=== PATIENT | female | born 1980 | race Caucasian/White ===

== ENCOUNTER 2017-06-06 16:49 | Emergency (ER) | payer SELFPAY ==
[2017-06-06 17:39] LABS: Absolute Lymphocytes (CBC) 2.5 K/uL (0.7-4.9); Absolute Monocytes 0.5 K/uL (0.1-1.3); Absolute Neutrophil 4.2 K/uL (1.8-8.0); Basophils % 0.5 % (0-1.3); Eosinophils % 2.6 % (0-4.4); Lymphocytes % 33.5 % (15.3-44.8); MCH 30.6 pg (27.0-35.0); MCV 94.5 fL (80-100); MPV 8.5 fL (7.6-11.3); Monocytes % 7.1 % (3.3-12.3)
[2017-06-06 17:49] LABS: Bicarbonate 24 mEq/L (21-31); Glucose Level 90 mg/dL (65-120); Potassium 3.5 mEq/L (3.6-5.0); Sodium Level 136 mEq/L (135-145)
[2017-06-06 17:50] LABS: BUN Blood Urea Nitrogen 19 mg/dL (6-20)
--- NOTE | 2017-06-06 18:00 | ER ---
Nurse's Notes [facility] Name: Nunu Johnson Age: 36 yrs Sex: Female : 1980 Arrival Date: 06/06/2017 Time: 16:50 Bed 30 Private MD: Diagnosis: Abnormal uterine and vaginal bleeding, unspecified Presentation: 06/06 17:03 Presenting complaint: Patient states: Vaginal bleeding for 3 weeks. Reports bleeding aj increased 4 days ago and patient states ."I am filling a pad every 30 minutes for 4 or 5 days." Ambulated to triage with steady gait. no dizziness reported when standing or walking. Skin is pink, warm, and dry. Respirations are even and unlabored. Transition of care: patient was not received from another setting of care. Onset of symptoms was May 13, 2017. Initial Sepsis Screen: Does the patient meet any 2 criteria? No. Patient's initial sepsis screen is negative. Does the patient have a suspected source of infection? No. Patient's initial sepsis screen is negative. Care prior to arrival: None. 17:03 Method Of Arrival: Ambulatory 17:03 Acuity: RHINA 3 aj Triage Assessment: 17:05 General: Appears in no apparent distress. comfortable, Behavior is calm, cooperative, aj appropriate for age. Pain: Complains of pain in pelvis. Neuro: Level of Consciousness is awake, alert, obeys commands, Oriented to person, place, time, situation. Respiratory: Airway is patent Respiratory effort is even, unlabored, Respiratory pattern is regular, symmetrical. GI:. : Reports pain vaginal bleeding that is bright red, heavy flow. Derm: Skin is intact, is healthy with good turgor, Skin is pink, warm \\T\\ dry. normal. 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 - Social history:: Smoking status: Patient uses tobacco products, smokes one pack cigarettes per day. Screenin:30 Abuse screen: Denies threats or abuse. Denies injuries from another. Nutritional kr2 screening: No deficits noted. Tuberculosis screening: No symptoms or risk factors identified. Fall Risk None identified. Assessment: 17:15 General: Appears in no apparent distress. uncomfortable, well groomed, well developed, kr2 well nourished, Behavior is calm, cooperative, appropriate for age. Pain: Complains of pain in pelvis Pain currently is 8 out of 10 on a pain scale. Quality of pain is described as crampy, pressure, Is continuous, Alleviated by nothing. Aggravated by increased activity. Neuro: Level of Consciousness is awake, alert, obeys commands, Oriented to person, place, time, situation, Appropriate for age. Cardiovascular: Capillary refill < 3 seconds in bilateral fingers Patient's skin is warm and dry. Respiratory: Airway is patent Respiratory effort is even, unlabored, Respiratory pattern is regular, symmetrical. GI: Bowel sounds present X 4 quads. Abd is soft and non tender X 4 quads. Reports cramping. : Urine is clear. : Reports pain in suprapubic area vaginal bleeding that is heavy flow. EENT: Oral mucosa is moist. Derm: Skin is intact, is healthy with good turgor, Skin is pink, warm \\T\\ dry. Musculoskeletal: Circulation, motion, and sensation intact. Vital Signs: 17:05 BP 122 / 79; Pulse 85; Resp 17; Temp 98.2; Pulse Ox 99% on R/A; Weight 53.07 kg; Height aj 5 ft. 2 in. (157.48 cm); Pain 10/10; 18:29 BP 109 / 74; Pulse 84; Resp 16; Pulse Ox 99% on R/A; kr2 17:05 Body Mass Index 21.40 (53.07 kg, 157.48 cm) ED Course: 16:50 Patient arrived in ED. as 17:04 Triage completed. aj 17:05 Arm band placed on left wrist. Patient placed in an exam room. aj 17:08 Mathew Perez PA is PHCP. jr8 17:08 Noah Costello MD is Attending Physician. jr8 17:14 Dary De La Cruz, VERONICA is Primary Nurse. kr2 17:15 Patient has correct armband on for positive identification. Bed in low position. Call kr2 light in reach. Side rails up X2. Pulse ox on. NIBP on. Door closed. Warm blanket given. Head of bed elevated. 17:22 Initial lab(s) drawn, by me, sent to lab. Inserted saline lock: 22 gauge in right 3 antecubital area, using aseptic technique. Blood collected. 18:28 No provider procedures requiring assistance completed. IV discontinued, intact, kr2 bleeding controlled, No redness/swelling at site. Pressure dressing applied. Administered Medications: 18:15 Drug: Zofran 4 mg Route: IVP; Site: right antecubital; kr2 18:30 Follow up: Response: No adverse reaction kr2 18:17 Drug: morphine 4 mg Route: IVP; Site: right antecubital; kr2 18:30 Follow up: Response: No adverse reaction; Pain is decreased kr2 Outcome: 17:59 Discharge ordered by . velma 18:29 Discharged to home ambulatory, with friend. kr2 18:29 Condition: good 18:29 Discharge instructions given to patient, Instructed on discharge instructions, follow up and referral plans. Demonstrated understanding of instructions, follow-up care. 18:31 Patient left the ED. kr2 Signatures: Karina Nix, RN RN Cassie Steinberg Josh, PA PA jrAmairani Encinasnna [facility] Dary De La Cruz RN RN kr2
--- NOTE | 2017-06-06 18:00 | EDPHYS ---
Physician Documentation [facility] Name: Nunu Johnson Age: 36 yrs Sex: Female : 1980 Arrival Date: 06/06/2017 Time: 16:50 Bed 30 Private MD: ED Physician Noah Costello HPI: 06/06 17:35 This 36 yrs old Female presents to ER via Ambulatory with complaints of jr8 Abdominal Swelling, Vaginal Bleeding. 17:35 The patient presents with abdominal pain in the lower abdomen. Onset: The jr8 symptoms/episode began/occurred gradually, 2 day(s) ago. The symptoms do not radiate. Associated signs and symptoms: Pertinent positives: vaginal bleeding. The symptoms are described as crampy, pressure . Modifying factors: The symptoms are alleviated by nothing, the symptoms are aggravated by nothing. Severity of pain: At its worst the pain was moderate in the emergency department the pain is unchanged. The patient has experienced a previous episode. The patient has not recently seen a physician. Patient stated that she has a history of endometriosis and abnormal bleeding in past. Had regular menstrual cycle which had stopped but now back on it and heavier with pressure . 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 - Social history:: Smoking status: Patient uses tobacco products, smokes one pack cigarettes per day. ROS: 17:35 Eyes: Negative for injury, pain, redness, and discharge, ENT: Negative for injury, jr8 pain, and discharge, Neck: Negative for injury, pain, and swelling, Cardiovascular: Negative for chest pain, palpitations, and edema, Respiratory: Negative for shortness of breath, cough, wheezing, and pleuritic chest pain, Abdomen/GI: Negative for abdominal pain, nausea, vomiting, diarrhea, and constipation, Back: Negative for injury and pain, MS/Extremity: Negative for injury and deformity, Skin: Negative for injury, rash, and discoloration, Neuro: Negative for headache, weakness, numbness, tingling, and seizure. 17:35 : Positive for pelvic pain, vaginal bleeding. Exam: 17:35 Eyes: Pupils equal round and reactive to light, extra-ocular motions intact. Lids and jr8 lashes normal. Conjunctiva and sclera are non-icteric and not injected. Cornea within normal limits. Periorbital areas with no swelling, redness, or edema. ENT: Nares patent. No nasal discharge, no septal abnormalities noted. Tympanic membranes are normal and external auditory canals are clear. Oropharynx with no redness, swelling, or masses, exudates, or evidence of obstruction, uvula midline. Mucous membranes moist. Neck: Trachea midline, no thyromegaly or masses palpated, and no cervical lymphadenopathy. Supple, full range of motion without nuchal rigidity, or vertebral point tenderness. No Meningismus. Cardiovascular: Regular rate and rhythm with a normal S1 and S2. No gallops, murmurs, or rubs. Normal PMI, no JVD. No pulse deficits. Respiratory: Lungs have equal breath sounds bilaterally, clear to auscultation and percussion. No rales, rhonchi or wheezes noted. No increased work of breathing, no retractions or nasal flaring. Abdomen/GI: Soft, non-tender, with normal bowel sounds. No distension or tympany. No guarding or rebound. No evidence of tenderness throughout. Back: No spinal tenderness. No costovertebral tenderness. Full range of motion. Skin: Warm, dry with normal turgor. Normal color with no rashes, no lesions, and no evidence of cellulitis. MS/ Extremity: Pulses equal, no cyanosis. Neurovascular intact. Full, normal range of motion. Neuro: Awake and alert, GCS 15, oriented to person, place, time, and situation. Cranial nerves II-XII grossly intact. Motor strength 5/5 in all extremities. Sensory grossly intact. Cerebellar exam normal. Normal gait. Vital Signs: 17:05 BP 122 / 79; Pulse 85; Resp 17; Temp 98.2; Pulse Ox 99% on R/A; Weight 53.07 kg; Height aj 5 ft. 2 in. (157.48 cm); Pain 10/10; 18:29 BP 109 / 74; Pulse 84; Resp 16; Pulse Ox 99% on R/A; kr2 17:05 Body Mass Index 21.40 (53.07 kg, 157.48 cm) aj MDM: 17:08 Patient medically screened. 8 17:55 Data reviewed: vital signs, nurses notes, lab test result(s), and as a result, I will jr8 discharge patient. Data interpreted: Pulse oximetry: on room air is 99 %. Interpretation: normal. Counseling: I had a detailed discussion with the patient and/or guardian regarding: the historical points, exam findings, and any diagnostic results supporting the discharge/admit diagnosis, lab results, the need for outpatient follow up, an OB/Gyne specialist, to return to the emergency department if symptoms worsen or persist or if there are any questions or concerns that arise at home. ED course: Discussed with patient that her H/H is stable. Not in danger of transfusion at this time. Needs to f/u with powder compounder for further treatment . 18:09 ED course: Patient is an active smoker. Will hold off on BCP for now. If worse to come jr8 back for further evaluation . 06/06 17:08 Order name: CBC with Diff; Complete Time: 17:44 [facility] 06/06 17:08 Order name: Basic Metabolic Panel; Complete Time: 17:55 [facility] 06/06 17:53 Order name: Urine Dipstick--Ancillary (enter results) 06/06 17:53 Order name: Urine --Ancillary (enter results) 06/06 17:08 Order name: Urine Test (obtain specimen); Complete Time: 17:44 [facility] 06/06 17:08 Order name: Urine Dipstick-Ancillary (obtain specimen); Complete Time: 17:44 [facility] 06/06 17:08 Order name: IV; Complete Time: 17:28 [facility] Administered Medications: 18:15 Drug: Zofran 4 mg Route: IVP; Site: right antecubital; kr2 18:30 Follow up: Response: No adverse reaction kr2 18:17 Drug: morphine 4 mg Route: IVP; Site: right antecubital; kr2 18:30 Follow up: Response: No adverse reaction; Pain is decreased kr2 Disposition: 19:02 Co-signature as Attending Physician, Noah Costello MD. rn Disposition: 06/06/17 17:59 Discharged to Home. Impression: Abnormal uterine and vaginal bleeding, unspecified. - Condition is Stable. - Discharge Instructions: Abnormal Uterine Bleeding. - Medication Reconciliation Form, Thank You Letter, Antibiotic Education, Prescription Opioid Use form. - Follow up: Private Physician; When: 2 - 3 days; Reason: Recheck today's complaints, Continuance of care, Re-evaluation by your physician. - Problem is new. - Symptoms are unchanged. Signatures: Dispatcher [employer] Karina Woodall RN RN Noah Moore MD MD rn Roszak, Josh, PA PA jr8 Dary De La Cruz RN RN kr2
[2017-06-06] MEDS ORDERED: MORPHINE 4 MG/ML SYR ONE (18:08)
[2017-06-06] MEDS ORDERED: ONDANSETRON 4 MG/2 ML VIAL ONE (18:08)
[2017-06-06 19:57] LABS: Urine Blood 2+ (NEG); Urine Glucose NEGATIVE (NEG); Urine Protein NEGATIVE (NEG); Urine Specific Gravity >1.030 (1.005-1.030); Urine pH 5.5 (5.0-7.0)
== END 2017-06-06 18:31 | disposition home or self-care (01) ==
LOC: ER 16:49
DX: N93.9 Abnormal uterine and vaginal bleeding, unspecified (principal); F31.9 Bipolar disorder, unspecified
CPT/HCPCS: 36415; 80048; 81003; 81025; 85025; 96374; 96375; 99284; J2405

== ENCOUNTER 2017-07-29 13:01 | Emergency (ER) | payer SELFPAY ==
[2017-07-29] MEDS ORDERED: LORazepam 2 MG/ML VIAL ONE (13:33)
[2017-07-29 13:46] LABS: Protime INR 1.03
[2017-07-29 13:47] LABS: Absolute Lymphocytes (CBC) 2.1 K/uL (0.7-4.9); Absolute Monocytes 0.6 K/uL (0.1-1.3); Absolute Neutrophil 4.8 K/uL (1.8-8.0); Basophils % 0.8 % (0-1.3); Eosinophils % 2.2 % (0-4.4); Hematocrit 33.5 % (36.0-45.0); Lymphocytes % 27.8 % (15.3-44.8); MCH 29.7 pg (27.0-35.0); MCV 88.8 fL (80-100); MPV 8.6 fL (7.6-11.3); Monocytes % 7.2 % (3.3-12.3); RBC Red Blood Cell Count 3.77 M/uL (3.86-4.86)
[2017-07-29 13:54] LABS: Bicarbonate 24 mEq/L (21-31); Glucose Level 89 mg/dL (65-120); Potassium 3.5 mEq/L (3.6-5.0); Sodium Level 139 mEq/L (135-145)
[2017-07-29 14:00] LABS: ALT/SGPT 19 IU/L (10-60); AST/SGOT 21 IU/L (10-42); Albumin 3.8 g/dL (3.2-5.5); Alkaline Phosphatase 44 IU/L (42-121); BUN Blood Urea Nitrogen 17 mg/dL (6-20); Bilirubin Direct 0.1 mg/dL (0-0.2); Bilirubin Total 0.5 mg/dL (0.3-1.2); Magnesium 1.9 mg/dL (1.8-2.5)
--- NOTE | 2017-07-29 14:01 | RAD REPORT ---
EXAM DESCRIPTION: CT - Head Brain Wo Cont - 07/29/2017 1:46 pm CLINICAL HISTORY: NUMBNESS Left-sided headache. COMPARISON: No comparisons TECHNIQUE: All CT scans are performed using dose optimization technique as appropriate and may inclu de automated exposure control or mA/KV adjustment according to patient size. FINDINGS: No intracranial hemorrhage, hydrocephalus or extra-axial fluid collection.No areas of brai n edema or evidence of midline shift. The paranasal sinuses and mastoids are clear. The calvarium is intact. IMPRESSION: No acute intracranial abnormality.
--- NOTE | 2017-07-29 14:33 | RAD REPORT ---
EXAM DESCRIPTION: RAD - Chest Single View - 07/29/2017 2:27 pm CLINICAL HISTORY: MALAISE Chest pain. COMPARISON: No comparisonsNo comparisons FINDINGS: Portable technique limits examination quality. The lungs are grossly clear. The heart is normal in size. No displaced fractures. IMPRESSION: No acute intrathoracic process suspected.
[2017-07-29 16:15] LABS: Urine Blood NEGATIVE (NEG); Urine Glucose NEGATIVE (NEG); Urine Protein TRACE (NEG); Urine Specific Gravity 1.015 (1.005-1.030); Urine pH 8.5 (5.0-7.0)
[2017-07-29 16:29] LABS: Barbiturates NEGATIVE (NEGATIVE); Benzodiazepines NEGATIVE (NEGATIVE); Cocaine NEGATIVE (NEGATIVE); METHAMPHETAM NEGATIVE (NEGATIVE); Opiates NEGATIVE (NEGATIVE); Phencyclidine NEGATIVE (NEGATIVE); THC Cannibis POSITIVE (NEGATIVE)
[2017-07-29 16:30] LABS: Urine Specific Gravity 1.015 (1.005-1.030)
[2017-07-29 16:33] LABS: Urine Amorphous Sediment 2+ /HPF (NONE SEEN); Urine Bacteria 20-50 /HPF (<20); Urine Culture Reflex Order REFLEXED; Urine RBC <5 /HPF (NONE SEEN)
[2017-07-29] MEDS ORDERED: IBUPROFEN 400 MG TAB ONE (16:44)
[2017-07-29] MEDS ORDERED: IBUPROFEN 200 MG TAB PO ONE (16:45)
--- NOTE | 2017-07-29 16:48 | EDPHYS ---
Physician Documentation [facility] Name: Nunu Johnson Age: 36 yrs Sex: Female : 1980 Arrival Date: 07/29/2017 Time: 13:05 Bed 7 Private MD: ED Physician James Padgett HPI: 07/29 16:40 This 36 yrs old Female presents to ER via EMS with complaints of Doesn't Feel gs Right, Numbness. 16:40 The patient's problem is reported as paresthesias, in left upper extremity, in left gs lower extremity. 16:41 Onset: The symptoms/episode began/occurred acutely, just prior to arrival, 1 hour(s) gs ago. Duration: The episode is continuous. The symptoms are alleviated by nothing. The symptoms are aggravated by nothing. Associated signs and symptoms: Pertinent negatives: combativeness, confusion, numbness. Severity of symptoms: At their worst the symptoms were moderate in the emergency department the symptoms are unchanged. The patient has experienced similar episodes in the past, a few times. 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 - Social history:: Smoking status: Patient uses tobacco products, smokes one-half pack cigarettes per day. - Ebola Screening: : No symptoms or risks identified at this time. ROS: 16:41 All other systems are negative. gs Exam: 16:41 Radiologist reports: NAD 16:41 Head/Face: Normocephalic, atraumatic. Eyes: Pupils equal round and reactive to light, extra-ocular motions intact. Lids and lashes normal. Conjunctiva and sclera are non-icteric and not injected. Cornea within normal limits. Periorbital areas with no swelling, redness, or edema. ENT: Nares patent. No nasal discharge, no septal abnormalities noted. Tympanic membranes are normal and external auditory canals are clear. Oropharynx with no redness, swelling, or masses, exudates, or evidence of obstruction, uvula midline. Mucous membranes moist. Neck: Trachea midline, no thyromegaly or masses palpated, and no cervical lymphadenopathy. Supple, full range of motion without nuchal rigidity, or vertebral point tenderness. No Meningismus. Chest/axilla: Normal chest wall appearance and motion. Nontender with no deformity. No lesions are appreciated. Cardiovascular: Regular rate and rhythm with a normal S1 and S2. No gallops, murmurs, or rubs. Normal PMI, no JVD. No pulse deficits. Respiratory: Lungs have equal breath sounds bilaterally, clear to auscultation and percussion. No rales, rhonchi or wheezes noted. No increased work of breathing, no retractions or nasal flaring. Abdomen/GI: Soft, non-tender, with normal bowel sounds. No distension or tympany. No guarding or rebound. No evidence of tenderness throughout. Back: No spinal tenderness. No costovertebral tenderness. Full range of motion. Skin: Warm, dry with normal turgor. Normal color with no rashes, no lesions, and no evidence of cellulitis. MS/ Extremity: Pulses equal, no cyanosis. Neurovascular intact. Full, normal range of motion. 16:41 Constitutional: The patient appears alert, awake. 16:41 Neuro: Orientation: to person, place, time \T\ situation. Mentation: is normal, appropriate for stated age, Memory: is normal, Cranial nerves: CN II- XII are normal as tested, visual davidson are intact. extraocular movements are intact, Facial palsy and sensory deficits are absent. Nystagmus is absent. Cerebellar function: normal finger to nose testing, Motor: moves all fours, strength is 5/5 in all extremities, Sensation: numbness, is not appreciated, tingling, that is mild, of the left arm and left leg, pin prick testing is normal, 2 point discrimination is normal, Gait: is steady, Deep tendon reflexes are 3+ (brisk) in the right patellar and left patellar, 4+ (non-sustained clonus) in the right Achilles and left Achilles, Babinski testing is normal, Abnormal movements: resting tremor, is located in the left hand and left foot. Vital Signs: 13:14 BP 114 / 83; Pulse 79; Resp 22; Temp 98.1; Pulse Ox 100% on R/A; Weight 55.79 kg; ph Height 5 ft. 2 in. (157.48 cm); 14:01 BP 106 / 78; Pulse 77; Resp 16; Pulse Ox 98% on R/A; ph 15:00 BP 109 / 78; Pulse 78; Resp 18; Pulse Ox 99% on R/A; ph 16:00 BP 114 / 72; Pulse 75; Resp 18; Pulse Ox 99% on R/A; ph 17:13 BP 112 / 75; Pulse 76; Resp 18; Temp 97.8; Pulse Ox 99% on R/A; ph 13:14 Body Mass Index 22.50 (55.79 kg, 157.48 cm) ph MDM: 13:23 Patient medically screened. 16:41 Differential diagnosis: CVA, TIA, metabolic disorder, drug effects, DYSTONIA, SEROTONIN gs SYNDROME. Data reviewed: vital signs, nurses notes. Response to treatment: the patient's symptoms have resolved after treatment, and as a result, I will discharge patient. 07/29 13:27 Order name: Basic Metabolic Panel; Complete Time: 14:14 07/29 13:27 Order name: CBC with Diff; Complete Time: 14:14 07/29 13:27 Order name: LFT's; Complete Time: 14:14 07/29 13:27 Order name: Magnesium; Complete Time: 14:14 07/29 13:27 Order name: PT-INR; Complete Time: 14:14 07/29 13:27 Order name: Troponin (emerg Dept Use Only); Complete Time: 14:14 07/29 13:27 Order name: XRAY Chest (1 view); Complete Time: 14:41 07/29 13:27 Order name: CT Head Brain wo Cont; Complete Time: 14:14 07/29 13:27 Order name: Urine Drug Screen; Complete Time: 16:38 07/29 16:11 Order name: Urine Microscopic Only; Complete Time: 16:38 07/29 16:14 Order name: Urine Dipstick--Ancillary (enter results); Complete Time: 16:20 em1 07/29 16:17 Order name: Urine --Ancillary (enter results); Complete Time: 16:38 [facility] 07/29 16:34 Order name: Urine Culture EDMA 07/29 13:27 Order name: Cardiac monitoring; Complete Time: 13:39 07/29 13:27 Order name: EKG - Nurse/Tech; Complete Time: 15:33 07/29 13:27 Order name: IV Saline Lock; Complete Time: 13:39 07/29 13:27 Order name: Labs collected and sent; Complete Time: 13:39 07/29 13:27 Order name: O2 Per Protocol; Complete Time: 13:39 07/29 13:27 Order name: O2 Sat Monitoring; Complete Time: 13:39 07/29 13:27 Order name: Urine Dipstick-Ancillary (obtain specimen); Complete Time: 16:12 Administered Medications: 13:39 Drug: Ativan 0.5 mg Route: IVP; Site: left antecubital; ph 14:10 Follow up: Response: No adverse reaction; Anxiety decreased ph 16:45 Drug: Ibuprofen 600 mg Route: PO; ph 17:13 Follow up: Response: No adverse reaction ph Disposition: 07/29/17 16:47 Discharged to Home. Impression: Dystonia, unspecified, Paresthesia of skin, Cystitis. - Condition is Stable. - Discharge Instructions: Dystonic Reaction, Paresthesia, [id number]. - Prescriptions for Ativan 0.5 mg Oral Tablet - take 1 tablet by ORAL route every 8 hours As needed; 12 tablet. Keflex 500 mg Oral Capsule - take 1 capsule by ORAL route every 12 hours for 5 days; 10 capsule. - Work release form, Family Work Release, Medication Reconciliation Form, Thank You Letter, Antibiotic Education, Prescription Opioid Use form. - Follow up: Private Physician; When: 2 - 3 days; Reason: Re-evaluation by your physician. Follow up: Richard Castellanos MD; When: 2 - 3 days; Reason: Re-evaluation by your physician. Signatures: Dispatcher [employer] Edel Del Rosario RN RN ph PadgettJames MD MD gs Corrections: (The following items were deleted from the chart) 16:49 16:47 07/29/2017 16:47 Discharged to Home. Impression: Dystonia, unspecified; gs Paresthesia of skin. Condition is Stable. Forms are Medication Reconciliation Form, Thank You Letter, Antibiotic Education, Prescription Opioid Use. Follow up: Private Physician; When: 2 - 3 days; Reason: Re-evaluation by your physician. Follow up: Richard Castellanos; When: 2 - 3 days; Reason: Re-evaluation by your physician. 17:15 16:49 07/29/2017 16:47 Discharged to Home. Impression: Dystonia, unspecified; ph Paresthesia of skin; Cystitis. Condition is Stable. Discharge Instructions: Dystonic Reaction, Paresthesia, [id number]. Prescriptions for Ativan 0.5 mg Oral Tablet - take 1 tablet by ORAL route every 8 hours As needed; 12 tablet. and Forms are Medication Reconciliation Form, Thank You Letter, Antibiotic Education, Prescription Opioid Use. Follow up: Private Physician; When: 2 - 3 days; Reason: Re-evaluation by your physician. Follow up: Richard Castellanos; When: 2 - 3 days; Reason: Re-evaluation by your physician.
--- NOTE | 2017-07-29 16:48 | ER ---
Nurse's Notes 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 Transition of care: patient was not received from another setting of care. Onset of symptoms was July 29, 2017. Risk Assessment: Do you want to hurt yourself or someone else? Patient reports no desire to harm self or others. Initial Sepsis Screen: Does the patient meet any 2 criteria? No. Patient's initial sepsis screen is negative. Does the patient have a suspected source of infection? No. Patient's initial sepsis screen is negative. Care prior to arrival: None. 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 - Social history:: Smoking status: Patient uses tobacco products, smokes one-half pack cigarettes per day. - Ebola Screening: : No symptoms or risks identified at this time. Screenin:17 Abuse screen: Denies threats or abuse. Denies injuries from another. Nutritional ph screening: No deficits noted. Tuberculosis screening: No symptoms or risk factors identified. Fall Risk None identified. Assessment: 13:18 Reassessment: Dr Padgett at bedside to assess pt. ph 13:20 General: Appears in no apparent distress. uncomfortable, slender, well groomed, ph Behavior is cooperative, appropriate for age, anxious. Pain: Complains of pain in posterior aspect of left lateral abdomen and anterior aspect of left lateral abdomen Pain radiates to left lower quadrant. Neuro: Level of Consciousness is awake, alert, obeys commands, Oriented to person, place, time, situation, Digital Photographic Printer are equal bilaterally Moves all extremities. Full function Speech is normal, Facial symmetry appears normal, Facial symmetry: tongue is midline, Pupils are PERRLA, Reports paresthesias in right hand, left hand, right foot, left foot, left arm, left leg and mouth Denies blurred vision difficulty swallowing, headache. Cardiovascular: Denies chest pain, shortness of breath, Capillary refill < 3 seconds Patient's skin is warm and dry. Respiratory: Airway is patent Respiratory effort is even, unlabored, Respiratory pattern is regular, symmetrical. : Reports pain in left flank(s), Denies burning with urination, inability to void, urinary frequency. Derm: Skin is intact, is healthy with good turgor, Skin is pink, warm \\T\\ dry. Musculoskeletal: Circulation, motion, and sensation intact. Range of motion: intact in all extremities. 13:59 Reassessment: Patient appears in no apparent distress at this time. Patient and/or ph family updated on plan of care and expected duration. Pain level reassessed. Patient is alert, oriented x 3, equal unlabored respirations, skin warm/dry/pink. Pt resting quietly, lying ion side, reports that pain has improved, states, " It comes and goes now, but it feels a little better." Pt also reports that shakiness has improved, VSS stable, awaiting lab and CT results. 15:19 Reassessment: Patient appears in no apparent distress at this time. Patient and/or ph family updated on plan of care and expected duration. Pain level reassessed. Patient is alert, oriented x 3, equal unlabored respirations, skin warm/dry/pink. Pt sleeping, respirations even and unlabored, awakens easily. 16:15 Reassessment: Patient appears in no apparent distress at this time. Patient and/or ph family updated on plan of care and expected duration. Pain level reassessed. Patient is alert, oriented x 3, equal unlabored respirations, skin warm/dry/pink. Pt assisted to restroom via wheelchair, urine sample obtained, cloudy in appearance, pt continues to c/o pain in L flank, ERP notified, see MAR. 17:10 Reassessment: Patient appears in no apparent distress at this time. Patient and/or ph family updated on plan of care and expected duration. Pain level reassessed. Patient is alert, oriented x 3, equal unlabored respirations, skin warm/dry/pink. Pt d/c home w/ SO. Vital Signs: 13:14 BP 114 / 83; Pulse 79; Resp 22; Temp 98.1; Pulse Ox 100% on R/A; Weight 55.79 kg; ph Height 5 ft. 2 in. (157.48 cm); 14:01 BP 106 / 78; Pulse 77; Resp 16; Pulse Ox 98% on R/A; ph 15:00 BP 109 / 78; Pulse 78; Resp 18; Pulse Ox 99% on R/A; ph 16:00 BP 114 / 72; Pulse 75; Resp 18; Pulse Ox 99% on R/A; ph 17:13 BP 112 / 75; Pulse 76; Resp 18; Temp 97.8; Pulse Ox 99% on R/A; ph 13:14 Body Mass Index 22.50 (55.79 kg, 157.48 cm) ph ED Course: 13:05 Patient arrived in ED. ph 13:06 James Padgett MD is Attending Physician. gs 13:14 Triage completed. ph 13:17 Patient has correct armband on for positive identification. Bed in low position. Call ph light in reach. Side rails up X 1. classroom monitor on. Pulse ox on. NIBP on. Warm blanket given. 13:18 Arm band placed on. ph 13:19 Edel Romo, VERONICA is Primary Nurse. ph 13:19 Inserted saline lock: 20 gauge in left antecubital area, using aseptic technique. Blood ph collected. 13:46 CT completed. Patient moved to CT via wheelchair. Patient moved back from CT. cw1 13:46 CT Head Brain wo Cont In Process Unspecified. EDMS 14:25 X-ray completed. Portable x-ray completed in exam room. Patient tolerated procedure kp1 well. 14:28 XRAY Chest (1 view) In Process Unspecified. EDMS 16:14 Urine collected: clean catch specimen, cloudy. ss 16:47 Richard Castellanos MD is Referral Physician. gs 17:14 No provider procedures requiring assistance completed. IV discontinued, intact, ph bleeding controlled, No redness/swelling at site. Pressure dressing applied. Administered Medications: 13:39 Drug: Ativan 0.5 mg Route: IVP; Site: left antecubital; ph 14:10 Follow up: Response: No adverse reaction; Anxiety decreased ph 16:45 Drug: Ibuprofen 600 mg Route: PO; ph 17:13 Follow up: Response: No adverse reaction ph Outcome: 16:47 Discharge ordered by MD. gs 17:15 Discharged to home ambulatory, with significant other. ph 17:15 Condition: improved 17:15 Discharge instructions given to patient, Instructed on discharge instructions, follow up and referral plans. medication usage, Demonstrated understanding of instructions, follow-up care, medications, Prescriptions given X 2. 17:15 Patient left the ED. ph Addendum: 08/01/2017 17:16 Addendum: Culture Results: Positive urine culture. No further action required. Other: s s prescription for Macrobid called into [facility] pharmacy as requested by patient. Patient reports she is not feeling worse, but her symptoms have nor improved. Pt is very thankful for the follow up call. . Signatures: Dispatcher [employer] EDMS Brandy High RN RN ss Woodley, Crystal cw1 Edel Romo RN RN ph Poole, Kathy kp1 James Padgett MD MD
== END 2017-07-29 17:15 | disposition home or self-care (01) ==
LOC: ER 13:01
DX: G24.9 Dystonia, unspecified (principal); N30.90 Cystitis, unspecified without hematuria; F31.9 Bipolar disorder, unspecified; F17.210 Nicotine dependence, cigarettes, uncomplicated
CPT/HCPCS: 36415; 70450; 71045; 80048; 80076; 80307; 81003; 81015; 81025; 83735; 84484; 85025; 85610; 87077; 87086; 87088; 87186; 96374; 99285

== ENCOUNTER 2017-10-18 16:43 | Emergency (ER) | payer SELFPAY ==
--- NOTE | 2017-10-18 19:55 | EDPHYS ---
Physician Documentation [facility] Name: Nunu Johnson Age: 37 yrs Sex: Female : 1980 Arrival Date: 10/18/2017 Time: 16:44 Bed 13 Private MD: ED Physician Fred Polo HPI: 10/18 19:56 This 37 yrs old Female presents to ER via Ambulatory with complaints of Flu ps1 Symptoms. 19:56 This 37 yrs old Female presents to ER via Ambulatory with complaints of Flu ps1 Symptoms. 19:50 patient with generalized flu like symptoms for 3 days. Fever, myalgias, sore throat. No ps1 dysuria. Taking motrin. No nausea. Has intermittent migraines but not affected yet. Pain mild and described as discomfort. . 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 - Social history:: Smoking status: Patient uses tobacco products, smokes one-half pack cigarettes per day. - Ebola Screening: : Patient negative for fever greater than or equal to 101.5 degrees Fahrenheit, and additional compatible Ebola Virus Disease symptoms Patient denies exposure to infectious person Patient denies travel to an Ebola-affected area in the 21 days before illness onset No symptoms or risks identified at this time. ROS: 19:50 Eyes: Negative for injury, pain, redness, and discharge, ENT: Negative for injury, ps1 pain, and discharge, Cardiovascular: Negative for chest pain, palpitations, and edema, Respiratory: Negative for shortness of breath, cough, wheezing, and pleuritic chest pain, Abdomen/GI: Negative for abdominal pain, nausea, vomiting, diarrhea, and constipation, Neuro: Negative for headache, weakness, numbness, tingling, and seizure, Psych: Negative for depression, anxiety, suicide ideation, homicidal ideation, and hallucinations. 19:50 Constitutional: Positive for body aches, chills, fatigue, fever. 19:50 ENT: Positive for sore throat. Exam: 19:50 Constitutional: This is a well developed, well nourished patient who is awake, alert, ps1 and in no acute distress. Head/Face: Normocephalic, atraumatic. Eyes: Pupils equal round and reactive to light, extra-ocular motions intact. Lids and lashes normal. Conjunctiva and sclera are non-icteric and not injected. Chest/axilla: Normal chest wall appearance and motion. Nontender with no deformity. No lesions are appreciated. Cardiovascular: Regular rate and rhythm. No gallops, murmurs, or rubs. Normal PMI, no JVD. No pulse deficits. Respiratory: Lungs have equal breath sounds bilaterally, clear to auscultation and percussion. No rales, rhonchi or wheezes noted. No increased work of breathing, no retractions or nasal flaring. Abdomen/GI: Soft, non-tender, with normal bowel sounds. No distension or tympany. No guarding or rebound. No evidence of tenderness throughout. Skin: Warm, dry with normal turgor. Normal color with no rashes, no lesions, and no evidence of cellulitis. MS/ Extremity: Pulses equal, no cyanosis. Neurovascular intact. Full, normal range of motion. Neuro: Awake and alert, GCS 15, oriented to person, place, time, and situation. Cranial nerves II-XII grossly intact. Sensory grossly intact. Psych: Awake, alert, with orientation to person, place and time. Behavior, mood, and affect are within normal limits. Vital Signs: 16:51 BP 115 / 73; Pulse 82; Resp 17; Temp 97.9; Pulse Ox 99% on R/A; Weight 56.7 kg; Height aj 5 ft. 2 in. (157.48 cm); 16:51 Body Mass Index 22.86 (56.70 kg, 157.48 cm) aj MDM: 19:50 Data reviewed: vital signs, nurses notes, lab test result(s), urinalysis, and as a ps1 result, I will discharge patient, administer antibiotics keflex. Counseling: I had a detailed discussion with the patient and/or guardian regarding: the historical points, exam findings, and any diagnostic results supporting the discharge/admit diagnosis, lab results, the need for outpatient follow up, an support representative. 19:54 Patient medically screened. ps1 10/18 16:52 Order name: Flu; Complete Time: 17:39 10/18 16:52 Order name: Strep; Complete Time: 17:39 10/18 17:26 Order name: Throat Culture [facility] 10/18 19:54 Order name: Urine Microscopic Only hi 10/18 19:57 Order name: Urine Dipstick--Ancillary (enter results) [facility] 10/18 19:57 Order name: Urine --Ancillary (enter results) [facility] 10/18 19:43 Order name: Urine Dipstick-Ancillary (obtain specimen); Complete Time: 19:48 ps1 Administered Medications: No medications were administered Disposition: 10/18/17 19:54 Discharged to Home. Impression: Acute cystitis with hematuria. - Condition is Stable. - Discharge Instructions: Urinary Tract Infection, Adult. - Prescriptions for Keflex 500 mg Oral Capsule - take 1 capsule by ORAL route every 8 hours for 10 days; 30 capsule. - Work release form, Family Work Release, Medication Reconciliation Form, Thank You Letter, Antibiotic Education, Prescription Opioid Use form. - Follow up: Private Physician; When: As needed; Reason: Recheck today's complaints, Continuance of care, Re-evaluation by your physician. Follow up: Emergency Department; When: As needed; Reason: Fever > 102 F, Trouble breathing, Worsening of condition. - Problem is new. - Symptoms are unchanged. Signatures: Dispatcher [employer] Karina Woodall RN RN aj Marvin Campbell MD MD kdr Yamileth Fajardo RN RN ak1 Fred Polo MD MD ps1 Corrections: (The following items were deleted from the chart) 20:09 19:54 10/18/2017 19:54 Discharged to Home. Impression: Acute cystitis with hematuria. ak1 Condition is Stable. Forms are Medication Reconciliation Form, Thank You Letter, Antibiotic Education, Prescription Opioid Use. Follow up: Private Physician; When: As needed; Reason: Recheck today's complaints, Continuance of care, Re-evaluation by your physician. Follow up: Emergency Department; When: As needed; Reason: Fever > 102 F, Trouble breathing, Worsening of condition. Problem is new. Symptoms are unchanged. ps1
--- NOTE | 2017-10-18 19:55 | ER ---
Nurse's Notes [facility] Name: Nunu Johnson Age: 37 yrs Sex: Female : 1980 Arrival Date: 10/18/2017 Time: 16:44 Bed 13 Private MD: Diagnosis: Acute cystitis with hematuria Presentation: 10/18 16:50 Presenting complaint: Patient states: Body aches, sore throat, headache for 2 days. aj Denies fever. Transition of care: patient was not received from another setting of care. Onset of symptoms was October 16, 2017. Risk Assessment: Do you want to hurt yourself or someone else? Patient reports no desire to harm self or others. Initial Sepsis Screen: Does the patient meet any 2 criteria? No. Patient's initial sepsis screen is negative. Does the patient have a suspected source of infection? No. Patient's initial sepsis screen is negative. Care prior to arrival: None. 16:50 Method Of Arrival: Ambulatory aj 16:50 Acuity: RHINA 4 aj Triage Assessment: 16:51 General: Appears in no apparent distress. comfortable, Behavior is calm, cooperative, aj appropriate for age. Pain: Denies pain. EENT: Reports pain when swallowing. Neuro: Level of Consciousness is awake, alert, obeys commands, Oriented to person, place, time, situation, Appropriate for age. Respiratory: Airway is patent Trachea midline Respiratory effort is even, unlabored, Respiratory pattern is regular, symmetrical. GI: No signs and/or symptoms were reported involving the gastrointestinal system. Derm: Skin is intact, is healthy with good turgor, Skin is pink, warm \T\ dry. normal. 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 - Social history:: Smoking status: Patient uses tobacco products, smokes one-half pack cigarettes per day. - Ebola Screening: : Patient negative for fever greater than or equal to 101.5 degrees Fahrenheit, and additional compatible Ebola Virus Disease symptoms Patient denies exposure to infectious person Patient denies travel to an Ebola-affected area in the 21 days before illness onset No symptoms or risks identified at this time. Screenin:40 Abuse screen: Denies threats or abuse. Denies injuries from another. Nutritional ak1 screening: No deficits noted. Tuberculosis screening: No symptoms or risk factors identified. Fall Risk None identified. Assessment: 19:38 General: Appears in no apparent distress. Behavior is calm, cooperative. Pain: ak1 Complains of pain in body aches. Neuro: No deficits noted. Cardiovascular: No deficits noted. Respiratory: Reports cough that is. GI: No deficits noted. : No deficits noted. EENT: Reports throat pain. Derm: No signs and/or symptoms reported regarding the dermatologic system. Musculoskeletal: Reports body aches. Vital Signs: 16:51 BP 115 / 73; Pulse 82; Resp 17; Temp 97.9; Pulse Ox 99% on R/A; Weight 56.7 kg; Height aj 5 ft. 2 in. (157.48 cm); 16:51 Body Mass Index 22.86 (56.70 kg, 157.48 cm) aj ED Course: 16:44 Patient arrived in ED. am2 16:51 Triage completed. aj 16:51 Arm band placed on left wrist. Patient placed in waiting room, Patient notified of wait aj time. 17:39 Marvin Campbell MD is Attending Physician. kdr 19:11 Fred Polo MD is Attending Physician. ps1 19:17 Yamileth Fajardo, RN is Primary Nurse. ak1 19:40 Patient has correct armband on for positive identification. Placed in gown. Bed in low ak1 position. Call light in reach. Side rails up X 1. 20:03 No provider procedures requiring assistance completed. Patient did not have IV access ak1 during this emergency room visit. Administered Medications: No medications were administered Outcome: 19:54 Discharge ordered by . ps1 20:03 Discharged to home ambulatory, with family. ak1 20:03 Condition: good 20:03 Discharge instructions given to patient, family, Instructed on discharge instructions, follow up and referral plans. medication usage, safe sex practices, control, Demonstrated understanding of instructions, follow-up care, medications, Prescriptions given X 1. 20:09 Patient left the ED. ak1 Addendum: 10/22/2017 09:45 Addendum: Culture Results: Positive urine culture. Bacteria is resistant to, has i w intermediate sensitivity, or is not tested against prescribed antibiotics. Report given to DARLYN for further evaluation and then to manager battery for follow up with patient. Phone call Attempt #1 pt symptoms improving, no further orders needed. Signatures: Karina Nix RN RN aj Rittger, Kevin, MD MD kdr Kristie Garcia RN RN iw Yamileth Fajardo RN RN ak1 Karina Pena am2 Fred Polo MD MD ps1
[2017-10-18 21:34] LABS: Urine Blood NEGATIVE (NEG); Urine Glucose NEGATIVE (NEG); Urine Protein NEGATIVE (NEG); Urine Specific Gravity >1.030 (1.005-1.030); Urine pH 5.5 (5.0-7.0)
[2017-10-18 22:21] LABS: Urine Bacteria >50 /HPF (<20); Urine Culture Reflex Order REFLEXED; Urine Mucus 1+ /HPF (NONE SEEN); Urine RBC <5 /HPF (NONE SEEN)
== END 2017-10-18 20:09 | disposition home or self-care (01) ==
LOC: ER 16:43
DX: N30.01 Acute cystitis with hematuria (principal); F31.9 Bipolar disorder, unspecified; F41.9 Anxiety disorder, unspecified
CPT/HCPCS: 81003; 81015; 81025; 87070; 87077; 87081; 87086; 87088; 87186; 87804; 99282

== ENCOUNTER 2018-02-23 11:50 | Emergency (ER) | payer SELFPAY ==
[2018-02-23] MEDS ORDERED: HYDROCODONE/APAP 5/325 MG TAB ONE (12:51)
--- NOTE | 2018-02-23 13:27 | EDPHYS ---
Physician Documentation [facility] Name: Nunu Johnson Age: 37 yrs Sex: Female : 1980 Arrival Date: 02/23/2018 Time: 11:51 Bed 24 Private MD: ED Physician James Padgett HPI: 02/23 12:11 This 37 yrs old Female presents to ER via Wheelchair with complaints of Knee kb Pain. 12:11 The patient presents with decreased range of motion, an injury, pain, swelling, kb tenderness. The complaints affect the right knee. Context: The problem was sustained at home, resulted from jumping on the bed and twisting extremity, the patient can fully bear weight, uses a brace. Onset: The symptoms/episode began/occurred 1.5 week(s) ago. Modifying factors: The symptoms are alleviated by nothing. the symptoms are aggravated by nothing. Associated signs and symptoms: Pertinent positives: swelling, Pertinent negatives calf tenderness, fever, nausea, numbness, rash, tingling, vomiting, warmth, weakness. Treatment prior to arrival includes: knee brace. Severity of symptoms: At their worst the symptoms were moderate, in the emergency department the symptoms are unchanged. The patient has not experienced similar symptoms in the past. The patient has not recently seen a physician. Historical: - Allergies: 11:57 No Known Allergies; sv - PMHx: 11:57 Anxiety; Bipolar disorder; Endometrosis; sv - PSHx: 11:57 Tonsillectomy; Tubal ligation; sv - Immunization history:: Adult Immunizations up to date. - Social history:: Smoking status: Patient uses tobacco products, smokes one pack cigarettes per day. - Ebola Screening: : No symptoms or risks identified at this time. ROS: 12:07 Constitutional: Negative for fever, chills, and weight loss, Cardiovascular: Negative kb for chest pain, palpitations, and edema, Respiratory: Negative for shortness of breath, cough, wheezing, and pleuritic chest pain, Abdomen/GI: Negative for abdominal pain, nausea, vomiting, diarrhea, and constipation, Skin: Negative for injury, rash, and discoloration, Neuro: Negative for headache, weakness, numbness, tingling, and seizure. 12:07 MS/extremity: Positive for injury or acute deformity, pain, swelling, tenderness, of the right knee. Exam: 12:07 Constitutional: This is a well developed, well nourished patient who is awake, alert, kb and in no acute distress. Head/Face: Normocephalic, atraumatic. Neck: Trachea midline, no thyromegaly or masses palpated, and no cervical lymphadenopathy. Supple, full range of motion without nuchal rigidity, or vertebral point tenderness. No Meningismus. Chest/axilla: Normal chest wall appearance and motion. Nontender with no deformity. No lesions are appreciated. Cardiovascular: Regular rate and rhythm with a normal S1 and S2. No gallops, murmurs, or rubs. Normal PMI, no JVD. No pulse deficits. Respiratory: Lungs have equal breath sounds bilaterally, clear to auscultation and percussion. No rales, rhonchi or wheezes noted. No increased work of breathing, no retractions or nasal flaring. Abdomen/GI: Soft, non-tender, with normal bowel sounds. No distension or tympany. No guarding or rebound. No evidence of tenderness throughout. Skin: Warm, dry with normal turgor. Normal color with no rashes, no lesions, and no evidence of cellulitis. Neuro: Awake and alert, GCS 15, oriented to person, place, time, and situation. Cranial nerves II-XII grossly intact. Motor strength 5/5 in all extremities. Sensory grossly intact. Cerebellar exam normal. Normal gait. 12:07 Musculoskeletal/extremity: Extremities: grossly normal except: noted in the right knee: pain, swelling, tenderness, ROM: limited active range of motion due to pain, in the right knee, Circulation is intact in all extremities. Sensation intact. Weight bearing: able to fully bear weight. Vital Signs: 11:57 BP 108 / 69; Pulse 96; Resp 16; Temp 98.2; Pulse Ox 99% ; Weight 58.97 kg; Height 5 ft. sv 2 in. (157.48 cm); Pain 7/10; 11:57 Body Mass Index 23.78 (58.97 kg, 157.48 cm) sv MDM: 11:59 Patient medically screened. kb 12:11 Data reviewed: vital signs, nurses notes. Data interpreted: Pulse oximetry: on room air kb is 99 %. Interpretation: normal. 13:25 Counseling: I had a detailed discussion with the patient and/or guardian regarding: the kb historical points, exam findings, and any diagnostic results supporting the discharge/admit diagnosis, radiology results, the need for outpatient follow up, a orthopedic surgeon, to return to the emergency department if symptoms worsen or persist or if there are any questions or concerns that arise at home. 02/23 11:59 Order name: Knee Right 3 View XRAY Administered Medications: 12:43 Drug: [place] 5 mg-325 mg 1 tabs Route: PO; la1 13:55 Follow up: Response: No adverse reaction; Pain is decreased la1 Disposition: 17:28 Co-signature as Attending Physician, James Padgett MD. Disposition: 02/23/18 13:25 Discharged to Home. Impression: Sprain of unspecified site of right knee. - Condition is Stable. - Discharge Instructions: Knee Sprain, [id number]. - Prescriptions for Diclofenac Sodium 75 mg Oral Tablet, Delayed Release (E.C.) - take 1 tablet by ORAL route 2 times per day As needed; 30 tablet. - Medication Reconciliation Form, Thank You Letter, Antibiotic Education, Prescription Opioid Use, Work release form form. - Follow up: Emergency Department; When: As needed; Reason: Worsening of condition. Follow up: Private Physician; When: 2 - 3 days; Reason: Recheck today's complaints, Continuance of care, Re-evaluation by your physician. Signatures: Dispatcher [employer] EDKalyn James, MADDIE TANK STAVE ASSEMBLER-Didi Srinivasan RN RN sv Attema, Lee, RN RN [facility] James Padgett MD MD Corrections: (The following items were deleted from the chart) 12:10 12:07 Musculoskeletal/extremity: Extremities: grossly normal except: noted in the right kb knee: pain, swelling, tenderness, ROM: limited active range of motion due to pain, in the right knee, Circulation is intact in all extremities. Sensation intact. 13:53 13:25 02/23/2018 13:25 Discharged to Home. Impression: Sprain of unspecified site of la1 right knee. Condition is Stable. Forms are Medication Reconciliation Form, Thank You Letter, Antibiotic Education, Prescription Opioid Use. Follow up: Emergency Department; When: As needed; Reason: Worsening of condition. Follow up: Private Physician; When: 2 - 3 days; Reason: Recheck today's complaints, Continuance of care, Re-evaluation by your physician. kb
--- NOTE | 2018-02-23 13:27 | ER ---
Nurse's Notes [facility] Name: Nunu Johnson Age: 37 yrs Sex: Female : 1980 Arrival Date: 02/23/2018 Time: 11:51 Bed 24 Private MD: Diagnosis: Sprain of unspecified site of right knee Presentation: 02/23 11:56 Presenting complaint: Patient states: right knee pain for about 1.5 weeks after jumping sv on the bed and felt her knee go the opposite way. Transition of care: patient was not received from another setting of care. Onset of symptoms was February 2017. Care prior to arrival: None. 11:56 Method Of Arrival: Wheelchair sv 11:56 Acuity: RHINA 4 sv 13:55 Risk Assessment: Do you want to hurt yourself or someone else? Patient reports no la1 desire to harm self or others. Initial Sepsis Screen: Does the patient meet any 2 criteria? No. Patient's initial sepsis screen is negative. Does the patient have a suspected source of infection? No. Patient's initial sepsis screen is negative. Triage Assessment: 11:58 General: Appears in no apparent distress. uncomfortable, Behavior is calm, cooperative, sv appropriate for age. Pain: Complains of pain in right knee Pain currently is 7 out of 10 on a pain scale. Neuro: Level of Consciousness is awake, alert, obeys commands, Oriented to person, place, time, situation, Moves all extremities. Respiratory: Respiratory effort is even, unlabored, Respiratory pattern is regular, symmetrical. Musculoskeletal: Pt has her own knee brace on her right knee. Historical: - Allergies: 11:57 No Known Allergies; sv - PMHx: 11:57 Anxiety; Bipolar disorder; Endometrosis; sv - PSHx: 11:57 Tonsillectomy; Tubal ligation; sv - Immunization history:: Adult Immunizations up to date. - Social history:: Smoking status: Patient uses tobacco products, smokes one pack cigarettes per day. - Ebola Screening: : No symptoms or risks identified at this time. Screenin:13 Abuse screen: Denies threats or abuse. Denies injuries from another. Nutritional sv screening: No deficits noted. Tuberculosis screening: No symptoms or risk factors identified. Fall Risk None identified. Assessment: 12:13 Reassessment: Patient appears in no apparent distress at this time. No changes from sv previously documented assessment. See triage assessment. Vital Signs: 11:57 BP 108 / 69; Pulse 96; Resp 16; Temp 98.2; Pulse Ox 99% ; Weight 58.97 kg; Height 5 ft. sv 2 in. (157.48 cm); Pain 7/10; 11:57 Body Mass Index 23.78 (58.97 kg, 157.48 cm) sv ED Course: 11:51 Patient arrived in ED. as 11:57 Triage completed. sv 11:58 Arm band placed on Patient placed in an exam room, on a stretcher. sv 11:59 Kalyn Mtz FNP-C [facility]. kb 11:59 James Padgett MD is Attending Physician. kb 12:13 Patient has correct armband on for positive identification. Bed in low position. Door sv closed. Head of bed elevated. 12:33 Knee Right 3 View XRAY In Process Unspecified. EDMS 12:39 Favian Lofton, RN is Primary Nurse. la1 13:54 No provider procedures requiring assistance completed. Patient did not have IV access la1 during this emergency room visit. Administered Medications: 12:43 Drug: [place] 5 mg-325 mg 1 tabs Route: PO; la1 13:55 Follow up: Response: No adverse reaction; Pain is decreased la1 Outcome: 13:25 Discharge ordered by MD. kb 13:53 Patient left the ED. la1 13:54 Discharged to home ambulatory. la1 13:54 Condition: stable 13:54 Discharge instructions given to patient, Instructed on discharge instructions, follow up and referral plans. medication usage, Demonstrated understanding of instructions, follow-up care, medications, Prescriptions given X 1. Signatures: Dispatcher [employer] EDMS Kalyn Mtz FNP-C FNP-Ckb Verde, Stephanie, RN RN Cassie Russo as Favian Lofton RN RN la1
--- NOTE | 2018-02-23 14:16 | RAD REPORT ---
EXAM DESCRIPTION: RAD - Knee Right 3 View - 02/23/2018 12:32 pm CLINICAL HISTORY: Persistent knee pain for 1.5 weeks after jumping injury COMPARISON: None. FINDINGS: No fracture, dislocation or periosteal reaction.No joint effusion seen. No joint space citlaly rowing. No foreign body or other soft tissue abnormality. IMPRESSION: Negative right knee. Clinical concerns for internal derangement or occult bony injury could be further assessed with MR im aging.
== END 2018-02-23 13:53 | disposition home or self-care (01) ==
LOC: ER 11:50
DX: S83.91XA Sprain of unspecified site of right knee, initial encounter (principal); X58.XXXA Exposure to other specified factors, initial encounter; Y93.89 Activity, other specified; Y92.003 Bedroom of unspecified non-institutional (private) residence as the place of occurrence of the external cause; F17.210 Nicotine dependence, cigarettes, uncomplicated
CPT/HCPCS: 99283

== ENCOUNTER 2018-08-24 08:21 | Emergency (ER) | payer SELFPAY ==
[2018-08-24] MEDS ORDERED: ONDANSETRON 4 MG/2 ML VIAL ONE (09:03)
[2018-08-24] MEDS ORDERED: NA CHLORIDE 0.9% 1,000 ML ONE (09:03)
[2018-08-24 09:39] LABS: Absolute Lymphocytes (CBC) 0.6 K/uL (0.7-4.9); Basophils % 0.2 % (0-1.3); Eosinophils % 0.3 % (0-4.4); Hematocrit 39.8 % (36.0-45.0); Lymphocytes % 6.2 % (15.3-44.8); MPV 9.5 fL (7.6-11.3); Monocytes % 1.1 % (3.3-12.3); RBC Red Blood Cell Count 4.49 M/uL (3.86-4.86)
[2018-08-24 09:50] LABS: Potassium 3.9 mmol/L (3.5-5.1)
[2018-08-24 10:06] LABS: Blood Morphology Comment NOT SEEN (NOT SEEN); Platelet Estimate ADEQ; Urine White Blood Cell Casts OK
[2018-08-24 10:20] LABS: Urine Blood TRACE (NEG); Urine Glucose NEGATIVE (NEG); Urine Protein TRACE (NEG)
[2018-08-24 10:20] LABS: Urine Bacteria >50 /HPF (<20); Urine Culture Reflex Order REFLEXED; Urine RBC <5 /HPF (NONE SEEN)
--- NOTE | 2018-08-24 10:42 | RAD REPORT ---
EXAM DESCRIPTION: CTAbdomen Pelvis W Contrast - 08/24/2018 10:07 am CLINICAL HISTORY: Abdominal pain. left flank pain, chills COMPARISON: <Comparisons> TECHNIQUE: Biphasic CT imaging of the abdomen and pelvis was performed with 100 ml non-ionic IV cont rast. All CT scans are performed using dose optimization technique as appropriate and may include automated exposure control or mA/KV adjustment according to patient size. FINDINGS: The lung bases are clear. The liver, spleen, pancreas, adrenal glands and kidneys are within normal limits. No bowel obstruction, free air, free fluid or abscess. Moderate stool is present in the colon. The ap pendix is normal. Small fat containing umbilical hernia. No evidence of significant lymphadenopathy. No suspicious bony findings. IMPRESSION: No acute intra-abdominal or pelvic finding.
[2018-08-24] MEDS ORDERED: CEFTRIAXONE/SWI 1gm 1 GM/10 ML SYR ONE (10:52)
--- NOTE | 2018-08-24 11:09 | EDPHYS ---
Physician Documentation [facility] Name: Nunu Johnson Age: 37 yrs Sex: Female : 1980 Arrival Date: 08/24/2018 Time: 08:23 Bed 16 Private MD: ED Physician Noah Costello HPI: 08/24 08:35 This 37 yrs old Female presents to ER via Unassigned with complaints of rn Vomiting, Flank Pain. 08:35 The patient presents to the emergency department with nausea, vomiting. Onset: The rn symptoms/episode began/occurred 2 week(s) ago. Possible causes: unknown. The symptoms are aggravated by nothing. The symptoms are alleviated by nothing. Associated signs and symptoms: Pertinent positives: nausea, vomiting, Pertinent negatives:. Severity of symptoms: At their worst the symptoms were moderate in the emergency department the symptoms are unchanged. The patient has not experienced similar symptoms in the past. The patient has not recently seen a physician. REports chills, shaking, nausea/vomiting, for 2 weeks, assoc with left flank and LLQ pain. Reports urine dark. . 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 - Family history:: not pertinent. - Ebola Screening: : No symptoms or risks identified at this time. - Social history:: Smoking status: Patient/guardian denies using tobacco. - Hospitalizations: : No recent hospitalization is reported. ROS: 08:35 Constitutional: + chills Eyes: Negative for injury, pain, redness, and discharge, Neck: rn Negative for injury, pain, and swelling, Cardiovascular: Negative for chest pain, palpitations, and edema, Respiratory: Negative for shortness of breath, cough, wheezing, and pleuritic chest pain, Abdomen/GI: Negative for diarrhea, and constipation, MS/Extremity: Negative for injury and deformity, Skin: Negative for injury, rash, and discoloration, Neuro: Negative for numbness, tingling, and seizure. Exam: 08:35 Constitutional: This is a well developed, well nourished patient who is awake, alert, rn shaking Head/Face: Normocephalic, atraumatic. Eyes: Pupils equal round and reactive to light, extra-ocular motions intact. Lids and lashes normal. Conjunctiva and sclera are non-icteric and not injected. Cornea within normal limits. Periorbital areas with no swelling, redness, or edema. ENT: dry MM Neck: Trachea midline, no thyromegaly or masses palpated, and no cervical lymphadenopathy. Supple, full range of motion without nuchal rigidity, or vertebral point tenderness. No Meningismus. Cardiovascular: tachycardic, regular, no murmur Respiratory: Lungs have equal breath sounds bilaterally, clear to auscultation Abdomen/GI: soft, + LLQ tenderness, no rebound Skin: Warm, dry MS/ Extremity: Pulses equal, no cyanosis. Neurovascular intact. Full, normal range of motion. Equal circumference. Neuro: Awake and alert, GCS 15, oriented to person, place, time, and situation. Cranial nerves II-XII grossly intact. Motor strength 5/5 in all extremities. Sensory grossly intact. Cerebellar exam normal. Vital Signs: 09:40 BP 115 / 63; Pulse 81; Resp 18; Temp 99.6(O); Pulse Ox 100% on R/A; rb1 10:40 BP 101 / 62; Pulse 75; Resp 16; Temp 99.2(O); Pulse Ox 100% on R/A; Pain 7/10; rb1 11:40 BP 112 / 62; Pulse 75; Resp 16; Temp 99.1(O); Pulse Ox 99% on R/A; Pain 6/10; rb1 MDM: 08:25 Patient medically screened. rn 11:07 Differential diagnosis: diverticulitis, viral gastroenteritis, gastroenteritis, UTI, rn yared. Data reviewed: vital signs, nurses notes, lab test result(s), radiologic studies, CT scan, and as a result, I will discharge patient. Counseling: I had a detailed discussion with the patient and/or guardian regarding: the historical points, exam findings, and any diagnostic results supporting the discharge/admit diagnosis, lab results, radiology results, the need for outpatient follow up, to return to the emergency department if symptoms worsen or persist or if there are any questions or concerns that arise at home. Special discussion: I discussed with the patient/guardian in detail that at this point there is no indication for admission to the hospital. It is understood, however, that if the symptoms persist or worsen the patient needs to return immediately for re-evaluation. 08/24 08:32 Order name: Flu; Complete Time: 10:15 08/24 08:32 Order name: Strep; Complete Time: 10:15 rn 08/24 08:32 Order name: Urine Microscopic Only; Complete Time: 10:43 rn 08/24 08:32 Order name: CBC with Diff; Complete Time: 10:15 rn 08/24 08:32 Order name: Basic Metabolic Panel; Complete Time: 10:15 08/24 08:32 Order name: Blood Culture Adult (2) 08/24 08:32 Order name: Procalcitonin; Complete Time: 10:15 08/24 09:58 Order name: Throat Culture [facility] 08/24 10:06 Order name: CBC Smear Scan; Complete Time: 10:15 [facility] 08/24 10:13 Order name: Urine Dipstick--Ancillary (enter results) 08/24 10:13 Order name: Urine --Ancillary (enter results) 08/24 10:14 Order name: Urine Dipstick-Ancillary; Complete Time: 10:43 [facility] 08/24 10:14 Order name: Urine --Ancillary; Complete Time: 10:43 [facility] 08/24 10:22 Order name: Urine Culture [facility] 08/24 08:32 Order name: Urine Dipstick-Ancillary (obtain specimen); Complete Time: 10:04 rn 08/24 08:32 Order name: IV Start; Complete Time: 09:44 rn 08/24 08:32 Order name: CT Abd/Pelvis - IV Contrast Only; Complete Time: 10:43 rn 08/24 08:32 Order name: Urine Test (obtain specimen); Complete Time: 12:17 rn Administered Medications: 09:25 Drug: Zofran 4 mg Route: IVP; Site: left antecubital; rb1 09:40 Follow up: Response: No adverse reaction; Nausea is decreased rb1 09:40 Drug: NS 0.9% 1000 ml Route: IV; Rate: 1000 ml; Site: left antecubital; rb1 11:00 Follow up: IV Status: Completed infusion rb1 10:19 CANCELLED (changed administration route): Rocephin - (cefTRIAXone) 1 grams IVPB once rb1 over 30 mins; (mix in 50 mL NS) 10:44 Drug: Rocephin 1 grams Route: IV; Rate: calculated rate; Site: left antecubital; rb1 11:14 Follow up: Response: No adverse reaction; IV Status: Completed infusion rb1 Disposition: 08/24/18 11:09 Discharged to Home. Impression: Urinary tract infection, site not specified, Vomiting, unspecified. - Condition is Stable. - Discharge Instructions: Urinary Tract Infection, Adult. - Prescriptions for Zofran ODT 4 mg Oral tablet,disintegrating - place 1 tablet by TRANSLINGUAL route every 8 hours As needed; 15 tablet. cefpodoxime 100 mg Oral Tablet - take 2 tablet by ORAL route every 12 hours for 10 days take with food; 40 tablet. - Medication Reconciliation Form, Thank You Letter, Antibiotic Education, Prescription Opioid Use, Work release form form. - SBAR form (08/24/18 12:52). tr5 - Follow up: Private Physician; When: As needed; Reason: Recheck today's complaints, Re-evaluation by your physician. - Problem is new. - Symptoms have improved. Signatures: Dispatcher [employer] EDMS Noah Costello MD MD rn Calderon, Audri RN RN aa5 Katlyn Rosas RN RN rb1 Chula Levine Tommie RN tr5 Corrections: (The following items were deleted from the chart) 10:19 10:14 Rocephin - (cefTRIAXone) 1 grams IVPB once over 30 mins; (mix in 50 mL NS) rb1 ordered. rn 11:47 11:09 08/24/2018 11:09 Discharged to Home. Impression: Urinary tract infection, site eb not specified; Vomiting, unspecified. Condition is Stable. Forms are Medication Reconciliation Form, Thank You Letter, Antibiotic Education, Prescription Opioid Use. Follow up: Private Physician; When: As needed; Reason: Recheck today's complaints, Re-evaluation by your physician. Problem is new. Symptoms have improved. rn
--- NOTE | 2018-08-24 11:09 | ER ---
Nurse's Notes [facility] Name: Nunu Johnson Age: 37 yrs Sex: Female : 1980 Arrival Date: 08/24/2018 Time: 08:23 Bed 16 Private MD: Diagnosis: Urinary tract infection, site not specified;Vomiting, unspecified Presentation: 08/24 08:24 Presenting complaint: Significant other states: "she's been shaking, vomiting, having aa5 cloudy urine, and her legs are aching since this morning". Pt also c/o left flank pain, pt denies burning with urination. Pt also reports nausea x 2 weeks. Pt states "I haven't eaten much over the last 2 weeks". 08:24 Acuity: RHINA 3 aa5 08:24 Transition of care: patient was not received from another setting of care. Onset of aa5 symptoms was August 2018. 08:24 Method Of Arrival: Ambulatory aa5 08:24 Risk Assessment: Do you want to hurt yourself or someone else? Patient reports no aa5 desire to harm self or others. Initial Sepsis Screen: Does the patient meet any 2 criteria? No. Patient's initial sepsis screen is negative. Does the patient have a suspected source of infection? No. Patient's initial sepsis screen is negative. Care prior to arrival: None. 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 - Family history:: not pertinent. - Ebola Screening: : No symptoms or risks identified at this time. - Social history:: Smoking status: Patient/guardian denies using tobacco. - Hospitalizations: : No recent hospitalization is reported. Screenin:30 Abuse screen: Denies threats or abuse. Nutritional screening: decreased appetite . rb1 Tuberculosis screening: No symptoms or risk factors identified. Fall Risk None identified. Assessment: 08:30 General: Appears uncomfortable, Behavior is calm, cooperative, Reports fever for. Pain: rb1 Complains of pain in left mid back Pain radiates to right leg and left leg Pain currently is 9 out of 10 on a pain scale. Neuro: Level of Consciousness is awake, alert, obeys commands, Oriented to person, place, time, situation. Cardiovascular: Capillary refill < 3 seconds is brisk in bilateral fingers. Respiratory: Airway is patent Respiratory effort is even, unlabored, Respiratory pattern is regular, symmetrical. GI: Abdomen is flat, Reports nausea, vomiting, since x 2 weeks. : Reports cloudy urine. Derm: Skin is pink, warm \\T\\ dry. Musculoskeletal: Range of motion: intact in all extremities. 09:30 Reassessment: Patient appears in no apparent distress at this time. No changes from rb1 previously documented assessment. at bedside. 10:30 Reassessment: Patient appears in no apparent distress at this time. Patient and/or rb1 family updated on plan of care and expected duration. Pain level reassessed. Patient is alert, oriented x 3, equal unlabored respirations, skin warm/dry/pink. 11:28 Reassessment: Patient appears in no apparent distress at this time. No changes from rb1 previously documented assessment. Pt. is on her telephone. Vital Signs: 09:40 BP 115 / 63; Pulse 81; Resp 18; Temp 99.6(O); Pulse Ox 100% on R/A; rb1 10:40 BP 101 / 62; Pulse 75; Resp 16; Temp 99.2(O); Pulse Ox 100% on R/A; Pain 7/10; rb1 11:40 BP 112 / 62; Pulse 75; Resp 16; Temp 99.1(O); Pulse Ox 99% on R/A; Pain 6/10; rb1 ED Course: 08:23 Patient arrived in ED. as 08:24 Arm band placed on. aa5 08:25 Noah Costello MD is Attending Physician. rn 08:34 Radiology exam delayed due to lab results not completed at this time. test kw1 not completed at this time. 08:38 Katlyn Rosas, RN is Primary Nurse. rb1 08:40 Triage completed. aa5 08:46 Radiology exam delayed due to lab results not completed at this time. (BUN/Creatinine). kw1 09:14 Radiology exam delayed due to lab results not completed at this time. (BUN/Creatinine). mw3 10:04 Procalcitonin Sent. mh5 10:04 Blood Culture Adult (2) Sent. mh5 10:04 Urine Microscopic Only Sent. mh5 10:05 by ED staff, sent to lab. Urine collected: clean catch specimen, cloudy, Amount Voided: 5 120mL Flu and/or RSV swab sent to lab. Strep swab sent to lab. Inserted saline lock: 20 gauge in left antecubital area, using aseptic technique. Blood collected. 10:06 CT completed. Patient tolerated procedure well. Patient moved back from CT. bq 10:06 Patient has correct armband on for positive identification. Placed in gown. Bed in low mh5 position. Call light in reach. Side rails up X 1. Warm blanket given. Pulse ox on. NIBP on. 10:08 CT Abd/Pelvis - IV Contrast Only In Process Unspecified. EDMS 11:47 No provider procedures requiring assistance completed. IV discontinued, intact, rb1 bleeding controlled, No redness/swelling at site. Pressure dressing applied. Administered Medications: 09:25 Drug: Zofran 4 mg Route: IVP; Site: left antecubital; rb1 09:40 Follow up: Response: No adverse reaction; Nausea is decreased rb1 09:40 Drug: NS 0.9% 1000 ml Route: IV; Rate: 1000 ml; Site: left antecubital; rb1 11:00 Follow up: IV Status: Completed infusion rb1 10:19 CANCELLED (changed administration route): Rocephin - (cefTRIAXone) 1 grams IVPB once rb1 over 30 mins; (mix in 50 mL NS) 10:44 Drug: Rocephin 1 grams Route: IV; Rate: calculated rate; Site: left antecubital; rb1 11:14 Follow up: Response: No adverse reaction; IV Status: Completed infusion rb1 Outcome: 11:09 Discharge ordered by . rn 11:47 Patient left the ED. eb 11:47 Discharged to home ambulatory, with family. rb1 11:47 Condition: stable 11:47 Discharge instructions given to patient, Instructed on discharge instructions, follow up and referral plans. medication usage, Demonstrated understanding of instructions, follow-up care, medications, Prescriptions given X 2. Addendum: 08/28/2018 16:53 Addendum: Culture Results: Positive urine culture. No further action required. Bacteria i w sensitive to prescribed antibiotic. Signatures: [facility] Essence Still, Kristie Tejeda, RN RN Noah Chahal MD MD rn Calderon, Audri, RN RN aa5 Katlyn Rosas RN RN rb1 John, Pam 5 Bri Schmid kw1 Chula Levine Michelle 3
== END 2018-08-24 11:47 | disposition home or self-care (01) ==
LOC: ER 08:21
DX: N39.0 Urinary tract infection, site not specified (principal); F41.9 Anxiety disorder, unspecified; F31.9 Bipolar disorder, unspecified
CPT/HCPCS: 36415; 74177; 80048; 81003; 81015; 81025; 84145; 85025; 87040; 87070; 87077; 87081; 87086; 87088; 87186; 87804; 96361; 96365; 96375; 99284; J0696; J2405; J7030; Q9967

== ENCOUNTER 2019-01-01 06:20 | Day surgery (SDC) | payer BC, OTHER ==
--- NOTE | 2018-12-30 15:16 | RAD REPORT ---
EXAM DESCRIPTION: RAD - Chest Pa And Lat (2 Views) - 12/30/2018 3:10 pm CLINICAL HISTORY: preop Chest pain. COMPARISON: Wrist Right 2 View dated 12/24/2018; Wrist Right 3 View dated 12/24/2018No comparisonsFl uoroscopy <1 Hour dated 06/25/2017No comparisonsChest Single View dated 07/29/2017 FINDINGS: The lungs are clear. The heart is normal in size. No displaced fractures. IMPRESSION: No acute or concerning finding suspected.
[2018-12-30 15:24] LABS: Absolute Lymphocytes (CBC) 2.5 K/uL (0.7-4.9); Basophils % 1.5 % (0-1.3); Hematocrit 39.1 % (36.0-45.0); Lymphocytes % 28.4 % (15.3-44.8); MPV 9.2 fL (7.6-11.3); RBC Red Blood Cell Count 4.28 M/uL (3.86-4.86)
[2018-12-30 17:06] LABS: Urine Appearance CLEAR; Urine Bilirubin NEGATIVE (NEG); Urine Blood 1+ (NEG); Urine Color YELLOW; Urine Glucose NEGATIVE (NEG); Urine Protein NEGATIVE (NEG); Urine Urobilinogen 0.2 mg/dL (0.2-1.0)
[2018-12-30 17:07] LABS: Urine Microscopic Reflex ORDER UMIC
[2018-12-30 17:12] LABS: Urine Bacteria <20 /HPF (<20); Urine Culture Reflex Order NOT NEEDED; Urine RBC <5 /HPF (NONE SEEN)
--- OUTSIDE RECORDS SUMMARY | 2019-01-01 06:33 | XMS REPORT ---
:1980 [facility] Address [address] [place] [address] Dr. Peralta [address] [place] [id number] Care Team Providers Name Role Phone Unavailable Unavailable Unavailable Problems This patient has no known problems. Allergies, Adverse Reactions, Alerts This patient has no known allergies or adverse reactions. Medications This patient has no known medications.
[2019-01-01] MEDS ORDERED: Ringers Lactate 1,000 ML IV ONE ×2 (06:36→09:24)
[2019-01-01] MEDS ORDERED: SCOPOLAMINE HYDROBROMIDE PATCH TD ONE (06:36)
[2019-01-01 06:48] LABS: Specific Gravity 1.025 (1.005-1.030)
[2019-01-01] MEDS ORDERED: PROPOFOL 200 MG/20 ML VIAL IV ONE (06:55)
[2019-01-01] MEDS ORDERED: ROCURONIUM 50 MG/5 ML VIAL IV ONE (06:55)
[2019-01-01] MEDS ORDERED: FENTANYL CITR 250 MCG/5 ML ONE (06:55)
[2019-01-01] MEDS ORDERED: GLYCOPYRROLATE 0.2 MG/ML SYR ONE (06:55)
[2019-01-01] MEDS ORDERED: LIDOCAINE 2% MPF 5 ML VIAL ONE (06:55)
[2019-01-01] MEDS ORDERED: ONDANSETRON 4 MG/2 ML VIAL ONE ×2 (06:56→10:09)
[2019-01-01] MEDS ORDERED: MIDAZOLAM HCL 2 MG/2 ML INJ ONE (06:56)
[2019-01-01] MEDS ORDERED: NA CHLORIDE 0.9% 1,000 ML ONE (07:07)
[2019-01-01] MEDS ORDERED: BUPIVACAINE 0.25% PF 30 ML VIAL ONE (07:07)
[2019-01-01] MEDS ORDERED: NA CIT/CITRIC AC 30 ML ORAL UDC ONE (07:31)
[2019-01-01] MEDS ORDERED: KETOROLAC 30 MG/ML INJ ONE (09:13)
[2019-01-01] MEDS: MORPHINE 4 MG/ML SYR ONE ×2 (10:09→10:15)
[2019-01-01] MEDS ORDERED: MORPHINE 4 MG/ML SYR ONE (10:35)
[2019-01-01] MEDS ORDERED: dexAMETHasone 4 MG/ML VIAL ONE (12:51)
[2019-01-01] MEDS ORDERED: dexAMETHasone 4 MG/ML VIAL IV ONE (13:05)
[2019-01-01] MEDS ORDERED: METOCLOPRAMIDE 10 MG/2mL INJ ONE (13:21)
[2019-01-01] MEDS ORDERED: METOCLOPRAMIDE 10 MG/2mL INJ IV ONE (13:25)
[2019-01-01] MEDS ORDERED: HYDROCODONE/APAP 5/325 MG TAB ONE (13:28)
[2019-01-01] MEDS ORDERED: HYDROCODONE/APAP 5/325 MG TAB PO ONE (13:30)
[2019-01-01 14:23] VITALS: BP 110/61; TEMP 97.5; O2SAT 98
--- NOTE | 2019-01-05 04:08 | OP ---
Date of Procedure: 01/01/2019 Surgeon: Jelena Puga MD Promotions Associate: Hilda Campos. Preoperative Diagnoses: Heavy periods, pelvic pain, dysmenorrhea, deep dyspareunia. Postoperative Diagnoses: Heavy periods, pelvic pain, dysmenorrhea, deep dyspareunia, endometrial shayy yp, bilateral hydrosalpinges, and endometriosis. Procedures Performed: 1.Diagnostic hysteroscopy, polypectomy, and D and C. 2.Diagnostic laparoscopy, bilateral salpingectomy. 3.Endometriosis biopsy. Anesthesia: General endotracheal. Estimated Blood Loss: Minimal. Complications: No complications. Drains: No drains. Specimens: Bilateral tubes and endometriosis biopsy from the right broad ligament. There was a right perirectal nodule of most likely endometriosis attached to the rectal wall, not jus t the serosa, but the muscularis, so this could not be excised. Attempt was made to start the excisi on, but was not complete. Intraoperative consultation with Dr. Mendoza. Please review report. Condition: The patient's condition stable. Findings: Endometrial polyp was completely removed then bilateral hydrosalpinges were seen and nodul arity of the tubes was seen. There was a small endometriosis implant on the right broad ligament on the mesosalpinx between the tube and the round ligament and there was an implant in the right perirec domonique area between the uterosacral ligament and the rectal wall. This was deep and was attached to the rectal muscularis and there was no bowel prep for this patient and no specific bowel symptoms and th erefore this was just left alone for excision on another day, possibly needing a bowel prep and possi lexy considering the patient for rectal repair, possible need for ostomy and disk resection of the rec santana. Description Of Procedure: After informed consent was verified, patient was taken back to OR, placed in the supine fashion on the operating table. General anesthesia was given, placed in a dorsal litho bela position. No antibiotics were given. SCDs were placed, pumps were started. A time-out was don e in the appropriate fashion. Abdomen, vulva, vagina, and perineum were prepped and draped in a sterile fashion. Delgadillo was placed to drain the bladder. Speculum placed to expose the cervix. Anterior lip grasped with 2 Allis clamp s. Diagnostic SlimLine hysteroscope was used to enter the uterine cavity. The tip of the polyp was visualized and scraped off and the polyp forceps were used to retrieve the entire polyp. A scope was placed to check that. The polyp was removed in its entirety and it was confirmed. Then endometrial curettings were performed and then a diagnostic VCare introduced. This area was then draped. A 1 c m infraumbilical incision made with a scalpel using the open laparoscopy technique. Fascia was incis ed, tagged with 0 Vicryl sutures on both sides and peritoneum entered sharply with the knife. S-retr actors placed, insufflated appropriately and site of entry checked. Upper abdominal surface unremark able. No evidence of any endometriosis in the upper abdominal peritoneal surfaces or the omentum. T he patient was placed in Trendelenburg. A 5 mm left lower quadrant suprapubic ports were placed unde r direct vision. Then, on verification of the findings, the appendix appeared to be normal. Both ov jason appeared to be normal. No cysts were seen. Endometriosis as described above on the right broa d ligament and then the implant in the right perirectal space between the uterosacral and the rectum. Then plan was made to take the tubes down since they were dilated and LigaSure was used to take mak n both the left and right tubes and they were retrieved through the umbilical port. The endometriosi s was excised with the help of the LigaSure as well and the broad ligament on the mesosalpinx and the se were handed out for permanent pathology. The peritoneum was incised lateral to the uterosacral li gament then the incision was carried. The medial aspect of the cul-de-sac at the level of the uteros acral distal attachment so that the peritoneum could be reflected down on the rectum. Upon doing thi s, we realized that this was onto the muscularis and not a superficial implant that could easily be r emoved without any risk of injury to the rectum, might need another repair or an ostomy or a disk res ection. So, it was deemed that this would be more appropriate after consenting the patient appropria tely and bowel prepping her and since there were no specific bowel symptoms, this was not warranted a t this time. Dr. Lopez's had consulted intraoperatively to visualize the findings and the plan wa s made in accordance with his recommendations. Thorough irrigation and suction were performed, pictures were taken. The gas was desufflated. The t rocars were removed. 0.25% Marcaine with epi were injected prior to making the incisions and also at the end. The scope was removed after desufflating the gas. Instrument, needle, and sponge counts w ere correct at the end of the case. Fascia closed with 0 Vicryl sutures to each other from side-to-s faith and all skin incisions were closed with interrupted Vicryl sutures. Delgadillo and VCare were removed . Instrument, needle, and sponge counts were done and were correct at the end of the case. The juan alberto ent tolerated the procedure well. She will follow up with me in 1 week. DEYVI/IWONA Voice ID: [id number] Report ID: [id number]
== END 2019-01-01 14:15 | disposition home or self-care (01) ==
LOC: OR 06:20
PROVIDERS: ATTEND Obstetrics & Gynecology
PROC: 0UDB7ZX Extraction of Endometrium, Via Natural or Artificial Opening, Diagnostic (ICD-10-PCS; 2019-01-01)
PROC: 0UJD8ZZ Inspection of Uterus and Cervix, Via Natural or Artificial Opening Endoscopic (ICD-10-PCS; 2019-01-01)
PROC: 0UT74ZZ Resection of Bilateral Fallopian Tubes, Percutaneous Endoscopic Approach (ICD-10-PCS; 2019-01-01)
PROC: 0UB44ZZ Excision of Uterine Supporting Structure, Percutaneous Endoscopic Approach (ICD-10-PCS; 2019-01-01)
PROC: 0UB97ZX Excision of Uterus, Via Natural or Artificial Opening, Diagnostic (ICD-10-PCS; principal; 2019-01-01 07:30)
DX: N92.1 Excessive and frequent menstruation with irregular cycle (principal); N94.12 Deep dyspareunia; N94.6 Dysmenorrhea, unspecified; N70.11 Chronic salpingitis; N84.0 Polyp of corpus uteri; N80.2 Endometriosis of fallopian tube; N80.8 Other endometriosis; R87.612 Low grade squamous intraepithelial lesion on cytologic smear of cervix (LGSIL); F17.210 Nicotine dependence, cigarettes, uncomplicated; Z80.3 Family history of malignant neoplasm of breast; Z82.3 Family history of stroke; Z82.49 Family history of ischemic heart disease and other diseases of the circulatory system
CPT/HCPCS: 85025; 36415; 86900; 86850; 81025; 86901; 88302; 88305; 71046; 58558; 58661; 58662; J2704; J2765 ×2; J2250; J3010; J7120 ×2; J7030; J2405 ×2; 81003; 81015

== ENCOUNTER 2019-04-07 11:06 | Emergency (ER) | payer BC, OTHER ==
--- OUTSIDE RECORDS SUMMARY | 2019-04-07 11:09 | XMS REPORT ---
:1980 [facility] Address [address] [place] [address] Dr. Peralta [address] [place] [id number] Care Team Providers Name Role Phone Unavailable Unavailable Unavailable Problems This patient has no known problems. Allergies, Adverse Reactions, Alerts This patient has no known allergies or adverse reactions. Medications This patient has no known medications.
--- NOTE | 2019-04-07 12:19 | ER ---
Nurse's Notes [facility] Name: Nunu Johnson Age: 38 yrs Sex: Female : 1980 Arrival Date: 04/07/2019 Time: 11:08 Bed 23 Private MD: Diagnosis: Hemorrhoids and perianal venous thrombosis Presentation: 04/07 11:21 Presenting complaint: Rectal pain and bleeding x 10 days. Transition of care: patient hb was not received from another setting of care. Onset of symptoms was March 28, 2019. Risk Assessment: Do you want to hurt yourself or someone else? Patient reports no desire to harm self or others. Care prior to arrival: Medication(s) given: Preparation H. 11:21 Method Of Arrival: Ambulatory hb 11:21 Acuity: RHINA 3 hb 11:45 Initial Sepsis Screen: Does the patient meet any 2 criteria? No. Patient's initial iw sepsis screen is negative. Does the patient have a suspected source of infection? No. Patient's initial sepsis screen is negative. Historical: - Allergies: 11:23 No Known Allergies; hb - Home Meds: 11:23 None [Active]; hb - PMHx: 11:23 Anxiety; Bipolar disorder; Endometrosis; hb - PSHx: 11:23 Tonsillectomy; Tubal ligation; hb - Immunization history:: Adult Immunizations up to date. - Coronavirus screen:: The patient has NOT traveled to [place] in the past 14 days. The patient has NOT had contact with known/suspected case of Coronavirus? Proceed with normal triage procedures. - Social history:: Smoking status: Patient reports the use of cigarette tobacco products, smokes one-half pack cigarettes per day. - Ebola Screening: : No symptoms or risks identified at this time. Screenin:47 Abuse screen: Denies threats or abuse. Denies injuries from another. Nutritional iw screening: No deficits noted. Tuberculosis screening: No symptoms or risk factors identified. Fall Risk None identified. Assessment: 11:47 General: Appears in no apparent distress. Behavior is calm, cooperative. Pain: iw Complains of pain in rectum. Neuro: Level of Consciousness is awake, alert, obeys commands, Oriented to person, place, time, situation, Moves all extremities. Full function. Cardiovascular: Patient's skin is warm and dry. Respiratory: Respiratory effort is even, unlabored, Respiratory pattern is regular, symmetrical. GI: Reports hemorrhoids. Derm: Skin is intact, is healthy with good turgor. Musculoskeletal: Range of motion: intact in all extremities. Vital Signs: 11:23 BP 133 / 79; Pulse 97; Resp 16; Temp 98.5; Pulse Ox 100% on R/A; Weight 56.7 kg; Height hb 5 ft. 2 in. (157.48 cm); Pain 10/10; 11:23 Body Mass Index 22.86 (56.70 kg, 157.48 cm) hb ED Course: 11:08 Patient arrived in ED. mr 11:22 Triage completed. hb 11:23 Arm band placed on. hb 11:25 Patient has correct armband on for positive identification. iw 11:46 Kristie Garcia, RN is Primary Nurse. iw 11:55 Kalyn Mtz FNP-C is PHCP. kb 11:55 Marvin Campbell MD is Attending Physician. kb 12:38 No provider procedures requiring assistance completed. Patient did not have IV access iw during this emergency room visit. Administered Medications: 12:32 Drug: [place] 10 mg-325 mg 1 tabs Route: PO; iw Outcome: 12:18 Discharge ordered by MD. kb 12:38 Discharged to home ambulatory. iw 12:38 Condition: good 12:38 Discharge instructions given to patient, Instructed on discharge instructions, follow up and referral plans. medication usage, Demonstrated understanding of instructions, follow-up care, medications, Prescriptions given X 1. 12:39 Patient left the ED. iw Signatures: Kalyn Mtz FNP-C FNP-Anitra Qureshi mr Kristie Garcia RN RN iw Sophie Monroy RN RN hb
--- NOTE | 2019-04-07 12:19 | EDPHYS ---
Physician Documentation [facility] Name: Nunu Johnson Age: 38 yrs Sex: Female : 1980 Arrival Date: 04/07/2019 Time: 11:08 Bed 23 Private MD: ED Physician Marvin Campbell HPI: 04/07 14:06 This 38 yrs old Female presents to ER via Ambulatory with complaints of kb Hemorrhoids. 14:06 The patient presents to the emergency department with pain in the rectal area, that is kb moderate. Onset: The symptoms/episode began/occurred 1.5 week(s) ago. Context: the patient has a known history of hemorrhoids. Modifying factors: The symptoms are alleviated by nothing, The symptoms are aggravated by bowel movement, movement. Associate signs and symptoms: The patient has no apparent associated signs or symptoms. The patient has not experienced similar symptoms in the past. The patient has not recently seen a physician. Pt reports hemorrhoids that she has had for a long time. 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 Reports pain that began 1.5 weeks ago and has been constant. . Historical: - Allergies: 11:23 No Known Allergies; hb - Home Meds: 11:23 None [Active]; hb - PMHx: 11:23 Anxiety; Bipolar disorder; Endometrosis; hb - PSHx: 11:23 Tonsillectomy; Tubal ligation; hb - Immunization history:: Adult Immunizations up to date. - Coronavirus screen:: The patient has NOT traveled to [place] in the past 14 days. The patient has NOT had contact with known/suspected case of Coronavirus? Proceed with normal triage procedures. - Social history:: Smoking status: Patient reports the use of cigarette tobacco products, smokes one-half pack cigarettes per day. - Ebola Screening: : No symptoms or risks identified at this time. ROS: 14:05 Constitutional: Negative for fever, chills, and weight loss, ENT: Negative for injury, kb pain, and discharge, Neck: Negative for injury, pain, and swelling, Cardiovascular: Negative for chest pain, palpitations, and edema, Respiratory: Negative for shortness of breath, cough, wheezing, and pleuritic chest pain, Abdomen/GI: Negative for abdominal pain, nausea, vomiting, diarrhea, and constipation, Back: Negative for injury and pain, MS/Extremity: Negative for injury and deformity, Skin: Negative for injury, rash, and discoloration, Neuro: Negative for headache, weakness, numbness, tingling, and seizure. 14:05 Abdomen/GI: Positive for rectal pain. Exam: 14:05 Constitutional: This is a well developed, well nourished patient who is awake, alert, kb and in no acute distress. Head/Face: Normocephalic, atraumatic. Neck: Trachea midline, no thyromegaly or masses palpated, and no cervical lymphadenopathy. Supple, full range of motion without nuchal rigidity, or vertebral point tenderness. No Meningismus. Chest/axilla: Normal chest wall appearance and motion. Nontender with no deformity. No lesions are appreciated. Cardiovascular: Regular rate and rhythm with a normal S1 and S2. No gallops, murmurs, or rubs. Normal PMI, no JVD. No pulse deficits. Respiratory: Lungs have equal breath sounds bilaterally, clear to auscultation and percussion. No rales, rhonchi or wheezes noted. No increased work of breathing, no retractions or nasal flaring. Back: No spinal tenderness. No costovertebral tenderness. Full range of motion. Skin: Warm, dry with normal turgor. Normal color with no rashes, no lesions, and no evidence of cellulitis. MS/ Extremity: Pulses equal, no cyanosis. Neurovascular intact. Full, normal range of motion. Neuro: Awake and alert, GCS 15, oriented to person, place, time, and situation. Cranial nerves II-XII grossly intact. Motor strength 5/5 in all extremities. Sensory grossly intact. Cerebellar exam normal. Normal gait. 14:05 Abdomen/GI: Inspection: abdomen appears normal, Bowel sounds: normal, in all quadrants, Palpation: abdomen is soft and non-tender, in all quadrants, Rectal exam: rectal tone normal, hemorrhoid(s), external, with inflammation, with pain, without bleeding, without thrombosis, tenderness, that is moderate. Vital Signs: 11:23 BP 133 / 79; Pulse 97; Resp 16; Temp 98.5; Pulse Ox 100% on R/A; Weight 56.7 kg; Height hb 5 ft. 2 in. (157.48 cm); Pain 10/10; 11:23 Body Mass Index 22.86 (56.70 kg, 157.48 cm) hb MDM: 11:55 Patient medically screened. kb 12:17 Data reviewed: vital signs, nurses notes. Data interpreted: Pulse oximetry: on room air kb is 100 %. Interpretation: normal. 13:58 Counseling: I had a detailed discussion with the patient and/or guardian regarding: the kb historical points, exam findings, and any diagnostic results supporting the discharge/admit diagnosis, the need for outpatient follow up, a general surgeon, to return to the emergency department if symptoms worsen or persist or if there are any questions or concerns that arise at home. 13:59 ED course: Pt educated on use of tucks pads, sitz baths and anusol cream. Educated to kb follow up with general surgery if symptoms persist. No abscess noted on exam. Administered Medications: 12:32 Drug: [place] 10 mg-325 mg 1 tabs Route: PO; iw Disposition: 16:25 Co-signature as Attending Physician, Marvin Campbell MD I agree with the assessment and kdr plan of care. Disposition: 04/07/19 12:18 Discharged to Home. Impression: Hemorrhoids and perianal venous thrombosis. - Condition is Stable. - Discharge Instructions: Hemorrhoids, [id number]. - Prescriptions for Anusol- HC 2.5 % Rectal Cream - Apply to affected area 1 application by TOPICAL route every 8 hours As needed; 30 gram. - Medication Reconciliation Form, Thank You Letter, Antibiotic Education, Prescription Opioid Use, Work release form form. - Follow up: Emergency Department; When: As needed; Reason: Worsening of condition. Follow up: Private Physician; When: 2 - 3 days; Reason: Recheck today's complaints, Continuance of care, Re-evaluation by your physician. Signatures: Kalyn Mtz, YAHAIRA-C Marvin Santiago MD MD kdr Kristie Garcia, VERONICA RN iw Sophie Monroy RN RN Corrections: (The following items were deleted from the chart) 12:39 12:18 04/07/2019 12:18 Discharged to Home. Impression: Hemorrhoids and perianal venous iw thrombosis. Condition is Stable. Forms are Medication Reconciliation Form, Thank You Letter, Antibiotic Education, Prescription Opioid Use. Follow up: Emergency Department; When: As needed; Reason: Worsening of condition. Follow up: Private Physician; When: 2 - 3 days; Reason: Recheck today's complaints, Continuance of care, Re-evaluation by your physician. kb
[2019-04-07] MEDS ORDERED: HYDROCODONE/APAP 10/325 TAB ONE (12:34)
[2019-04-07 13:20] VITALS: BP 133/79; TEMP 98.5; O2SAT 100
== END 2019-04-07 12:39 | disposition home or self-care (01) ==
LOC: ER 11:06
DX: K64.5 Perianal venous thrombosis (principal); K64.9 Unspecified hemorrhoids; F17.210 Nicotine dependence, cigarettes, uncomplicated
CPT/HCPCS: 99283

== ENCOUNTER 2019-10-04 00:12 | Inpatient (IN) | payer BC, OTHER ==
--- OUTSIDE RECORDS SUMMARY | 2019-10-04 00:14 | XMS REPORT | Summary of Care ---
:1980 Author Organization [facility] - Health Address [address] [place] [address] Care Team Providers Name Role Phone Pcp, Does Not Have A Primary Care Provider Encounter Details Date Type Department Care Team Description 07/21/2019 Orders Only [facility] Doctor Unassigned, No [address] [facility] [place] [address] [place] [address] Allergies No Known Allergiesdocumented as of this encounter (statuses as of 07/21/2019) Medications Medication Sig Dispensed Refills Start Date End Date Status phenazopyridine 200 mg Take 1 tablet 9 tablet 0 11/28/2018 Active tabletIndications: Acute by mouth 3 cystitis with hematuria (three) times daily. documented as of this encounter (statuses as of 07/21/2019) Active Problems No known active problemsdocumented as of this encounter (statuses as of 07/21/2019) Social History Tobacco Use Types Packs/Day Years Used Date Current Every Day Smoker Smokeless Tobacco: Never Used Alcohol Use Drinks/Week oz/Week Comments Yes Sex Assigned at Date Recorded Not on file Job Start Date Occupation Industry Not on file Not on file Not on file Travel History Travel Start Travel End No recent travel history available. documented as of this encounter Last Filed Vital Signs Not on filedocumented in this encounter Plan of Treatment Date Type Specialty Care Team Description 07/22/2019 Hospital Encounter Surgery Michael Puga MD [address] [place] [address] [id number] 07/22/2019 Anesthesia Event Surgery Kiya Denton, [address] [place] [phone] 07/22/2019 Surgery Surgery Pema Puga MD LAPAROSCOPIC TOTAL [address] [facility], S B [place] [address] [phone] Health Maintenance Due Date Last Done Comments PNEUMOCOCCAL 0-64 YEARS COMBINED SERIES (1 of - 09/21/1985 PPSV23) DTaP,Tdap,and Td Vaccines (1 - Tdap) 09/21/1990 Depression Screening 1991 PAP SMEAR 09/21/2000 INFLUENZA VACCINE (Season Ended) 2019 documented as of this encounter Procedures Procedure Name Priority Date/Time Associated Diagnosis Comme nts ASSIGNMENT OF BENEFITS Routine 07/21/2019 8:44 AM CDT documented in this encounter Results Not on filedocumented in this encounter Insurance Payer Benefit Plan Subscriber ID Effective Dates Phone Address Type / Group [employer] [place] [employer] [place] [id number] 2018-Presen [phone] [address] [place] - OUT OF t 7 [id number] [place] [address] [employer] [employer] [place] [id number] 2018-[place] [phone] [place] [address] [place] - OUT OF t 7 [id number] [place] [address] documented as of this encounter
--- OUTSIDE RECORDS SUMMARY | 2019-10-04 00:14 | XMS REPORT | Continuity of Care Document ---
:1980 Author Organization [facility] t Address [address] [place] [address] Care Team Providers Name Role Phone Edd GRIFFIN Attending Clinician Only, Test Attending Clinician Unavailable Doctor Unassigned, Name Attending Clinician Unavailable Edd GRIFFIN Admitting Clinician Problems This patient has no known problems. Allergies, Adverse Reactions, Alerts This patient has no known allergies or adverse reactions. Medications This patient has no known medications. Procedures This patient has no known procedures. Encounters Start End Encounter Admission Attending Care Care Encounter Source Date/Time Date/Time Type Type Clinicians Facility Department ID 2019-07-22 2019-07-23 [facility] [id number] 11:59:00 09:35:00 Encounter Jelena Rushing [id number] [facility] [id number] [place] [id number] 2019-07-21 2019-07-21 Laboratory Only, [facility] [id number] 08:46:49 09:01:49 Only Test Сергей [id number] [facility] [id number] [place] [id number] 2019-07-21 2019-07-21 Orders Doctor CARDENAS [id number] 00:00:00 00:00:00 Only UnassYANG fabian [id number] [place] [id number] Results This patient has no known results.
--- OUTSIDE RECORDS SUMMARY | 2019-10-04 00:15 | XMS REPORT | Summary of Care ---
:1980 Author Organization [facility] Address [address] [place] [address] Care Team Providers Name Role Phone Pcp, Does Not Have A Primary Care Provider Reason for Visit Reason Comments LAB WORK Auth/Cert Status Reason Specialty Diagnoses / Procedures Referred By C ontact Referred To Contact Phlebotomy Adc Pob Lab Dr yates [address] , [address] [place] [address] Phone: Fax: Encounter Details Date Type Department Care Team Description 07/21/2019 Laboratory Only [facility] Pema Puga MD [address] [place] [address] Pre-op evaluation Phlebotomy Only, Adc Test (Primary Dx) [facility] [address] [place] [address] Allergies No Known Allergiesdocumented as of this [...] 07/22/2019 Hospital Encounter Surgery Michael Puga MD [address] [facility], [place] [address] [phone] 07/22/2019 Anesthesia Event Surgery Kiya Denton, [address] [place] [address] 07/22/2019 Surgery Surgery Pema Puga MD LAPAROSCOPIC TOTAL [address] [facility], S te B ABDOMINAL HYSTERECTOMY [place], [place] [address] Health Maintenance Due Date Last Done Comments PNEUMOCOCCAL 0-64 YEARS COMBINED SERIES (1 of 1 - 09/21/1985 PPSV23) DTaP,Tdap,and Td Vaccines (1 - Tdap) 09/21/1990 Depression Screening 1991 PAP SMEAR 09/21/2000 INFLUENZA VACCINE (Season Ended) 2019 documented as of this encounter Procedures Procedure Name Priority Date/Time Associated Diagnosis Comme nts COVID-19 (ID NOW Routine 07/21/2019 9:23 AM Pre-op evaluation Results for this RAPID TESTING) CDT procedure are in the results section. documented in this encounter Results COVID-19 (ID NOW RAPID TESTING) (07/21/2019 9:23 AM CDT) SARS-CoV-2 Rapid ID Not Detected Not Detected [facility] Specimen Swab - NASOPHARYNGEAL SWAB Narrative Performed At ID NOW COVID-19 Assay is an isothermal nucleic [facility] acid amplification test intended for the qualitative detection of nucleic acid from SARS-CoV-2 viral RNA in nasopharyngeal (MUSE[employer] SPECIALIST) specimens. It is used under Emergency Use Authorization (EUA) by FDA. The limit of detection (LOD) of the assay is 125 Genome Equivalents/mL. A positive result is indicative of the presence of SARS-CoV-2 RNA. Clinical correlation with patient history and other diagnostic information is necessary to determine patient infection status. A negative (Not Detected) result does not preclude SARS-CoV-2 infection. In patients with clinical symptoms and other tests that are consistent with SARS-CoV-2 infection, negative results should be treated as presumptive negative and a new specimen should be tested with alternative PCR molecular test. Invalid: Please collect a new specimen for repeat patient testing if clinically indicated. Performing Organization Address City/State/Zipcode Phone Number [facility] CLIA: [id number], [address] [place], [place] [address] documented in this encounter Visit Diagnoses Diagnosis Pre-op evaluation - Primary Preoperative examination, unspecified documented in this encounter Insurance Payer Benefit Plan Subscriber ID Effective Dates Phone Address Type / Group BCBS OF [facility] [id number] 2018-Iggli [phone] [address] - OUT OF t 7 [id number] [place] [address] BCBS OF [facility] [id number] 2018-[place] [phone] [place] [address] [place] - OUT OF t [id number] [place] [id number] documented as of this encounter
--- OUTSIDE RECORDS SUMMARY | 2019-10-04 00:15 | XMS REPORT | Summary of Care ---
:1980 Author Organization [facility] - [facility] Address [address] [place] [id number] Care Team Providers Name Role Phone Pcp, Does Not Have A Primary Care Provider Reason for Visit Auth/Cert Status Reason Specialty Diagnoses / Procedures Referred By R eferred To Contact Contact Surgery Diagnoses Pelvic and perineal pain Excessive and frequent menstruation with irregular cycle Pelvic and Perineal Pain, excessive and frequent menstration R10.2 (ICD-10-CM) - Pelvic and perineal pain Adc Pre/Pacu/Post N92.1 (ICD-10-CM ) - Excessive and frequent menstruation with irregular cycle [address] [place] [address] Procedures PA LAPAROSCOPY TOTAL HYSTERECTOMY UTERUS > 250 GRAM PA LAP,RMV ADNEXAL STRUCTURE PA LAPAROSCOPY W TOT HYSTERECTUTERUS <=250 GRAM W TUBE/OVARY PA LAPAROSCOPY TOT HYSTERECTOMY UTERUS >250 GRAM W TUBE/OVARY Drive LAPAROSCOPIC TOT AL ABDOMINAL HYSTERECTOMY [id number] - PA LAPAROSCOPY W TOT HYSTERECTUTERUS <=250 GRAM W TUBE/OVARY LAPAROSCOPIC SALPINGECTOMY [id number] - PA LAPAROSCOPY TOT HYSTERECTOMY UTERUS >250 GRAM W TUBE/[place] [address] Fax: Encounter Details Date Type Department Care Team Description 07/22/2019 - Hospital Encounter ADC Labor and Delivery Edd, 07/23/2019 Unit MD Robbie [address] [place] [address] [address] [facility], [facility] [place] [address] [place], [place] [phone] [id number] Allergies No Known Allergiesdocumented as of this encounter (statuses as of 07/23/2019) Medications Medication Sig Dispensed Refills Start Date End Date Status phenazopyridine 200 Take 1 9 tablet 0 11/28/2018 0 Discontinued mg tabletIndications: tablet by Acute cystitis with mouth 3 hematuria (three) times daily. documented as of this encounter (statuses as of 07/23/2019) Active Problems No known active problemsdocumented as of this encounter (statuses as of 07/23/2019) Social History Tobacco Use Types Packs/Day Years Used Date Current Every Day Smoker Smokeless Tobacco: Never Used Tobacco Cessation: Ready to Quit: No; Co unseling Given: No Alcohol Use Drinks/Week oz/Week Comments Yes Sex Assigned at Date Recorded Not on file Job Start Date Occupation Industry Not on file Not on file Not on file Travel History Travel Start Travel End No recent travel history available. COVID-19 Exposure Response Date Recorded In the last month, have you been in contact with No / Unsure 07/22/2019 12:30 PM CDT someone who was confirmed or suspected to have Coronavirus / COVID-19? documented as of this encounter Last Filed Vital Signs Vital Sign Reading Time Taken Comments Blood Pressure 90/55 07/23/2019 8:00 AM CDT Pulse 59 07/23/2019 8:00 AM CDT Temperature 36.7 C (98.1 F) 07/23/2019 8:30 AM CDT Respiratory Rate 16 07/23/2019 3:45 AM CDT Oxygen Saturation 100% 07/23/2019 3:45 AM CDT Inhaled Oxygen Concentration - - Weight 55.8 kg (123 lb) 07/21/2019 9:00 AM CDT Height 157.5 cm (5' 2") 07/21/2019 9:00 AM CDT Body Mass Index 22.5 07/21/2019 9:00 AM CDT documented in this encounter Discharge Instructions Lesley Tsang RN - 07/22/2019 Patient Discharge Instructions Discharge date: 07/22/2019 Procedure(s): Procedure(s): LAPAROSCOPIC TOTAL ABDOMINAL HYSTERECTOMY Discharge Orders ACTIVITY: As Tolerated Follow instructions as indicated below: 1. The medication that was used will be acting in your system for the next 24 hours, so you might feel a little drowsy, with impaired judgment and or motor function. This feeling should go wear off. Because the medication is still in your system for the next 24 hours you SHOULD NOT: Drive a car, operate machinery or power tool. Drink any alcohol beverages (including beer or wine). Make any important decisions or sign any legal documents. 2. You should rest the remainder of the day and not engage in any physical activity. Move slowly today. After lying down, sit on the edge of the bed for a moment before standing. YOU ARE RESPONSIBLEFOR HAVING SOMEONE AT HOME WITH YOU DURING THE AFTERNOON AND NIGHT IMMEDIATELY FOLLOWING YOUR SURGERY. Patient should cough and deep breathe every 2-4 hours while awake to avoid respiratory complications. 4. Lifting: No lifting over >10 pounds 5. Weight: In general, sudden weight gains or losses should be reported to your provider. Cardiac patients should weigh daily and notify their provider for a weight gain of 3 pounds per day or 5 pounds per week. 6. Tobacco Avoidance: Follow recommendations below 7. Because the medications used could procedure some residual nausea and vomiting after you go home,you should eat lightly today, starting with clear liquids (broth, soft drinks, apple juice, jello) and toast or crackers, progressing to bland solid foods and then to your normal diet as tolerated, unle ss otherwise stated by your surgeon. If you get sick, wait a couple of hours and then begin to eat. After 24 hours the nausea should be gone. 8. You may experience some pain and your physician will advise you on what to take for discomfort. This should be taken as directed. If the pain is not relieved, contact your physician. You may alsohave a sore throat from the airway that was in place. You may uses lozenges, throat spray (such as C hloraseptic), or warm salt water gargles for symptomatic relief. 9. If you feel warm, take your temperature. If it is 101 degrees or above call your physician. 10. If you are unable to urinate within five hours after your procedure, call your physician. 11. The type of surgery performed will determine how much bleeding (if any) to expect. Normally, some spotting might occur. If your dressing pad becomes saturated, notify your physician. Elevate surgical site, if applicable, to reduced swelling and pain. 12. Wound/dressing care: see Dr. Puga's Handout Tips on preventing a surgical site infection.. Dont smoke. It is best to quit at least 30 days before surgery, but quitting after surgery is also helpful. If you are diabetic, keep your blood sugar well controlled. WASH YOUR HANDS. Keep your wound clean and remember to wash your hands before and after contact with the area. All health care workers should also wash their hands or use an alcohol based hand rub prior to examining you. If antibiotics are prescribed, take them as directed. Finish the entire course of antibiotics. Call your doctor if you have signs of infection: ? Increased tenderness at the surgical site ? Red streaks or increased redness of the area ? Bad-smelling discharge from the incision ? Fever of 101F or higher ? General tired feeling that doesnt improve 13. Other discharge instructions: see 's handout 14. Special Instructions: Take Home Medications These are medications ordered for you by your healthcare provider. Do not take any other medications or supplements unless advised by your healthcare provider. Current Discharge Medication List STOP taking these medications phenazopyridine 200 mg tablet Comments: Reason for Stopping: Follow-up appointments: If you experience any of the following symptoms- see Dr. Puga's handout For worsening symptoms/changing condition/problems or questions: Non-emergency/urgent: Call the [facility] Hotline at or or Dr. Puga's office Emergency: Go to the closest emergency room or call 911 If you receive the patient satisfaction survey by mail please complete and return and let us know how we are doing. TOBACCO AVOIDANCE Exposure to tobacco either from smoking or from second hand (environmental) smoke or smokeless tobacco (snuff) is damaging to your health. This information is to encourage everyone to avoid tobacco exposure. It is recommended that you: ? If you smoke or use smokeless tobacco, we encourage you to quit. ? If you have already quit smoking, continue your good work! ? If you do not smoke or use smokeless tobacco, do not start. ? Avoid secondhand smoke. Additional Resources You may want to contact these organizations for further information on smoking and how to quit. [place] [employer], http://www.lungusa.org/stop-smoking/ [place] [employer], http://www.cancer.org/Healthy/StayAwayfromTobacco/index [place] [employer], http://www.heart.org/HEARTORG/GettingHealthy/QuitSmoking/Quit-Smoking_[facility] _001085_SubHomePage.jsp documented in this encounter Plan of Treatment Name Type Priority Associated Diagnoses Date/Ti me SURGICAL PATHOLOGY EXAM LAB STAT 10/2019 5:36 PM CDT Name Type Priority Associated Diagnoses Order S chedule POCT Test LAB Routine ONCE for 1 Occurrences starting 2019 until 07/22/2019 SURGICAL PATHOLOGY EXAM LAB Routine ONCE for 1 Occurrences starting 2019 Health Maintenance Due Date Last Done Comments PNEUMOCOCCAL 0-64 YEARS COMBINED SERIES (1 of - 09/21/1985 PPSV23) DTaP,Tdap,and Td Vaccines (1 - Tdap) 09/21/1990 PAP SMEAR 09/21/2000 INFLUENZA VACCINE (Season Ended) 2019 Depression Screening 07/21/2020 07/22/2019 documented as of this encounter Procedures Procedure Name Priority Date/Time Associated Comments Diagnosis ABORH CONFIRMATION Routine 07/22/2019 12:50 Resul ts for this PM CDT procedure are i n the results section. URINALYSIS STAT 07/22/2019 12:40 Results for this PM CDT procedure are i n the results section. CBC WITH DIFFERENTIAL STAT 07/22/2019 12:36 Re sults for this PM CDT procedure are i n the results section. CBC WITH DIFFERENTIAL STAT 07/22/2019 12:36 Re sults for this PM CDT procedure are i n the results section. COMP. METABOLIC PANEL STAT 07/22/2019 12:36 Re sults for this (04031) PM CDT procedure are i n the results section. HB ABO GROUPING STAT 07/22/2019 12:35 Results for this PM CDT procedure are i n the results section. documented in this encounter Results ABORH CONFIRMATION (07/22/2019 12:50 PM CDT) Pathologist Sig nature ABO & RH O Positive LAB Comment: Performed at [facility] Laboratory Services - [facility] Blood Bank [address] [place] [address] Toll Free: [phone] CLIA No. [id number] Specimen Performing Organization Address City/[facility] Phone Number BLD LAB URINALYSIS (07/22/2019 12:40 PM CDT) Pathologist Sig nature APPEARANCE Hazy (A) Clear [facility] COLOR Yellow Yellow [facility] PH 6.0 4.8 - 8.0 [facility] SP GRAVITY 1.014 1.003 - 1.030 [facility] GLU U QUAL Normal Normal [facility] BLOOD Negative Negative [facility] KETONES Negative Negative [facility] PROTEIN Negative Negative [facility] UROBILIN Normal Normal [facility] BILIRUBIN Negative Negative [facility] NITRITE Negative Negative [facility] LEUK FABIOLA 25/uL (A) Negative [facility] RBC/HPF 1 0 - 3 HPF [facility] WBC/HPF 2 0 - 5 HPF [facility] BACTERIA Few (A) Negative [facility] MUCOUS Slight (A) Negative LPF [facility] SQ EPITH 9 HPF [facility] SPERM 2 (H) <=1 HPF [facility] Specimen Urine - URINE, CLEAN CATCH Performing Organization Address [facility]/Zipcode Phone Number [facility] CLIA: [id number], [address] [place] [address] CBC WITH DIFFERENTIAL (07/22/2019 12:36 PM CDT) Pathologist Sig nature WBC 8.70 4.30 - 11.10 [facility] 10*3/L HOSPITAL LABORATORY RBC 4.17 3.93 - 5.25 [facility] 10*6/L [facility] HGB 12.1 11.6 - 15.0 [facility] g/dL [facility] HCT 36.5 35.7 - 45.2 % [facility] MCV 87.5 80.6 - 95.5 fL [facility] MCH 29.0 25.9 - 32.8 pg [facility] MCHC 33.2 31.6 - 35.1 [facility] g/dL [facility] RDW-SD 53.2 (H) 39.0 - 49.9 fL [facility] RDW-CV 16.6 (H) 12.0 - 15.5 % [facility] PLT 325 166 - 358 [facility] 10*3/L HOSPITAL LAB[facility]ORY MPV 9.9 9.5 - 12.9 fL [facility] NRBC/100 WBC 0.0 0.0 - 10.0 /100 [facility] WBCs [facility] NRBC x10^3 <0.01 10*3/L [facility] GRAN MAT (NEUT) % 56.2 % [facility] IMM GRAN % 0.10 % [facility] LYMPH % 32.0 % [facility] MONO % 7.5 % [facility] EOS % 3.7 % [facility] BASO % 0.5 % [facility] GRAN MAT x10^3(ANC) 4.90 1.88 - 7.09 [facility] 10*3/uL [facility] IMM GRAN x10^3 <0.03 0.00 - 0.06 [facility] 10*3/uL [facility] LYMPH x10^3 2.78 1.32 - 3.29 [facility] 10*3/uL [facility] MONO x10^3 0.65 0.33 - 0.92 [facility] 10*3/uL HOSPITAL LAB[facility]ORY EOS x10^3 0.32 0.03 - 0.39 [facility] 10*3/uL HOSPITAL [facility] BASO x10^3 0.04 0.01 - 0.07 [facility] 10*3/uL [facility] Specimen Blood - ARM, RIGHT Performing Organization Address City/State/Zipcode Phone Number [facility] CLIA: [id number], [address] [place], [place] [address] COMP. METABOLIC PANEL (90195) (07/22/2019 12:36 PM CDT) Pathologist Sig nature NA 138 135 - 145 [facility] mmol/L [facility] K 4.2 3.5 - 5.0 [facility] mmol/L [facility] CL 109 (H) 98 - 108 mmol/L [facility] CO2 TOTAL 21 (L) 23 - 31 mmol/L [facility] AGAP 8 2 - 16 [facility] BUN 11 7 - 23 mg/dL [facility] GLUCOSE 93 70 - 110 mg/dL [facility] CREATININE 0.58 0.50 - 1.04 [facility] mg/dL [facility] TOTAL BILI 0.8 0.1 - 1.1 mg/dL [facility] CALCIUM 9.1 8.6 - 10.6 [facility] mg/dL [facility] T PROTEIN 7.3 6.3 - 8.2 g/dL [facility] ALBUMIN 4.5 3.5 - 5.0 g/dL [facility] ALK PHOS 40 34 - 122 U/L [facility] ALTv 12 5 - 35 U/L [facility] AST(SGOT) 21 13 - 40 U/L [facility] eGFR Calculation 115.7 mL/min/1.73m2 [facility] ([facility] [place]) eGFR Calculation 140.3 mL/min/1.73m2 [facility] () [facility] Specimen Blood - ARM, RIGHT Narrative Performed At Association of Glomerular Filtration Rate (GFR) [facility] and Staging of Kidney Disease* + + +- + | GFR (mL/min/1.73 m2) | With Kidney Damage | Without Kidney Damage + + +- + | >90 | Stage one | Normal + + +- + | 60-89 | Stage two | Decreased GFR + + +- + | 30-59 | Stage three | Stage three + + +- + | 15-29 | Stage four | Stage four + + +- + | <15 (or dialysis) | Stage five | Stage five + + +- + *Each stage assumes the associated GFR level has been in effect for at least three months. Stages 1 to 5, with or without kidney disease, indicate chronic kidney disease. Notes: Determination of stages one and two (with eGFR >59mL/min/1.73 m2) requires estimation of kidney damage for at least three months as defined by structural or functional abnormalities of the kidney, manifested by either: Pathological abnormalities or Markers of kidney damage (including abnormalities in the composition of the blood or urine or abnormalities in imaging tests). Performing Organization Address City/State/Zipcode Phone Number [facility] CLIA: [id number], [address] [place], [place] [address] Type and Screen - ONCE STAT (07/22/2019 12:35 PM CDT) Pathologist Sig nature ABO & RH O Positive LAB Comment: Performed at [facility] Laboratory Services - [facility] Blood Bank [address] [place], [place] [address] Toll Free: [phone] CLIA No. [id number] IAT Negative LAB Comment: Performed at [facility] Laboratory Services - [facility] Blood Bank [address] [place], [place] [address] Toll Free: [phone] CLIA No. [id number] Specimen Blood - VENOUS Performing Organization Address City/State/Zipcode Phone Number BLD LAB documented in this encounter Visit Diagnoses Diagnosis Metrorrhagia - Primary documented in this encounter Administered Medications Medication Order MAR Action Action Date Dose Rate Site acetaminophen (TYLENOL) tablet 500 mg 500 mg, Oral, Q6HPRN, Starting Sun07/22/19 at 2255, Unt il Discontinued, Routine, Pain (scale 4-6) HYDROcodone-acetaminophen (NORCO 5) 5-325 Given 2019 3:40 AM CDT 1 tablet mg tablet 1 tablet 1 tablet, Oral, Q6HPRN, Starting Sun07/22/19 at 2255, Until Discontinued, Routine, Pain (scale 4-6) lactated ringers IV infusion 1,000 mL at 75 mL/hr, 1,000 mL, IV Infusion, CONT INUOUS, Starting Sun07/22/19 at 1900, Until Discontinued, Routine, PACU lactated ringers IV infusion New Bag 07/22/2019 11:53 PM CDT 1,000 mL 75 mL/hr 1,000 mL at 75 mL/hr, 1,000 mL, IV Infusion, CONTINUOUS, Starting Sun07/22/19 at 2315, Until Discontinued, Routine ondansetron (ZOFRAN (PF)) injection 4 mg 4 mg, Slow IV Push, Q6HPRN, 2 doses, Starting Sun at 2255, Until Discontinued, Routine, Nausea and Vomiting (N/V), if n ausea and vomiting proMETHazine (PHENERGAN) 12.5 mg in NaCl 0.9% (NS) 50 mL piggyback 12.5 mg, IV Piggyback, Q6HPRN, Starting Sun07/22/19 at 2255, Until Discontinued, 50 mL Medication Order MAR Action Action Date Dose Rate Site ketorolac (TORADOL) injection 30 Given 07/23/2019 5:39 AM CDT 3 0 mg mg 30 mg, Slow IV Push, Q6H, 2 doses, First dose on Sun07/22/19 at 2345, Last dose on Sun07/23/19 at 0000, Routine, environmental field team member approving Restricted medication: ROBBIE PUGA Given 07/22/2019 11:54 PM CDT 30 mg lactated ringers IV infusion New Bag 07/22/2019 12:40 PM CDT 1,000 mL 20 mL/hr 1,000 mL at 20 mL/hr, 1,000 mL, IV Infusion, ONCE, 1 dose, Sun07/22/19 at 1215, Routine, DSU Pre-op ondansetron (ZOFRAN (PF)) injection 4 mg Given 07/22/2019 7:24 PM CDT 4 mg 4 mg, Slow IV Push, PRN, 1 dose, Starting Sun07/22/19 at 1849, Until Sun07/22/19 at 1924, Routine, Nausea and Vomiting (N/V), PACU scopolamine transdermal (TRANSDERM-SCOP) Given 07/22/2019 1:00 PM CDT 1.5 mg patch 1.5 mg 1.5 mg, Topical, Administer over 72 Hours, Q72H, First dose on Sun07/22/19 at 1245, Until Discontinued, Routine, Intra-op documented in this encounter Insurance Payer Benefit Plan Subscriber ID Effective Dates Phone Address Type / Group BCBS OF [facility] [id number] 2018-Presen [phone] [address] PPO/[place] - OUT OF t 7 [id number] [place] [address] BCBS OF [facility] [id number] 2018-[place] [phone] [place] [address] [place] PPO/[place] - OUT OF [facility] [id number] [place] [phone] ([place]) [place] [address] documented as of this encounter
[2019-10-04] MEDS ORDERED: PROMETHAZINE INJ 25 MG/ML AMP ONE (00:45)
[2019-10-04] MEDS ORDERED: KETOROLAC 30 MG/ML INJ ONE ×2 (00:46→12:49)
[2019-10-04] MEDS ORDERED: NA CHLORIDE 0.9% 1,000 ML ONE ×3 (00:46→16:46)
[2019-10-04 01:01] LABS: Absolute Lymphocytes (CBC) 1.2 K/uL (0.7-4.9); Basophils % 0.2 % (0-1.3); Hematocrit 39.3 % (36.0-45.0); Lymphocytes % 6.9 % (15.3-44.8); MPV 8.9 fL (7.6-11.3); RBC Red Blood Cell Count 4.33 M/uL (3.86-4.86)
[2019-10-04 01:50] LABS: Blood Morphology Comment NOT SEEN (NOT SEEN); Platelet Estimate ADEQ
[2019-10-04 01:51] LABS: Urine Blood 1+ (NEG); Urine Glucose NEGATIVE (NEG); Urine Protein NEGATIVE (NEG); Urine Specific Gravity >1.030 (1.005-1.030)
[2019-10-04 02:04] LABS: ALT/SGPT 15 U/L (12-78); AST/SGOT 11 U/L (15-37); Albumin 3.7 g/dL (3.4-5.0); Alkaline Phosphatase 46 U/L (45-117); BUN Blood Urea Nitrogen 14 mg/dL (7-18); Bicarbonate 23 mmol/L (21-32); Bilirubin Direct 0.1 mg/dL (0-0.2); Bilirubin Total 0.6 mg/dL (0.2-1.0); Glucose Level 129 mg/dL (74-106); Lipase 56 U/L (73-393); Potassium 3.3 mmol/L (3.5-5.1); Protein, Total 6.9 g/dL (6.4-8.2); Sodium Level 140 mmol/L (136-145)
[2019-10-04 02:21] LABS: Urine Bacteria 20-50 /HPF (<20); Urine Culture Reflex Order REFLEXED; Urine Mucus 3+ /HPF (NONE SEEN)
--- NOTE | 2019-10-04 03:16 | EDPHYS ---
Physician Documentation [facility] Name: Nunu Johnson Age: 39 yrs Sex: Female : 1980 Arrival Date: 10/04/2019 Time: 00:25 Bed 13 Private MD: ED Physician To Donato HPI: 10/03 00:30 This 39 yrs old Female presents to ER via EMS with complaints of Abdominal cp Pain. 00:30 The patient presents with abdominal pain in the lower abdomen, in the periumbilical cp area. Onset: The symptoms/episode began/occurred suddenly, 2 hour(s) ago. The symptoms do not radiate. Associated signs and symptoms: Pertinent positives: nausea, Pertinent negatives: constipation, diarrhea, fever, vomiting. Severity of pain: in the emergency department the pain has improved mildly. Patient reports pain started after having intercourse with tonight and patient reports having total hysterectomy performed [address] Puga. 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 - Social history:: Smoking status: Patient reports the use of cigarette tobacco products, smokes one-half pack cigarettes per day. ROS: 00:35 Constitutional: Negative for fever. cp 00:35 Cardiovascular: Negative for chest pain. cp 00:35 Respiratory: Negative for cough. 00:35 Abdomen/GI: Positive for abdominal pain, Negative for vomiting, diarrhea, constipation. 00:35 All other systems are negative. Exam: 00:45 Constitutional: The patient appears in no acute distress, alert, awake, non-toxic, well cp developed, well nourished, uncomfortable. 00:45 Head/Face: Normocephalic, atraumatic. cp 00:45 Eyes: Periorbital structures: appear normal, Conjunctiva: normal, no exudate, no injection, Sclera: no appreciated abnormality, Lids and lashes: appear normal, bilaterally. 00:45 ENT: External ear(s): are unremarkable, Nose: is normal, Mouth: Lips: moist, Oral mucosa: moist, Posterior pharynx: Airway: no evidence of obstruction, patent. 00:45 Chest/axilla: Inspection: normal, Palpation: is normal, no crepitus, no tenderness. 00:45 Cardiovascular: Rate: normal, Rhythm: regular. 00:45 Respiratory: the patient does not display signs of respiratory distress, Respirations: normal, no use of accessory muscles, no retractions, labored breathing, is not present, Breath sounds: are clear throughout, no decreased breath sounds. 00:45 Abdomen/GI: Inspection: abdomen appears normal, Bowel sounds: active, all quadrants, Palpation: soft, in all quadrants, severe abdominal tenderness, in the umbilical area, right lower quadrant and left lower quadrant, rebound tenderness, is not appreciated, voluntary guarding, is elicited in the umbilical area, right lower quadrant and left lower quadrant. 00:45 Neuro: Orientation: to person, place \T\ time. Mentation: is normal. Vital Signs: 00:26 BP 102 / 74; Pulse 80; Resp 18; Temp 98.2; Pulse Ox 100% ; Weight 55.79 kg; Height 5 wh ft. 2 in. (157.48 cm); Pain 9/10; 02:15 BP 107 / 66; Pulse 79; Resp 18; Pulse Ox 99% on R/A; wh 03:30 BP 104 / 55; Pulse 65; Resp 18; Pulse Ox 96% on R/A; wh 00:26 Body Mass Index 22.50 (55.79 kg, 157.48 cm) wh MDM: 00:32 Patient medically screened. cp 01:00 Differential diagnosis: appendicitis, non-specific abd pain, Pyelonephritis, cp Ureterolithiasis, urinary tract infection. 03:07 Data reviewed: vital signs, nurses notes, lab test result(s), radiologic studies, CT cp scan, I have discussed the patient's presentation/case with the attending Emergency Department Physician; and as a result, I will admit patient. Physician consultation: Darnell Lopez MD was called at 03:08, was contacted at 03:08, regarding consult, patient's condition, and will see patient later today. 10/03 00:30 Order name: Basic Metabolic Panel; Complete Time: 02:58 cp 10/03 02:58 Interpretation: Normal except: K 3.3; CL 110; GLUC 129. cp 10/03 00:30 Order name: CBC with Diff; Complete Time: 02:58 cp 10/03 02:58 Interpretation: Normal except: WBC 17.3; RDW 17.8; AAYUSH% 87.7; LYM% 6.9; NEUT A 15.2. cp 10/03 00:30 Order name: Hepatic Function; Complete Time: 02:58 cp 10/03 00:30 Order name: Lipase; Complete Time: 02:58 cp 10/03 00:30 Order name: Urine Microscopic Only; Complete Time: 02:58 cp 10/03 02:59 Interpretation: Normal except: URBC 5-10; UBACT 20-50; MUCUS 3+. cp 10/03 01:09 Order name: Manual Differential; Complete Time: 02:58 EDMS 10/03 02:59 Interpretation: Normal except: SEGS 81; BANDS [F] 3; LYM 9. cp 10/03 00:30 Order name: CT Abd/Pelvis - IV Contrast Only cp 10/03 01:49 Order name: Urine Dipstick--Ancillary (enter results); Complete Time: 02:58 tt3 10/03 02:21 Order name: Urine Culture EDMS 10/03 10:45 Order name: CORONAVIRUS EDMS 10/03 10:58 Order name: CBC with Automated Diff EDMS 10/03 11:07 Order name: Basic Metabolic Panel EDWY 10/03 00:30 Order name: IV Saline Lock; Complete Time: 00:52 cp 10/03 00:30 Order name: Labs collected and sent; Complete Time: 00:52 cp 10/03 00:30 Order name: Urine Dipstick-Ancillary (obtain specimen); Complete Time: 01:48 cp 10/03 03:01 Order name: NPO; Complete Time: 03:07 cp Administered Medications: 00:45 Drug: NS 0.9% 1000 ml Route: IV; Rate: 1 bolus; Site: left antecubital; bb 01:50 Follow up: Response: No adverse reaction; IV Status: Completed infusion wh 00:45 Drug: TORadol - Ketorolac 15 mg Route: IVP; Site: left antecubital; bb 01:50 Follow up: Response: No adverse reaction; Pain is decreased wh 00:55 Drug: Phenergan 12.5 mg Route: IVP; Site: left antecubital; bb 01:48 Follow up: Response: No adverse reaction 01:49 Follow up: Response: No adverse reaction; Nausea is decreased 03:20 Drug: Zosyn 3.375 grams Route: IVPB; Infused Over: 60 mins; Site: left antecubital; 04:47 Follow up: Response: No adverse reaction; IV Status: Completed infusion 04:48 Drug: Potassium Chloride 10 mEq Route: IV; Rate: calculated rate; Site: left antecubital; Disposition: 03:30 Chart complete. cp Disposition: 10/04/19 03:15 Hospitalization ordered by Will Hernandez for Inpatient Admission. Preliminary diagnosis is Other abdominal pain - Pneumoperitoneum. - Bed requested for [facility] ER HOLD. - Status is Inpatient Admission. jl7 - Condition is Stable. - Problem is new. - Symptoms have improved. Addendum: 10/08/2019 01:25 Co-signature as Attending Physician, To Donato MD. m Signatures: Dispatcher [employer] EDMS Mami Jimenez RN RN bb Page, Corey, PA PA Mitzy Quiñonez RN RN cg Leal, Jahala, RN RN [address], [facility] To Donato MD MD [email or web address] Corrections: (The following items were deleted from the chart) 10/03 03:38 03:15 Hospitalization Ordered by Will Hernandez for Inpatient Admission. Preliminary cg diagnosis is Other abdominal pain - Pneumoperitoneum. Bed requested for Telemetry/MedSurg (Inpatient). Status is Inpatient Admission. Condition is Stable. Problem is new. Symptoms have improved. cp 13:37 03:38 10/04/2019 03:15 Hospitalization Ordered by Will Hernandez for Inpatient jl7 Admission. Preliminary diagnosis is Other abdominal pain - Pneumoperitoneum. Bed requested for [facility] ER HOLD. Status is Inpatient Admission. Condition is Stable. Problem is new. Symptoms have improved. cg
--- NOTE | 2019-10-04 03:16 | ER ---
Nurse's Notes [facility] Name: Nunu Johnson Age: 39 yrs Sex: Female : 1980 Arrival Date: 10/04/2019 Time: 00:25 Bed 13 Private MD: Diagnosis: Other abdominal pain-Pneumoperitoneum Presentation: 10/03 00:26 Chief complaint: EMS states: Post coital abdominal pain started 2 hours ago. Pt with Hx wh of Hysterectomy 11 weeks ago. Coronavirus screen: Client denies travel out of the [place] in the last 14 days. At this time, the client does not indicate any symptoms associated with coronavirus-19. Ebola Screen: Patient negative for fever greater than or equal to 101.5 degrees Fahrenheit, and additional compatible Ebola Virus Disease symptoms Patient denies exposure to infectious person. Initial Sepsis Screen: Does the patient meet any 2 criteria? No. Patient's initial sepsis screen is negative. Does the patient have a suspected source of infection? Yes: Acute abdominal pain. Risk Assessment: Do you want to hurt yourself or someone else? Patient reports no desire to harm self or others. Onset of symptoms was October 04, 2019. 00:26 Method Of Arrival: EMS: [facility] 00:26 Acuity: RHINA 3 00:30 Care prior to arrival: Medication(s) given: zofran 4 mg, Fentanyl 50 mcg IV initiated. wh 20 GA, in the left antecubital area. 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 - Social history:: Smoking status: Patient reports the use of cigarette tobacco products, smokes one-half pack cigarettes per day. Screenin:31 Abuse screen: Denies threats or abuse. Denies injuries from another. Nutritional wh screening: No deficits noted. Tuberculosis screening: No symptoms or risk factors identified. Fall Risk None identified. Assessment: 00:45 General: Appears uncomfortable, Behavior is cooperative, appropriate for age. Pain: wh Complains of pain in left lower quadrant and right lower quadrant and umbilical area Pain does not radiate. Pain currently is 9 out of 10 on a pain scale. Pain began 2 hours ago. Neuro: Level of Consciousness is awake, alert, obeys commands, Oriented to person, place, time, situation, Appropriate for age. Cardiovascular: Heart tones S1 S2. Respiratory: Airway is patent Respiratory effort is even, unlabored, Respiratory pattern is regular, symmetrical, Breath sounds are clear bilaterally. GI: Abdomen is flat, non-distended, Bowel sounds present X 4 quads. Abd is soft Abdomen is tender to palpation in umbilical area, right lower quadrant and left lower quadrant. : No signs and/or symptoms were reported regarding the genitourinary system. EENT: No signs and/or symptoms were reported regarding the EENT system. Derm: Skin is intact, is healthy with good turgor, Skin is pink, warm \T\ dry. normal. Musculoskeletal: Circulation, motion, and sensation intact. 02:00 Reassessment: No changes from previously documented assessment. Patient and/or family wh updated on plan of care and expected duration. Pain level reassessed. Patient is alert, oriented x 3, equal unlabored respirations, skin warm/dry/pink. 03:30 Reassessment: Patient and/or family updated on plan of care and expected duration. Pain wh level reassessed. Patient is alert, oriented x 3, equal unlabored respirations, skin warm/dry/pink. Provider at bedside explaining POC need for admit. Vital Signs: 00:26 BP 102 / 74; Pulse 80; Resp 18; Temp 98.2; Pulse Ox 100% ; Weight 55.79 kg; Height 5 wh ft. 2 in. (157.48 cm); Pain 9/10; 02:15 BP 107 / 66; Pulse 79; Resp 18; Pulse Ox 99% on R/A; 03:30 BP 104 / 55; Pulse 65; Resp 18; Pulse Ox 96% on R/A; 00:26 Body Mass Index 22.50 (55.79 kg, 157.48 cm) ED Course: 00:25 Patient arrived in ED. 00:28 Reza Colby PA is PHCP. cp 00:28 To Donato MD is Attending Physician. cp 00:29 Triage completed. 00:30 Arm band placed on right wrist. wh 00:30 Patient has correct armband on for positive identification. Placed in gown. Bed in low wh position. Call light in reach. Side rails up X 1. Pulse ox on. NIBP on. 00:32 Moises Bianchi is Primary Nurse. wh 00:40 Initial lab(s) drawn, by me, sent to lab. Maintain EMS IV. Dressing intact. Good blood bb return noted. Site clean \T\ dry. Gauge \T\ site: 20 g. 01:24 Radiology exam delayed due to lab results not completed at this time. (BUN/Creatinine). kw1 01:32 Radiology exam delayed due to lab results not completed at this time. (BUN/Creatinine). kw1 02:31 CT Abd/Pelvis - IV Contrast Only In Process Unspecified. EDMS 03:13 Will Hernandez is Hospitalizing Provider. cp 03:39 No provider procedures requiring assistance completed. Patient admitted, IV remains in place. Administered Medications: 00:45 Drug: NS 0.9% 1000 ml Route: IV; Rate: 1 bolus; Site: left antecubital; bb 01:50 Follow up: Response: No adverse reaction; IV Status: Completed infusion wh 00:45 Drug: TORadol - Ketorolac 15 mg Route: IVP; Site: left antecubital; bb 01:50 Follow up: Response: No adverse reaction; Pain is decreased wh 00:55 Drug: Phenergan 12.5 mg Route: IVP; Site: left antecubital; bb 01:48 Follow up: Response: No adverse reaction wh 01:49 Follow up: Response: No adverse reaction; Nausea is decreased wh 03:20 Drug: Zosyn 3.375 grams Route: IVPB; Infused Over: 60 mins; Site: left antecubital; wh 04:47 Follow up: Response: No adverse reaction; IV Status: Completed infusion wh 04:48 Drug: Potassium Chloride 10 mEq Route: IV; Rate: calculated rate; Site: left wh antecubital; Outcome: 03:15 Decision to Hospitalize by Provider. cp 03:39 Admitted to ER Hold. Please see [facility] for further documentation. 03:39 Condition: stable 03:39 Instructed on the need for admit. 13:37 Patient left the ED. jl7 Signatures: Dispatcher [employer] EDMN Mami Jimenez RN RN Reza Jimenez PA PA cp Leal, Jahala, RN RN jl7 Moises Bianchi Bri Schmid kw1 Corrections: (The following items were deleted from the chart) 02:23 02:15 Reassessment: Patient and/or family updated on plan of care and expected wh duration. Pain level reassessed. Patient is alert, oriented x 3, equal unlabored respirations, skin warm/dry/pink. wh
[2019-10-04] MEDS ORDERED: PIPER/TAZO/NS 3.375gm 3.375 GM/100 ML BAG ONE ×2 (03:43→08:40)
[2019-10-04] MEDS ORDERED: KCL 20 MEQ/100 mL IVPB 20 MEQ/100 ML BAG IV ONE (03:43)
--- NOTE | 2019-10-04 04:23 | P.HP ---
Certification for Inpatient Patient admitted to: Inpatient With expected LOS: >2 Midnights Patient will require the following post-hospital care: None Practitioner: I am a practitioner with admitting privileges, knowledge of patient current condition, hospital course, and medical plan of care. Services: Services provided to patient in accordance with Admission requirements found in Title 42 Section 412.3 of the Code of Federal Regulations Patient History Date of Service: 10/04/19 Primary Care Provider: none Reason for admission: Pneumoperitoneum History of Present Illness: 39-year-old female with history of endometriosis with recent partial hysterectomy approximately [address] Gallego presents emergency department for severe lower abdominal pain. Patient reports that at approximately 2100 last night she is having intercourse with her significant other when she began to have a sudden severe pain. Patient does report that she had some vaginal bleeding at that time. Patient tried to wait it out at home but the pain continued to get worse. Patient then called 911 who transported her to the emergency department. During her evaluation in the emergency department patient received CT scan which revealed mild to moderate upper abdominal pneumoperitoneum. CT scan was unable to identify the source of the pneumoperitoneum. General surgery was consulted while the patient was in the emergency department and instructed provider to keep patient NPO for surgical intervention. Patient started on Zosyn in the emergency department. When I saw the patient in the emergency department she was awake, alert, oriented x4. Vital signs within normal limits. Patient was afebrile. Patient did have lower abdominal tenderness, guarding. Pain was rated a 2 or 3/10 at time of examination. Patient will be made NPO and general surgery will see the patient. Allergies No Known Allergies Allergy (Verified 12/30/18 14:43) Home Medications: Acetaminophen [Tylenol Extra Strength] 500 mg PO PRN PRN 12/30/18 Naproxen [Naprosyn] 500 mg PO PRN PRN 12/30/18 - Past Medical/Surgical History Past Medical History: Patient denies medical history -: Partial hysterectomy Psychosocial/ Personal History: Patient lives at home with her significant other. - Family History Family History: Reviewed- Non-Contributory - Social History Smoking Status: Current every day smoker Alcohol use: Yes CD- Drugs: No Caffeine use: Yes Place of Residence: Home Review of Systems 10-point ROS is otherwise unremarkable Gastrointestinal: Abdominal Pain (Lower abdominal pain) Genitourinary: As per HPI Physical Examination - Physical Exam General: Alert, In no apparent distress, Oriented x3 HEENT: Atraumatic, Normocephalic, PERRLA, Mucous membr. moist/pink Neck: Supple Respiratory: Clear to auscultation bilaterally, Normal air movement Cardiovascular: No edema, Normal pulses, Regular rate/rhythm Capillary refill: <2 Seconds Gastrointestinal: Hypoactive, Tenderness (Lower abdominal quadrants), Guarding (Lower abdominal quadrants) Musculoskeletal: No contractures, No erythema, No tenderness Integumentary: No tenderness/swelling, No erythema Neurological: Normal speech Lymphatics: No axilla or inguinal lymphadenopathy - Studies Laboratory Data (last 24 hrs) 10/04/19 00:40: WBC 17.3 H, Hgb 12.8, Hct 39.3, Plt Count 294 10/04/19 00:40: Sodium 140, Potassium 3.3 L, BUN 14, Creatinine 0.70, Glucose 129 H, Total Bilirubin 0.6, AST 11 L, ALT 15, Alkaline Phosphatase 46, Lipase 56 L Assessment and Plan - Plan Assessment Mild to moderate pneumoperitoneum of the upper abdomen-unknown origin Plan Mild to moderate pneumoperitoneum of the upper abdomen-unknown origin: Patient to remain NPO at this time. IV antibiotics in place, pain medication, nausea medication as needed. Will hold off on any DVT prophylaxis at this time due to likely surgical intervention. General surgery has been made aware of patient. Will continue to monitor patient closely. Appreciate further input from general surgery. Discharge Plan: Home Plan to discharge in: 72 Hours - Advance Directives Does patient have a Living Will: No Does patient have a Durable POA for Healthcare: No - Code Status/Comfort Care Code Status Assessed: Yes (Patient is full code) Critical Care: No Time Spent Managing Pts Care (In Minutes): 55
[2019-10-04] MEDS ORDERED: MORPHINE 4 MG/ML SYR IV PRN (04:31)
[2019-10-04] MEDS ORDERED: ONDANSETRON 4 MG/2 ML VIAL IV PRN (04:31)
[2019-10-04 04:47] VITALS: BMI 22.4
[2019-10-04] MEDS: NA CHLORIDE 0.9% 1,000 ML IV SCH ×2 (05:00→21:53)
[2019-10-04] MEDS: PIPER/TAZO/NS 3.375gm 3.375 GM/100 ML BAG IVPB SCH ×2 (09:00→16:22)
[2019-10-04] MEDS ORDERED: FENTANYL CITR 100 MCG/2 ML ONE ×3 (09:07→14:23)
[2019-10-04] MEDS: FENTANYL CITR 100 MCG/2 ML IV PRN ×2 (09:10→21:20)
[2019-10-04 10:53] LABS: Absolute Lymphocytes (CBC) 1.9 K/uL (0.7-4.9); Basophils % 0.3 % (0-1.3); Hematocrit 34.5 % (36.0-45.0); Lymphocytes % 14.3 % (15.3-44.8); MPV 8.9 fL (7.6-11.3); RBC Red Blood Cell Count 3.78 M/uL (3.86-4.86)
[2019-10-04 10:55] LABS: BUN Blood Urea Nitrogen 14 mg/dL (7-18); Bicarbonate 25 mmol/L (21-32); Glucose Level 95 mg/dL (74-106); Potassium 3.8 mmol/L (3.5-5.1); Sodium Level 143 mmol/L (136-145)
--- NOTE | 2019-10-04 11:40 | CON ---
Date of Consultation: 10/02/2019 Diagnosis: Pneumoperitoneum, possible vaginal cuff tear. History Of Present Illness: This is a case of a 39-year-old patient comes to us this morning with ab dominal pain. Received a CAT scan, found pneumoperitoneum, but the rest of the structures in the abd omen look intact, but the story is that she was having a sex and then 2 hours later, she developed th e pain. After having sex, she had vaginal bleeding what she claimed was significant although she is just spotting at this moment. She had surgery several weeks ago with hysterectomy and she has claime d the healing was not as fast as they wanted to as the recent evaluation was done. She has been tryi ng to be careful with sex, but this happened. A Surgical consult and Gynecological consult were obta ined. Past Medical History: Include anxiety. Past Surgical History: Include recent hysterectomy locally. Allergies: NONE. Social History: She smokes and she drinks alcohol occasionally. She was counseled about smoking bessie sation. Family History: Noncontributory. Review of Systems: She denies any dysuria, hematuria, hematochezia, melena and just vaginal discharge after this inciden t happened. Physical Examination: General: The patient is awake, alert. HEENT: Pupils are equal and reactive, anicteric. Neck: Supple. Chest: Clear. Abdomen: Lower abdominal tenderness with cramps. The patient still have some vaginal spotting. No active profuse bleeding. Rectal: Deferred. Extremities: Good capillary refill. Laboratory Data: Blood work shows WBC count of 17. Next blood work is still pending. Potassium 3.3 , BUN is 14, creatinine is 0.7. CAT scan of the abdomen and pelvis official result is still pending, but preliminary shows pneumoperitoneum of unknown origin. Assessment: This is a 39-year-old patient who developed abdominal pain after intercourse. She had h ysterectomy several weeks ago. I just had discussion with Dr. Puga who is a power sweeper operator based o n the history that we have intestines looks okay, no major swelling and then you have the vaginal ble eding and acute onset of pain after intercourse and recent hysterectomy. We have to have a say in th e differential diagnosis by anal cuff tear. I discussed the case with the power sweeper operator even though s he is not semiconductor bonder. She agreed to take care of the patient since she might have to repair that vagina l cuff, but in that case there will be the specialty, not made. From the surgical standpoint, she is currently n.p.o. The appendix looks normal. Bladder looks unremarkable. No evidence of bowel obst ruction. The gallbladder appears to be normal. No biliary dilatation. The liver appeared to be nor mal. No lymphadenopathy. Apparently, everything is pointing out once again a gynecological injury. We will follow the patient with you. Dr. Puga explained to take this patient to the OR now. Continue the antibiotics. ANN/MODL Voice ID: [id number] Report ID: [id number]
--- NOTE | 2019-10-04 11:58 | P.PN ---
Date of Service: 10/04/19 Patient seen and evaluated. She has significant abdominal pain. General surgery input appreciated. It appears patient has a form gynecological injury. Dr. Puga planning surgical exploration today. Continue IV antibiotics. Pain management as needed.
[2019-10-04] MEDS ORDERED: propofoL 200 MG/20 ML VIAL IV ONE (12:48)
[2019-10-04] MEDS ORDERED: dexAMETHasone 10 MG/ML VIAL ONE (12:49)
[2019-10-04] MEDS ORDERED: LIDOCAINE 2% MPF 5 ML VIAL ONE (12:49)
[2019-10-04] MEDS ORDERED: ONDANSETRON 4 MG/2 ML VIAL ONE (12:54)
[2019-10-04] MEDS ORDERED: SUCCINYLCHOLINE 20 MG/ML (10 ML) IV ONE (13:00)
[2019-10-04] MEDS ORDERED: Ringers Lactate 1,000 ML IV ONE (13:25)
[2019-10-04] MEDS ORDERED: ROCURONIUM 50 MG/5 ML VIAL IV ONE (13:49)
[2019-10-04] MEDS ORDERED: NA CHLORIDE 0.9% 3,000 ML ONE (14:01)
--- NOTE | 2019-10-04 14:44 | RAD REPORT ---
EXAM DESCRIPTION: CT - Abdomen Pelvis W Contrast - 10/04/2019 5:06 am ADDENDUM #1 Critical findings were discussed with and acknowledged by Dr. Colby on 10/04/2019 2:55 AM CDT. Electronically signed by: Anand Hsieh MD 10/04/2019 6:39 AM CDT End of Addendum CLINICAL HISTORY: ABD PAIN COMPARISON: None. TECHNIQUE: CT ABDOMEN PELVIS WITH IV CONTRAST on 10/04/2019 12:30 AM CDT This exam was performed according to our departmental dose-optimization program, which includes autom ated exposure control, adjustment of the mA and/or kV according to patient size and/or use of iterati ve reconstruction technique. FINDINGS: Lower lungs are clear. Abdomen: The liver is normal in appearance. There is no biliary dilatation. Gallbladder is normal in appearance. The pancreas and spleen are normal in appearance. The adrenal glands and kidneys are unre markable. Abdominal aorta is normal in course and caliber without aneurysm. There is mild to moderate upper abd ominal free air. There is no retroperitoneal adenopathy. Pelvis: There is no bowel obstruction. Urinary bladder is unremarkable. There is small amount of free pelvic fluid. Hysterectomy was performed. Appendix is normal. Skeleton: There are no acute osseous findings. No suspicious bony lesions. IMPRESSION: Pneumoperitoneum of unclear etiology. Electronically signed by: Anand Hsieh MD 10/04/2019 2:53 AM CDT Due to temporary technical issues with the PACS/Fluency reporting system, reports are being signed by the in house radiologist without review as a courtesy to ensure prompt reporting. The interpreting r adiologist is fully responsible for the content of the report.
[2019-10-04] MEDS ORDERED: GLYCOPYRROLATE 0.2 MG/ML SYR ONE ×2 (15:43→16:00)
[2019-10-04] MEDS ORDERED: NEOSTIGMINE 1 MG/ML -5 ML ONE (15:44)
[2019-10-04] MEDS ORDERED: BUPIVACAINE 0.25% PF 10 ML VIAL ONE (15:47)
[2019-10-04] MEDS: HYDROMORPHONE HCL 1 MG/ML INJ ONE ×2 (16:44→16:49)
[2019-10-04] MEDS: METRONIDAZOLE 500mg IVPB 500 MG/100 ML BAG IV SCH (16:59)
[2019-10-04] MEDS ORDERED: HYDROCODONE/APAP 5/325 MG TAB PO PRN (17:17)
[2019-10-04] MEDS ORDERED: IBUPROFEN 600 MG TAB PO PRN (17:20)
[2019-10-04] MEDS ORDERED: PROMETHAZINE INJ 25 MG/ML AMP IV PRN (17:24)
[2019-10-04] MEDS ORDERED: PROMETHAZINE 25 MG TABLET PO PRN (17:24)
--- NOTE | 2019-10-04 22:52 | HP ---
Date of Admission: 10/04/2019 Reason For Consultation: Dr. Lopez had called me for possible vaginal cuff dehiscence in the juan alberto ent 10 weeks out from hysterectomy with postcoital pain and bleeding and abdominal pain. History Of Present Illness: The patient is a 39-year-old status post hysterectomy, July 22, 2019, at [facility]. Indication for hysterectomy was pelvic pain, postcoital; deep dyspareunia; abnormal uterine bleeding (adenomyosis, endometriosis); smoker; low-grade persistent cervical dysplas ia. She underwent endometriosis excision and salpingectomy in December of 2018 at [facility]. Her pain had not resolved. Her bleeding had continued and she had continued dyspareunia. So, s he underwent a total laparoscopic hysterectomy at [place] on July 21. She is a smoker and has been c ontinuing to smoke throughout her postop period. She had vaginal cuff healing issues, for which she was placed on pelvic rest and most recently when she was seen on September 15, she was asked to progres s slowly towards returning to normal. She had a postop appointment. She had the followup appointmen t this Sunday. The patient was sexually active last night around 6:45 p.m. During the intercourse, she felt severe sharp lower pelvic pain as she changed position, immediately stopped, noticed vaginal bleeding that w as bright red. However, on wiping a few times, the bleeding had slowed down, placed a pad and only n oted spotting, so she continued to wait with observation and the heating pad. Followed by midnight w hen she tried to empty her bladder, she had severe sharp pain, with which she could not stand or move , so she was brought in. She called the ambulance and was brought to the ER. She does not have any vaginal bleeding ongoing, however, her pain has gotten much worse with any move ment. The pain is severe. She was evaluated by General Surgery. No lower urinary tract symptoms as urinary urgency, frequency. No bowel symptoms. No fever, chills, cough. No diarrhea or any vagina l bleeding prior to the episode yesterday. She has continued to smoke throughout her postop, at leas t half a pack per day due to excessive stress and she was unable to quit. We had multiple counseling sessions pre and postop. On evaluation in the PACU as I was seeing the patient, did continue to have some pain. Physical Examination: Vital Signs: She is afebrile. Vital signs are all stable. General: Alert, in no apparent distress. Oriented x3. Head and Neck: Pupils equal and reactive to light. No pallor. Anicteric. Neck with no jugular fredy ous distention. Respiratory: Clear to auscultation bilaterally. No abnormal breath sounds. Heart: Regular rate and rhythm. No murmurs. Gastrointestinal System/Abdomen: Soft, nondistended, tender in the pelvic and bilateral lower quadra nts with positive rebound. No rigidity or guarding. Musculoskeletal: Normal. Skin: Normal. Neurologic: Intact. Extremities: No edema or calf tenderness. Laboratory Data: WBC max of 17,000, then on recheck 13,000. All the lab work completely normal, exc epting a slightly elevated glucose, likely from the stress. LFTs all normal. Her potassium was slightly low. Gynecological History: 4, para 3. History of abnormal Pap smear in 2019. She is being foll owed for low-grade dysplasia. Hysterectomy and cervical specimen without any high-grade dysplasia. She had all 3 vaginal deliveries. Surgical History: Hysteroscopy, D and C, diagnostic laparoscopy, endo treatment in December 2018, tu bal ligation in 2003, and hysterectomy on 07/22/2019. Family History: Maternal grandmother with breast cancer. Maternal aunt with colon cancer, DVT, and endometriosis. No other significant history. Social History: Smoker, half to 1 pack per day, and occasional alcohol. No other drug use. Medications: Regularly none. She has been started on Zosyn 3.375 in the ER. Allergies: NO KNOWN DRUG ALLERGIES. Laboratory Data: Her CT scan report was reviewed, showed [id number] pneumoperitoneum and then she had small amount of free fluid in the pelvis could be blood, some air apparent in the vaginal cuf f area. Assessment And Plan: 1.Pelvic pain 10 weeks post hysterectomy, postcoital bleeding and pain, new-onset sharp pain, likely representing vaginal cuff separation or dehiscence. No evidence of any gross bowel herniation. Wit h elevated white cell count, suspected a bowel process. However, no signs of this on imaging. Suspe cting the vaginal cuff separation, the patient warrants exam under anesthesia, diagnostic laparoscopy , examination of the vaginal cuff and revision if this is for a good closure again. 2.Leukocytosis. As explained above, likely from acute injury, possible bowel infection if there is any herniation that is occult. This will be examined during the surgery. However, the white cell co unt had come down to 13,000, so I suspect that possible vaginal cuff cellulitis post trauma. Continu e the Zosyn q.6 hours and observe the patient for 48 hours postop as well and discharged home on anti biotics after repair. 3.Smoking cessation was discussed. Possibility of vaginal cuff healing delays were discussed with t he patient in the past and now as well. Complete cessation now has been recommended. The patient wi ll be given a prescription if she desires for the patches. 4.She was consented for exam under anesthesia, diagnostic laparoscopy, vaginal cuff repair, lysis of adhesions, and possible General Surgery consult. Bleeding, infection, injury to the bowel, bladder, and ureters have been discussed with the patient. Her operative note from [facility] has been reviewed as well and there was a V-Loc closure of the vaginal cuff with reinforcement of the right end with 0 Vi cryl without any problems. The surgery was completely uncomplicated. The patient was completely adequately counseled and questions and answers were done, and we will call her after the procedure is completed. DEYVI/IWONA Voice ID: [id number]
--- NOTE | 2019-10-04 23:14 | OP ---
Surgeon: Darnell Lopez MD Preoperative Diagnoses: Abdominal pain. Please see gynecological evaluation for dehiscence of the v aginal cuff and also patient has adhesions and appendicitis. Postoperative Diagnoses: Abdominal pain. Please see gynecological evaluation for dehiscence of the vaginal cuff and also patient has adhesions and appendicitis. Procedure: Laparoscopic appendectomy. From the surgical standpoint, please refer to Dr. Puga for her surgical intervention from the ice cream chef ecological standpoint. Findings: The appendix was adhered to the area of the vaginal cuff. The dissection was initially do ne by the construction inspector. They noticed the appendix to be inflamed and some ischemia in nature. So, w e proceeded then to perform the appendectomy. The patient has dilated and inflamed appendix with ischemic changes. They have to do adhesion remova l since the appendix was near the gynecological surgical area that was done on the removal before I g ot into the case. During the case they found out the appendix to be nonviable, so they called me for intraoperative evaluation. I scrubbed in the case, evaluated the area of the appendix. The base of the appendix seems to be spa red. The rest looked ischemic and asymmetrical in shape and color. So, I proceeded then to create a window in the base of the appendix and transected that with an Endo ORESTES 45 mm 3.5 and the mesoappend ix was transected with the help of LigaSure that was already opened in the field. Appendix was remov ed from abdominal cavity using EndoCatch through the umbilical incision. The area was irrigated. Th e cecal area looked intact with no bleeding, no bowel leak and the mesoappendix with no bleeding. At that moment, I scrubbed out of the ER right now again and Dr. Puga continued with the case. ANN/IWONA Voice ID: [id number] Report ID: [id number]
[2019-10-05] MEDS: METRONIDAZOLE 500mg IVPB 500 MG/100 ML BAG IV SCH ×3 (00:03→16:14)
[2019-10-05] MEDS: PIPER/TAZO/NS 3.375gm 3.375 GM/100 ML BAG IVPB SCH ×3 (00:03→16:15)
[2019-10-05] MEDS: FENTANYL CITR 100 MCG/2 ML IV PRN ×2 (01:25→08:43)
[2019-10-05] MEDS: NA CHLORIDE 0.9% 1,000 ML IV SCH ×3 (01:25→21:00)
[2019-10-05 06:47] LABS: Absolute Lymphocytes (CBC) 1.1 K/uL (0.7-4.9); Basophils % 0.2 % (0-1.3); Hematocrit 32.6 % (36.0-45.0); Lymphocytes % 10.5 % (15.3-44.8); RBC Red Blood Cell Count 3.53 M/uL (3.86-4.86)
[2019-10-05 07:05] LABS: BUN Blood Urea Nitrogen 9 mg/dL (7-18); Bicarbonate 21 mmol/L (21-32); Glucose Level 108 mg/dL (74-106); Magnesium 1.9 mg/dL (1.8-2.4); Potassium 4.1 mmol/L (3.5-5.1); Sodium Level 142 mmol/L (136-145)
--- NOTE | 2019-10-05 12:10 | P.PN ---
Subjective Date of Service: 10/05/19 Primary Care Provider: none Chief Complaint: Pneumoperitoneum Patient underwent laparoscopic exploration, noted to have appendicitis, appendectomy and vaginal vault injury repaired. Physical Examination - Vital Signs Temperature: 97.6 F Blood Pressure: 99/55 Pulse: 73 Respirations: 16 Pulse Ox (%): 100 - Physical Exam General: Alert, In no apparent distress Neck: Supple Respiratory: Clear to auscultation bilaterally, Normal air movement Cardiovascular: Regular rate/rhythm, Normal S1 S2 Gastrointestinal: Normal bowel sounds, Non-distended Musculoskeletal: No swelling, No erythema Integumentary: No rashes Neurological: Other (Nonfocal) Assessment And Plan - Current Problems (Diagnosis) (1) Pneumoperitoneum Current Visit: Yes Status: Acute (2) Appendicitis Current Visit: Yes Status: Acute - Plan Status post appendectomy and repair of vaginal cuff. Patient doing well after surgery. She is tolerating diet. Leukocytosis has resolved. Urine culture: Mixed growth. Blood cultures: No growth to date. Continue IV antibiotics. Pain management. Steel Layout Worker to follow.
--- NOTE | 2019-10-05 17:45 | RAD REPORT ---
EXAM DESCRIPTION: RAD - Chest Single View - 10/05/2019 5:02 pm CLINICAL HISTORY: Chest pain COMPARISON: Chest exam December 2018 TECHNIQUE: AP portable chest image was obtained 10/05/2019 5:02 pm . FINDINGS: Lungs are clear. Interstitial pattern is similar to the comparison. Heart and vasculature are normal. No measurable pleural effusion and no pneumothorax. No acute bony abnormality seen. No ac ely shoshone aortic findings suspected. IMPRESSION: No acute cardiopulmonary process.
--- NOTE | 2019-10-05 19:36 | PN ---
Date of Progress Note: 10/05/2019 The patient is doing well. No complaint. She had appendectomy done yesterday by me. She was taken emergently by the sort line worker due to a vaginal cuff dehiscence. The patient is doing well. She fee ls comfortable right now from abdomen soft and depressible. From the surgical standpoint, the advice will be follow up in my office in 1 week, call for appointment [phone]. Once again, she is at the care of the sort line worker and the primary doctor, and they will give their recommendations based on the treatment. ANN/IWONA Voice ID: [id number] Report ID: [id number]
[2019-10-05] MEDS: HYDROCODONE/APAP 5/325 MG TAB PO PRN (19:40)
[2019-10-05 22:18] VITALS: O2SAT 98
[2019-10-06] MEDS: PIPER/TAZO/NS 3.375gm 3.375 GM/100 ML BAG IVPB SCH ×2 (01:07→07:55)
[2019-10-06] MEDS: METRONIDAZOLE 500mg IVPB 500 MG/100 ML BAG IV SCH ×2 (01:07→07:55)
[2019-10-06] MEDS: FENTANYL CITR 100 MCG/2 ML IV PRN (01:19)
[2019-10-06 04:36] LABS: Absolute Lymphocytes (CBC) 2.5 K/uL (0.7-4.9); Basophils % 0.4 % (0-1.3); Hematocrit 29.2 % (36.0-45.0); Lymphocytes % 36.3 % (15.3-44.8); RBC Red Blood Cell Count 3.18 M/uL (3.86-4.86)
[2019-10-06 04:54] LABS: BUN Blood Urea Nitrogen 13 mg/dL (7-18); Bicarbonate 21 mmol/L (21-32); Glucose Level 94 mg/dL (74-106); Potassium 3.5 mmol/L (3.5-5.1); Sodium Level 145 mmol/L (136-145)
[2019-10-06] MEDS: NA CHLORIDE 0.9% 1,000 ML IV SCH (06:33)
[2019-10-06] MEDS: HYDROCODONE/APAP 5/325 MG TAB PO PRN (08:08)
[2019-10-06] MEDS ORDERED: POTASSIUM CL SA 10 MEQ TAB PO ONE (09:00)
--- NOTE | 2019-10-06 14:04 | P.DS ---
Discharge Date: 10/06/19 Primary Care Provider: none Disposition: ROUTINE DISCHARGE Discharge Condition: GOOD Reason for Admission: Pneumoperitoneum Brief History of Present Illness: 39-year-old female with history of endometriosis with recent partial hysterectomy approximately [address] Gallego presents emergency department for severe lower abdominal pain. Patient reports that at approximately 2100 last night she is having intercourse with her significant other when she began to have a sudden severe pain. Patient does report that she had some vaginal bleeding at that time. Patient tried to wait it out at home but the pain continued to get worse. Patient then called 911 who transported her to the emergency department. During her evaluation in the emergency department patient received CT scan which revealed mild to moderate upper abdominal pneumoperitoneum. CT scan was unable to identify the source of the pneumoperitoneum. General surgery was consulted while the patient was in the emergency department and instructed provider to keep patient NPO for surgical intervention. Patient started on Zosyn in the emergency department. When I saw the patient in the emergency department she was awake, alert, oriented x4. Vital signs within normal limits. Patient was afebrile. Patient did have lower abdominal tenderness, guarding. Pain was rated a 2 or 3/10 at time of examination. Patient will be made NPO and general surgery will see the patient. Hospital Course: Patient has done well during hospital stay. She was having some discomfort, but it had improved. Spoke with Gynecology. Dr. Brewer, and patient was stable for discharge with outpt follow-up in 1 weeks. Return to the ER if symptoms worsens. Vital Signs/Physical Exam: Temp Pulse Resp BP Pulse Ox 97.3 F 65 18 119/57 L 97 10/06/19 09:00 10/06/19 09:00 10/06/19 09:08 10/06/19 09:00 10/06/19 09:08 General: Alert, In no apparent distress, Oriented x3 Laboratory Data at Discharge: WBC 7.0 K/uL (4.3-10.9) D 10/06/19 03:51 Hgb 9.7 g/dL (12.0-15.0) L 10/06/19 03:51 Hct 29.2 % (36.0-45.0) L 10/06/19 03:51 Plt Count 205 K/uL (152-406) 10/06/19 03:51 Sodium 145 mmol/L (136-145) 10/06/19 03:51 Potassium 3.5 mmol/L (3.5-5.1) 10/06/19 03:51 BUN 13 mg/dL (7-18) 10/06/19 03:51 Creatinine 0.59 mg/dL (0.55-1.3) 10/06/19 03:51 Glucose 94 mg/dL (74-106) 10/06/19 03:51 Magnesium 1.9 mg/dL (1.8-2.4) 10/05/19 06:19 Total Bilirubin 0.6 mg/dL (0.2-1.0) 10/04/19 00:40 AST 11 U/L (15-37) L 10/04/19 00:40 ALT 15 U/L (12-78) 10/04/19 00:40 Alkaline Phosphatase 46 U/L (45-117) 10/04/19 00:40 Troponin I < 0.02 ng/mL (0.0-0.045) 10/05/19 16:54 Lipase 56 U/L (73-393) L 10/04/19 00:40 Home Medications: NK [No Home Meds] 10/04/19 Patient Discharge Instructions: OK TO DC IV AND DC HOME IF OK WITH DR. POON. FOLLOW-UP WITH DR. POON IN 1-2 WEEKS. RETURN TO THE ER IF SYMPTOMS WORSENS. CONTINUE WITH OUT OF BED WITH ASSISTANCE Diet: Regular Activity: Fall precautions Followup: Jelena Poon MD [PROVISIONAL ASSOCIATE ACTIVE] - Time spent managing pt's care (in minutes): 35
[2019-10-06 14:12] VITALS: BP 112/73; TEMP 97.1
--- NOTE | 2019-10-07 10:46 | EKG ---
Test Date: 2019-10-05 Test Time: 16:55:26 Marketing Account Manager: ELINOR Sethi MEASUREMENT RESULTS: Intervals: Rate: 56 NM: 138 QRSD: 78 QT: 404 QTc: 389 [place]: P: 70 NM: 138 QRS: 62 T: 45 INTERPRETIVE STATEMENTS: Sinus bradycardia Otherwise normal ECG No previous ECG available for comparison Electronically Signed On 10-07-19 10:43:50 CDT by Duke Gonzalez
--- NOTE | 2019-10-08 07:35 | EKG ---
Test Date: 2019-10-05 Test Time: 16:57:01 Corsets Salesperson: ELINOR Sethi MEASUREMENT RESULTS: Intervals: Rate: 58 CO: 142 QRSD: 78 QT: 398 QTc: 390 [place]: P: 73 CO: 142 QRS: 62 T: 53 INTERPRETIVE STATEMENTS: Sinus bradycardia with sinus arrhythmia Otherwise normal ECG Compared to ECG 10/05/2019 16:55:26 No significant changes Electronically Signed On 10-08-19 07:32:47 CDT by Duke Gonzalez
--- NOTE | 2019-12-09 20:00 | OP ---
Date of Procedure: 10/04/2019 Surgeon: Jelena Puga MD Structural Engineering Technician: Hilda Campos. Preoperative Diagnoses: Pelvic pain, vaginal cuff dehiscence. Postoperative Diagnoses: Pelvic pain, vaginal cuff dehiscence, and appendiceal adhesions. Procedures Performed: Diagnostic laparoscopy; vaginal cuff revision, debridement, and re-closure; si gnificant lysis of small bowel and large bowel adhesions. Intraoperative Consultation: Dr. Lopez for appendectomy. Anesthesia: General endotracheal. Estimated Blood Loss: Minimal. Urine Output: 200. Specimens: Vaginal cuff debrided tissue. Complications: No complications. Drains: No drains. Condition: Stable. Indication: After the patient was examined and confirmed that she has possible vaginal cuff dehiscen ce, she was consented for a vaginal cuff revision, repair, and brought to the OR. The patient's risk factors were smoking, which she continued perioperatively including the postop period, an early mobi lization and activity, most recent pain and dehiscence after vaginal intercourse. Description Of Procedure: After informed consent was verified in the preop, she was taken back to e OR. Ancef 2 g were given. SCDs were placed. The patient was placed in a supine position on opera ting table. General anesthesia was given. She was placed in dorsal lithotomy position using Bharat s tirrups. Arms tucked by the side. Abdomen, vulva, vagina, and perineum prepped and draped in a ster ile fashion. Delgadillo was placed to drain the bladder. Glove and sponge were set aside for vaginal ret raction. Her Delgadillo was attached for retrograde bladder filling after being completely drained. After doing pelvic exam under anesthesia, it was clear that the vaginal cuff was dehisced and that th is needs revision and repair. Vaginal occluder was placed and then this area was draped. A 1 cm infraumbilical incision made with a scalpel using the open laparoscopy technique. Fascia was incised, tagged with 0 Vicryl sutures, and the peritoneum entered bluntly. S retractors were placed out after peritoneal cavity was insufflated adequately with carbon dioxide. The patient was placed i n Trendelenburg. A 5 mm left lower quadrant and 10 mm suprapubic ports were placed under direct visi on. Then, after visualization, the pelvic cavity was clear that the vaginal cuff was dehisced and wa s open. There was fluid draining. The appendix was inflamed and adhesed to the lateral aspect, the right lateral angle of the vaginal cuff, and it was under significant amount of stretch from the top of the pelvic brim in the right lower quadrant all the way down to the vaginal cuff. There were also adhesions of the small bowel and large bowel in the pelvis. These had to be taken down sharply. Th e appendix was released from the vaginal cuff and plan was to have Dr. Lopez's consult and remove the appendix at this time as it appeared to be inflamed and as it appeared to be entangled with cuff that there either could have been a primary infection leading to this process or secondary infection after cuff dehiscence where the appendix was adherent to the area of inflammation and could be second arily infected. Please review Dr. Lopez's note for this dictation. After the appendix was released, the vaginal cuff was thoroughly irrigated. All the edges were excis ed and sent for pathology. This also enable to refresh the edges, so they could be sutured together. 0 PDS was used to close 2 simple angle sutures and 3 [id number] were placed in the middle to have a full coverage. The bladder had to be dissected off the anterior vaginal wall before this coul d be done posteriorly. There were no problems with the bowel. The ureters appeared to be unremarkable and had normal peristalsis. Once the cuff was fully closed, there was excellent approximation of the edges. The appendix was then removed. After thorough irrig ation and suction were performed, all the trocars were removed after good hemostasis was secured and fascia at the umbilicus closed with the help of 0 Vicryl suture placed to tag the edges. They were t ied together and then suprapubic closed with the help of a simple 0 Vicryl stitch and all skin incisi ons closed with interrupted 4-0 Vicryl sutures. Vagina was cleaned up. Delgadillo was removed. The vaginal occluder was removed. There was excellent he mostasis and closure. After the Delgadillo was removed, the patient was recovered from anesthesia and luz en to PACU in stable condition. Plan was to have her be discharged, complete the IV antibiotics, and then 1 week follow up in the office. All the precautions were given, significant warning given abou t smoking cessation, and the patient seemed motivated even preop for her counseling. So, we will see her back. EBL was minimal. DEYVI/IWONA Voice ID: [id number] Report ID: [id number]
== END 2019-10-06 15:27 | disposition home or self-care (01) | DRG 909 ==
LOC: ER 00:12 → ERHOLD 04:17 → 2ND 16:34
PROVIDERS: ADMIT Internal Medicine; ATTEND Hospitalist
PROC: 0DNE4ZZ Release Large Intestine, Percutaneous Endoscopic Approach (ICD-10-PCS; 2019-10-04)
PROC: 0DN84ZZ Release Small Intestine, Percutaneous Endoscopic Approach (ICD-10-PCS; 2019-10-04)
PROC: 0DTJ4ZZ Resection of Appendix, Percutaneous Endoscopic Approach (ICD-10-PCS; principal; 2019-10-04 13:00)
PROC: 0UQG4ZZ Repair Vagina, Percutaneous Endoscopic Approach (ICD-10-PCS; 2019-10-04 13:00)
DX: T81.32XA Disruption of internal operation (surgical) wound, not elsewhere classified, initial encounter (principal); K66.8 Other specified disorders of peritoneum; K37 Unspecified appendicitis; F17.200 Nicotine dependence, unspecified, uncomplicated; K38.8 Other specified diseases of appendix; D72.829 Elevated white blood cell count, unspecified; Y83.8 Other surgical procedures as the cause of abnormal reaction of the patient, or of later complication, without mention of misadventure at the time of the procedure; Z90.711 Acquired absence of uterus with remaining cervical stump; Z90.710 Acquired absence of both cervix and uterus; Z71.6 Tobacco abuse counseling; Z79.899 Other long term (current) drug therapy; Z98.51 Tubal ligation status; Z20.828 Contact with and (suspected) exposure to other viral communicable diseases
CPT/HCPCS: 36415; 71045; 74177; 80048; 80076; 81003; 81015; 83690; 83735; 84484; 85025; 87040; 87086; 87088; 88304; 93005; 96361; 96365; 96375; 99285; J0330; J1100; J1170; J2405; J2543; J2550; J2704; J2710; J3010; J3480; J7030; J7120; Q9967; U0002

== ENCOUNTER 2019-12-30 12:53 | Emergency (ER) | payer BC ==
--- OUTSIDE RECORDS SUMMARY | 2019-12-30 12:58 | XMS REPORT | Continuity of Care Document ---
:1980 Author Organization [facility] t Address [address] [place] [address] Care Team Providers Name Role Phone Edd [...] Type Clinicians Facility Department ID 2019-07-22 2019-07-23 [facility] [id number] 11:59:00 09:35:00 Encounter Jelena Rushing [id number] [place] [id number] [place] [id number] 2019-07-21 2019-07-21 Laboratory Only, [facility] [id number] 08:46:49 09:01:49 Only Test Сергей [id number] [place] [id number] [place] [id number] 2019-07-21 2019-07-21 Orders Doctor CARDENAS [id number] 00:00:00 00:00:00 Only UnassYANG fabian [id number] [place] [facility] [id number] Results This patient has no known results.
--- NOTE | 2019-12-30 13:23 | EDPHYS ---
Physician Documentation [facility] Name: Nunu Johnson Age: 39 yrs Sex: Female : 1980 Arrival Date: 12/30/2019 Time: 12:59 Bed 16 Private MD: ED Physician Marvin Campbell HPI: 12/29 13:17 This 39 yrs old Female presents to ER via Ambulatory with complaints of [facility] Urinary Problem. 13:17 The patient presents with urinary symptoms. Onset: The symptoms/episode began/occurred jmm gradually, 2 day(s) ago. Modifying factors: The symptoms are alleviated by nothing, the symptoms are aggravated by urinating. Associated signs and symptoms: Pertinent positives: dysuria, hematuria, urinary frequency, Pertinent negatives: fever, vaginal discharge, vomiting. This is a 39 year old female with no chronic medical conditions that presents to the ED with complaints of suprapubic pain, hematuria, pressure for 2 days worsening today. Denies fever, vomiting, back pain. . 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 - Social history:: Smoking status: Patient reports the use of cigarette tobacco products, smokes one-half pack cigarettes per day. ROS: 13:17 Constitutional: Negative for fever, chills, and weight loss, Cardiovascular: Negative jmm for chest pain, palpitations, and edema, Respiratory: Negative for shortness of breath, cough, wheezing, and pleuritic chest pain. 13:17 : Positive for urinary symptoms. 13:17 All other systems are negative. Exam: 13:17 Constitutional: This is a well developed, well nourished patient who is awake, alert, jmm and in no acute distress. Head/Face: atraumatic. Eyes: EOMI, no conjunctival erythema appreciated ENT: Moist Mucus Membranes Neck: Trachea midline, Supple Chest/axilla: Normal chest wall appearance and motion. Cardiovascular: Regular rate and rhythm. No edema appreciated Respiratory: Normal respirations, no respiratory distress appreciated 13:17 Back: Normal ROM Skin: General appearance color normal MS/ Extremity: Moves all extremities, no obvious deformities appreciated, no edema noted to the lower extremities Neuro: Awake and alert, normal gait Psych: Behavior is normal, Mood is normal, Patient is cooperative and pleasant 13:17 Abdomen/GI: Inspection: abdomen appears normal, Bowel sounds: normal, Palpation: abdomen is soft and non-tender. Vital Signs: 13:02 Resp 16; Weight 55.34 kg; Height 5 ft. 2 in. (157.48 cm); Pain 5/10; ll1 13:05 BP 108 / 74; Pulse 83; Temp 98.0; Pulse Ox 99% ; ll1 13:02 Body Mass Index 22.31 (55.34 kg, 157.48 cm) ll1 MDM: 13:06 Patient medically screened. [facility] 13:17 Data reviewed: vital signs, nurses notes. Counseling: I had a detailed discussion with yarelis the patient and/or guardian regarding: the historical points, exam findings, and any diagnostic results supporting the discharge/admit diagnosis, the need for outpatient follow up, to return to the emergency department if symptoms worsen or persist or if there are any questions or concerns that arise at home. ED course: Patient is alert and non toxic in appearance. Abdomen is soft. HPI consistent with cysitis/uti. Patient is given strict return precautions. patient understood and agrees with the plan of care. . 12/29 13:28 Order name: Urine Dipstick--Ancillary (enter results) bd 12/29 13:29 Order name: Urine Culture [facility] Administered Medications: No medications were administered Disposition: 12/30 08:32 Co-signature as Attending Physician, Marvin Campbell MD I agree with the assessment and kdr plan of care. Disposition: 12/30/19 13:22 Discharged to Home. Impression: Urinary tract infection, site not specified. - Condition is Stable. - Discharge Instructions: Urinary Tract Infection, Adult. - Prescriptions for Macrobid 100 mg Oral Capsule - take 1 capsule by ORAL route every 12 hours for 7 days; 14 capsule. - Work release form, Medication Reconciliation Form, Thank You Letter, Antibiotic Education, Prescription Opioid Use form. - Follow up: Private Physician; When: 2 - 3 days; Reason: Recheck today's complaints, Continuance of care, Re-evaluation by your physician. Signatures: Dispatcher [employer] EDMS RitMarvin brown MD MD kdr Mickail, Joel, PA PA jmm Lewis, Lynsay, RN RN ll1 Corrections: (The following items were deleted from the chart) 12/29 13:38 13:22 12/30/2019 13:22 Discharged to Home. Impression: Urinary tract infection, site ll1 not specified. Condition is Stable. Forms are Medication Reconciliation Form, Thank You Letter, Antibiotic Education, Prescription Opioid Use. Follow up: Private Physician; When: 2 - 3 days; Reason: Recheck today's complaints, Continuance of care, Re-evaluation by your physician. yarelis
--- NOTE | 2019-12-30 13:23 | ER ---
Nurse's Notes [facility] Name: Nunu Johnson Age: 39 yrs Sex: Female : 1980 Arrival Date: 12/30/2019 Time: 12:59 Bed 16 Private MD: Diagnosis: Urinary tract infection, site not specified Presentation: 12/29 13:02 Chief complaint: Patient states: Dysuria for 3 days. Urinary frequency with small ll1 amount of blood in it today. No fever. Coronavirus screen: Client denies travel out of the [place] in the last 14 days. At this time, the client does not indicate any symptoms associated with coronavirus-19. Ebola Screen: Patient denies travel to an Ebola-affected area in the 21 days before illness onset. Initial Sepsis Screen: Does the patient meet any 2 criteria? No. Patient's initial sepsis screen is negative. Does the patient have a suspected source of infection? Yes: Dysuria/Frequency/Urgency/UTI. Risk Assessment: Do you want to hurt yourself or someone else? Patient reports no desire to harm self or others. Onset of symptoms was December 28, 2019. 13:02 Method Of Arrival: Ambulatory 1 13:02 Acuity: RHINA 4 ll1 Triage Assessment: 13:35 General: Appears in no apparent distress. Behavior is calm, cooperative, Smells of. 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 - Social history:: Smoking status: Patient reports the use of cigarette tobacco products, smokes one-half pack cigarettes per day. Screenin:33 Abuse screen: Denies threats or abuse. Nutritional screening: No deficits noted. em Tuberculosis screening: No symptoms or risk factors identified. Fall Risk None identified. Assessment: 13:35 General: Appears in no apparent distress. Behavior is calm, cooperative. Pain: ll1 Complains of pain in pelvic Quality of pain is described as aching, crampy, Pain began 2-3 days ago. Is intermittent, episodic. Neuro: No deficits noted. Cardiovascular: No deficits noted. Respiratory: No deficits noted. GI: Abdomen is flat, Bowel sounds present X 4 quads. Abd is soft and non tender X 4 quads. Patient currently denies diarrhea, vomiting. : Urine is cloudy, Reports burning with urination, cramping, urinary frequency. Vital Signs: 13:02 Resp 16; Weight 55.34 kg; Height 5 ft. 2 in. (157.48 cm); Pain 5/10; ll1 13:05 BP 108 / 74; Pulse 83; Temp 98.0; Pulse Ox 99% ; ll1 13:02 Body Mass Index 22.31 (55.34 kg, 157.48 cm) 1 ED Course: 12:59 Patient arrived in ED. mr 13:01 Arm band placed on. 1 13:04 Triage completed. [facility] 13:06 Arnoldo Ojeda PA is PHCP. [facility] 13:06 Marvin Campbell MD is Attending Physician. [facility] 13:33 Hugh Daniels, RN is Primary Nurse. em 13:33 Patient has correct armband on for positive identification. Bed in low position. Call em light in reach. Adult w/ patient. 13:35 No provider procedures requiring assistance completed. Patient did not have IV access 1 during this emergency room visit. Administered Medications: No medications were administered Outcome: 13:22 Discharge ordered by . [facility] 13:38 Patient left the ED. [facility] 13:38 Discharged to home ambulatory. 1 13:38 Condition: stable 13:38 Discharge instructions given to patient, Instructed on discharge instructions, follow up and referral plans. medication usage, Demonstrated understanding of instructions, follow-up care, medications, Prescriptions given X 1. Addendum: 01/02/2020 07:11 Addendum: Culture Results: Positive urine culture. No further action required. Bacteria e b sensitive to prescribed antibiotic. Signatures: Arnoldo Ojeda PA PA [facility] Ced Anitra mr Hugh Daniels, RN Chula Liao Lynsay, RN RN [facility]
[2019-12-30 13:42] LABS: Urine Blood 2+ (NEG); Urine Glucose NEGATIVE (NEG); Urine Protein TRACE (NEG); Urine Specific Gravity >1.030 (1.005-1.030); Urine pH 5.5 (5.0-7.0)
[2019-12-30 20:19] VITALS: BP 108/74; TEMP 98; O2SAT 99
== END 2019-12-30 13:38 | disposition home or self-care (01) ==
LOC: ER 12:53
DX: N39.0 Urinary tract infection, site not specified (principal); F17.210 Nicotine dependence, cigarettes, uncomplicated
CPT/HCPCS: 81003; 87077; 87086; 87088; 87186; 99282

== ENCOUNTER 2020-02-04 09:24 | Emergency (ER) | payer BC ==
--- OUTSIDE RECORDS SUMMARY | 2020-02-04 10:45 | XMS REPORT | Continuity of Care Document ---
:1980 Author Organization [facility] t Address [address] [place] [address] Care Team Providers Name Role Phone Edd [...] Type Clinicians Facility Department ID 2019-07-22 2019-07-23 [facility] [id number] 11:59:00 09:35:00 Encounter Jelena Rushing [id number] [place] [id number] [place] [id number] 2019-07-21 2019-07-21 Laboratory Only, [facility] [id number] 08:46:49 09:01:49 Only Test Сергей [id number] [place] [id number] [place] [id number] 2019-07-21 2019-07-21 Orders Doctor CARDENAS [id number] 00:00:00 00:00:00 Only Unassigned, YANG [id number] [place] [facility] [id number] Results This patient has no known results.
--- NOTE | 2020-02-04 11:06 | RAD REPORT ---
EXAM DESCRIPTION: RAD - Chest Single View - 02/04/2020 10:50 am CLINICAL HISTORY: Cough;Congestion COMPARISON: Portable October 04 TECHNIQUE: AP portable chest image was obtained 02/04/2020 10:50 am . FINDINGS: Lungs are clear. Heart and vasculature are normal. No measurable pleural effusion and no p neumothorax. No acute bony abnormality seen. No acute aortic findings suspected. IMPRESSION: No acute cardiopulmonary process. No significant change from comparison study.
--- NOTE | 2020-02-04 12:15 | EDPHYS ---
Physician Documentation [facility] Name: Nunu Johnson Age: 39 yrs Sex: Female : 1980 Arrival Date: 02/04/2020 Time: 09: Bed 15 Private MD: ED Physician Marvin Campbell HPI: 02/03 19:26 This 39 yrs old Female presents to ER via Ambulatory with complaints of Cough.kdr 19:26 The patient or guardian reports cough, difficulty breathing, flu symptoms, arthralgias, kdr myalgias. Onset: The symptoms/episode began/occurred gradually, Since Sunday. Severity of symptoms: At their worst the symptoms were mild. Modifying factors: The symptoms are alleviated by nothing, the symptoms are aggravated by exertion, talking. Associated signs and symptoms: Pertinent positives: chest pain, rhinorrhea, sore throat, vomiting. The patient has not experienced similar symptoms in the past. The patient has not recently seen a physician. 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 - Social history:: Smoking status: unknown. ROS: 19:26 Eyes: Negative for injury, pain, redness, and discharge, ENT: Negative for injury, kdr pain, and discharge, Neck: Negative for injury, pain, and swelling, Cardiovascular: Negative for chest pain, palpitations, and edema, Abdomen/GI: Negative for abdominal pain, nausea, vomiting, diarrhea, and constipation, Back: Negative for injury and pain, : Negative for injury, bleeding, discharge, and swelling, MS/Extremity: Negative for injury and deformity, Skin: Negative for injury, rash, and discoloration, Psych: Negative for depression, anxiety, suicide ideation, homicidal ideation, and hallucinations, Allergy/Immunology: Negative for hives, rash, and allergies, Endocrine: Negative for neck swelling, polydipsia, polyuria, polyphagia, and marked weight changes, Hematologic/Lymphatic: Negative for swollen nodes, abnormal bleeding, and unusual bruising. 19:26 Constitutional: Positive for body aches, chills, fatigue, malaise, Negative for chills. 19:26 Respiratory: Positive for cough, "sounds productive", shortness of breath, at rest. Negative for wheezing. Exam: 19:26 Constitutional: This is a well developed, well nourished patient who is awake, alert, kdr and in mild distress with frequent coarse coughing Head/Face: Normocephalic, atraumatic. Eyes: Pupils equal round and reactive to light, extra-ocular motions intact. Lids and lashes normal. Conjunctiva and sclera are non-icteric and not injected. Cornea within normal limits. Periorbital areas with no swelling, redness, or edema. Neck: Trachea midline, no thyromegaly or masses palpated, and no cervical lymphadenopathy. Supple, full range of motion without nuchal rigidity, or vertebral point tenderness. No Meningismus. Chest/axilla: Normal chest wall appearance and motion. Nontender with no deformity. No lesions are appreciated. Cardiovascular: Regular rate and rhythm with a normal S1 and S2. No gallops, murmurs, or rubs. Normal PMI, no JVD. No pulse deficits. Abdomen/GI: Soft, non-tender, with normal bowel sounds. No distension or tympany. No guarding or rebound. No evidence of tenderness throughout. Back: No spinal tenderness. No costovertebral tenderness. Full range of motion. Skin: Warm, dry with normal turgor. Normal color with no rashes, no lesions, and no evidence of cellulitis. MS/ Extremity: Pulses equal, no cyanosis. Neurovascular intact. Full, normal range of motion. Neuro: Awake and alert, GCS 15, oriented to person, place, time, and situation. Cranial nerves II-XII grossly intact. Motor strength 5/5 in all extremities. Sensory grossly intact. Cerebellar exam normal. Normal gait. Psych: Awake, alert, with orientation to person, place and time. Behavior, mood, and affect are within normal limits. 19:26 Respiratory: mild respiratory distress is noted, Respirations: normal, Breath sounds: are clear throughout, bronchial sounds, that are mild. Vital Signs: 09:32 BP 105 / 73; Pulse 100; Resp 18; Temp 98.7; Pulse Ox 99% ; Weight 55.79 kg; Height 5 sv ft. 2 in. (157.48 cm); 12:44 Pulse 90; Resp 17; Pulse Ox 99% on R/A; Pain 5/10; ll1 09:32 Body Mass Index 22.50 (55.79 kg, 157.48 cm) MDM: 12:15 Patient medically screened. kdr 19:26 Data reviewed: vital signs, nurses notes, lab test result(s), radiologic studies. kdr Counseling: I had a detailed discussion with the patient and/or guardian regarding: the historical points, exam findings, and any diagnostic results supporting the discharge/admit diagnosis, lab results, radiology results, the need for outpatient follow up. 02/03 10:36 Order name: COVID-19 kdr 02/03 10:36 Order name: Strep; Complete Time: 12:13 kdr 02/03 10:36 Order name: CXR XRAY; Complete Time: 12:00 kdr 02/03 10:37 Order name: CORONAVIRUS EDMS 02/03 12:10 Order name: Throat Culture EDMS Administered Medications: 12:05 Drug: Tylenol 1000 mg Route: PO; ll1 12:44 Follow up: Response: No adverse reaction; Pain is decreased; RASS: Alert and Calm (0) ll1 Disposition: 02/04/20 12:15 Discharged to Home. Impression: Bronchitis, not specified as acute or chronic, Cough, Weakness, Malaise and fatigue. - Condition is Stable. - Prescriptions for Promethazine VC- Codeine 6.25-5-10 mg/5 mL Oral syrup - take 5 milliliter by ORAL route every 4-6 hours As needed as needed, not to exceed 30 mL in 24 hours; 200 milliliter. Tessalon Perles 100 mg Oral Capsule - take 1 capsule by ORAL route every 8 hours As needed; 15 capsule. - Medication Reconciliation Form, Thank You Letter, Antibiotic Education, Prescription Opioid Use, Work release form form. - Follow up: Private Physician; When: 2 - 3 days; Reason: If symptoms return, Further diagnostic work-up, Recheck today's complaints, Continuance of care, Re-evaluation by your physician. - Problem is new. - Symptoms have improved. Signatures: Dispatcher [employer] EDMS Didi Charlton RN RN Marvin Campbell MD MD [facility] Betty Garner RN RN ll1 Corrections: (The following items were deleted from the chart) 12:15 12:15 02/04/2020 12:15 Discharged to Home. Impression: Bronchitis, not specified as kdr acute or chronic. Condition is Stable. Forms are Work release form, Medication Reconciliation Form, Thank You Letter, Antibiotic Education, Prescription Opioid Use. Follow up: Private Physician; When: 2 - 3 days; Reason: If symptoms return, Further diagnostic work-up, Recheck today's complaints, Continuance of care, Re-evaluation by your physician. Problem is new. Symptoms have improved. kdr 12:44 12:15 02/04/2020 12:15 Discharged to Home. Impression: Bronchitis, not specified as ll1 acute or chronic; Cough; Weakness; Malaise and fatigue. Condition is Stable. Forms are Work release form, Medication Reconciliation Form, Thank You Letter, Antibiotic Education, Prescription Opioid Use. Follow up: Private Physician; When: 2 - 3 days; Reason: If symptoms return, Further diagnostic work-up, Recheck today's complaints, Continuance of care, Re-evaluation by your physician. Problem is new. Symptoms have improved. kdr
--- NOTE | 2020-02-04 12:15 | ER ---
Nurse's Notes [facility] Name: Nunu Johnson Age: 39 yrs Sex: Female : 1980 Arrival Date: 02/04/2020 Time: 09:26 Bed 15 Private MD: Diagnosis: Bronchitis, not specified as acute or chronic;Cough;Weakness;Malaise and fatigue Presentation: 02/03 09:31 Chief complaint: Patient states: sore throat, cough, headache, vomiting, indigestion, sv body aches, left low back pain since Sunday. Coronavirus screen: Client denies travel out of the [place] in the last 14 days. Client presents with at least one sign or symptom that may indicate coronavirus-19. Standard/surgical mask placed on the client. Provider contacted for isolation considerations. Ebola Screen: No symptoms or risks identified at this time. Risk Assessment: Do you want to hurt yourself or someone else? Patient reports no desire to harm self or others. Onset of symptoms was February 02, 2020. 09:31 Method Of Arrival: Ambulatory sv 09:31 Acuity: RHINA 3 sv 09:32 Initial Sepsis Screen: Does the patient meet any 2 criteria? No. Patient's initial sv sepsis screen is negative. Does the patient have a suspected source of infection? No. Patient's initial sepsis screen is negative. Triage Assessment: 10:11 General: Appears ill, Behavior is calm, cooperative, appropriate for age. 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 - Social history:: Smoking status: unknown. Screenin:10 Abuse screen: Denies threats or abuse. Nutritional screening: No deficits noted. ll1 Tuberculosis screening: No symptoms or risk factors identified. Fall Risk None identified. Total Bobby Fall Scale indicates No Risk (0-24 pts). Assessment: 10:00 General: Appears uncomfortable, Behavior is calm, cooperative, appropriate for age. ll1 Pain: Complains of pain in head Quality of pain is described as aching, Pain began 2-3 days ago. Neuro: Level of Consciousness is awake, alert, obeys commands, Oriented to person, place, time, situation, Appropriate for age Headend Technician are equal bilaterally Moves all extremities. Full function Gait is steady, Speech is normal, Facial symmetry appears normal, Pupils are PERRLA, Reports headache. Cardiovascular: No deficits noted. Respiratory: Reports cough that is non-productive, Airway is patent Trachea midline Respiratory effort is even, unlabored, Respiratory pattern is regular, symmetrical, Sputum is thick, Breath sounds are clear bilaterally. Onset: The symptoms/episode began/occurred Sunday. GI: No deficits noted. EENT: Oral mucosa is moist. Throat is clear Reports nasal congestion pain when swallowing. Musculoskeletal: Reports body aches and fatigue. 11:00 Reassessment: No changes from previously documented assessment. Patient and/or family ll1 updated on plan of care and expected duration. Pain level reassessed. Patient is alert, oriented x 3, equal unlabored respirations, skin warm/dry/pink. 12:00 Reassessment: Patient and/or family updated on plan of care and expected duration. Pain ll1 level reassessed. Patient is alert, oriented x 3, equal unlabored respirations, skin warm/dry/pink. Vital Signs: 09:32 BP 105 / 73; Pulse 100; Resp 18; Temp 98.7; Pulse Ox 99% ; Weight 55.79 kg; Height 5 sv ft. 2 in. (157.48 cm); 12:44 Pulse 90; Resp 17; Pulse Ox 99% on R/A; Pain 5/10; ll1 09:32 Body Mass Index 22.50 (55.79 kg, 157.48 cm) sv ED Course: 09:26 Patient arrived in ED. rg4 09:31 Arm band placed on. sv 09:32 Triage completed. sv 10:09 Betty Garner, RN is Primary Nurse. ll1 10:09 Patient placed in an exam room, on a stretcher. ll1 10:09 Patient has correct armband on for positive identification. Bed in low position. Call ll1 light in reach. Side rails up X 1. Door closed. Warm blanket given. Head of bed. 10:11 Marvin Campbell MD is Attending Physician. kdr 10:50 CXR XRAY In Process Unspecified. EDMS 12:42 No provider procedures requiring assistance completed. Patient did not have IV access ll1 during this emergency room visit. Administered Medications: 12:05 Drug: Tylenol 1000 mg Route: PO; ll1 12:44 Follow up: Response: No adverse reaction; Pain is decreased; RASS: Alert and Calm (0) ll1 Outcome: 12:15 Discharge ordered by . kdr 12:43 Discharged to home ambulatory. ll1 12:43 Condition: stable 12:43 Discharge instructions given to patient, Instructed on discharge instructions, follow up and referral plans. no drinking with medication, no driving heavy equipment, medication usage, Demonstrated understanding of instructions, follow-up care, medications, Prescriptions given X 2. 12:44 Patient left the ED. ll1 Addendum: 02/09/2020 07:44 Addendum: COVID-19 Result: Negative result given to RN to notify pt. Notified pt of i w negative COVID 19 swab results. Pt advised that even with a negative test result they should remain in isolation until symptom free for 3 days without medication. Pt also advised to return to the ED for worsening symptoms. Signatures: Dispatcher [employer] EDDidi Arenas RN RN sv Marvin Campbell MD MD [facility] Kristie Garcia RN RN iw Garcia, Rubi rg4 Betty Garner RN RN 1 Corrections: (The following items were deleted from the chart) 02/03 09:35 09:31 Chief complaint: Patient states: sore throat, cough, headache, vomiting, body sv aches, left low back pain since Sunday sv
[2020-02-04] MEDS ORDERED: ACETAMINOPHEN 500 MG TAB ONE (12:19)
[2020-02-04 17:23] VITALS: BP 105/73; TEMP 98.7; O2SAT 99
== END 2020-02-04 12:44 | disposition home or self-care (01) ==
LOC: ER 09:24
DX: J40 Bronchitis, not specified as acute or chronic (principal); Z20.828 Contact with and (suspected) exposure to other viral communicable diseases; R53.1 Weakness; R53.81 Other malaise; R53.83 Other fatigue
CPT/HCPCS: 87070; 87081; 71045; 99283; U0002

== ENCOUNTER 2020-04-15 08:38 | Emergency (ER) | payer BC ==
--- OUTSIDE RECORDS SUMMARY | 2020-04-15 08:40 | XMS REPORT | Continuity of Care Document ---
:1980 Author Organization [facility] t Address [address] [place] [address] Care Team Providers Name Role Phone Edd [...] Type Clinicians Facility Department ID 2019-07-22 2019-07-23 [facility] [id number] 11:59:00 09:35:00 Encounter Jelena Rushing [id number] [place] [id number] [place] [id number] 2019-07-21 2019-07-21 Laboratory Only, [facility] [id number] 08:46:49 09:01:49 Only Test Сергей [id number] [place] [id number] [place] [id number] 2019-07-21 2019-07-21 Orders Doctor CARDENAS [id number] 00:00:00 00:00:00 Only Unassigned, YANG [id number] [place] [facility] [id number] Results This patient has no known results.
[2020-04-15] MEDS ORDERED: ONDANSETRON 4 MG/2 ML VIAL ONE ×2 (09:27→11:00)
[2020-04-15] MEDS ORDERED: KETOROLAC 30 MG/ML INJ ONE (09:28)
[2020-04-15 09:34] LABS: ALT/SGPT 24 U/L (12-78); AST/SGOT 15 U/L (15-37); Albumin 4.1 g/dL (3.4-5.0); Alkaline Phosphatase 48 U/L (45-117); BUN Blood Urea Nitrogen 12 mg/dL (7-18); Bicarbonate 25 mmol/L (21-32); Bilirubin Direct 0.2 mg/dL (0-0.2); Glucose Level 98 mg/dL (74-106); Lipase 120 U/L (73-393); Potassium 3.9 mmol/L (3.5-5.1); Protein, Total 7.5 g/dL (6.4-8.2); Sodium Level 141 mmol/L (136-145)
[2020-04-15 09:35] LABS: Absolute Lymphocytes (CBC) 1.3 K/uL (0.7-4.9); Basophils % 0.5 % (0-1.3); Hematocrit 44.2 % (36.0-45.0); Lymphocytes % 11.1 % (15.3-44.8); MPV 9.4 fL (7.6-11.3)
--- NOTE | 2020-04-15 10:06 | RAD REPORT ---
EXAM DESCRIPTION: CT - Stone Protocol - 04/15/2020 9:34 am CLINICAL HISTORY: Abd pain;Flank pain, prior hysterectomy, prior appendectomy COMPARISON: Abdomen Pelvis W Contrast dated 10/04/2019; Abdomen Pelvis W Contrast dated 08/24/2018 TECHNIQUE: Axial 3 mm thick images were obtained without oral or IV contrast. The [id number] span s the entirety of the system including uppermost abdomen and lung bases. All CT scans are performed using dose optimization technique as appropriate and may include automated exposure control or mA/KV adjustment according to patient size. FINDINGS: No hydronephrosis is present and no obstructing ureteral calculi. No suspicious renal mass es. Isodense masses and pyelonephritis are not excluded on a stone protocol CT scan. No significant a drenal finding. Urinary bladder is fully contracted limiting assessment. No bladder calculi. Uterus i s absent. Ovaries are normal size. Uterus is absent. Imaged portions of the liver, spleen and pancreas show no suspicious findings on non-contrast imaging . No gallbladder or biliary tree abnormality identified. No stomach or small bowel abnormality. Appendix is not identified matching the history. Clips are pre sent in the right lower quadrant. Patient has a large amount of stool filling but not dilating the en tirety of the colon. No colon wall thickening, edema or mass. No hernia, mass or bulky lymphadenopathy noted. No free air, free fluid or inflammatory stranding. No significant bony abnormality. IMPRESSION: No hydronephrosis, obstructing calculus or acute finding. Isodense masses and pyelonephritis are not excluded on stone protocol technique. Constipation pattern with a large amount of stool filling but not dilating the entirety of the colon.
[2020-04-15] MEDS ORDERED: BISACODYL 10 MG RECTAL SUPP ONE (10:35)
[2020-04-15] MEDS ORDERED: MAGNESIUM CITRATE 300 ML BOT ONE (10:35)
[2020-04-15 10:56] LABS: Urine Blood NEGATIVE (NEG); Urine Glucose NEGATIVE (NEG); Urine Protein NEGATIVE (NEG); Urine Specific Gravity 1.025 (1.005-1.030)
--- NOTE | 2020-04-15 12:32 | EDPHYS ---
Physician Documentation [facility] Name: Nunu Johnson Age: 39 yrs Sex: Female : 1980 Arrival Date: 04/15/2020 Time: 08:43 Bed 6 Private MD: ED Physician Marvin Campbell HPI: 04/15 09:24 This 39 yrs old Female presents to ER via Ambulatory with complaints of jr8 Abdominal Pain, Back Pain. 09:24 Onset: The symptoms/episode began/occurred acutely, today. The symptoms radiate to the jr8 left flank. Associated signs and symptoms: Pertinent positives: nausea. The symptoms are described as stabbing. Modifying factors: The symptoms are alleviated by nothing, the symptoms are aggravated by movement. Severity of pain: At its worst the pain was moderate in the emergency department the pain is unchanged. The patient has not experienced similar symptoms in the past. The patient has not recently seen a physician. 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 - Social history:: Smoking status: Patient reports the use of cigarette tobacco products, smokes one-half pack cigarettes per day. ROS: 09:24 Abdomen/GI: Positive for abdominal pain, nausea, Negative for vomiting, diarrhea, jr8 constipation, abdominal cramps, abdominal distension. 09:24 Back: Positive for flank pain, on the left. 09:24 : Negative for urinary symptoms. 09:24 All other systems are negative. Exam: 09:24 Cardiovascular: Regular rate and rhythm with a normal S1 and S2. No gallops, murmurs, jr8 or rubs. Normal PMI, no JVD. No pulse deficits. Respiratory: Lungs have equal breath sounds bilaterally, clear to auscultation and percussion. No rales, rhonchi or wheezes noted. No increased work of breathing, no retractions or nasal flaring. Skin: Warm, dry with normal turgor. Normal color with no rashes, no lesions, and no evidence of cellulitis. MS/ Extremity: Pulses equal, no cyanosis. Neurovascular intact. Full, normal range of motion. Neuro: Awake and alert, GCS 15, oriented to person, place, time, and situation. Cranial nerves II-XII grossly intact. Motor strength 5/5 in all extremities. Sensory grossly intact. Cerebellar exam normal. Normal gait. 09:24 Constitutional: The patient appears alert, awake, in obvious pain, uncomfortable. 09:24 Abdomen/GI: Inspection: scar(s), are noted in the left lower quadrant, Bowel sounds: active, all quadrants, Palpation: soft, in all quadrants, moderate abdominal tenderness, in the anterior aspect of left lateral abdomen and left lower quadrant, mass, is not appreciated, rebound tenderness, is not appreciated, voluntary guarding, is not appreciated, involuntary guarding, is not appreciated, no appreciated organomegaly. 09:24 Back: ROM is normal, CVA tenderness, that is moderate, is noted on the left, vertebral tenderness, is not appreciated. Vital Signs: 08:52 BP 134 / 90; Pulse 97; Resp 18; Temp 97.8; Pulse Ox 99% on R/A; Weight 54.88 kg; Height ph 5 ft. 2 in. (157.48 cm); 09:57 BP 106 / 80; Pulse 89; Resp 16; Pulse Ox 99% on R/A; ph 10:12 BP 97 / 65; Pulse 61; Resp 18; Pulse Ox 100% on R/A; ph 11:01 BP 97 / 65; Pulse 60; Resp 18; Pulse Ox 100% on R/A; ph 08:52 Body Mass Index 22.13 (54.88 kg, 157.48 cm) ph MDM: 09:00 Patient medically screened. jr8 12:25 Data reviewed: vital signs, nurses notes, lab test result(s), radiologic studies, CT jr8 scan. Data interpreted: Pulse oximetry: on room air is 100 %. Interpretation: normal. Counseling: I had a detailed discussion with the patient and/or guardian regarding: the historical points, exam findings, and any diagnostic results supporting the discharge/admit diagnosis, lab results, radiology results, the need for outpatient follow up, a collar setter, to return to the emergency department if symptoms worsen or persist or if there are any questions or concerns that arise at home. Response to treatment: the patient's symptoms have markedly improved after treatment. Special discussion: Based on the patient's Hx, exam, and Dx evaluation, there is no indication for emergent surgery or inpatient Tx. It is understood by the patient/guardian that if the Sx's persist or worsen they need to return immediately for re-evaluation. ED course: Patient feeling better after having initial bowel movement. Counseled patient on dietary habits, fiber increase, and Miralax for constipation. To also f/u with GI. Patient pleased with this plan. 04/15 09:03 Order name: Basic Metabolic Panel; Complete Time: 09:38 jr8 04/15 09:03 Order name: CBC with Diff; Complete Time: 09:38 jr8 04/15 09:03 Order name: Hepatic Function; Complete Time: 09:38 jr8 04/15 09:03 Order name: Lipase; Complete Time: 09:38 jr8 04/15 09:05 Order name: Urine Dipstick--Ancillary (enter results) ds4 04/15 09:05 Order name: Urine --Ancillary (enter results); Complete Time: 10:57 ds4 04/15 09:03 Order name: CT Stone Protocol; Complete Time: 10:09 jr8 04/15 09:05 Order name: Urine Dipstick-Ancillary; Complete Time: 10:57 EDMS 04/15 09:08 Order name: Strep; Complete Time: 09:51 jr8 04/15 09:55 Order name: Throat Culture EDMS 04/15 09:03 Order name: IV Saline Lock; Complete Time: 09:04 jr8 04/15 09:03 Order name: Labs collected and sent; Complete Time: 09:04 jr8 Administered Medications: 09:14 Drug: Zofran (Ondansetron) 4 mg Route: IVP; Site: right antecubital; ss 10:12 Follow up: Response: No adverse reaction ph 09:18 Drug: TORadol - Ketorolac 15 mg Route: IVP; Site: right antecubital; ss 10:12 Follow up: Response: No adverse reaction ph 10:40 Drug: Magnesium Citrate Liquid 300 ml Route: PO; ph 11:15 Follow up: Response: No adverse reaction ph 10:46 Drug: Dulcolax Suppository 10 mg Route: TX; ph 11:15 Follow up: Response: No adverse reaction ph 10:47 Drug: Zofran (Ondansetron) 4 mg Route: IVP; Site: right antecubital; ph 11:15 Follow up: Response: No adverse reaction; Nausea is decreased ph Disposition: 22:16 Co-signature as Attending Physician, Marvin Campbell MD I agree with the assessment and kdr plan of care. Disposition: 04/15/20 12:30 Discharged to Home. Impression: Constipation. - Condition is Stable. - Discharge Instructions: Constipation, Adult. - Prescriptions for Anusol- HC 25 mg Rectal Suppository - insert 1 suppository by RECTAL route every 12 hours As needed; 20 suppository. Miralax 17 gram/dose Oral - take 1 packet by ORAL route once daily dilute powder in 8 ounces of water or juice; 1 box. - Work release form, Medication Reconciliation Form, Thank You Letter, Antibiotic Education, Prescription Opioid Use form. - Follow up: Jono Monroe MD; When: 2 - 3 days; Reason: Recheck today's complaints, Continuance of care, Re-evaluation by your physician. - Problem is new. - Symptoms have improved. - Notes: Metamucil fiber once daily Signatures: Dispatcher [employer] EDMS Marvin Campbell MD MD [facility] Brandy High RN RN ss Mathew Perez PA PA jr8 Edel Romo, RN RN ph Corrections: (The following items were deleted from the chart) 12:42 12:30 04/15/2020 12:30 Discharged to Home. Impression: Constipation. Condition is ss Stable. Forms are Medication Reconciliation Form, Thank You Letter, Antibiotic Education, Prescription Opioid Use. Follow up: Jono Monroe; When: 2 - 3 days; Reason: Recheck today's complaints, Continuance of care, Re-evaluation by your physician. Problem is new. Symptoms have improved. jr8
--- NOTE | 2020-04-15 12:32 | ER ---
Nurse's Notes [facility] Name: Nunu Johnson Age: 39 yrs Sex: Female : 1980 Arrival Date: 04/15/2020 Time: 08:43 Bed 6 Private MD: Diagnosis: Constipation Presentation: 04/15 08:52 Chief complaint: Patient states: Sudden onset of LLQ and flank pain this morning while ph on the way to work, also reports N/V and feeling dizzy and sweaty when pain occurred. Denies fever, diarrhea or difficulty urinating, also mentioned sore throat that began last night. Coronavirus screen: Client denies travel out of the [place] in the last 14 days. Ebola Screen: No symptoms or risks identified at this time. Initial Sepsis Screen: Does the patient meet any 2 criteria? No. Patient's initial sepsis screen is negative. Does the patient have a suspected source of infection? No. Patient's initial sepsis screen is negative. Risk Assessment: Do you want to hurt yourself or someone else? Patient reports no desire to harm self or others. Onset of symptoms was April 15, 2020. 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 - Social history:: Smoking status: Patient reports the use of cigarette tobacco products, smokes one-half pack cigarettes per day. Screenin:56 Abuse screen: Denies threats or abuse. Denies injuries from another. Nutritional ph screening: No deficits noted. Tuberculosis screening: No symptoms or risk factors identified. Fall Risk None identified. Assessment: 08:57 General: Appears in no apparent distress. uncomfortable, slender, well groomed, ph Behavior is calm, cooperative, appropriate for age, Denies fever. Pain: Complains of pain in posterior aspect of left lateral abdomen, anterior aspect of left lateral abdomen and left lower quadrant. Neuro: Level of Consciousness is awake, alert, obeys commands, Oriented to person, place, time, situation. Cardiovascular: Capillary refill < 3 seconds in bilateral fingers Patient's skin is warm and dry. Respiratory: Airway is patent Respiratory effort is even, unlabored. GI: Reports lower abdominal pain, nausea, vomiting. : Reports pain in left flank(s), lower quadrant(s) in lower back Denies inability to void. Derm: Skin is intact, is healthy with good turgor, Skin is pink, warm \T\ dry. Musculoskeletal: Circulation, motion, and sensation intact. Range of motion: intact in all extremities. 09:56 Reassessment: Patient appears in no apparent distress at this time. Patient and/or ph family updated on plan of care and expected duration. Pain level reassessed. Patient is alert, oriented x 3, equal unlabored respirations, skin warm/dry/pink. Vital Signs: 08:52 BP 134 / 90; Pulse 97; Resp 18; Temp 97.8; Pulse Ox 99% on R/A; Weight 54.88 kg; Height ph 5 ft. 2 in. (157.48 cm); 09:57 BP 106 / 80; Pulse 89; Resp 16; Pulse Ox 99% on R/A; ph 10:12 BP 97 / 65; Pulse 61; Resp 18; Pulse Ox 100% on R/A; ph 11:01 BP 97 / 65; Pulse 60; Resp 18; Pulse Ox 100% on R/A; ph 08:52 Body Mass Index 22.13 (54.88 kg, 157.48 cm) ph ED Course: 08:43 Patient arrived in ED. mr 08:52 Edel Romo, RN is Primary Nurse. ph 08:56 Triage completed. ph 08:56 Arm band placed on Patient placed in an exam room, on a stretcher, on pulse oximetry. ph 08:57 Patient has correct armband on for positive identification. Bed in low position. Call ph light in reach. Side rails up X 1. Pulse ox on. NIBP on. Door closed. Noise minimized. Warm blanket given. 09:00 Mathew Perez PA is PHCP. jr8 09:00 Marvin Campbell MD is Attending Physician. jr8 09:04 Inserted saline lock: 20 gauge in right antecubital area, using aseptic technique. ss Blood collected. 09:33 CT Stone Protocol In Process Unspecified. EDMS 12:30 Jono Monroe MD is Referral Physician. jr8 12:40 No provider procedures requiring assistance completed. IV discontinued, intact, ss bleeding controlled, No redness/swelling at site. Pressure dressing applied. Administered Medications: 09:14 Drug: Zofran (Ondansetron) 4 mg Route: IVP; Site: right antecubital; ss 10:12 Follow up: Response: No adverse reaction ph 09:18 Drug: TORadol - Ketorolac 15 mg Route: IVP; Site: right antecubital; ss 10:12 Follow up: Response: No adverse reaction ph 10:40 Drug: Magnesium Citrate Liquid 300 ml Route: PO; ph 11:15 Follow up: Response: No adverse reaction ph 10:46 Drug: Dulcolax Suppository 10 mg Route: OR; ph 11:15 Follow up: Response: No adverse reaction ph 10:47 Drug: Zofran (Ondansetron) 4 mg Route: IVP; Site: right antecubital; ph 11:15 Follow up: Response: No adverse reaction; Nausea is decreased ph Outcome: 12:30 Discharge ordered by . jr8 12:40 Discharged to home ambulatory. 12:40 Condition: good 12:40 Discharge instructions given to patient, Instructed on discharge instructions, follow up and referral plans. medication usage, Demonstrated understanding of instructions, follow-up care, Prescriptions given X 2. 12:42 Patient left the ED. ss Signatures: Dispatcher [employer] Anitra Jaime mr Brandy High RN RN Mathew Perez PA PA jr8 Edel Romo RN RN
[2020-04-15 13:14] VITALS: TEMP 97.8
[2020-04-15 13:15] VITALS: BP 97/65; O2SAT 100
== END 2020-04-15 12:42 | disposition home or self-care (01) ==
LOC: ER 08:38
DX: K59.00 Constipation, unspecified (principal); F17.210 Nicotine dependence, cigarettes, uncomplicated; F31.9 Bipolar disorder, unspecified; F41.9 Anxiety disorder, unspecified
CPT/HCPCS: 87070; 85025; 80048; 36415; 81025; 80076; 87081; 81003; 83690; 76377; 74176; 96375; 96374; 99284; J2405 ×2

== ENCOUNTER 2020-08-23 08:44 | Emergency (ER) | payer BC ==
--- OUTSIDE RECORDS SUMMARY | 2020-08-23 08:45 | XMS REPORT | Continuity of Care Document ---
:1980 Author Organization [facility] t Address [address] [place] [address] Care Team Providers Name Role Phone Edd [...] Type Clinicians Facility Department ID 2019-07-22 2019-07-23 [facility] [id number] 11:59:00 09:35:00 Encounter Jelena Rushing [id number] [place] [id number] [place] [id number] 2019-07-21 2019-07-21 Laboratory Only, [facility] [id number] 08:46:49 09:01:49 Only Test Сергей [id number] [place] [id number] [place] [id number] 2019-07-21 2019-07-21 Orders Doctor CARDENAS [id number] 00:00:00 00:00:00 Only Unassigned, YANG [id number] [place] [facility] [id number] Results This patient has no known results.
[2020-08-23] MEDS ORDERED: DIAZEPAM 10 MG/2 ML INJ SYRINGE ONE (09:36)
[2020-08-23] MEDS ORDERED: MECLIZINE HCL 12.5 MG TAB ONE (09:36)
[2020-08-23] MEDS ORDERED: ONDANSETRON 4 MG/2 ML VIAL ONE (09:36)
[2020-08-23] MEDS ORDERED: NA CHLORIDE 0.9% 500 ML ONE (09:37)
[2020-08-23 09:41] LABS: Absolute Lymphocytes (CBC) 2.1 K/uL (0.7-4.9); Basophils % 1.3 % (0-1.3); Lymphocytes % 28.6 % (15.3-44.8); MPV 9.1 fL (7.6-11.3); RBC Red Blood Cell Count 4.31 M/uL (3.86-4.86)
[2020-08-23 10:03] LABS: BUN Blood Urea Nitrogen 12 mg/dL (7-18); Bicarbonate 25 mmol/L (21-32); Glucose Level 90 mg/dL (74-106); Sodium Level 141 mmol/L (136-145)
--- NOTE | 2020-08-23 10:55 | RAD REPORT ---
EXAM DESCRIPTION: CT - Head Brain Wo Cont - 08/23/2020 10:47 am CLINICAL HISTORY: DIZZINESS Headache, drowsiness COMPARISON: Head Brain Wo Cont dated 07/29/2017 TECHNIQUE: All CT scans are performed using dose optimization technique as appropriate and may inclu de automated exposure control or mA/KV adjustment according to patient size. FINDINGS: No intracranial hemorrhage, hydrocephalus or extra-axial fluid collection.No areas of brai n edema or evidence of midline shift. The paranasal sinuses and mastoids are clear. The calvarium is intact. IMPRESSION: No acute intracranial abnormality.
--- NOTE | 2020-08-23 11:02 | ER ---
Nurse's Notes [facility] Name: Nunu Johnson Age: 39 yrs Sex: Female : 1980 Arrival Date: 08/23/2020 Time: 08:47 Bed 8 Private MD: Diagnosis: Benign paroxysmal vertigo Presentation: 08/23 08:56 Chief complaint: Patient states: dizziness and nausea that began this morning after ss bending down to get purse. Pt has a history of vertigo over the past few years. Coronavirus screen: Client denies travel out of the [place] in the last 14 days. Ebola Screen: Patient denies exposure to infectious person. Patient denies travel to an Ebola-affected area in the 21 days before illness onset. Initial Sepsis Screen: Does the patient meet any 2 criteria? No. Patient's initial sepsis screen is negative. Does the patient have a suspected source of infection? No. Patient's initial sepsis screen is negative. Risk Assessment: Do you want to hurt yourself or someone else? Patient reports no desire to harm self or others. Onset of symptoms was August 23, 2020. 08:56 Method Of Arrival: Ambulatory ss 08:56 Acuity: RHINA 3 ss Historical: - Allergies: 08:58 No Known Allergies; ss - Home Meds: 08:58 None [Active]; ss - PMHx: 08:58 Anxiety; Bipolar disorder; Endometrosis; ss - PSHx: 08:58 Partial hysterectomy; Appendectomy; ss - Immunization history:: Adult Immunizations up to date, Client reports having NOT received the Covid vaccine. - Social history:: Smoking status: Patient denies any tobacco usage or history of. Screenin:56 Abuse screen: Denies threats or abuse. Denies injuries from another. Nutritional ph screening: No deficits noted. Tuberculosis screening: No symptoms or risk factors identified. Fall Risk None identified. Assessment: 09:57 General: Appears in no apparent distress. comfortable, slender, well groomed, Behavior ph is calm, cooperative, appropriate for age, Denies fever, feeling ill. Pain: Denies pain. 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 Full function Speech is normal, Facial droop on right, Reports dizziness, since this morning Denies weakness blurred vision difficulty swallowing. Cardiovascular: Capillary refill < 3 seconds in bilateral fingers Patient's skin is warm and dry. Respiratory: Airway is patent Respiratory effort is even, unlabored, Respiratory pattern is regular, symmetrical. GI: Reports nausea, vomiting, Patient currently denies abdominal pain. Derm: Skin is intact, is healthy with good turgor, Skin is pink, warm \T\ dry. Musculoskeletal: Circulation, motion, and sensation intact. Range of motion: intact in all extremities. 11:12 Reassessment: Patient appears in no apparent distress at this time. Patient and/or ph family updated on plan of care and expected duration. Pain level reassessed. Patient is alert, oriented x 3, equal unlabored respirations, skin warm/dry/pink. Pt d/c home w/ SO Patient states feeling better. Vital Signs: 08:56 BP 117 / 81; Pulse 53; Resp 18; Temp 97.3(TE); Pulse Ox 100% on R/A; Weight 54.43 kg; Height 5 ft. 2 in. (157.48 cm); Pain 0/10; 10:00 BP 95 / 68; Pulse 54; Resp 18; Pulse Ox 99% ; sv 11:11 BP 105 / 78; Pulse 56; Resp 18; Temp 97.6; Pulse Ox 99% on R/A; ph 08:56 Body Mass Index 21.95 (54.43 kg, 157.48 cm) ED Course: 08:47 Patient arrived in ED. rg4 08:50 Edel Romo, VERONICA is Primary Nurse. ph 08:51 Mathew Perez PA is PHCP. jr8 08:51 Noah Costello MD is Attending Physician. jr8 08:58 Triage completed. ss 08:58 Arm band placed on right wrist. ss 09:25 Initial lab(s) drawn, by nj, sent to lab. Inserted saline lock: 22 gauge in right ph antecubital area, using aseptic technique. Blood collected. 09:57 Patient has correct armband on for positive identification. Bed in low position. Call light in reach. Side rails up X 1. Pulse ox on. NIBP on. Door closed. Noise minimized. Warm blanket given. 10:46 CT Head Brain wo Cont In Process Unspecified. EDMS 11:01 Didi Hooks MD is Referral Physician. jr8 11:02 Tatiana Strauss MD is Referral Physician. jr8 11:02 Referral Physician role handed off by Didi Hooks MD jr8 11:12 No provider procedures requiring assistance completed. IV discontinued, intact, ph bleeding controlled, No redness/swelling at site. Pressure dressing applied. Administered Medications: 09:30 Drug: Valium (diazepam) 2 mg Route: IVP; Site: right antecubital; ph 11:11 Follow up: Response: No adverse reaction ph 09:30 Drug: NS 0.9% 500 ml Route: IV; Rate: bolus; Site: right antecubital; ph 11:11 Follow up: Response: No adverse reaction; IV Status: Completed infusion; IV Intake: ph 500ml 09:30 Drug: Zofran (Ondansetron) 4 mg Route: IVP; Site: right antecubital; ph 11:11 Follow up: Response: No adverse reaction ph 09:35 Drug: Meclizine 25 mg Route: PO; ph 11:11 Follow up: Response: No adverse reaction ph Intake: 11:11 IV: 500ml; Total: 500ml. ph Outcome: 11:02 Discharge ordered by . jr8 11:12 Discharged to home ambulatory, with significant other. ph 11:12 Condition: good 11:12 Discharge instructions given to patient, Instructed on discharge instructions, follow up and referral plans. medication usage, Demonstrated understanding of instructions, follow-up care, medications, Prescriptions given X 2. 11:12 Patient left the ED. ph Signatures: Dispatcher [employer] EDDidi Arenas RN RN sv Smirch, Shelby, RN RN ss Roszak, Josh, PA PA jr8 Edel Romo RN RN ph Garcia, Rubi rg4
--- NOTE | 2020-08-23 11:03 | EDPHYS ---
Physician Documentation [facility] Name: Nunu Johnson Age: 39 yrs Sex: Female : 1980 Arrival Date: 08/23/2020 Time: 08:47 Bed 8 Private MD: ED Physician Noah Costello HPI: 08/23 10:07 This 39 yrs old Female presents to ER via Ambulatory with complaints of jr8 Vertigo. 10:07 The patient presents with vertigo. Onset: The symptoms/episode began/occurred acutely, jr8 today. Context: occurred at work, occurred while the patient was working. Modifying factors: The symptoms are alleviated by holding head still, the symptoms are aggravated by movement of head, standing up, changing position. Associated signs and symptoms: Pertinent positives: nausea, vomiting. Severity of symptoms: At their worst the symptoms were moderate in the emergency department the symptoms are unchanged. Patient's baseline: Neuro: alert and fully oriented, Motor: no deficits, Ambulation: walks without assistance, Speech: normal. The patient has experienced similar episodes in the past, a few times. The patient has not recently seen a physician. Patient stated that she has history of vertigo in past. Stated that she bent over to pick something up and started to have a "room spinning" effect. Stated that it is not getting better . Historical: - Allergies: 08:58 No Known Allergies; ss - Home Meds: 08:58 None [Active]; ss - PMHx: 08:58 Anxiety; Bipolar disorder; Endometrosis; ss - PSHx: 08:58 Partial hysterectomy; Appendectomy; ss - Immunization history:: Adult Immunizations up to date, Client reports having NOT received the Covid vaccine. - Social history:: Smoking status: Patient denies any tobacco usage or history of. ROS: 10:07 Eyes: Negative for injury, pain, redness, and discharge, ENT: Negative for injury, jr8 pain, and discharge, Neck: Negative for injury, pain, and swelling, Cardiovascular: Negative for chest pain, palpitations, and edema, Respiratory: Negative for shortness of breath, cough, wheezing, and pleuritic chest pain, Back: Negative for injury and pain, MS/Extremity: Negative for injury and deformity, Skin: Negative for injury, rash, and discoloration. 10:07 Abdomen/GI: Positive for nausea and vomiting. 10:07 Neuro: Positive for dizziness. Exam: 10:07 Constitutional: This is a well developed, well nourished patient who is awake, alert, jr8 and in no acute distress. Eyes: Pupils equal round and reactive to light, extra-ocular motions intact. Lids and lashes normal. Conjunctiva and sclera are non-icteric and not injected. Cornea within normal limits. Periorbital areas with no swelling, redness, or edema. ENT: Nares patent. No nasal discharge, no septal abnormalities noted. Tympanic membranes are normal and external auditory canals are clear. Oropharynx with no redness, swelling, or masses, exudates, or evidence of obstruction, uvula midline. Mucous membranes moist. Neck: Trachea midline, no thyromegaly or masses palpated, and no cervical lymphadenopathy. Supple, full range of motion without nuchal rigidity, or vertebral point tenderness. No Meningismus. Cardiovascular: Regular rate and rhythm with a normal S1 and S2. No gallops, murmurs, or rubs. Normal PMI, no JVD. No pulse deficits. Respiratory: Lungs have equal breath sounds bilaterally, clear to auscultation and percussion. No rales, rhonchi or wheezes noted. No increased work of breathing, no retractions or nasal flaring. Abdomen/GI: Soft, non-tender, with normal bowel sounds. No distension or tympany. No guarding or rebound. No evidence of tenderness throughout. Back: No spinal tenderness. No costovertebral tenderness. Full range of motion. Skin: Warm, dry with normal turgor. Normal color with no rashes, no lesions, and no evidence of cellulitis. MS/ Extremity: Pulses equal, no cyanosis. Neurovascular intact. Full, normal range of motion. Neuro: Awake and alert, GCS 15, oriented to person, place, time, and situation. Cranial nerves II-XII grossly intact. Motor strength 5/5 in all extremities. Sensory grossly intact. Cerebellar exam normal. Normal gait. Vital Signs: 08:56 BP 117 / 81; Pulse 53; Resp 18; Temp 97.3(TE); Pulse Ox 100% on R/A; Weight 54.43 kg; ss Height 5 ft. 2 in. (157.48 cm); Pain 0/10; 10:00 BP 95 / 68; Pulse 54; Resp 18; Pulse Ox 99% ; sv 11:11 BP 105 / 78; Pulse 56; Resp 18; Temp 97.6; Pulse Ox 99% on R/A; ph 08:56 Body Mass Index 21.95 (54.43 kg, 157.48 cm) ss MDM: 08:51 Patient medically screened. [facility] 11:00 Data reviewed: vital signs, nurses notes, lab test result(s), radiologic studies, CT jr8 scan. Data interpreted: Pulse oximetry: on room air is 99 %. Interpretation: normal. Counseling: I had a detailed discussion with the patient and/or guardian regarding: the historical points, exam findings, and any diagnostic results supporting the discharge/admit diagnosis, lab results, radiology results, the need for outpatient follow up, an ENT specialist, to return to the emergency department if symptoms worsen or persist or if there are any questions or concerns that arise at home. Response to treatment: the patient's symptoms have markedly improved after treatment. 08/23 09:05 Order name: CBC with Diff; Complete Time: 10:05 08/23 09:05 Order name: Basic Metabolic Panel; Complete Time: 10: 08/23 10:36 Order name: CT Head Brain wo Cont; Complete Time: 10:57 [facility] 08/23 09:20 Order name: IV Start; Complete Time: 09:55 sv 08/23 09:20 Order name: Labs collected and sent; Complete Time: 09:55 sv Administered Medications: 09:30 Drug: Valium (diazepam) 2 mg Route: IVP; Site: right antecubital; ph 11:11 Follow up: Response: No adverse reaction ph 09:30 Drug: NS 0.9% 500 ml Route: IV; Rate: bolus; Site: right antecubital; ph 11:11 Follow up: Response: No adverse reaction; IV Status: Completed infusion; IV Intake: ph 500ml 09:30 Drug: Zofran (Ondansetron) 4 mg Route: IVP; Site: right antecubital; ph 11:11 Follow up: Response: No adverse reaction ph 09:35 Drug: Meclizine 25 mg Route: PO; ph 11:11 Follow up: Response: No adverse reaction ph Disposition: 16:56 Co-signature as Attending Physician, Noah Costello MD. rn Disposition Summary: 08/23/20 11:02 Discharge Ordered Location: Home jr8 Problem: new jr8 Symptoms: have improved jr8 Condition: Stable jr8 Diagnosis - Benign paroxysmal vertigo jr8 Followup: jr8 - With: Didi Hooks MD - When: 2 - 3 days - Reason: Recheck today's complaints, Continuance of care, Re-evaluation by your physician Followup: jr8 - With: Tatiana Strauss MD - When: 2 - 3 days - Reason: Recheck today's complaints, Continuance of care, Re-evaluation by your physician Discharge Instructions: - Vertigo jr8 - Discharge Summary Sheet ph Forms: - Medication Reconciliation Form jr8 - Thank You Letter jr8 - Work release form ph - Antibiotic Education jr8 - Prescription Opioid Use jr8 Prescriptions: - Meclizine 25 mg Oral Tablet - take 1 tablet by ORAL route every 8 hours As needed; 30 tablet; Refills: 0, jr8 Product Selection Permitted - Valium 2 mg Oral Tablet - take 1 tablet by ORAL route every 8 hours As needed; 20 tablet; Refills: 0, jr8 Product Selection Permitted Signatures: Dispatcher [employer] Didi rCawley, RN RN Noah Weller MD MD rn Smirch, Shelby, RN RN ss Roszak, Josh, PA [facility] dEel Romo RN RN
[2020-08-23 11:23] VITALS: O2SAT 99
[2020-08-23 11:24] VITALS: BP 105/78; TEMP 97.6
== END 2020-08-23 11:12 | disposition home or self-care (01) ==
LOC: ER 08:44
DX: H81.10 Benign paroxysmal vertigo, unspecified ear (principal)
CPT/HCPCS: 96361; 85025; 80048; 36415; 70450; 96375; 96374; 99284; J3360; J7040; J2405

== ENCOUNTER 2020-09-22 14:52 | Emergency (ER) | payer BC ==
--- OUTSIDE RECORDS SUMMARY | 2020-09-22 14:55 | XMS REPORT | Continuity of Care Document ---
:1980 Author Organization [facility] t Address [address] [place] [address] Care Team Providers Name Role Phone Edd GRIFFIN Attending Clinician Only, Test Attending Clinician Unavailable Doctor Unassigned, Name Attending Clinician Unavailable Edd GRIFFIN Admitting Clinician Problems This patient has no known problems. Allergies, Adverse Reactions, Alerts This patient has no known allergies or adverse reactions. Social History Social Habit Start Date Stop Date Quantity Comments Source Sex Assigned At [facility] Medications This patient has no known medications. Procedures Procedure Date / Time Performed Performing Clinician Sourc e SARS-COV2/RT-PCR ([facility] 2019-10-04 06:10:00 [facility] - & REF LABS) [facility] Encounters Start End Encounter Admission Attending Care Care Encounter Source Date/Time Date/Time Type Type Clinicians Facility Department ID 2019-07-22 2019-07-23 [facility] [id number] 11:59:00 09:35:00 Encounter Jelena Rushing [id number] [place] [id number] [place] [id number] 2019-07-21 2019-07-21 Laboratory Only, [facility] [id number] 08:46:49 09:01:49 Only Test [place] [id number] [place] [id number] [place] [id number] 2019-07-21 2019-07-21 Orders Doctor THERESA [id number] 00:00:00 00:00:00 Only Unassigned, YANG [id number] [place] [facility] [id number] Results Test Description Test Time Test Comments Results Result Comments Source SARS-CoV2/RT-PCR ([facility] & Ref Labs) 2019-10-04 19:28:00 Test Item Value Reference Range Interpretation Comme nts SARS-COV2/RT-PCR (test code = Negative Not Detected, 80931-5) Negative, See external report for linked test SARS-COV-2 PERFORMING LAB [facility] (test code = 68369-8) YURIY (test code = YURIY) Negative result for this test determines that SARS-CoV-2 RNA was not present in the specimen above the Limit of Detection (LOD). However, Negative results do not preclude SARS-CoV-2 infection and should not be used as the sole basis for treatment or patient management decisions. Negative results must be combined with clinical observations, patient history, and epidemiological information. A false negative result may occur if a specimen is improperly collected, transported or handled. A false negative result should be considered if patient's recent exposures or clinical presentation indicate that COVID-19 (SARS-CoV-2) is likely and diagnostic tests for other causes of illness are negative. Re-testing should be considered in cases of suspected false negatives. The limit of detection for this assay is 800 copies/mL. This SARS CoV-2 test is a real-time RT-PCR test intended for the qualitative detection of nucleic acid from SARS-CoV-2 in a nasopharyngeal swab specimen collected from individuals suspected of COVID-19 by their healthcare provider. This test has not been Food and Drug Administration (FDA) cleared or approved. This is a modified version of an approved Emergency Use Authorization (EUA) and is in the process of review by the FDA. Once authorized by the FDA, the issued EUA will be effective until the declaration that circumstances exist justifying the authorization of the emergency use of in vitro diagnostic tests for detection and/or diagnosis of COVID-19 is terminated under Section 564(b)(2) of the Act or the EUA is revoked under Section 564(g) of the Act. Fact Sheet for Healthcare Providers:https://www.[employer] com/sites/default/files/produ ct/documents/Fact_Sheet_HC_Patti loredopwvcbti_Nnzb_HTZY-ChE-9.pdf Fact Sheet for Healthcare Patients:https://www.[employer] om/sites/default/files/produc t/documents/Fact_Sheet_Merry sk_Fcuh_LUBB-MrQ-1.pdf Performing Laboratory:[facility] [place] [address] [facility]2019-10-04 19:28:00 Test Item Value Reference Range Interpretation Comments SARS-COV2/RT-PCR (test Negative Not Detected, Negative, code = 8207771) See external report for linked test SARS-COV-2 PERFORMING LAB [facility] (test code = 7268044) Negative result for this test determines that SARS-CoV-2 RNA was not present in the specimen above the Limit of Detection (LOD). However, Negative results do not preclude SARS-CoV-2 infection and should not be used as the sole basis for treatment or patient management decisions. Negative results mustbe combined with clinical observations, patient history, and epidemiological information. A false negative result may occur if a specimen is improperly collected, transported or handled. A false negative result should be considered if patient's recent exposures or clinical presentation indicate that COVID-19 (SARS-CoV-2) is likely and diagnostic tests for other causes of illness are negative. Re-testing should be considered in cases of suspected false negatives.The limit of detection for this assay is 800 copies/mL.This SARS CoV-2 test is a real-time RT-PCR test intended for the qualitative detection of nucleic acid from SARS-CoV-2 in a nasopharyngeal swab specimen collected from individuals susp ected of COVID-19 by their healthcare provider.This test has not been Food and Drug Administration (FDA) cleared or approved. This is a modified version of an approved Emergency Use Authorization (EUA) and is in the process of review by the FDA. Once authorized by the FDA, the issued EUA will be effective until the declaration that circumstances exist justifying the authorization of the emergency use of in vitro diagnostic tests for detection and/or diagnosis of COVID-19 is terminated under Section 564(b)(2) of the Act or the EUA is revoked under Section 564(g) of the Act.Fact Sheet for Healthcare Providers:https://www.[employer]sites/default/files/product/documents/Fact_Shee e_EC_Tgewraaxr_Cfjn_YERZ-RaK-0.pdfFact Sheet for Healthcare Patients:https://www.[employer]sites/default/files/product/ documents/Orpj_Ispyn_Iipgonnc_Ubqf_WHUM-MpX-2.pdfPerforming Laboratory:[facility] [place] [address]
--- NOTE | 2020-09-22 16:25 | ER ---
Nurse's Notes [facility] Name: Nunu Johnson Age: 40 yrs Sex: Female : 1980 Arrival Date: 09/22/2020 Time: 14:54 Bed 20 Private MD: Diagnosis: Local infection of the skin and subcutaneous tissue, unspecified Presentation: 09/22 15:12 Chief complaint: Patient states: Abscess to left butt cheek x 1 month. Coronavirus jl7 screen: Client denies travel out of the [place] in the last 14 days. At this time, the client does not indicate any symptoms associated with coronavirus-19. Ebola Screen: No symptoms or risks identified at this time. Initial Sepsis Screen: Does the patient meet any 2 criteria? No. Patient's initial sepsis screen is negative. Does the patient have a suspected source of infection? No. Patient's initial sepsis screen is negative. Risk Assessment: Do you want to hurt yourself or someone else? Patient reports no desire to harm self or others. Onset of symptoms is unknown. 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 - Social history:: Smoking status: Patient reports the use of cigarette tobacco products, smokes one-half pack cigarettes per day. Screenin:22 Abuse screen: Denies threats or abuse. Denies injuries from another. Nutritional tr6 screening: No deficits noted. Tuberculosis screening: No symptoms or risk factors identified. Fall Risk None identified. Assessment: 16:21 General: Appears in no apparent distress. uncomfortable, Behavior is calm, cooperative, tr6 appropriate for age. Pain: Complains of pain in left glute. Neuro: No deficits noted. Cardiovascular: No deficits noted. Respiratory: No deficits noted. GI: No deficits noted. : No deficits noted. EENT: No deficits noted. Derm: Abscess located on left glute. Musculoskeletal: No deficits noted. Vital Signs: 15:12 BP 98 / 66; Pulse 74; Resp 17; Temp 98; Pulse Ox 100% ; Weight 54.43 kg; Height 5 ft. 2 jl7 in. (157.48 cm); Pain 8/10; 15:12 Body Mass Index 21.95 (54.43 kg, 157.48 cm) jl7 ED Course: 14:54 Patient arrived in ED. as 15:14 Triage completed. jl7 15:14 Arm band placed on right wrist. jl7 15:56 Carmenza Wheeler, RN is Primary Nurse. tr6 16:01 Mathew Perez PA is PHCP. jr8 16:01 Marvin Campbell MD is Attending Physician. jr8 16:22 Resting quietly. tr6 16:22 Patient has correct armband on for positive identification. Placed in gown. Bed in low tr6 position. Call light in reach. Side rails up X 1. Door closed. Noise minimized. Visitors limited. Lights dimmed. Moved to private room. Warm blanket given. 16:22 No provider procedures requiring assistance completed. Patient did not have IV access tr6 during this emergency room visit. Administered Medications: No medications were administered Outcome: 16:24 Discharge ordered by . jr8 16:44 Discharged to home ambulatory. tr6 16:44 Condition: good 16:44 Discharge instructions given to patient, Instructed on discharge instructions, follow up and referral plans. medication usage, safety practices, Demonstrated understanding of instructions, follow-up care, medications, Prescriptions given X 2. 16:45 Patient left the ED. tr6 Signatures: Cassie Lopez as Mathew Perez PA PA jr8 Dayanara Lewis RN RN jl7 Carmenza Wheeler, VERONICA RN tr6
--- NOTE | 2020-09-22 16:25 | EDPHYS ---
Physician Documentation [facility] Name: Nunu Johnson Age: 40 yrs Sex: Female : 1980 Arrival Date: 09/22/2020 Time: 14:54 Bed 20 Private MD: ED Physician Marvin Campbell HPI: 09/22 16:22 This 40 yrs old Female presents to ER via Ambulatory with complaints of jr8 Abscess. 16:22 the patient presents with a swollen area of the buttocks. Description: The affected jr8 area is small, well demarcated, erythematous, swollen, warm. Onset: The symptoms/episode began/occurred acutely, yesterday. Possible cause(s): unknown. Associated signs and symptoms: The patient has no apparent associated signs or symptoms. Modifying factors: the symptoms are alleviated by nothing, the symptoms are aggravated by pressure, sitting, squeezing the lesion and expressing the contents, touching. Severity of symptoms: At their worst the symptoms were mild, in the emergency department the symptoms are unchanged. The patient has experienced a previous episode. The patient has not recently seen a physician. 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 - Social history:: Smoking status: Patient reports the use of cigarette tobacco products, smokes one-half pack cigarettes per day. ROS: 16:22 Constitutional: Negative for fever, chills, and weight loss. jr8 16:22 Skin: Positive for erythema, swelling, of the buttocks. 16:22 All other systems are negative. Exam: 16:22 Constitutional: This is a well developed, well nourished patient who is awake, alert, jr8 and in no acute distress. Cardiovascular: Regular rate and rhythm with a normal S1 and S2. No gallops, murmurs, or rubs. Normal PMI, no JVD. No pulse deficits. Respiratory: Lungs have equal breath sounds bilaterally, clear to auscultation and percussion. No rales, rhonchi or wheezes noted. No increased work of breathing, no retractions or nasal flaring. MS/ Extremity: Pulses equal, no cyanosis. Neurovascular intact. Full, normal range of motion. Neuro: Awake and alert, GCS 15, oriented to person, place, time, and situation. Cranial nerves II-XII grossly intact. Motor strength 5/5 in all extremities. Sensory grossly intact. 16:22 Skin: Patient has small 2.5 cm area of redness with mild swelling and induration noted to the left outer butt cheek. No defined pustule and no fluctuance noted at this time.. Vital Signs: 15:12 BP 98 / 66; Pulse 74; Resp 17; Temp 98; Pulse Ox 100% ; Weight 54.43 kg; Height 5 ft. 2 jl7 in. (157.48 cm); Pain 8/10; 15:12 Body Mass Index 21.95 (54.43 kg, 157.48 cm) jl7 MDM: 16:03 Patient medically screened. jr8 16:22 Data reviewed: vital signs, nurses notes, and as a result, I will discharge patient. jr8 Data interpreted: Pulse oximetry: on room air is 100 %. Interpretation: normal. Counseling: I had a detailed discussion with the patient and/or guardian regarding: the historical points, exam findings, and any diagnostic results supporting the discharge/admit diagnosis, the need for outpatient follow up, a family practitioner, to return to the emergency department if symptoms worsen or persist or if there are any questions or concerns that arise at home. ED course: Discussed with patient that at this time there is no defined abscess that we can appreciate with palpation. Recommended antibiotics and Bactroban ointment and to give it a few days. In between now and then if he gets worse to come back for incision and drainage otherwise continue with antibiotics. Patient good with this plan and knows to come back.. Administered Medications: No medications were administered Disposition: 09/23 07:20 Co-signature as Attending Physician, Marvin Campbell MD I agree with the assessment and kdr plan of care. Disposition Summary: 09/22/20 16:24 Discharge Ordered Location: Home jr8 Problem: new jr8 Symptoms: have improved jr8 Condition: Stable jr8 Diagnosis - Local infection of the skin and subcutaneous tissue, unspecified jr8 Followup: jr8 - With: Private Physician - When: 5 - 6 days - Reason: Recheck today's complaints, Continuance of care, Re-evaluation by your physician Discharge Instructions: - Discharge Summary Sheet jr8 - Skin Abscess jr8 Forms: - Medication Reconciliation Form jr8 - Thank You Letter jr8 - Antibiotic Education jr8 - Prescription Opioid Use jr8 Prescriptions: - mupirocin 2 % Topical ointment - apply 1 application by TOPICAL route 3 times per day; 1 tube; Refills: 0, jr8 Product Selection Permitted - Bactrim DS 800-160 mg Oral Tablet - take 1 tablet by ORAL route every 12 hours for 10 days; 20 tablet; Refills: 0, jr8 Product Selection Permitted Signatures: Marvin Campbell MD MD kdr Roszak, Josh, PA PA jr8 Dayanara Lewis RN RN jl7
[2020-09-22 17:27] VITALS: BP 98/66; TEMP 98; O2SAT 100
== END 2020-09-22 16:45 | disposition home or self-care (01) ==
LOC: ER 14:52
DX: L08.9 Local infection of the skin and subcutaneous tissue, unspecified (principal); F17.210 Nicotine dependence, cigarettes, uncomplicated
CPT/HCPCS: 99282

== ENCOUNTER 2020-11-06 13:51 | Emergency (ER) | payer BC ==
[2020-11-06] MEDS ORDERED: HYDROCODONE/APAP 5/325 MG TAB ONE (14:40)
--- NOTE | 2020-11-06 15:10 | RAD REPORT ---
EXAM DESCRIPTION: RAD - Foot Left 3 View - 11/06/2020 2:37 pm CLINICAL HISTORY: Deformity;Pain COMPARISON: No comparisons FINDINGS: No fracture or dislocation is seen.
--- NOTE | 2020-11-06 16:03 | EDPHYS ---
Physician Documentation [facility] Name: Nunu Johnson Age: 40 yrs Sex: Female : 1980 Arrival Date: 11/06/2020 Time: 13:52 Bed 16 Private MD: ED Physician Jamie Brumfield HPI: 11/06 14:17 This 40 yrs old Female presents to ER via Wheelchair with complaints of Toe pm1 Injury. 14:17 Onset: The symptoms/episode began/occurred just prior to arrival. pm1 14:17 The patient presents with a deformity. The complaints affect the left second toe. pm1 Context: [place] resulted from the patient tripping, the patient is not able to bear weight. Modifying factors: The symptoms are alleviated by nothing, the symptoms are aggravated by nothing. Associated signs and symptoms: The patient has no apparent associated signs or symptoms. Severity of symptoms: in the emergency department the symptoms are unchanged. The patient has not experienced similar symptoms in the past. The patient has not recently seen a physician. Historical: - Allergies: 14:07 No Known Allergies; ll1 - PMHx: 14:07 Anxiety; Bipolar disorder; Endometrosis; ll1 - PSHx: 14:07 Appendectomy; partial hysterectomy; ll1 - Immunization history:: Client reports having NOT received the Covid vaccine. - Social history:: Smoking status: Patient reports the use of cigarette tobacco products, smokes one-half pack cigarettes per day. ROS: 14:17 MS/extremity: Positive for deformity, of the left second toe. pm1 14:17 Constitutional: Negative for fever, chills, and weight loss, Cardiovascular: Negative for chest pain, palpitations, and edema, Respiratory: Negative for shortness of breath, cough, wheezing, and pleuritic chest pain, Skin: Negative for injury, rash, and discoloration, Neuro: Negative for headache, weakness, numbness, tingling, and seizure. 14:17 All other systems are negative. Exam: 14:17 Constitutional: This is a well developed, well nourished patient who is awake, alert, pm1 and in no acute distress. Head/Face: Normocephalic, atraumatic. 14:17 Skin: Warm, dry with normal turgor. Normal color with no rashes, no lesions, and no evidence of cellulitis. 14:17 Cardiovascular: Exam negative for acute changes, Rate: normal, Rhythm: regular, Pulses: no pulse deficits are appreciated. 14:17 Respiratory: Exam negative for acute changes, respiratory distress, shortness of breath. 14:17 Musculoskeletal/extremity: Extremities: grossly normal except: noted in the left second toe: deformity, There is no evidence of laceration, puncture. 14:17 Neuro: Exam negative for acute changes, Orientation: is normal, Mentation: is normal, Motor: is normal, moves all fours, Sensation: is normal, no obvious gross deficits. Vital Signs: 14:07 BP 114 / 86; Pulse 96; Resp 18; Temp 99.0; Pulse Ox 96% ; Weight 53.07 kg; Height 5 ft. ll1 2 in. (157.48 cm); Pain 10/10; 14:07 Body Mass Index 21.40 (53.07 kg, 157.48 cm) ll1 Procedures: 16:03 Reduction: of the left second toe, using traction, Patient tolerated well. Post pm1 reduction film - reveals normal alignment. MDM: 14:05 Patient medically screened. pm1 16:01 Data reviewed: vital signs. Data interpreted: Pulse oximetry: on room air is 96 %. pm1 Interpretation: normal. Counseling: I had a detailed discussion with the patient and/or guardian regarding: the historical points, exam findings, and any diagnostic results supporting the discharge/admit diagnosis, radiology results, the need for outpatient follow up, to return to the emergency department if symptoms worsen or persist or if there are any questions or concerns that arise at home. 11/06 14:12 Order name: Foot Left 3 View XRAY; Complete Time: 15:19 pm1 11/06 14:13 Order name: Ice pack; Complete Time: 14:36 pm1 11/06 16:03 Order name: Post-op shoe; Complete Time: 16:20 pm1 11/06 16:14 Order name: Misc. Order: Cory tape; Complete Time: 16:20 pm1 Administered Medications: 14:17 Drug: HYDROcodone-acetaminophen 5 mg-325 mg 1 tabs {Note: Rass 0.} Route: PO; es2 Disposition Summary: 11/06/20 16:02 Discharge Ordered Location: Home pm1 Problem: new pm1 Symptoms: have improved pm1 Condition: Stable pm1 Diagnosis - Dislocation of left second toe pm1 Followup: pm1 - With: Emergency Department - When: As needed - Reason: Worsening of condition Followup: pm1 - With: Private Physician - When: 2 - 3 days - Reason: Recheck today's complaints, Continuance of care, Re-evaluation by your physician Discharge Instructions: - Discharge Summary Sheet pm1 - Toe Dislocation pm1 Forms: - Medication Reconciliation Form pm1 - Thank You Letter pm1 - Antibiotic Education pm1 - Work release form pm1 - Prescription Opioid Use pm1 Signatures: Dispatcher [employer] EDJustus Hoffman NP RIGHT OF WAY MAN pm1 Betty Garner RN RN ll1 Chula Machuca RN RN es2
--- NOTE | 2020-11-06 16:03 | ER ---
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 R foot 2nd digit obviously deformed. Denies any other injuries. Coronavirus screen: Vaccine status: Patient reports being unvaccinated. Client denies travel out of the [place] in the last 14 days. At this time, the client does not indicate any symptoms associated with coronavirus-19. Ebola Screen: Patient denies travel to an Ebola-affected area in the 21 days before illness onset. Initial Sepsis Screen: Does the patient meet any 2 criteria? HR > 90 bpm. No. Patient's initial sepsis screen is negative. Does the patient have a suspected source of infection? Yes: Bone or joint infection. Risk Assessment: Do you want to hurt yourself or someone else? Patient reports no desire to harm self or others. Onset of symptoms was November 06, 2020. 14:07 Method Of Arrival: Wheelchair ll1 14:07 Acuity: RHINA 4 ll1 Historical: - Allergies: 14:07 No Known Allergies; ll1 - PMHx: 14:07 Anxiety; Bipolar disorder; Endometrosis; ll1 - PSHx: 14:07 Appendectomy; partial hysterectomy; ll1 - Immunization history:: Client reports having NOT received the Covid vaccine. - Social history:: Smoking status: Patient reports the use of cigarette tobacco products, smokes one-half pack cigarettes per day. Screenin:13 Abuse screen: Denies threats or abuse. Denies injuries from another. Nutritional es2 screening: No deficits noted. Tuberculosis screening: No symptoms or risk factors identified. Fall Risk Mental Status- Oriented to own ability (0 pts). Assessment: 14:11 Reassessment: Patient and/or family updated on plan of care and expected duration. Pain es2 level reassessed. Patient is alert, oriented x 3, equal unlabored respirations, skin warm/dry/pink. Pt stubbed toe while out fishing, obvious deformity. to 2nd toe from L, on L foot. General: Appears distressed, uncomfortable, Behavior is crying. Pain: Complains of pain in left foot Pain currently is 10 out of 10 on a pain scale. Neuro: Level of Consciousness is awake, alert, obeys commands, Oriented to person, place, time, situation, Appropriate for age Speech is normal. Cardiovascular: Capillary refill < 3 seconds Patient's skin is warm and dry. Respiratory: Airway is patent Respiratory effort is even, unlabored, Respiratory pattern is regular, symmetrical. GI: No signs and/or symptoms were reported involving the gastrointestinal system. : No signs and/or symptoms were reported regarding the genitourinary system. EENT: No signs and/or symptoms were reported regarding the EENT system. Derm: No signs and/or symptoms reported regarding the dermatologic system. Musculoskeletal: Capillary refill < 3 seconds. Injury Description: Deformity sustained to 2nd toe on L foot. Vital Signs: 14:07 BP 114 / 86; Pulse 96; Resp 18; Temp 99.0; Pulse Ox 96% ; Weight 53.07 kg; Height 5 ft. ll1 2 in. (157.48 cm); Pain 10/10; 14:07 Body Mass Index 21.40 (53.07 kg, 157.48 cm) ll1 ED Course: 13:52 Patient arrived in ED. mr 14:05 Chula Machuca, VERONICA is Primary Nurse. es2 14:05 Justus Upton NP is PHCP. pm1 14:05 Jamie Brumfield MD is Attending Physician. pm1 14:07 Arm band placed on Patient placed in an exam room, on a stretcher. ll1 14:09 Triage completed. ll1 14:14 Patient has correct armband on for positive identification. Bed in low position. Call es2 light in reach. 14:36 Foot Left 3 View XRAY Sent. kg 14:37 Foot Left 3 View XRAY In Process Unspecified. EDMS Administered Medications: 14:17 Drug: HYDROcodone-acetaminophen 5 mg-325 mg 1 tabs {Note: Rass 0.} Route: PO; es2 Outcome: 16:02 Discharge ordered by . pm1 16:53 Patient left the ED. mt Signatures: Dispatcher [employer] EDMA Anitra Coughlin mr Justus Upton, BELA RESEARCH ANIMAL ATTENDANT pm1 Estela Gonzalez mt, Lynsay, RN RN ll1 Elyse Phillip, RN RN kg Chula Machuca RN RN es2
[2020-11-06 17:08] VITALS: BP 114/86; TEMP 99; O2SAT 96
== END 2020-11-06 16:53 | disposition home or self-care (01) ==
LOC: ER 13:51
PROC: 0SSQXZZ Reposition Left Toe Phalangeal Joint, External Approach (ICD-10-PCS; principal; 2020-11-06)
DX: S93.105A Unspecified dislocation of left toe(s), initial encounter (principal); W01.0XXA Fall on same level from slipping, tripping and stumbling without subsequent striking against object, initial encounter; Y93.9 Activity, unspecified; Y92.832 Beach as the place of occurrence of the external cause; F17.210 Nicotine dependence, cigarettes, uncomplicated
CPT/HCPCS: 99283

== ENCOUNTER 2021-03-11 12:12 | Emergency (ER) | payer BC ==
--- OUTSIDE RECORDS SUMMARY | 2021-03-11 12:16 | XMS REPORT | Continuity of Care Document ---
:1980 Author Organization [facility] t Address [address] [place] [address] Care Team Providers Name Role Phone PCP, DOES NOT HAVE A Primary Care Physician Unavailable Ayah GRIFFIN Attending Clinician AYAH Attending Clinician Unavailable Only, Test Attending Clinician Unavailable Doctor Unassigned, Name Attending Clinician Unavailable Ayah GRIFFIN Admitting Clinician AYAH Admitting Clinician Unavailable Payers Payer Name Policy Type Policy Number Effective Date Expiration Date S ource Problems Condition Condition Condition Status Onset Resolution Last Treating Co mments Source Name Details Category Date Date Treatment Clinician Date No known No known Disease Unive rs active active ity of problems problems [facility] Allergies, Adverse Reactions, Alerts Allergy Allergy Status Severity Reaction(s) Onset Inactive Treating Comm ents Source Name Type Date Date Clinician NO KNOWN Drug Active Univers ALLERGIE Class ity of S [facility] Social History Social Habit Start Date Stop Date Quantity Comments Source Exposure to Not sure [facility] SARS-CoV-2 (event) Medica l Branch Sex Assigned At [facility] Alcohol intake 2019-07-21 2019-07-21 [facility] 00:00:00 00:00:00 Medical Branch Smoking Status Start Date Stop Date Source Current every day smoker 2019-07-21 00:00:00 Uni versity [facility] Medications Ordered Filled Start Stop Current Ordering Indication Dosage Frequency Signature Comments Components Source Medication Medication Date Date Medication? 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 medication : ROBBIE PUGA lactated 2020-0 Yes 1000mL at 75 Univer s ringers IV 6-10 mL/hr, ity of infusion 04:15: 1,000 [place] 1[place]000 [place] 00 IV Medical Infusion, Branch CONTINUOUS , Starting Sun07/22/19 at 2315, Until Discontinu ed, Routine HYDROcodone 2020-0 Yes 1{tbl} 1 tablet, Univers -acetaminop 6-10 Oral, ity of hen (NORCO 03:55: Q6HPRN, [place] 5) 5-325 mg 31 Starting Medi remy tablet 1 Sun07/22/19 Branc h tablet at 2255, Until Discontinu ed, Routine, Pain (scale 4-6) acetaminoph 2020-0 Yes 500mg 500 mg, Un rosaline en 6-10 Oral, ity of (TYLENOL) 03:55: Q6HPRN, [place] tablet 500 31 Starting Medic al mg Sun07/22/19 Branch at 2255, Until Discontinu ed, Routine, Pain (scale 4-6) ondansetron 2020-0 Yes 4mg 4 mg, Slow Univers (ZOFRAN 6-10 IV Push, ity of (PF)) 03:55: Q6HPRN, 2 [place] injection 4 31 doses, Medica l mg Starting Branch Sun07/22/19 at 2255, Until Discontinu ed, Routine, Nausea and Vomiting (N/V), if nausea and vomiting proMETHazin 2020-0 Yes 12.5mg 12.5 mg, Univers e 6-10 IV ity of (PHENERGAN) 03:55: Piggyback, [place] 12.5 mg in 31 Q6HPRN, Medica l NaCl 0.9% Starting Branch (NS) 50 mL Sun07/22/19 piggyback at 2255, Until Discontinu ed, 50 mL lactated 2019- Yes 1000mL at 75 Univer s ringers IV 6-10 mL/hr, ity of infusion 00:00: 1,000 mL, [place] 1[place]000 mL 00 IV Medical Infusion, Branch CONTINUOUS , Starting Sun07/22/19 at 1900, Until Discontinu ed, Routine, PACU ondansetron 2020- No 4mg 4 mg, Slow Univers (ZOFRAN 07-21 IV Push, ity of (PF)) 23:49: 00:24 PRN, 1 [place] injection 4 36 :00 dose, Medical mg Starting Branch Sun07/22/19 at 1849, Until Sun07/22/19 at 1924, Routine, Nausea and Vomiting (N/V), PACU scopolamine 2020- No 1.5mg 1.5 mg, U nivers transdermal 07-21 Topical, ity of (TRANSDERM- 17:45: 04:21 Administer [place] SCOP) patch 00 :33 over 72 Medic al 1.5 mg Hours, Branch Q72H, First dose on Sun07/22/19 at 1245, Until Discontinu ed, Routine, Intra-op lactated 2019- 2020- No 1000mL at 20 Unive rs ringers IV 07-21-09 mL/hr, ity of infusion 17:15: 17:40 1,000 mL, [place] 1,000 mL 00 :00 IV Medical Infusion, Branch ONCE, 1 dose, Sun07/22/19 at 1215, Routine, DSU Pre-op phenazopyri 2018-02 Yes [id number] 200mg Take 1 Univers dine 200 mg 0-17 tablet by ity of tablet 00:00: mouth 3 [place] 00 (three) Medical times Branch daily. phenazopyri 2018-02 Yes [id number] 200mg Take 1 Univers dine 200 mg 0-17 tablet by ity of tablet 00:00: mouth 3 [place] 00 (three) Medical times Branch daily. phenazopyri 2018-02 2020- No [id number] 200mg Take 1 Univers dine 200 mg 0-17 06-09 tablet by it y of tablet 00:00: 00:00 mouth 3 [place] 00 :00 (three) Medical times Branch daily. Vital Signs Vital Name Observation Time Observation Value Comments Source Body temperature 2019-07-23 13:30:00 36.72 Dahlia Univ ersity of [facility] Branch Systolic blood 2019-07-23 13:00:00 90 mm[Hg] Univer sity of pressure [facility] Branch Diastolic blood 2019-07-23 13:00:00 55 mm[Hg] Unive rsity of pressure [facility] Heart rate 2019-07-23 13:00:00 59 /min Universi ty of [facility] Respiratory rate 2019-07-23 08:45:00 16 /min Univ ersity of [facility] Branch Oxygen saturation in 2019-07-23 08:45:00 100 /min University of Arterial blood by [place] Medi ermy Pulse oximetry Branch Body height 2019-07-21 14:00:00 157.5 cm Universi ty of [place] [facility] [place] Body weight 2019-07-21 14:00:00 55.792 kg Universi ty of [place] [facility] [place] BMI 2019-07-21 14:00:00 22.50 kg/m2 Universi ty of [facility] Body temperature 2019-07-23 13:30:00 36.72 Dahlia Univ ersity of [facility] Branch Systolic blood 2019-07-23 13:00:00 90 mm[Hg] Univer sity of pressure [facility] Branch Diastolic blood 2019-07-23 13:00:00 55 mm[Hg] Unive rsity of pressure [facility] Heart rate 2019-07-23 13:00:00 59 /min Universi ty of [place] [facility] Respiratory rate 2019-07-23 08:45:00 16 /min Univ ersity of [facility] Branch Oxygen saturation in 2019-07-23 08:45:00 100 /min University of Arterial blood by [place] Medi remy Pulse oximetry Branch Body height 2019-07-21 14:00:00 157.5 cm Universi ty of [place] [facility] Body weight 2019-07-21 14:00:00 55.792 kg Universi ty of [place] [facility] BMI 2019-07-21 14:00:00 22.50 kg/m2 Universi ty of [place] [facility] Procedures Procedure Date / Time Performing Clinician Source Performed SARS-COV2/RT-PCR ([facility] 2019-10-04 06:10:00 [facility] ABORH CONFIRMATION 2019-07-22 17:50:00 Robbie Puga [facility] URINALYSIS 2019-07-22 17:40:00 Ayah [facility] COMP. METABOLIC PANEL 2019-07-22 17:36:00 [id number] Branch CBC WITH DIFFERENTIAL 2019-07-22 17:36:00 Ayah [facility] HB ABO GROUPING 2019-07-22 17:35:00 [facility] COVID-19 (ID NOW RAPID 2019-07-21 14:23:00 [facility] Branch ASSIGNMENT OF BENEFITS 2019-07-21 13:44:51 Doctor Unassigned, No [facility] Name [facility] Encounters Start End Encounter Admission Attending Care Care Encounter Source Date/Time Date/Time Type Type Clinicians Facility Department ID 2019-07-22 2019-07-23 [facility] [id number] Univers 11:59:00 09:35:00 Encounter Robbie Rushing [id number] ity of [place] 4.2.7.2.686 [facility] [id number] [place] [id number] [place] 2019-07-22 2019-07-23 [facility] [id number] Univers 11:59:00 09:35:00 ROBBIE [facility] 2019-07-22 2019-07-23 [facility] [id number] 11:59:00 09:35:00 Encounter Robbie Rushing [id number] [place] 4.2.7.2.686 [place] [id number] 2019-07-21 2019-07-21 Laboratory Only, Adc Test [facility] 1.2.840. [id number] Univers 08:46:49 09:01:49 Only Robbie Puga 350.1.13.10 ity of [place] 4.2.7.2.686 [facility] [id number] [facility] 353 Branch 2019-07-21 2019-07-21 Laboratory Only, Adc [facility] [id number] 08:46:49 09:01:49 Only Test Сергей 350.1.13.10 [place] 4.2.7.2.686 [place] [id number] 353 2019-07-21 2019-07-21 Outpatient R AYAH, [facility] [id number] [facility] 08:45:00 08:45:00 ROBBIE ity [facility] 2019-07-21 2019-07-21 Orders Doctor CARDENAS [id number] [facility] 00:00:00 00:00:00 Only Unassigned, YANG 350.1.13.10 [facility] 4.2.7.2.686 [facility] [id number] [address] 2019-07-21 2019-07-21 Orders Doctor CAREDNAS [id number] 00:00:00 00:00:00 Only Unassigned, YANG 350.1.13.[address]686 [id number] [id number] Results Test Description Test Time Test Comments Results Result Comments Source SARS-CoV2/RT-PCR ([facility] Ref Labs) 2019-10-04 19:28:00 Test Item Value Reference Range Interpretation Comme nts SARS-COV2/RT-PCR (test code = Negative Not Detected, 96921-3) Negative, See external report for linked test SARS-COV-[address] [facility] (test code = 83187-7) YURIY (test code = YURIY) Negative result [...] of the Act. Fact Sheet for Healthcare Providers:https://www.[employer]/sites/default/files/produ ct/documents/Fact_Sheet_HC_Pr dacnqwz_Cnrj_BZBF-VmJ-2.pdf Fact Sheet for Healthcare Patients:https://www.[employer] /sites/default/files/produc t/documents/Fact_Sheet_Patien xy_Qiiw_ARAM-NuU-6.pdf Performing Laboratory:[place] [address] [address]OV2/RT-PCR ([facility])2019-10-04 19:28:00 Test Item Value Reference Range Interpretation Comments SARS-COV2/RT-PCR (test Negative Not Detected, Negative, code = 6981380) See external report for linked test SARS-COV-[address] [facility] (test code = 4828382) Negative result for this test determines that [...] individuals suspected of COVID-19 by their healthcare provider.This test [...] 564(g) of the Act.Fact Sheet for Healthcare Providers:https://www.[employer]/sites/default/files/product/documents/Fact_Shee y_ID_Yknmchdlh_Lbgw_FTKS-YxM-7.pdfFact Sheet for Healthcare Patients:https://www.[employer]/sites/default/files/product/ documents/Vjxy_Xdydx_Shiweynw_Knpf_KNJT-DaE-7.pdfPerforming Laboratory:[facility] [facility]cydney [address]ora.[place], [place] [address]Cwki and Screen - ONCE [id number] 18:31:01 Test Item Value Reference Range Interpretation Comments ABO & RH (test code O Positive Performe d at [facility] = 20) Laboratory [facility] [place], [place] [address]Toll Free: [phone] A No. [id number] IAT (test code = Negative Performed a t [facility] 1185) Laboratory Serv [facility] Blood Bank[address] [place], [place] [address]Toll Free: [phone] A No. [id number] [facility]2020-06-09 18:21:00 Test Item Value Reference Range Interpretation Comments APPEARANCE (test code = Hazy Clear A 0691872582) COLOR (test code = Yellow Yellow 2228715465) PH (test code = 4.8-8.0 5627454587) SP GRAVITY (test code = 1.003-1.030 3896106328) GLU U QUAL (test code = Normal Normal 4433635500) BLOOD (test code = Negative Negative 4773668059) KETONES (test code = Negative Negative 9811950203) PROTEIN (test code = Negative Negative 2887-8) UROBILIN (test code = Normal Normal 7539114296) BILIRUBIN (test code = Negative Negative 4110021483) NITRITE (test code = Negative Negative 2422580564) LEUK FABIOLA (test code = 25/uL Negative A 8038221703) RBC/HPF (test code = See_Comment [Autom ated message] 1204194329) The system [employer] generated this result transmitted ref erence range: 0 - 3 HP F. The reference range was not used to int erpret this result as normal/abnormal . WBC/HPF (test code = See_Comment [Autom ated message] 1611771178) The system [employer] generated this result transmitted ref erence range: 0 - 5 HP F. The reference range was not used to int erpret this result as normal/abnormal . BACTERIA (test code = Few Negative A 4941318842) MUCOUS (test code = Slight Negative LPF A 1995594858) SQ EPITH (test code = HPF 9243578797) SPERM (test code = See_Comment H [Automat ed message] 6576456737) The system [employer] generated this result transmitted ref erence range: <=1 HPF. The reference range was not used to int erpret this result as normal/abnormal . Lab Interpretation (test Abnormal code = 62117-2) [facility] [id number] 18:15:58 Test Item Value Reference Range Interpretation Comments ABO & RH (test code O Positive Performe d at [facility] = 20) Laboratory Serv [facility] Blood Bank1 [address] [place] [address]Uikw Free: [phone] A No. [id number] [facility] BudaCOMP. METABOLIC PANEL (52532)2019-07-22 18:04:00 Test Item Value Reference Range Interpretation Comments NA (test code = 138 mmol/L 135-145 0841999626) K (test code = 4.2 mmol/L 3.5-5 4553310896) CL (test code = 109 mmol/L 98-108 H 7165060045) CO2 TOTAL (test code = 21 mmol/L 23-31 L 0754172310) AGAP (test code = 2-16 1923503889) BUN (test code = 11 mg/dL 7-23 4811299693) GLUCOSE (test code = 93 mg/dL 70-110 8246232395) CREATININE (test code = 0.58 mg/dL 0.5-1.04 2367287889) TOTAL BILI (test code = 0.8 mg/dL 0.1-1.8 5353200519) CALCIUM (test code = 9.1 mg/dL 8.6-10.6 1319490370) T PROTEIN (test code = 7.3 g/dL 6.3-8.2 1001093204) ALBUMIN (test code = 4.5 g/dL 3.5-5 9551126278) ALK PHOS (test code = 40 U/L 34-122 4389222459) ALTv (test code = 12 U/L 5-35 1742-6) AST(SGOT) (test code = 21 U/L 13-40 6553763908) eGFR Calculation mL/min/1.73m2 (Non-) (test code = 3397555535) eGFR Calculation mL/min/1.73m2 () (test code = 5463408762) YURIY (test code = YURIY) Association of Glomerular Filtration Rate (GFR) and Staging of Kidney Disease* + --+ --+ ------+| GFR (mL/min/1.73 m2) ?| With Kidney Damage ?| ?Without Kidney Damage+ --------+ --------+ +| ?>90 ?| ?Stage one ?| ? Normal ?+ ---+ ---+ -------+| ?60-89 ?| ?Stage two ?| ? Decreased GFR ? + --+ --+ ------+| ?30-59 ?| ?Stage three ?| ? Stage three ? + --+ --+ ------+| ?15-29 ?| ?Stage four ? | ? Stage four ?+ ---+ ---+ -------+| ?<15 (or dialysis) ? ?| ?Stage five ? | ? Stage five ?+ ---+ ---+ -------+ *Each stage assumes the associated GFR level has been in effect for at least three months. ?Stages 1 to 5, with or without kidney disease, indicate chronic kidney disease. Notes: Determination of stages one and two (with eGFR >59mL/min/1.73 m2) requires estimation of kidney damage for at least three months as defined by structural or functional abnormalities of the kidney, manifested by either:Pathological abnormalities or Markers of kidney damage (including abnormalities in the composition of the blood or urine or abnormalities in imaging tests). Lab Interpretation Abnormal (test code = 85873-8) General acute hospital WITH [id number] 17:56:00 Test Item Value Reference Range Interpretation Comments WBC (test code = See_Comment [Automated 8452-2) message] The sy stem which generated this result transmitted reference range : 4.30 - 11.10 10*3/?L. The reference range was not used to interpret this result as normal/abnormal . RBC (test code = See_Comment [Automated 694-8) message] The sy stem which generated this result transmitted reference range : 3.93 - 5.25 10*6/?L. The reference range was not used to interpret this result as normal/abnormal . HGB (test code = 12.1 g/dL 11.6-15 718-7) HCT (test code = 36.5 % 35.7-45.2 4544-3) MCV (test code = 87.5 fL 80.6-95.5 787-2) MCH (test code = 29.0 pg 25.9-32.8 785-6) MCHC (test code = 33.2 g/dL 31.6-35.1 786-4) RDW-SD (test code = 53.2 fL 39-49.9 H 51477-6) RDW-CV (test code = 16.6 % 12-15.5 H 788-0) PLT (test code = See_Comment [Automated 387-3) message] The sy stem which generated this result transmitted reference range : 166 - 358 10*3/ ?L. The reference r jorge was not used to interpret this result as normal/abnormal . MPV (test code = 9.9 fL 9.5-12.9 15877-0) NRBC/100 WBC (test See_Comment [Automat ed code = 6811118621) message] The system which generated this result transmitted reference range : 0.0 - 10.0 /100 WBCs. The refer ence range was not u sed to interpret th is result as normal/abnormal . NRBC x10^3 (test code <0.01 See_Comment [Auto mated = 5017082004) message] The s ystem which generated this result transmitted reference range : 10*3/?L. The reference range was not used to interpret this result as normal/abnormal . GRAN MAT (NEUT) % 56.2 % (test code = 770-8) IMM GRAN % (test code 0.10 % = 2970988927) LYMPH % (test code = 32.0 % 736-9) MONO % (test code = 7.5 % 5905-5) EOS % (test code = 3.7 % 713-8) BASO % (test code = 0.5 % 706-2) GRAN MAT x10^3(ANC) 4.90 10*3/uL 1.88-7.09 (test code = 3918815395) IMM GRAN x10^3 (test <0.03 0-0.06 code = 1931793095) LYMPH x10^3 (test code 2.78 10*3/uL 1.32-3.29 = 731-0) MONO x10^3 (test code 0.65 10*3/uL 0.33-0.92 = 742-7) EOS x10^3 (test code = 0.32 10*3/uL 0.03-0.39 711-2) BASO x10^3 (test code 0.04 10*3/uL 0.01-0.07 = 704-7) Lab Interpretation Abnormal (test code = 07659-1) [facility]OVID[facility] (ID NOW RAPID TESTING)2019-07-21 14:49:00 Test Item Value Reference Range Interpretation Comments SARS-CoV-2 Rapid ID NOW Not Detected Not Detected (test code = 55126-2) YURIY (test code = YURIY) ID NOW COVID-19 Assay is an isothermal nucleic acid amplification test intended for the qualitative detection of nucleic acid from SARS-CoV-2 viral RNA in 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 It is used under Emergency Use Authorization (EUA) by FDA. The limit of detection (LOD) of the assay is 125 Genome Equivalents/mL. A positive result is indicative of the presence of SARS-CoV-2 RNA. ?Clinical correlation with patient history and other diagnostic [...] for repeat patient testing if clinically indicated. Lab Interpretation Normal (test code = 20813-9) [facility]"
[2021-03-11 13:52] LABS: Urine Blood 1+ (Negative); Urine Glucose Negative (Negative); Urine Protein Negative (Negative); Urine Specific Gravity >=1.030 (1.005-1.030)
[2021-03-11 14:22] LABS: SARS-COV-2 RT PCR POSITIVE (NEGATIVE)
--- NOTE | 2021-03-11 14:27 | EDPHYS ---
Physician Documentation [facility] Name: Nunu Johnson Age: 40 yrs Sex: Female : 1980 Arrival Date: 03/11/2021 Time: 12:15 Bed 14 Private MD: ED Physician Marvin Campbell HPI: 03/11 14:25 This 40 yrs old Female presents to ER via Ambulatory with complaints of Pain All Over. kb 14:25 The patient or guardian reports flu symptoms, low-grade fever, myalgias. The patient kb has not recently seen a physician. 14:25 Onset: The symptoms/episode began/occurred 3 day(s) ago. Severity of symptoms: At their kb worst the symptoms were mild, moderate, in the emergency department the symptoms are unchanged. Modifying factors: The symptoms are alleviated by nothing, the symptoms are aggravated by nothing. Associated signs and symptoms: Pertinent positives: fever, nausea, vomiting, Pertinent negatives: chest pain, diarrhea, ear ache, nausea, rhinorrhea, sore throat. The patient has not experienced similar symptoms in the past. 14:25 Pt reports fever, chills, bodyaches, headache, nausea and vomiting that started 3 days kb ago. Vomiting has stopped, but still having nausea. CT TECH: 12:39 LMP N/A - Hysterectomy ap3 Historical: - Allergies: 12:38 No Known Allergies; ap3 - Home Meds: 12:38 None [Active]; ap3 - PMHx: 12:38 Anxiety; Bipolar disorder; Endometrosis; ap3 - PSHx: 12:38 Appendectomy; partial hysterectomy; ap3 - Immunization history:: Client reports having NOT received the Covid vaccine. Flu vaccine is not up to date. - Social history:: Smoking status: Patient reports the use of cigarette tobacco products, smokes one-half pack cigarettes per day. ROS: 14:24 Respiratory: Negative for shortness of breath, cough, wheezing, and pleuritic chest kb pain. 14:24 Constitutional: Positive for body aches, chills, fatigue, fever, malaise. 14:24 Neuro: Positive for headache. 14:24 All other systems are negative. 14:25 Abdomen/GI: Positive for nausea and vomiting. kb Exam: 14:24 Constitutional: This is a well developed, well nourished patient who is awake, alert, kb and in no acute distress. Head/Face: Normocephalic, atraumatic. ENT: Moist Mucous membranes Cardiovascular: Regular rate and rhythm with a normal S1 and S2. No gallops, murmurs, or rubs. No pulse deficits. Respiratory: Respirations even and unlabored. No increased work of breathing. Talking in full sentences Skin: Warm, dry with normal turgor. Normal color. MS/ Extremity: Pulses equal, no cyanosis. Neurovascular intact. Full, normal range of motion. Neuro: Awake and alert, GCS 15, oriented to person, place, time, and situation. Moves all extremities. Normal gait. Psych: Awake, alert, with orientation to person, place and time. Behavior, mood, and affect are within normal limits. Vital Signs: 12:37 BP 103 / 72; Pulse 104; Resp 18; Temp 99.5; Pulse Ox 100% ; Weight 53.07 kg; Height 5 ap3 ft. 2 in. (157.48 cm); 14:58 BP 116 / 85; Pulse 88; Resp 16; Pulse Ox 99% ; ic1 12:37 Body Mass Index 21.40 (53.07 kg, 157.48 cm) ap3 MDM: 12:51 Patient medically screened. kb 14:23 Data reviewed: vital signs, nurses notes. Data interpreted: Pulse oximetry: on room air kb is 100 %. Interpretation: normal. Counseling: I had a detailed discussion with the patient and/or guardian regarding: the historical points, exam findings, and any diagnostic results supporting the discharge/admit diagnosis, lab results, the need for outpatient follow up, a family practitioner, to return to the emergency department if symptoms worsen or persist or if there are any questions or concerns that arise at home. 14:26 ED course: Pt tolerating po intake. kb 03/11 12:46 Order name: COVID-19/FLU A+B/RSV (Document "Date of Onset" if Symptomatic); Complete ap3 Time: 14:23 03/11 13:52 Order name: Urine Dipstick-Ancillary; Complete Time: 13:52 EDMS 03/11 13:21 Order name: Urine Dipstick-Ancillary (obtain specimen); Complete Time: 13:44 kb 03/11 13:52 Order name: Urine --Ancillary (enter results); Complete Time: 14:02 eb Administered Medications: No medications were administered Disposition: 15:15 Co-signature as Attending Physician, Marvin Campbell MD I agree with the assessment and kdr plan of care. Disposition Summary: 03/11/21 14:26 Discharge Ordered Location: Home kb Condition: Stable kb Diagnosis - Coronavirus infection, unspecified kb Followup: kb - With: Emergency Department - When: As needed - Reason: Worsening of condition Followup: kb - With: Private Physician - When: 2 - 3 days - Reason: Recheck today's complaints, Continuance of care, Re-evaluation by your physician Discharge Instructions: - Discharge Summary Sheet kb - Viral Respiratory Infection, Sqnz-Ja-Yjhs kb - COVID-19 kb Forms: - Medication Reconciliation Form kb - Thank You Letter kb - Antibiotic Education kb - Prescription Opioid Use kb Signatures: Dispatcher [employer] EDMS Kalyn Mtz, FURNACE PUNCHER-C YAHAIRA-Marvin Zepeda MD MD kdr Karina Loyd RN RN ap3 Corrections: (The following items were deleted from the chart) 14:25 14:24 Abdomen/GI: Negative for abdominal pain, nausea, vomiting, diarrhea, and kb constipation, kb
--- NOTE | 2021-03-11 14:27 | ER ---
Nurse's Notes [facility] Name: Nunu Johnson Age: 40 yrs Sex: Female : 1980 Arrival Date: 03/11/2021 Time: 12:15 Bed 14 Private MD: Diagnosis: Coronavirus infection, unspecified Presentation: 03/11 12:37 Chief complaint: Patient states: she has been feeling like her whole body hurts, she ap3 also reports being tired. Patient states she has had fever, chills and headache since 03/09/2021. Coronavirus screen: chills, cough unrelated to allergies, fatigue, fever, muscle pain, Client presents with at least one sign or symptom that may indicate coronavirus-19. Standard/surgical mask placed on the client. Ebola Screen: No symptoms or risks identified at this time. Initial Sepsis Screen: Does the patient meet any 2 criteria? No. Patient's initial sepsis screen is negative. Does the patient have a suspected source of infection? No. Patient's initial sepsis screen is negative. Risk Assessment: Do you want to hurt yourself or someone else? Patient reports no desire to harm self or others. Onset of symptoms was March 09, 2021. 12:37 Method Of Arrival: Ambulatory ap3 12:37 Acuity: RHINA 3 ap3 Triage Assessment: 12:39 General: Appears uncomfortable, Behavior is anxious, restless, Reports chills for fever ap3 for feeling ill for fatigue for. Pain: Complains of pain in generalized pain all over. Neuro: Level of Consciousness is awake, alert, obeys commands, Oriented to person, place, time, situation, Appropriate for age. Respiratory: Airway is patent Respiratory effort is even, unlabored. Respiratory: Reports shortness of breath cough that is. GI: Reports nausea. 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 Flu vaccine is not up to date. - Social history:: Smoking status: Patient reports the use of cigarette tobacco products, smokes one-half pack cigarettes per day. Screenin:39 Abuse screen: Denies threats or abuse. Nutritional screening: No deficits noted. ap3 Tuberculosis screening: No symptoms or risk factors identified. Fall Risk None identified. Assessment: 13:17 General: Appears in no apparent distress. uncomfortable, Behavior is cooperative, ic1 anxious. General: Reports fatigue for 2-3 days. Pain: Denies pain. Neuro: No deficits noted. Cardiovascular: No deficits noted. Respiratory: No deficits noted. GI: Reports nausea. : No deficits noted. EENT: No deficits noted. Derm: No deficits noted. Musculoskeletal: Reports weakness in Generalized. Vital Signs: 12:37 BP 103 / 72; Pulse 104; Resp 18; Temp 99.5; Pulse Ox 100% ; Weight 53.07 kg; Height 5 ap3 ft. 2 in. (157.48 cm); 14:58 BP 116 / 85; Pulse 88; Resp 16; Pulse Ox 99% ; ic1 12:37 Body Mass Index 21.40 (53.07 kg, 157.48 cm) ap3 ED Course: 12:15 Patient arrived in ED. mr 12:38 Triage completed. ap3 12:39 Arm band placed on right wrist. ap3 12:51 Kalyn Mtz FNP-C is [facility]. kb 12:51 Marvin Campbell MD is Attending Physician. kb 13:19 Door closed. Noise minimized. Warm blanket given. ic1 15:05 Patient has correct armband on for positive identification. ic1 15:05 Patient did not have IV access during this emergency room visit. ic1 Administered Medications: No medications were administered Outcome: 14:26 Discharge ordered by . kb 14:58 Discharged to home ambulatory, with family. ic1 14:58 Condition: stable 14:58 Discharge instructions given to patient, Instructed on discharge instructions, follow up and referral plans. Demonstrated understanding of instructions, follow-up care. 15:06 Patient left the ED. ic1 Signatures: Kalyn Mtz FNP-C FNP-Ckb Anitra CoughlinKarina, RN RN ap3 Doreen Talley RN RN ic1
[2021-03-11 15:30] VITALS: TEMP 99.5
[2021-03-11 15:31] VITALS: BP 116/85; O2SAT 99
== END 2021-03-11 15:06 | disposition home or self-care (01) ==
LOC: ER 12:12
DX: U07.1 COVID-19 (principal); F17.210 Nicotine dependence, cigarettes, uncomplicated
CPT/HCPCS: 81025; 81003; 0241U; 99281

== ENCOUNTER 2021-07-29 10:05 | Emergency (ER) | payer BC ==
--- OUTSIDE RECORDS SUMMARY | 2021-07-29 10:07 | XMS REPORT | Continuity of Care Document ---
:1980 Author Organization [facility] t Address [address] [place] [address] Care Team Providers Name Role Phone PCP, [...] rs active active ity of problems problems [facility] Allergies, Adverse Reactions, Alerts Allergy Allergy Status Severity Reaction(s) Onset Inactive Treating Comm ents Source Name Type Date Date Clinician NO KNOWN Drug Active Univers ALLERGIE Class ity of S [facility] Social History Social Habit Start Date Stop Date Quantity Comments Source Exposure to Not sure [facility] SARS-CoV-2 (event) Medica l Branch Sex Assigned At [facility] Alcohol intake 2019-07-21 2019-07-21 [facility] 00:00:00 00:00:00 Medical [place] Smoking Status Start Date Stop Date Source Current every day smoker 2019-07-21 [facility]:00[facility] F[facility] Start Stop Current Ordering [...] Last dose on Sun07/23/19 at 0000, Routine
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 phenazopyri 2018-02 Yes [id number] 200mg Take 1 Univers dine 200 mg 0-17 tablet by ity of tablet 00:00: mouth 3 [place] 00 (three) Medical times Branch daily. phenazopyri 2018-02 2020- No [id number] 200mg Take 1 Univers dine 200 mg 0-17 06-09 tablet by it y of tablet 00:00: 00:00 mouth 3 [place] 00 :00 (three) Medical times Branch daily. Vital Signs Vital Name Observation Time Observation Value Comments Source Body temperature 2019-07-23 13:30:00 36.72 Dahlia Univ [facility] Systolic blood 2019-07-23 13:00:00 90 mm[Hg] Univer sity of pressure [facility] Diastolic blood 2019-07-23 13:00:00 55 mm[Hg] Unive rsity of pressure [facility] Heart rate 2019-07-23 13:00:00 59 /min Universi ty of [facility] Respiratory rate 2019-07-23 08:45:00 16 /min Univ [facility] Branch Oxygen saturation in 2019-07-23 08:45:00 100 /min University of Arterial blood by [place] VULCUN remy Pulse oximetry Branch Body height 2019-07-21 14:00:00 157.5 cm Universi ty of [facility] Body weight 2019-07-21 14:00:00 55.792 kg Universi ty of [facility] BMI 2019-07-21 14:00:00 22.50 kg/m2 Universi ty [facility] Body temperature 2019-07-23 13:30:00 36.72 Dahlia Univ [facility] Branch Systolic blood 2019-07-23 13:00:00 90 mm[Hg] Univer sity of pressure [facility] Branch Diastolic blood 2019-07-23 13:00:00 55 mm[Hg] Unive rsity of pressure [facility] Heart rate 2019-07-23 13:00:00 59 /min [facility] Branch Respiratory rate 2019-07-23 08:45:00 16 /min Univ [facility] Branch Oxygen saturation in 2019-07-23 08:45:00 100 /min University of Arterial blood by [place] VULCUN remy Pulse oximetry Branch Body height 2019-07-21 14:00:00 157.5 cm [facility] [place] [facility] Body weight 2019-07-21 14:00:00 55.792 kg [facility] [place] [facility] BMI 2019-07-21 14:00:00 22.50 kg/m2 [facility] Branch Procedures Procedure Date / Time Performing Clinician Source Performed SARS-COV2/RT-PCR ([facility] 2019-10-04 06:10:00 CHI S carl [facility]) Center ABORH CONFIRMATION 2019-07-22 17:50:[address] [facility] URINALYSIS 2019-07-22 17:40:00 Ayah Robbie [facility] COMP. METABOLIC PANEL 2019-07-22 17:36:00 yAah Robbie [facility] ([id number]) Medical Branch CBC WITH DIFFERENTIAL 2019-07-22 17:36:00 Ayah [facility] HB ABO GROUPING 2019-07-22 17:35:00 Ayah Robbie [facility] COVID-19 (ID NOW RAPID 2019-07-21 14:23:00 Ayah Robbie [facility] TESTING) Medical Branch ASSIGNMENT OF BENEFITS 2019-07-21 13:44:51 Doctor Unassigned, No [facility] Name [facility] Branch Encounters Start End Encounter Admission Attending Care Care Encounter Source Date/Time Date/Time Type Type Clinicians Facility Department ID 2019-07-22 2019-07-23 [facility] [id number] 11:59:00 09:35:00 Encounter Robbie Rushing [id number] [place] 4.2.7.2.686 [place] [id number] 2019-07-22 2019-07-23 [facility] [id number] Univers 11:59:00 09:35:00 Encounter Robbie Rushing 350.1.13.10 [facility] 4.2.7.2.686 [facility] [id number] [place] [id number] Branch 2019-07-22 2019-07-23 [facility] [id number] Univers 11:59:00 09:35:00 [facility] 2019-07-21 2019-07-21 Laboratory Only, [facility] [id number] 08:46:49 09:01:49 Only Test [place] 350.1.13.10 [place] 4.2.7.2.686 [place] [id number] 2019-07-21 2019-07-21 Laboratory Only, [facility] Test [facility] 1.2.840. [id number] Univers 08:46:49 09:01:49 Only Robbie Puga 350.1.13.10 ity [facility] 4.2.7.2.686 [facility] [id number] [facility] 353 Branch 2019-07-21 2019-07-21 Outpatient R AYAH [facility] [id number] [facility] 08:45:00 08:45:00 ROBBIE ity [facility] 2019-07-21 2019-07-21 Orders Doctor THERESA [id number] Univers 00:00:00 00:00:00 Only Unassigned, YANG 350.1.13.10 ity [facility] 4.2.7.2.686 [facility] [id number] [place] [address] Branch 2019-07-21 2019-07-21 Orders Doctor CARDENAS [id number] 00:00:00 00:00:00 Only Unassigned, YANG 350.1.13.10 [facility] 4.2.7.2.686 [id number] Results Test Description Test Time Test Comments Results Result Comments Source SARS-CoV2/RT-PCR ([facility] & Ref Labs) 2019-10-04 19:28:00 Test Item Value Reference Range Interpretation Comme nts SARS-COV2/RT-PCR (test code = Negative Not Detected, 11421-1) Negative, See external report for linked test SARS-COV-2 PERFORMING LAB [facility] (test code = 05494-1) YURIY (test code = YURIY) Negative result [...] of the Act. Fact Sheet for Healthcare Providers:https://www.cWyze/sites/default/files/produ ct/documents/Fact_Sheet_HC_Pr wwqvhkv_Nicq_VCLC-MrI-9.pdf Fact Sheet for Healthcare Patients:https://www.BTCJam /sites/default/files/produc t/documents/Fact_Sheet_Patien yy_Hczf_VSQJ-TkU-3.pdf Performing Laboratory:[place] [address] [address], [place] [address] [place], [place] [address]ARS-COV2/RT-PCR ([facility] REF LABS)2019-10-04 19:28:00 Test Item Value Reference Range Interpretation Comments SARS-COV2/RT-PCR (test Negative Not Detected, Negative, code = 8480673) See external report for linked test SARS-COV-2 PERFORMING LAB [facility] (test code = 9376764) Negative result for this test determines that [...] 564(g) of the Act.Fact Sheet for Healthcare Providers:https://www.[employer] Apps.Genius.com/sites/default/files/product/documents/Fact_Shee i_II_Msqqerpuj_Aegk_AWQT-AsI-8.pdfFact Sheet for Healthcare Patients:https://www.[employer]Genius.com/sites/default/files/product/ documents/Cben_Utrma_Dcfromvh_Ppwt_AIMP-XeY-7.pdfPerforming Laboratory:[facility], [place] [address]Kmjq and Screen - ONCE [id number] 18:31:01 Test Item Value Reference Range Interpretation Comments ABO & RH (test code O Positive Performe d at [facility] = 20) Laboratory Serv [facility] [address] [place], [place] [id number] Free: [phone] A No. [id number] IAT (test code = Negative Performed a t [facility] 1185) Laboratory [facility] [address] [place], [place] [address]Toll Free: [phone] A No. [id number] [facility]2020-[facility] 18:21:00 Test Item Value Reference Range Interpretation Comments APPEARANCE (test code = Hazy Clear A 7989442039) COLOR (test code = Yellow Yellow 9383633414) PH (test code = 4.8-8.0 9211742671) SP GRAVITY (test code = 1.003-1.030 0749165397) GLU U QUAL (test code = Normal Normal 0522727478) BLOOD (test code = Negative Negative 1556712368) KETONES (test code = Negative Negative 3892132062) PROTEIN (test code = Negative Negative 2887-8) UROBILIN (test code = Normal Normal 8858172020) BILIRUBIN (test code = Negative Negative 5558903599) NITRITE (test code = Negative Negative 6767372724) LEUK FABIOLA (test code = 25/uL Negative A 9831321454) RBC/HPF (test code = See_Comment [Autom ated message] 4033039002) The system [employer] generated this result transmitted ref erence range: 0 - 3 HP F. The reference range was not used to int erpret this result as normal/abnormal . WBC/HPF (test code = See_Comment [Autom ated message] 8153026361) The system [employer] generated this result transmitted ref erence range: 0 - 5 HP F. The reference range was not used to int erpret this result as normal/abnormal . BACTERIA (test code = Few Negative A 4585807138) MUCOUS (test code = Slight Negative LPF A 0798275691) SQ EPITH (test code = HPF 9595551819) SPERM (test code = See_Comment H [Automat ed message] 6263983453) The system [employer] generated this result transmitted ref erence range: <=1 HPF. The reference range was not used to int erpret this result as normal/abnormal . Lab Interpretation (test Abnormal code = 84455-0) [facility] [id number] 18:15:58 Test Item Value Reference Range Interpretation Comments ABO & RH (test code O Positive Performe d at [facility] = 20) Laboratory Serv [facility] [address] [place] [phone] Free: [phone] A No. [id number] [facility]OLIC PANEL ([address])2019-07-22 18:04:00 Test Item Value Reference Range Interpretation Comments NA (test code = 138 mmol/L 135-145 7345534078) K (test code = 4.2 mmol/L 3.5-5 2983799707) CL (test code = 109 mmol/L 98-108 H 3062179456) CO2 TOTAL (test code = 21 mmol/L 23-31 L 2433308575) AGAP (test code = 2-16 0339108819) BUN (test code = 11 mg/dL 7-23 9696147586) GLUCOSE (test code = 93 mg/dL 70-110 9583261066) CREATININE (test code = 0.58 mg/dL 0.5-1.04 6307569692) TOTAL BILI (test code = 0.8 mg/dL 0.1-1.4 4210391446) CALCIUM (test code = 9.1 mg/dL 8.6-10.6 8129992085) T PROTEIN (test code = 7.3 g/dL 6.3-8.2 7036389711) ALBUMIN (test code = 4.5 g/dL 3.5-5 8715159544) ALK PHOS (test code = 40 U/L 34-122 1096019558) ALTv (test code = 12 U/L 5-35 1742-6) AST(SGOT) (test code = 21 U/L 13-40 0678291904) eGFR Calculation mL/min/1.73m2 (Non-) (test code = 7586014890) eGFR Calculation mL/min/1.73m2 () (test code = 6054062178) YURIY (test code = YURIY) Association of [...] tests). Lab Interpretation Abnormal (test code = 53603-4) [facility] WITH [id number] 17:56:00 Test Item Value Reference Range Interpretation Comments WBC (test code = See_Comment [Automated 0870-2) message] The sy stem which generated this result transmitted reference range : 4.30 - 11.10 10*3/?L. The reference range was not used to interpret this result as normal/abnormal . RBC (test code = See_Comment [Automated 386-8) message] The sy stem which generated this [...] (test code = 53.2 fL 39-49.9 H 54724-2) RDW-CV (test code = 16.6 % 12-15.5 H 788-0) PLT (test code = See_Comment [Automated 367-3) message] The sy stem which generated this result transmitted reference range : 166 - 358 10*3/ ?L. The reference r jorge was not used to interpret this result as normal/abnormal . MPV (test code = 9.9 fL 9.5-12.9 83349-6) NRBC/100 WBC (test See_Comment [Automat ed code = 2837689659) message] The system which generated this result transmitted reference range : 0.0 - 10.0 /100 WBCs. The refer ence range was not u sed to interpret th is result as normal/abnormal . NRBC x10^3 (test code <0.01 See_Comment [Auto mated = 8236158913) message] The s ystem which generated this result transmitted reference range : 10*3/?L. The reference range was not used to interpret this result as normal/abnormal . GRAN MAT (NEUT) % 56.2 % (test code = 770-8) IMM GRAN % (test code 0.10 % = 0191865887) LYMPH % (test code = 32.0 % 736-9) MONO % (test code = 7.5 % 5905-5) EOS % (test code = 3.7 % 713-8) BASO % (test code = 0.5 % 706-2) GRAN MAT x10^3(ANC) 4.90 10*3/uL 1.88-7.09 (test code = 5753909683) IMM GRAN x10^3 (test <0.03 0-0.06 code = 8133240191) LYMPH x10^3 (test code 2.78 10*3/uL 1.32-3.29 = 731-0) MONO x10^3 (test code 0.65 10*3/uL 0.33-0.92 = 742-7) EOS x10^3 (test code = 0.32 10*3/uL 0.03-0.39 711-2) BASO x10^3 (test code 0.04 10*3/uL 0.01-0.07 = 704-7) Lab Interpretation Abnormal (test code = 80208-2) [facility] (ID NOW RAPID TESTING)2019-07-21 14:49:00 Test Item Value Reference Range Interpretation Comments SARS-CoV-2 Rapid ID NOW Not Detected Not Detected (test code = 99839-4) YURIY (test code = YURIY) ID NOW COVID-19 Assay is an isothermal nucleic acid amplification test intended for the qualitative detection of nucleic acid from SARS-CoV-2 viral RNA in nasopharyngeal (CRAWLER TRACTOR OPERATOR) specimens. It is used under Emergency Use [...] indicated. Lab Interpretation Normal (test code = 49075-3) [facility]"
[2021-07-29 10:54] LABS: Hematocrit 44.6 % (36.0-45.0); Lymphocytes % 19.4 % (15.3-44.8); MPV 8.3 fL (7.6-11.3); RBC Red Blood Cell Count 4.39 M/uL (3.86-4.86)
[2021-07-29] MEDS ORDERED: NA CHLORIDE 0.9% 1,000 ML ONE (10:58)
[2021-07-29] MEDS ORDERED: KETOROLAC 30 MG/ML INJ ONE (10:58)
[2021-07-29] MEDS ORDERED: ONDANSETRON 4 MG/2 ML VIAL ONE (10:58)
[2021-07-29 11:18] LABS: Albumin 3.8 g/dL (3.4-5.0); Bilirubin Total 0.7 mg/dL (0.2-1.0); Potassium 4.5 mmol/L (3.5-5.1); Protein, Total 6.8 g/dL (6.4-8.2)
[2021-07-29 11:26] LABS: Urine RBC <5 /HPF (NONE SEEN)
[2021-07-29 11:27] LABS: Urine Bacteria 20-50 /HPF (<20)
--- NOTE | 2021-07-29 12:21 | RAD REPORT ---
EXAM DESCRIPTION: CT - Abdomen Pelvis W Contrast - 07/29/2021 11:37 am CLINICAL HISTORY: r/o pyelonephritis, abdominal and pelvic pain COMPARISON: Abdomen Pelvis W Contrast dated 10/04/2019; Abdomen Pelvis W Contrast dated 08/24/2018 TECHNIQUE: Biphasic, helical CT imaging of the abdomen and pelvis was performed following 100 ml non -ionic IV contrast. No oral contrast administered. All CT scans are performed using dose optimization technique as appropriate and may include automated exposure control or mA/KV adjustment according to patient size. FINDINGS: Scarring and/ or atelectasis in each posterior gutter. No acute lung base finding. No card iomegaly or pericardial effusion. The liver, spleen, and pancreas show no suspicious findings. Minimal periportal edema pattern is pres ent which is nonspecific. No portal vein abnormality. No gallbladder or biliary tree abnormality seen . Symmetric renal function is seen with no hydronephrosis or suspicious renal mass. No pyelonephritis o r acute parenchymal process. Bladder is almost fully contracted which limits evaluation. No bladder c alculi are present. No gross evidence for bladder wall thickening, edema or enhancement. No adrenal a bnormalities. Uterus is absent matching history. Ovaries may be absent or obscured by adjacent isodense bowel. No p rimary ovarian process suspected. Pelvic floor generally has a similar appearance to in September 2019 s tudy. No gastric dilatation or gastric wall thickening. No dilated small bowel loops. Appendectomy clips ar e present. From cecum through descending colon no suspicious finding noted. Rubio of the rectosigmoid colon appear mildly prominent and may be minimally edematous. Pattern is not substantially different from 2020. No mass lesions seen. Mild colitis would be a consideration and needs correlation with hi story and exam findings. No free air, free fluid or pneumatosis. No hernia, mass or bulky lymphadenopathy. No suspicious bony findings. IMPRESSION: Urinary bladder is mostly contracted limiting assessment. No gross evidence for bladder infection. No pyelonephritis or acute process identifiable. Rubio of the rectosigmoid colon are prominent and appear slightly edematous. This is a pattern simila r to 2019 imaging. Colitis is possible and needs correlation with exam findings and clinical present ation.
--- NOTE | 2021-07-29 13:22 | EDPHYS ---
Physician Documentation [facility] Name: Nunu Johnson Age: 40 yrs Sex: Female : 1980 Arrival Date: 07/29/2021 Time: 10:07 Bed 8 Private MD: ED Physician Jamie Brumfield HPI: 07/29 13:54 This 40 yrs old Female presents to ER via Ambulatory with complaints of Low Back Pain, kb Low Abd Pain. 13:54 The patient presents with urinary symptoms, dysuria, frequency, hematuria. Onset: The kb symptoms/episode began/occurred 1 week(s) ago. Modifying factors: The symptoms are alleviated by nothing, the symptoms are aggravated by urinating. Associated signs and symptoms: Pertinent positives: diarrhea, dysuria, urinary frequency. Severity of symptoms: At their worst the symptoms were moderate, in the emergency department the symptoms are unchanged. The patient has experienced similar episodes in the past. The patient has not recently seen a physician. Pt reports suprapubic and bilateral flank pain that started yesterday. States she has felt like she had a UTI last week so she started taking AZOs and left over antibiotics. Reports diarrhea as well, but states she has colon issues. 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 - Social history:: Smoking status: Patient reports the use of cigarette tobacco products, smokes one pack cigarettes per day. ROS: 13:57 Constitutional: Negative for fever, chills, and weight loss. kb 13:57 Abdomen/GI: Positive for abdominal pain, diarrhea, Negative for nausea and vomiting. 13:57 : Positive for flank pain, urinary frequency, hematuria, burning with urination. 13:57 All other systems are negative. Exam: 13:57 Constitutional: This is a well developed, well nourished patient who is awake, alert, kb and in no acute distress. Head/Face: Normocephalic, atraumatic. ENT: Moist Mucous membranes Cardiovascular: Regular rate and rhythm with a normal S1 and S2. No gallops, murmurs, or rubs. No pulse deficits. Respiratory: Respirations even and unlabored. No increased work of breathing. Talking in full sentences Skin: Warm, dry with normal turgor. Normal color. MS/ Extremity: Pulses equal, no cyanosis. Neurovascular intact. Full, normal range of motion. Neuro: Awake and alert, GCS 15, oriented to person, place, time, and situation. Moves all extremities. Normal gait. Psych: Awake, alert, with orientation to person, place and time. Behavior, mood, and affect are within normal limits. 13:57 Abdomen/GI: Inspection: abdomen appears normal, Bowel sounds: normal, in all quadrants, Palpation: soft, in all quadrants, mild abdominal tenderness, in the suprapubic area. 13:57 Back: CVA tenderness, that is mild, is noted bilaterally. Vital Signs: 10:23 BP 115 / 82; Pulse 77; Resp 16; Temp 98.1; Pulse Ox 100% on R/A; Weight 53.07 kg; iw Height 5 ft. 2 in. (157.48 cm); 13:32 BP 106 / 64; Pulse 64; Resp 18 S; Pulse Ox 100% on R/A; jd3 10:23 Body Mass Index 21.40 (53.07 kg, 157.48 cm) iw MDM: 10:07 Patient medically screened. kb 13:57 Data reviewed: vital signs, nurses notes. Data interpreted: Pulse oximetry: on room air kb is 100 %. Interpretation: normal. Counseling: I had a detailed discussion with the patient and/or guardian regarding: the historical points, exam findings, and any diagnostic results supporting the discharge/admit diagnosis, lab results, radiology results, the need for outpatient follow up, a bead cutter, to return to the emergency department if symptoms worsen or persist or if there are any questions or concerns that arise at home. 07/29 10:33 Order name: CBC with Diff kb 07/29 10:33 Order name: CMP; Complete Time: 11:21 kb 07/29 10:33 Order name: Lipase; Complete Time: 11:21 kb 07/29 10:33 Order name: Urine Microscopic Only; Complete Time: 11:29 kb 07/29 10:33 Order name: CT Abd/Pelvis - IV Contrast Only; Complete Time: 12:25 kb 07/29 10:33 Order name: IV Saline Lock; Complete Time: 10:50 kb 07/29 10:33 Order name: Labs collected and sent; Complete Time: 10:50 kb 07/29 10:33 Order name: Urine Dipstick-Ancillary (obtain specimen); Complete Time: 10:40 kb 07/29 11:31 Order name: Urine Culture [facility] 07/29 10:33 Order name: Urine Test (obtain specimen); Complete Time: 10:40 kb Administered Medications: 10:57 Drug: NS 0.9% 1000 ml Route: IV; Rate: 1 bolus; Site: right antecubital; jd3 11:50 Follow up: Response: No adverse reaction; IV Status: Completed infusion jd3 10:57 Drug: Zofran (Ondansetron) 4 mg Route: IVP; Site: right antecubital; jd3 11:50 Follow up: Response: No adverse reaction jd3 10:57 Drug: Ketorolac 15 mg Route: IVP; Site: right antecubital; jd3 11:50 Follow up: Response: No adverse reaction jd3 Disposition: 14:39 Co-signature as Attending Physician, Jamie Brumfield MD I agree with the assessment ma2 and plan of care. Disposition Summary: 07/29/21 13:21 Discharge Ordered Location: Home kb Condition: Stable kb Diagnosis - UTI/ Urinary tract infection, site not specified kb - Colitis kb Followup: kb - With: Private Physician - When: 2 - 3 days - Reason: Recheck today's complaints, Continuance of care, Re-evaluation by your physician Followup: kb - With: Emergency Department - When: As needed - Reason: Worsening of condition Discharge Instructions: - Discharge Summary Sheet kb - Urinary Tract Infection, Adult, [id number] kb - Colitis kb Forms: - Medication Reconciliation Form kb - Thank You Letter kb - Antibiotic Education kb - Prescription Opioid Use kb Prescriptions: - Cipro 500 mg Oral Tablet - take 1 tablet by ORAL route every 12 hours for 10 days; 20 tablet; Refills: 0, kb Product Selection Permitted - Flagyl 500 mg Oral Tablet - take 1 tablet by ORAL route every 8 hours for 10 days; 30 tablet; Refills: 0, kb Product Selection Permitted - Zofran 4 mg Oral Tablet - take 1 tablet by ORAL route every 6 hours As needed; 20 tablet; Refills: 0, kb Product Selection Permitted - Diclofenac Sodium 75 mg Oral tablet,delayed release (DR/EC) - take 1 tablet by ORAL route 2 times per day As needed; 30 tablet; Refills: 0, kb Product Selection Permitted Signatures: Dispatcher [employer] Kalyn Schaffer, ZACHC YAHAIRA-Kristie Chacko, Ray Pope RN, RN RN jd3 Jamie Brumfield MD MD ma2
--- NOTE | 2021-07-29 13:22 | ER ---
Nurse's Notes [facility] Name: Nunu Johnson Age: 40 yrs Sex: Female : 1980 Arrival Date: 07/29/2021 Time: 10:07 Bed 8 Private MD: Diagnosis: UTI/ Urinary tract infection, site not specified;Colitis Presentation: 07/29 10:23 Chief complaint: Patient states: last week had a bladder infection, took AZO and left iw over abx , now her kidneys are hurting and suprapubic pain and pain with urination. Coronavirus screen: At this time, the client does not indicate any symptoms associated with coronavirus-19. Ebola Screen: Patient negative for fever greater than or equal to 101.5 degrees Fahrenheit, and additional compatible Ebola Virus Disease symptoms Patient denies exposure to infectious person. Patient denies travel to an Ebola-affected area in the 21 days before illness onset. No symptoms or risks identified at this time. Initial Sepsis Screen: Does the patient meet any 2 criteria? No. Patient's initial sepsis screen is negative. Does the patient have a suspected source of infection? No. Patient's initial sepsis screen is negative. Risk Assessment: Do you want to hurt yourself or someone else? Patient reports no desire to harm self or others. Onset of symptoms was July 22, 2021. 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 - Social history:: Smoking status: Patient reports the use of cigarette tobacco products, smokes one pack cigarettes per day. Screenin:02 Abuse screen: Denies threats or abuse. Nutritional screening: No deficits noted. jd3 Tuberculosis screening: No symptoms or risk factors identified. Fall Risk IV access (20 points). Ambulatory Aid- None/Bed Rest/Nurse Assist (0 pts). Gait- Normal/Bed Rest/Wheelchair (0 pts) Mental Status- Oriented to own ability (0 pts). Total Bobby Fall Scale indicates No Risk (0-24 pts). Assessment: 10:55 General: Appears in no apparent distress. uncomfortable, Behavior is calm, cooperative, jd3 appropriate for age. Pain: Complains of pain in low back area and suprapubic area Quality of pain is described as sharp. Neuro: Strickland Agitation-Sedation Scale (RASS): 0 - Alert and Calm Level of Consciousness is awake, alert, obeys commands, Oriented to person, place, time, situation. Cardiovascular: Denies chest pain, Capillary refill < 3 seconds Patient's skin is warm and dry. Respiratory: Airway is patent Respiratory effort is even, unlabored, Respiratory pattern is regular, symmetrical, Denies cough, shortness of breath. GI: Abdomen is flat, non-distended, Reports nausea. : Urine is clear, orange colored Reports burning with urination, cramping, urgency. EENT: No signs and/or symptoms were reported regarding the EENT system. Derm: Skin is intact, Skin is dry, Skin is normal, Skin temperature is warm. Musculoskeletal: Circulation, motion, and sensation intact. Range of motion: intact in all extremities. 12:10 Reassessment: Patient appears in no apparent distress at this time. Patient and/or jd3 family updated on plan of care and expected duration. Pain level reassessed. Patient is alert, oriented x 3, equal unlabored respirations, skin warm/dry/pink. pt reported feeling some relief from pain. reports pain sensation is still there, but it is tolerable now. Patient states feeling better. 13:33 Reassessment: Patient appears in no apparent distress at this time. Patient and/or jd3 family updated on plan of care and expected duration. Pain level reassessed. Patient is alert, oriented x 3, equal unlabored respirations, skin warm/dry/pink. Patient states feeling better. Vital Signs: 10:23 BP 115 / 82; Pulse 77; Resp 16; Temp 98.1; Pulse Ox 100% on R/A; Weight 53.07 kg; iw Height 5 ft. 2 in. (157.48 cm); 13:32 BP 106 / 64; Pulse 64; Resp 18 S; Pulse Ox 100% on R/A; jd3 10:23 Body Mass Index 21.40 (53.07 kg, 157.48 cm) ED Course: 10:07 Patient arrived in ED. rg4 10:07 [facility] M[facility]C [facility] kb 10:07 Jamie Brumfield MD is Attending Physician. kb 10:25 Triage completed. iw 10:30 Ray Moncada, RN is Primary Nurse. jd3 10:40 Urine Microscopic Only Sent. jd3 10:50 Inserted saline lock: 20 gauge in right antecubital area, using aseptic technique. jd3 Blood collected. 10:50 Arm band placed on. jd3 10:58 Urine Microscopic Only Sent. jd3 10:58 Lipase Sent. jd3 10:58 CMP Sent. jd3 10:58 CBC with Diff Sent. jd3 11:03 Patient has correct armband on for positive identification. Bed in low position. Call jd3 light in reach. Side rails up X 1. Pulse ox on. NIBP on. 11:39 CT Abd/Pelvis - IV Contrast Only In Process Unspecified. EDMS 13:33 No provider procedures requiring assistance completed. IV discontinued, intact, jd3 bleeding controlled, No redness/swelling at site. Pressure dressing applied. Administered Medications: 10:57 Drug: NS 0.9% 1000 ml Route: IV; Rate: 1 bolus; Site: right antecubital; jd3 11:50 Follow up: Response: No adverse reaction; IV Status: Completed infusion jd3 10:57 Drug: Zofran (Ondansetron) 4 mg Route: IVP; Site: right antecubital; jd3 11:50 Follow up: Response: No adverse reaction jd3 10:57 Drug: Ketorolac 15 mg Route: IVP; Site: right antecubital; jd3 11:50 Follow up: Response: No adverse reaction jd3 Medication: 11:02 VIS not applicable for this client. jd3 Outcome: 13:21 Discharge ordered by . kb 13:33 Discharged to home ambulatory. jd3 13:33 Condition: stable 13:33 Discharge instructions given to patient, Instructed on discharge instructions, follow up and referral plans. medication usage, Demonstrated understanding of instructions, follow-up care, medications, Prescriptions given X 4. 13:34 Patient left the ED. jd3 Signatures: Dispatcher [employer] EDMS Kalyn Mtz FNP-C FNP-Akib Kristie Garcia RN Minoo العراقي rg4 Ray Moncada, RN RN jd3
[2021-07-29 13:38] VITALS: TEMP 98.1; O2SAT 100
[2021-07-29 13:40] VITALS: BP 106/64
== END 2021-07-29 13:34 | disposition home or self-care (01) ==
LOC: ER 10:05
DX: N39.0 Urinary tract infection, site not specified (principal); K52.9 Noninfective gastroenteritis and colitis, unspecified; F31.9 Bipolar disorder, unspecified; F17.210 Nicotine dependence, cigarettes, uncomplicated
CPT/HCPCS: 96361; 87088; 85025; 87086; 36415; 81015; 83690; 80053; 74177; 96375; 96374; 99284; Q9967; J7030; J2405

== ENCOUNTER 2021-08-30 10:14 | Emergency (ER) | payer BC ==
[2021-08-30] MEDS ORDERED: ONDANSETRON 4 MG/2 ML VIAL ONE (11:38)
[2021-08-30 11:54] LABS: Urine Blood Negative (Negative); Urine Glucose Negative (Negative); Urine Protein 2+ (Negative); Urine pH 8.5 (5.0-7.0)
[2021-08-30 11:56] LABS: Absolute Lymphocytes (CBC) 0.6 K/uL (0.7-4.9); Hematocrit 41.5 % (36.0-45.0); Lymphocytes % 7.7 % (15.3-44.8); MCV 99.9 fL (80-100); MPV 8.6 fL (7.6-11.3); RBC Red Blood Cell Count 4.16 M/uL (3.86-4.86)
[2021-08-30] MEDS ORDERED: NA CHLORIDE 0.9% 1,000 ML ONE (11:56)
[2021-08-30 12:34] LABS: Albumin 3.4 g/dL (3.4-5.0); Bilirubin Total 0.4 mg/dL (0.2-1.0); Potassium 3.5 mmol/L (3.5-5.1); Protein, Total 6.3 g/dL (6.4-8.2)
--- NOTE | 2021-08-30 13:25 | RAD REPORT ---
EXAM DESCRIPTION: CTAbdomen Pelvis W Contrast - 08/30/2021 12:52 pm CLINICAL HISTORY: abdominal pain, vomiting COMPARISON: Abdomen Pelvis W Contrast dated 07/29/2021; Abdomen Pelvis W Contrast dated 10/04/2019 ; Abdomen Pelvis W Contrast dated 08/24/2018 TECHNIQUE: CT of the abdomen and pelvis was performed with contrast. All CT scans are performed using dose optimization technique as appropriate and may include automated exposure control or mA/KV adjustment according to patient size. FINDINGS: Lower chest: No acute abnormality. Liver: Low density liver lesion in the left hepatic lobe Biliary: No biliary ductal dilatation. Stomach: No significant focal abnormality. Duodenum: No significant focal abnormality. Pancreas: No significant abnormality. Spleen: No significant abnormality. Adrenal: No suspicious lesions. Kidney/ureter: No hydronephrosis. No renal calculi. Retroperitoneum: No retroperitoneal adenopathy. Vascular: No aneurysm. Bowel: No significant focal abnormality. No appendicitis. Peritoneum: Small volume of pelvic free fluid. Bladder: Grossly unremarkable. Reproductive: Involuting cyst in the right adnexa in the right adnexa. Bones: No acute fracture. Other: n/a IMPRESSION: No acute intra-abdominal or pelvic finding. Trace pelvic free fluid which is likely phys iologic.
[2021-08-30] MEDS ORDERED: KETOROLAC 30 MG/ML INJ ONE (13:49)
--- NOTE | 2021-08-30 14:27 | ER ---
Nurse's Notes [facility] Name: Nunu Johnson Age: 40 yrs Sex: Female : 1980 Arrival Date: 08/30/2021 Time: 10:16 Bed 7 Private MD: Diagnosis: Coronavirus infection, unspecified Presentation: 08/30 11:16 Chief complaint: Patient states: Fever, vomiting since yesterday. Coronavirus screen: jl Vaccine status: Patient reports being unvaccinated. fever, nausea, vomiting. Client presents with at least one sign or symptom that may indicate coronavirus-19. Standard/surgical mask placed on the client. Provider contacted for isolation considerations. Ebola Screen: No symptoms or risks identified at this time. Initial Sepsis Screen: Does the patient meet any 2 criteria? No. Patient's initial sepsis screen is negative. Does the patient have a suspected source of infection? No. Patient's initial sepsis screen is negative. Risk Assessment: Do you want to hurt yourself or someone else? Patient reports no desire to harm self or others. Onset of symptoms was August 29, 2021. 11:16 Method Of Arrival: Wheelchair [facility] 11:16 Acuity: RHINA 3 jl7 Triage Assessment: 11:29 General: Appears in no apparent distress. Behavior is calm, cooperative. GI: Reports ayala nausea, Pain is 6 out of 10 on a pain scale. 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 - Social history:: Smoking status: Patient reports the use of cigarette tobacco products, smokes one pack cigarettes per day. Screenin:28 Abuse screen: Denies threats or abuse. Denies injuries from another. Nutritional ayala screening: No deficits noted. Tuberculosis screening: No symptoms or risk factors identified. Fall Risk None identified. Assessment: 11:28 Pain: Complains of pain in abdomen. GI: Abdomen is non-distended, Reports nausea, Pain ayala is 6 out of 10 on a pain scale. vomiting. Vital Signs: 11:16 BP 96 / 68; Pulse 88; Resp 17; Temp 99.2; Pulse Ox 99% ; Weight 51.26 kg; Height 5 ft. jl7 2 in. (157.48 cm); Pain 10/10; 13:44 BP 100 / 65; Pulse 54; Resp 16; Pulse Ox 98% on R/A; ayala 11:16 Body Mass Index 20.67 (51.26 kg, 157.48 cm) jl7 ED Course: 10:16 Patient arrived in ED. mr 10:17 Arnoldo Ojeda PA is PHCP. m 10:17 Lam Bautista DO is Attending Physician. jmm 11:18 Triage completed. jl7 11:18 Arm band placed on right wrist. jl7 11:27 Sophie Velasco, VERONICA is Primary Nurse. ayala 11:28 Patient has correct armband on for positive identification. Bed in low position. ayala 11:28 No provider procedures requiring assistance completed. ayala 11:43 SARS-COV-2 RT PCR (Document "Date of Onset" if Symptomatic) Sent. ayala 11:43 Influenza Screen (a \\T\\ B) Sent. ayala 11:43 Inserted saline lock: 20 gauge in right antecubital area, using aseptic technique. ayala 12:55 CT Abd/Pelvis - IV Contrast Only In Process Unspecified. EDMS 14:31 IV discontinued, intact, Pressure dressing applied. ayala Administered Medications: 11:42 Drug: Zofran (Ondansetron) 4 mg Route: IVP; Site: right antecubital; ayala 11:47 Follow up: Response: No adverse reaction ayala 11:54 Drug: NS 0.9% 1000 ml Route: IV; Rate: 1 bolus; Site: right antecubital; ayala 13:43 Drug: Ketorolac 30 mg Route: IVP; Site: right antecubital; ayala 13:43 Follow up: Response: No adverse reaction ayala Medication: 11:28 VIS not applicable for this client. ayala Outcome: 14:26 Discharge ordered by . [facility] 14:31 Discharged to home ambulatory. ayala 14:31 Condition: good 14:31 Discharge instructions given to patient. 14:31 Patient left the ED. ayala Signatures: Dispatcher [employer] EDMS Arnoldo Ojeda PA PA jmm Rivera, Mary mr Dayanara Lewis RN RN [facility] Au-Stager, Sophie, RN RN ayala
--- NOTE | 2021-08-30 14:27 | EDPHYS ---
Physician Documentation [facility] Name: Nunu Johnson Age: 40 yrs Sex: Female : 1980 Arrival Date: 08/30/2021 Time: 10:16 Bed 7 Private MD: ED Physician Lam Bautista HPI: 08/30 11:03 This 40 yrs old Female presents to ER via Wheelchair with complaints of Fever, Vomiting.jmm 11:03 The patient reports fever, not measured (subjective). Onset: The symptoms/episode jmm began/occurred gradually, 1 day(s) ago. This is a 40 year old female with a history of anxiety, bipolar, endometriosis that presents to the ED with complaints of diffuse abdominal pain, vomiting, fever beginning last night. Patient states she was exposed to covid 19. Denies diarrhea. 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 - Social history:: Smoking status: Patient reports the use of cigarette tobacco products, smokes one pack cigarettes per day. ROS: 11:03 Cardiovascular: Negative for chest pain, palpitations, and edema, Respiratory: Negative jmm for shortness of breath, cough, wheezing, and pleuritic chest pain. 11:03 Constitutional: Positive for body aches, chills. 11:03 All other systems are negative. Exam: 11:03 Constitutional: This is a well developed, well nourished patient who is awake, alert, jmm and in no acute distress. Head/Face: atraumatic. Eyes: EOMI, no conjunctival erythema appreciated ENT: Moist Mucus Membranes Neck: Trachea midline, Supple Chest/axilla: Normal chest wall appearance and motion. Cardiovascular: Regular rate and rhythm. No edema appreciated Respiratory: Normal respirations, no respiratory distress appreciated Back: Normal ROM 11:03 Skin: General appearance color normal MS/ Extremity: Moves all extremities, no obvious deformities appreciated, no edema noted to the lower extremities Neuro: Awake and alert Psych: Behavior is normal, Mood is normal, Patient is cooperative and pleasant 11:03 Abdomen/GI: Inspection: abdomen appears normal, Bowel sounds: normal, Palpation: soft, mild abdominal tenderness, in all quadrants. Vital Signs: 11:16 BP 96 / 68; Pulse 88; Resp 17; Temp 99.2; Pulse Ox 99% ; Weight 51.26 kg; Height 5 ft. jl7 2 in. (157.48 cm); Pain 10/10; 13:44 BP 100 / 65; Pulse 54; Resp 16; Pulse Ox 98% on R/A; ayala 11:16 Body Mass Index 20.67 (51.26 kg, 157.48 cm) 7 MDM: 11:11 Patient medically screened. [facility] 14:25 Data reviewed: vital signs, nurses notes. Counseling: I had a detailed discussion with [facility] the patient and/or guardian regarding: the historical points, exam findings, and any diagnostic results supporting the discharge/admit diagnosis, lab results, radiology results, the need for outpatient follow up, to return to the emergency department if symptoms worsen or persist or if there are any questions or concerns that arise at home. ED course: Patient is alert and non toxic in appearance in the ED. Able to tolerate PO in the ED. CT negative. . 08/30 11:03 Order name: CBC with Diff; Complete Time: 12:23 [facility] 08/30 11:03 Order name: CMP; Complete Time: 12:35 [facility] 08/30 11:03 Order name: Lipase; Complete Time: 12:35 [facility] 08/30 11:03 Order name: SARS-COV-2 RT PCR (Document "Date of Onset" if Symptomatic); Complete Time: [facility] 13:11 08/30 11:04 Order name: Influenza Screen (a \\T\\ B); Complete Time: 12:28 [facility] 08/30 11:54 Order name: Urine --Ancillary (enter results); Complete Time: 12:23 em1 08/30 11:03 Order name: IV Saline Lock; Complete Time: 11:43 [facility] 08/30 11:03 Order name: Labs collected and sent; Complete Time: 11:43 [facility] 08/30 11:03 Order name: Urine Dipstick-Ancillary (obtain specimen); Complete Time: 11:54 [facility] 08/30 11:54 Order name: Urine Dipstick-Ancillary; Complete Time: 12:23 [facility] 08/30 12:35 Order name: CT Abd/Pelvis - IV Contrast Only; Complete Time: 13:26 [facility] 08/30 11:03 Order name: Urine Test (obtain specimen); Complete Time: 11:54 [facility] 08/30 11:57 Order name: Labs - recollect needed: Green top hemolyzed; Complete Time: 12:27 em1 Administered Medications: 11:42 Drug: Zofran (Ondansetron) 4 mg Route: IVP; Site: right antecubital; ayala 11:47 Follow up: Response: No adverse reaction ayala 11:54 Drug: NS 0.9% 1000 ml Route: IV; Rate: 1 bolus; Site: right antecubital; ayala 13:43 Drug: Ketorolac 30 mg Route: IVP; Site: right antecubital; ayala 13:43 Follow up: Response: No adverse reaction ayala Disposition: 22:41 Co-signature as Attending Physician, Lam GARSIA was immediately available on-site ms3 in the Emergency Department for consultation in the care of the patient.. Disposition Summary: 08/30/21 14:26 Discharge Ordered Location: Home [facility] Condition: Stable [facility] Diagnosis - Coronavirus infection, unspecified [facility] Followup: [facility] - With: Private Physician - When: 2 - 3 days - Reason: Recheck today's complaints, Continuance of care, Re-evaluation by your physician Discharge Instructions: - Discharge Summary Sheet [facility] Forms: - Medication Reconciliation Form [facility] - Thank You Letter jm - Antibiotic Education [facility] - Prescription Opioid Use [facility] Signatures: Dispatcher [employer] EDCO Arnoldo Ojeda PA PA jmm Martinez, Eric em1 Dayanara Lewis, RN RN jl7 aLm Bautista DO DO ms3 Sophie Velasco RN RN ayala
[2021-08-30 14:39] VITALS: BP 100/65; O2SAT 98
[2021-08-30 14:48] VITALS: TEMP 99.2
== END 2021-08-30 14:31 | disposition home or self-care (01) ==
LOC: ER 10:14
DX: U07.1 COVID-19 (principal); R50.9 Fever, unspecified; R11.10 Vomiting, unspecified; R10.32 Left lower quadrant pain; R10.31 Right lower quadrant pain; R10.12 Left upper quadrant pain; R10.11 Right upper quadrant pain; Z72.0 Tobacco use
CPT/HCPCS: 85025; 36415; 81025; 81003; 83690; 80053; 87804 ×2; 74177; U0003; Q9967; J7030; J2405

== ENCOUNTER 2021-10-22 12:10 | Emergency (ER) | payer BC ==
--- OUTSIDE RECORDS SUMMARY | 2021-10-22 12:14 | XMS REPORT | Continuity of Care Document ---
:1980 Author Organization [facility] t Address [address] [place] [address] Care Team Providers Name Role Phone PCP, PATIENT DOES NOT HAVE A Primary Care Physician UnavailRobbie Mack MD Attending Clinician ROBBIE PUGA Attending Clinician Unavailable Only, Adc Test Attending Clinician Unavailable Doctor Unassigned, [place] Attending Clinician Unavailable Robbie Puga MD Admitting Clinician ROBBIE PUGA Admitting Clinician Unavailable Payers Payer Name Policy Type Policy Number Effective Date Expiration Date S ource Problems Condition Condition Condition Status Onset Resolution Last Treating Co mments Source Name Details Category Date Date Treatment Clinician Date No known No known Disease Unive rs active active ity of problems problems [facility] Allergies, Adverse Reactions, Alerts Allergy Allergy Status Severity Reaction(s) Onset Inactive Treating Comm ents Source Name Type Date Date Clinician NO KNOWN Drug Active Univers ALLERGIE Class ity of S [facility] Social History Social Habit Start Date Stop Date Quantity Comments Source Exposure to Not sure [facility] SARS-CoV-2 (event) Medica l Branch Alcohol intake 2019-07-21 2019-07-21 [facility] 00:00:00 00:00:00 Medical Branch Sex Assigned At [birth year] [facility] Medical 00:00:00 00:00:00 Center Smoking Status Start Date Stop Date Source Current every day smoker 2019-07-21 00:00:00 Uni [facility] Medical Branch Medications Ordered Filled Start Stop Current Ordering [...] Last dose on Sun07/23/19 at 0000, Routine
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 approving Restricted medication : ROBBIE PUGA lactated 2020-0 Yes 1000mL at 75 Univer s ringers IV 6-10 mL/hr, ity of infusion 04:15: 1,000 [place] 1[place] 00 IV Medical Infusion, Branch CONTINUOUS , Starting Sun07/22/19 at 2315, Until Discontinu ed, Routine HYDROcodone 2019-0 Yes 1{tbl} 1 tablet, Univers -acetaminop 6-10 Oral, ity of hen (NORCO 03:55: Q6HPRN, [place] 5) 5-325 mg 31 Starting Medi remy tablet 1 Sun07/22/19 Branc h tablet at 2255, Until Discontinu ed, Routine, Pain (scale 4-6) acetaminoph 2020-0 Yes 500mg 500 mg, Un rosaline en 6-10 Oral, ity of (TYLENOL) 03:55: Q6HPRN, [place] tablet 500 31 Starting Medic al mg [...] 6-10 IV ity of (PHENERGAN) 03:55: Piggyback, [place] 12.5 mg in 31 Q6HPRN, Medica l [...] Routine, Nausea and Vomiting (N/V), PACU scopolamine 2019- No 1.5mg 1.5 mg, U nivers transdermal 07-21 Topical, ity of (TRANSDERM- 17:45: 04:21 Administer [place] SCOP) patch 00 :33 over 72 Medic [...] 1215, Routine, DSU Pre-op phenazopyri 2018-02 Yes [id number] 200mg Take 1 Univers dine 200 mg 0-17 tablet by ity of tablet 00:00: mouth 3 [place] 00 (three) Medical times Branch daily. phenazopyri 2018-02 Yes [id number] 200mg Take 1 Univers dine 200 mg 0-17 tablet by ity of tablet 00:00: mouth 3 [place] 00 (three) Medical times Branch daily. phenazopyri 2018-02 2020- No [id number] 200mg Take 1 Univers dine 200 mg 0-17 07-21 tablet by it y of tablet 00:00: 00:00 mouth 3 [place] 00 :00 (three) Medical times Branch daily. Vital Signs Vital Name Observation Time Observation Value Comments Source Body temperature 2019-07-23 13:30:00 36.72 Dahlia Univ ersity of [facility] Systolic blood 2019-07-23 13:00:00 90 mm[Hg] Univer sity of pressure [facility] Diastolic blood 2019-07-23 13:00:00 55 mm[Hg] Unive rsity of pressure [facility] Heart rate 2019-07-23 13:00:00 59 /min Universi ty of [facility] Respiratory rate 2019-07-23 08:45:00 16 /min Univ ersity of [facility] Oxygen saturation in 2019-07-23 08:45:00 100 /min University of Arterial blood by [place] Grit[employer] remy Pulse oximetry Branch Body height 2019-07-21 14:00:00 157.5 cm Universi ty of [facility] Body weight 2019-07-21 14:00:00 55.792 kg Universi ty of [facility] BMI 2019-07-21 14:00:00 22.50 kg/m2 Universi ty [facility] Body temperature 2019-07-23 13:30:00 36.72 Dahlia Univ ersity of [facility] Systolic blood 2019-07-23 13:00:00 90 mm[Hg] Univer sity of pressure [facility] Diastolic blood 2019-07-23 13:00:00 55 mm[Hg] Unive rsity of [facility] Heart rate 2019-07-23 13:00:00 59 /min Universi ty of [facility] Branch Respiratory rate 2019-07-23 08:45:00 16 /min Univ ersity of [facility] Branch Oxygen saturation in 2019-07-23 08:45:00 100 /min University of Arterial blood by [place] Grit[employer] remy Pulse oximetry Branch Body height 2019-07-21 14:00:00 157.5 cm Universi ty of [facility] Body weight 2019-07-21 14:00:00 55.792 kg Universi ty of [facility] BMI 2019-07-21 14:00:00 22.50 kg/m2 Universi ty [facility] Procedures Procedure Date / Time Performing Clinician Source Performed SARS-COV2/RT-PCR ([facility] 2019-10-04 06:10:00 [facility] & REF LABS) Center ABORH CONFIRMATION 2019-07-22 17:50:00 Ayah Robbie [facility] URINALYSIS 2019-07-22 17:40:00 Ayah [facility] COMP. METABOLIC PANEL 2019-07-22 17:36:00 [facility] ([id number] Branch CBC WITH DIFFERENTIAL 2019-07-22 17:36:00 [facility] [place] [facility] GROUPING 2019-07-22 17:35:00 [facility] COVID-19 (ID NOW RAPID 2019-07-21 14:23:00 [facility] Medical Branch ASSIGNMENT OF BENEFITS 2019-07-21 13:44:51 Doctor Unassigned, No [facility] Name [facility] Branch Encounters Start End Encounter Admission Attending Care Care Encounter Source Date/Time Date/Time Type Type Clinicians Facility Department ID 2019-07-22 2019-07-23 [facility] [id number] Univers 11:59:00 09:35:00 Encounter Robbiejesusita Rushing [id number] [facility] 4.2.7.2.686 [facility] [id number] [place] [id number] Branch 2019-07-22 2019-07-23 Outpatient R AYAH [facility] ROBERT [id number] Univers 11:59:00 09:35:00 [facility] 2019-07-22 2019-07-23 [facility] [id number] 11:59:00 09:35:00 Encounter Robbie Сергей 350.1.13.10 [place] 4.2.7.2.686 [place] [id number] [facility] 2019-07-21 2019-07-21 Laboratory Only, Adc Test [facility] 1.2.840. [id number] Univers 08:46:49 09:01:49 Only Robbie Puga 350.1.13.10 ity of [place] 4.2.7.2.686 [facility] s [place] [id number] [facility] [address] [place] 2019-07-21 2019-07-21 Laboratory Only, [facility] [id number] 08:46:49 09:01:49 Only Test Сергей 350.1.13.10 [place] 4.2.7.2.686 [place] [id number] 353 2019-07-21 2019-07-21 Outpatient R BERNADETTESURESH, [facility] [id number] [facility] 08:45:00 08:45:00 ROBBIE ity [facility] 2019-07-21 2019-07-21 Orders Doctor THERESA Burgos.[id number] Univers 00:00:00 00:00:00 Only Unassigned, YANG 350.1.13.10 ity of [place] [facility] 4.2.7.2.686 [facility] [id number] [facility] [address] [place] 2019-07-21 2019-07-21 Orders Doctor CARDENAS [id number] 00:00:00 00:00:00 Only Unassigned, YANG 350.1.13.10 [place] [address]68 [id number] 009 Results Test Description Test Time Test Comments Results Result Comments Source SARS-CoV2/RT-PCR ([facility] & Ref Labs) 2019-10-04 19:28:00 Test Item Value Reference Range Interpretation Comme nts SARS-COV2/RT-PCR (test code = Negative Not Detected, 04424-9) Negative, See external report for linked test SARS-COV-2 PERFORMING LAB [facility] (test code = 99409-7) YURIY (test code = YURIY) Negative result [...] of the Act. Fact Sheet for Healthcare Providers:https://www.SlamData. inDplay/sites/default/files/produ ct/documents/Fact_Sheet_HC_Pr gaqmyiy_Srjz_QFBK-RpQ-3.pdf Fact Sheet for Healthcare Patients:https://www.Navarik om/sites/default/files/produc t/documents/Fact_Sheet_Patien jn_Rmhk_HNSC-MiF-1.pdf Performing Laboratory:[facility] [place], [place] [address] [place], [place] [address]ARS-COV2/RT-PCR ([facility] & REF LABS)2019-10-04 19:28:00 Test Item Value Reference Range Interpretation Comments SARS-COV2/RT-PCR (test Negative Not Detected, Negative, code = 3220935) See external report for linked test SARS-COV-2 PERFORMING LAB [facility] (test code = 0019346) Negative result for this test determines that [...] justifying the authorization of the emergency use ofin vitro diagnostic tests for detection and/or diagnosis of COVID-19 is terminated under Section 564(b)(2) of the Act or the EUA is revoked under Section 564(g) of the Act.Fact Sheet for Healthcare Prov iders:https://www.SlamData.inDplay/sites/default/files/product/documents/Fact_Sheet_HC _Pjifudncs_Mzzt_YJRO-VtY-9.pdfFact Sheet for Healthcare Patients:https://www.SlamData.inDplay/sites/default/files/product/docume nts/Qpvq_Laqtv_Odsululz_Cumz_XOEC-UeP-9.pdfPerforming Laboratory:[facility], [place] [address]Ymoq and Screen - ONCE [id number] 18:31:01 Test Item Value Reference Range Interpretation Comments ABO & RH (test code O Positive Performe d at [facility] = 20) Laboratory [facility] [place] [address] Free: [phone] A No. [id number] IAT (test code = Negative Performed a t [facility] 1185) Laboratory [facility] [place], [place] [address]Toll Free: [phone] A No. [id number] [facility] Alliance[facility]AL[facility]IS2020-06-09 18:21:00 Test Item Value Reference Range Interpretation Comments APPEARANCE (test code = Hazy Clear A 8482938156) COLOR (test code = Yellow Yellow 0443674955) PH (test code = 4.8-8.0 1399092146) SP GRAVITY (test code = 1.003-1.030 8267163460) GLU U QUAL (test code = Normal Normal 1431124524) BLOOD (test code = Negative Negative 2734600769) KETONES (test code = Negative Negative 5556305365) PROTEIN (test code = Negative Negative 2887-8) UROBILIN (test code = Normal Normal 1305306952) BILIRUBIN (test code = Negative Negative 2172868994) NITRITE (test code = Negative Negative 9256271477) LEUK FABIOLA (test code = 25/uL Negative A 6466039356) RBC/HPF (test code = See_Comment [Autom ated message] 5611819608) The system edulio generated this result transmitted ref erence range: 0 - 3 HP F. The reference range was not used to int erpret this result as normal/abnormal . WBC/HPF (test code = See_Comment [Autom ated message] 8355719026) The system edulio generated this result transmitted ref erence range: 0 - 5 HP F. The reference range was not used to int erpret this result as normal/abnormal . BACTERIA (test code = Few Negative A 7139743006) MUCOUS (test code = Slight Negative LPF A 9901515318) SQ EPITH (test code = HPF 6076208405) SPERM (test code = See_Comment H [Automat ed message] 6389038088) The system edulio generated this result transmitted ref erence range: <=1 HPF. The reference range was not used to int erpret this result as normal/abnormal . Lab Interpretation (test Abnormal code = 18223-3) [facility] AllianceABORH [id number] 18:15:58 Test Item Value Reference Range Interpretation Comments ABO & RH (test code O Positive Performe d at [facility] = 20) Laboratory [facility] Blood [facility] [place] [address]Acje Free: [phone] A No. [id number] [facility] AllianceCOMP. METABOLIC PANEL (09158)2019-07-22 18:04:00 Test Item Value Reference Range Interpretation Comments NA (test code = 138 mmol/L 135-145 1885141082) K (test code = 4.2 mmol/L 3.5-5 8480742518) CL (test code = 109 mmol/L 98-108 H 2378603204) CO2 TOTAL (test code = 21 mmol/L 23-31 L 8472114063) AGAP (test code = 2-16 3889863540) BUN (test code = 11 mg/dL 7-23 2986895269) GLUCOSE (test code = 93 mg/dL 70-110 5813557724) CREATININE (test code = 0.58 mg/dL 0.5-1.04 2850445673) TOTAL BILI (test code = 0.8 mg/dL 0.1-1.4 5483042082) CALCIUM (test code = 9.1 mg/dL 8.6-10.6 1974940442) T PROTEIN (test code = 7.3 g/dL 6.3-8.2 7556829947) ALBUMIN (test code = 4.5 g/dL 3.5-5 0634988437) ALK PHOS (test code = 40 U/L 34-122 1197180158) ALTv (test code = 12 U/L 5-35 1742-6) AST(SGOT) (test code = 21 U/L 13-40 2541094789) eGFR Calculation mL/min/1.73m2 (Non-) (test code = 8393813924) eGFR Calculation mL/min/1.73m2 () (test code = 0477427918) YURIY (test code = YURIY) Association of [...] tests). Lab Interpretation Abnormal (test code = 94761-3) [facility] WITH [id number] 17:56:00 Test Item Value Reference Range Interpretation Comments WBC (test code = See_Comment [Automated 6090-2) message] The sy stem which generated this result transmitted reference range : 4.30 - 11.10 10*3/?L. The reference range was not used to interpret this result as normal/abnormal . RBC (test code = See_Comment [Automated 569-8) message] The sy stem which generated this [...] (test code = 53.2 fL 39-49.9 H 74002-7) RDW-CV (test code = 16.6 % 12-15.5 H 788-0) PLT (test code = See_Comment [Automated 777-3) message] The sy stem which generated this result transmitted reference range : 166 - 358 10*3/ ?L. The reference r jorge was not used to interpret this result as normal/abnormal . MPV (test code = 9.9 fL 9.5-12.9 09545-0) NRBC/100 WBC (test See_Comment [Automat ed code = 4914380429) message] The system which generated this result transmitted reference range : 0.0 - 10.0 /100 WBCs. The refer ence range was not u sed to interpret th is result as normal/abnormal . NRBC x10^3 (test code <0.01 See_Comment [Auto mated = 9646165514) message] The s ystem which generated this result transmitted reference range : 10*3/?L. The reference range was not used to interpret this result as normal/abnormal . GRAN MAT (NEUT) % 56.2 % (test code = 770-8) IMM GRAN % (test code 0.10 % = 8087417794) LYMPH % (test code = 32.0 % 736-9) MONO % (test code = 7.5 % 5905-5) EOS % (test code = 3.7 % 713-8) BASO % (test code = 0.5 % 706-2) GRAN MAT x10^3(ANC) 4.90 10*3/uL 1.88-7.09 (test code = 7784856580) IMM GRAN x10^3 (test <0.03 0-0.06 code = 3806576681) LYMPH x10^3 (test code 2.78 10*3/uL 1.32-3.29 = 731-0) MONO x10^3 (test code 0.65 10*3/uL 0.33-0.92 = 742-7) EOS x10^3 (test code = 0.32 10*3/uL 0.03-0.39 711-2) BASO x10^3 (test code 0.04 10*3/uL 0.01-0.07 = 704-7) Lab Interpretation Abnormal (test code = 51254-5) [facility] AllianceCOVID-19 (ID NOW RAPID TESTING)2019-07-21 14:49:00 Test Item Value Reference Range Interpretation Comments SARS-CoV-2 Rapid ID NOW Not Detected Not Detected (test code = 09537-2) YURIY (test code = YURIY) ID NOW COVID-19 Assay is an isothermal nucleic acid amplification test intended for the qualitative detection of nucleic acid from SARS-CoV-2 viral RNA in nasopharyngeal (ZIPPER IRONER) specimens. It is used under Emergency Use [...] indicated. Lab Interpretation Normal (test code = 68704-9) [facility]"
[2021-10-22] MEDS ORDERED: HYDROCODONE/APAP 7.5/325 MG TAB ONE (12:50)
--- NOTE | 2021-10-22 12:55 | RAD REPORT ---
EXAM DESCRIPTION: RAD - Hand Left 3 View - 10/22/2021 12:41 pm CLINICAL HISTORY: PAIN COMPARISON: No comparisons FINDINGS/IMPRESSION: No acute fracture. No malalignment. No significant focal degenerative changes.
--- NOTE | 2021-10-22 13:06 | EDPHYS ---
Physician Documentation [facility] Name: Nunu Johnson Age: 41 yrs Sex: Female : 1980 Arrival Date: 10/22/2021 Time: 12:11 Bed 12 Private MD: ED Physician Reza Gaviria HPI: 10/22 12:24 This 41 yrs old Female presents to ER via Ambulatory with complaints of left jl9 hand pain s/p hitting her hand on a car window yesterday. . 12:24 The patient or guardian reports pain. The complaints affect the left hand diffusely. jl9 Context: The problem was sustained at home, resulted from a direct blow. Onset: The symptoms/episode began/occurred yesterday. Modifying factors: The symptoms are alleviated by holding still, the symptoms are aggravated by movement. Associated signs and symptoms: The patient has no apparent associated signs or symptoms. Severity of symptoms: in the emergency department the symptoms a " 4" out of "10". 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 - Social history:: Smoking status: Patient reports the use of cigarette tobacco products, smokes one pack cigarettes per day. ROS: 12:25 Constitutional: Negative for fever, chills, and weight loss, Eyes: Negative for injury, jl9 pain, redness, and discharge, ENT: Negative for injury, pain, and discharge, Neck: Negative for injury, pain, and swelling, Cardiovascular: Negative for chest pain, palpitations, and edema, Respiratory: Negative for shortness of breath, cough, wheezing, and pleuritic chest pain, Abdomen/GI: Negative for abdominal pain, nausea, vomiting, diarrhea, and constipation, Back: Negative for injury and pain. 12:25 Skin: Negative for injury, rash, and discoloration, Neuro: Negative for headache, weakness, numbness, tingling, and seizure, Psych: Negative for depression, anxiety, suicide ideation, homicidal ideation, and hallucinations, Allergy/Immunology: Negative for hives, rash, and allergies, Endocrine: Negative for neck swelling, polydipsia, polyuria, polyphagia, and marked weight changes, Hematologic/Lymphatic: Negative for swollen nodes, abnormal bleeding, and unusual bruising. 12:25 MS/extremity: Positive for pain. Exam: 12:25 Constitutional: This is a well developed, well nourished patient who is awake, alert, jl9 and in no acute distress. Head/Face: Normocephalic, atraumatic. Eyes: Pupils equal round and reactive to light, extra-ocular motions intact. Lids and lashes normal. Conjunctiva and sclera are non-icteric and not injected. Cornea within normal limits. Periorbital areas with no swelling, redness, or edema. ENT: Mucous membranes moist. Neck: Trachea midline, no thyromegaly or masses palpated, and no cervical lymphadenopathy. Supple, full range of motion without nuchal rigidity, or vertebral point tenderness. No Meningismus. Chest/axilla: Normal chest wall appearance and motion. Nontender with no deformity. No lesions are appreciated. Cardiovascular: Regular rate and rhythm with a normal S1 and S2. No gallops, murmurs, or rubs. Normal PMI, no JVD. No pulse deficits. Respiratory: Lungs have equal breath sounds bilaterally, clear to auscultation and percussion. No rales, rhonchi or wheezes noted. No increased work of breathing, no retractions or nasal flaring. Abdomen/GI: Soft, non-tender, with normal bowel sounds. No distension or tympany. No guarding or rebound. No evidence of tenderness throughout. Back: No spinal tenderness. No costovertebral tenderness. Full range of motion. Skin: Warm, dry with normal turgor. Normal color with no rashes, no lesions, and no evidence of cellulitis. 12:25 Neuro: Awake and alert, GCS 15, oriented to person, place, time, and situation. Cranial nerves II-XII grossly intact. Motor strength 5/5 in all extremities. Sensory grossly intact. Cerebellar exam normal. Normal gait. Psych: Awake, alert, with orientation to person, place and time. Behavior, mood, and affect are within normal limits. 12:25 Musculoskeletal/extremity: Extremities: grossly normal except: pain, ROM: limited active range of motion due to pain, Circulation is intact in all extremities. Sensation intact. Compartment Syndrome exam of affected extremity: the left hand is normal. no numbness, no tingling, no sensation deficit, no palor, no weak pulses. 13:05 Musculoskeletal/extremity: Slight bruising noted to dorsal aspect of hand.. jl9 Vital Signs: 12:17 BP 128 / 70; Pulse 80; Resp 16; Temp 98.1; Pulse Ox 100% on R/A; Weight 51.26 kg; kr3 Height 5 ft. 2 in. (157.48 cm); Pain 08/21; 12:17 Body Mass Index 20.67 (51.26 kg, 157.48 cm) kr3 MDM: 12:19 Patient medically screened. jl9 12:26 Data reviewed: vital signs, nurses notes. jl9 13:06 Counseling: I had a detailed discussion with the patient and/or guardian regarding: the jl9 historical points, exam findings, and any diagnostic results supporting the discharge/admit diagnosis, radiology results, the need for outpatient follow up, to return to the emergency department if symptoms worsen or persist or if there are any questions or concerns that arise at home. 10/22 12:23 Order name: XRAY Hand LEFT 3 View; Complete Time: 13:04 jl9 10/22 13:05 Order name: Dawit Wrap; Complete Time: 13:16 jl9 Administered Medications: 12:42 Drug: [place] (HYDROcodone-acetaminophen) (7.5 mg-325 mg) 1 tabs Route: PO; kr3 13:31 Follow up: Response: No adverse reaction; RASS: Alert and Calm (0) kr3 Disposition Summary: 10/22/21 13:06 Discharge Ordered Location: Home jl9 Condition: Stable jl9 Diagnosis - Pain in left hand jl9 Followup: jl9 - With: Private Physician - When: 1 - 2 days - Reason: Recheck today's complaints, Continuance of care, Re-evaluation by your physician Discharge Instructions: - Discharge Summary Sheet jl9 - Hand Contusion, Dkpp-mf-Imct jl9 - Hand Pain jl9 Forms: - Medication Reconciliation Form jl9 - Work release form eb - Thank You Letter jl9 - Antibiotic Education jl9 - Prescription Opioid Use jl9 Prescriptions: - Ibuprofen 800 mg Oral Tablet - take 1 tablet by ORAL route every 8 hours As needed take with food; 30 tablet; jl9 Refills: 0, Product Selection Permitted Signatures: Dispatcher [employer] Estevan Rios jl9 Loyda Mathew, RN RN kr3
--- NOTE | 2021-10-22 13:06 | ER ---
Nurse's Notes [facility] Name: Nunu Johnson Age: 41 yrs Sex: Female : 1980 Arrival Date: 10/22/2021 Time: 12:11 Bed 12 Private MD: Diagnosis: Pain in left hand Presentation: 10/22 12:17 Chief complaint: Patient states: used hand to bang on car window yesterday evening. kr3 currently has 7/10 pain in left hand. Coronavirus screen: Vaccine status: Patient reports being unvaccinated. Client denies travel out of the [place] in the last 14 days. Ebola Screen: Patient denies travel to an Ebola-affected area in the 21 days before illness onset. Initial Sepsis Screen: Does the patient meet any 2 criteria? No. Patient's initial sepsis screen is negative. Does the patient have a suspected source of infection? No. Patient's initial sepsis screen is negative. Risk Assessment: Do you want to hurt yourself or someone else? Patient reports no desire to harm self or others. Onset of symptoms was October 21, 2021. 12:17 Method Of Arrival: Ambulatory kr3 12:17 Acuity: RHINA 4 kr3 Triage Assessment: 12:21 General: Appears in no apparent distress. uncomfortable, Behavior is calm, cooperative, kr3 appropriate for age. Pain: Complains of pain in left hand. Musculoskeletal: Swelling. Injury Description: Bruise. TISSUE PACKER: 13:34 LMP N/A - control method kr3 Historical: - Allergies: 12:20 No Known Allergies; kr3 - PMHx: 12:20 Anxiety; Bipolar disorder; Endometrosis; kr3 - PSHx: 12:20 partial hysterectomy; Appendectomy; kr3 - Immunization history:: Adult Immunizations not up to date, Client reports having NOT received the Covid vaccine. - Social history:: Smoking status: Patient reports the use of cigarette tobacco products, smokes one pack cigarettes per day. Screenin:23 Abuse screen: Denies threats or abuse. Denies injuries from another. Nutritional ss screening: No deficits noted. Tuberculosis screening: Never had TB. Fall Risk None identified. Vital Signs: 12:17 BP 128 / 70; Pulse 80; Resp 16; Temp 98.1; Pulse Ox 100% on R/A; Weight 51.26 kg; kr3 Height 5 ft. 2 in. (157.48 cm); Pain 7/10; 12:17 Body Mass Index 20.67 (51.26 kg, 157.48 cm) kr3 ED Course: 12:11 Patient arrived in ED. rg4 12:19 Jorge Estevan is PHCP. jl9 12:19 Reza Gaviria MD is Attending Physician. jl9 12:20 Triage completed. kr3 12:22 Patient placed in an exam room, on a stretcher. kr3 12:23 Patient has correct armband on for positive identification. Bed in low position. ss 12:42 XRAY Hand LEFT 3 View In Process Unspecified. EDMS 12:42 Loyda Mathew, RN is Primary Nurse. kr3 13:34 No provider procedures requiring assistance completed. Patient did not have IV access kr3 during this emergency room visit. Administered Medications: 12:42 Drug: [place] (HYDROcodone-acetaminophen) (7.5 mg-325 mg) 1 tabs Route: PO; kr3 13:31 Follow up: Response: No adverse reaction; RASS: Alert and Calm (0) kr3 Medication: 13:34 VIS not applicable for this client. kr3 Outcome: 13:06 Discharge ordered by . jl9 13:34 Discharged to home kr3 13:34 Condition: stable 13:34 Discharge instructions given to patient, Instructed on discharge instructions, follow up and referral plans. medication usage, Demonstrated understanding of instructions, follow-up care, medications, Prescriptions given X 1. 13:34 Patient left the ED. kr3 Signatures: Dispatcher [employer] EDIL Brandy High RN RN ss Garcia, Rubi rg4 PatelEstevan jl9 Loyda Mathew, RN RN kr3 Corrections: (The following items were deleted from the chart) 12:24 12:17 Chief complaint: Patient states: used hand as weapon banging on car window kr3 yesterday evening. currently has 7/10 pain in left hand kr3
[2021-10-22 14:26] VITALS: BP 128/70; TEMP 98.1; O2SAT 100
== END 2021-10-22 13:34 | disposition home or self-care (01) ==
LOC: ER 12:10
DX: M79.642 Pain in left hand (principal); F17.210 Nicotine dependence, cigarettes, uncomplicated; F31.9 Bipolar disorder, unspecified
CPT/HCPCS: 99283

== ENCOUNTER 2022-08-01 17:28 | Emergency (ER) | payer BC ==
--- OUTSIDE RECORDS SUMMARY | 2022-08-01 17:31 | XMS REPORT | Continuity of Care Document ---
:1980 Author Organization [facility] t Address [address] [place] [address] Care Team Providers Name Role Phone PCP, PATIENT DOES NOT HAVE A Primary Care Physician UnavailADAMS Willett Attending Clinician Unavailable EMILY HAYDEN Attending Clinician Unavailable LAB90 Attending Clinician Unavailable Robbie Poon MD Attending Clinician ROBBIE POON Attending Clinician Unavailable Only, Adc Test Attending Clinician Unavailable Doctor Unassigned, [place] Attending Clinician Unavailable Robbie Poon MD Admitting Clinician ROBBIE POON Admitting Clinician Unavailable Payers Payer Name Policy Type Policy Number Effective Date Expiration Date S ouradam BCBS 2 [id number] 2022 00:00:00 Problems Condition Condition Condition Status Onset Resolution Last Treating Co mments Source Name Details Category Date Date Treatment Clinician Date Borderline Borderline Disease Active K elsey schizophre schizophre 1-23 Se ybold breanna breanna 00:00: - 00 Externa l Bipolar 1 Bipolar 1 Disease Active Layo sey disorder, disorder, 1-23 Seyb old depressed depressed 00:00: - 00 Externa l CATHRYN CATHRYN Disease Active Kay (generaliz (generaliz 03-06 Se ybold ed anxiety ed anxiety 00:00: - disorder) disorder) 00 Exte rna l No known No known Disease Unive rs active active ity of problems problems [facility] Allergies, Adverse Reactions, Alerts Allergy Allergy Status Severity Reaction(s) Onset Inactive Treating Comm ents Source Name Type Date Date Clinician NO KNOWN Drug Active Univers ALLERGIE Class ity of S [facility] Social History Social Habit Start Date Stop Date Quantity Comments Source Exposure to Not sure [facility] SARS-CoV-2 (event) [facility] History SDOH Kay Lopez ld - Alcohol Frequency Externa l History SDOH Kay Lopez ld - Alcohol Std 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 Pick al History ARIANAOH Kay Lopez ld - Alcohol Binge External History of tobacco Cigarette Smoker Kay Smith - use External Alcohol intake 2022-03-06 2022-03-06 .14 /d Kay Mariee bold - 00:00:00 00:00:00 External Alcohol Comment 2022-03-06 2022-03-06 RARE Kay reyold - 00:00:00 00:00:00 External Cigarettes smoked 2022-03-06 2022-03-06 Kay Smith - current (pack per 00:00:00 00:00:00 Externa l day) - Reported Cigarette 2022-03-06 2022-03-06 Kay Smith - pack-years 00:00:00 00:00:00 External Tobacco use and 2022-03-06 2022-03-06 Smokeless Kay reyold - exposure 00:00:00 00:00:00 tobacco non-user External Sex Ass[birth year] At [birth year] Kay Elliott ybold - 00:00:00 00:00:00 External Smoking Status Start Date Stop Date Source Smokes tobacco daily 2022-03-06 00:00:00 Kay Smith - External Medications Ordered Filled Start Stop Current Ordering Indication Dosage Frequency Signature Comments Components Source Medication Medication Date Date Medication? Clinician (SIG) Name Name Aripiprazol Yes [id number] 5mg Take 1 Kay sharma (Abilify) 03-06 tablet (5 Sey bold 5 MG oral 00:00: mg total) - Tablet 00 by mouth Externa daily l Sertraline 0 Yes [id number] 25mg Take 1 K elsey HCl 25 MG 1-23 tablet (25 Seyb old oral Tablet 00:00: mg total) - 00 by mouth Externa daily l Propranolol Yes [id number] 10mg Take 1 Kay HCl 10 MG 1-23 tablet (10 Seyb old oral Tablet 00:00: mg total) - 00 by mouth 3 Externa times l daily ketorolac 2019-0 2020- No 30mg 30 mg, Unive rs (TORADOL) 10 06-10 Slow IV ity of injection 04:45: 10:39 Push, Q6H, [place] 30 mg 00 :00 2 doses, Medical First dose Branch on Sun07/22/19 at 2345, Last dose on Sun07/23/19 at 0000, Routine
membership advisor approving Restricted medication : JANICEJOSIAHErin ROBBIE lactated 2019-0 Yes 1000mL at 75 Univer s ringers [...] Discontinu ed, Routine, Pain (scale 4-6) acetaminoph 2019-0 Yes 500mg 500 mg, Un rosaline en 6-10 Oral, ity of (TYLENOL) 03:55: Q6HPRN, [place] tablet 500 31 Starting Medic al mg Sun07/22/19 Branch at 2255, Until Discontinu ed, Routine, Pain (scale 4-6) ondansetron 2019-0 Yes 4mg 4 mg, Slow Univers (ZOFRAN 6-10 IV Push, ity of (PF)) 03:55: Q6HPRN, 2 [place] injection 4 31 doses, Medica l mg Starting Branch Sun07/22/19 at 2255, Until Discontinu ed, Routine, Nausea and Vomiting (N/V), if nausea and vomiting proMETHazin 2019-0 Yes 12.5mg 12.5 mg, Univers e 6-10 IV ity of (PHENERGAN) 03:55: Piggyback, [place] 12.5 mg in 31 Q6HPRN, Medica l NaCl 0.9% Starting Branch (NS) 50 mL e 07/22/19 piggyback at 2255, Until Discontinu ed, 50 mL lactated 2019-0 Yes 1000mL at 75 Univer s ringers IV 6-10 mL/hr, ity of infusion 00:00: 1,000 mL, [place] 1[place]000 mL 00 IV Medical Infusion, Branch CONTINUOUS , Starting Sun07/22/19 at 1900, Until Discontinu ed, Routine, PACU ondansetron 2019-0 2020- No 4mg 4 mg, Slow Univers (ZOFRAN 07-21 IV Push, ity of (PF)) 23:49: 00:24 PRN, 1 [place] injection 4 36 :00 dose, Medical mg Starting Branch Sun07/22/19 at 1849, Until Sun07/22/19 at 1924, Routine, Nausea and Vomiting (N/V), PACU scopolamine 2019-0 2020- No 1.5mg 1.5 mg, U nivers transdermal 07-21 Topical, ity of (TRANSDERM- 17:45: 04:21 Administer [place] SCOP) patch 00 :33 over 72 Medic al 1.5 mg Hours, Branch Q72H, First dose on Sun07/22/19 at 1245, Until Discontinu ed, Routine, Intra-op lactated 2020-0 2020- No 1000mL at 20 Unive rs ringers IV 07-21-09 mL/hr, ity of infusion 17:15: 17:40 1,000 mL, [place] as 1,000 mL 00 :00 IV Medical Infusion, Branch ONCE, 1 dose, Sun07/22/19 at 1215, Routine, DSU Pre-op phenazopyri 2018-02 Yes [id number] 200mg Take 1 Univers dine 200 mg 0-17 tablet by ity of tablet 00:00: mouth 3 [place] 00 (three) Medical times Branch daily. phenazopyri 2018-02 Yes [id number] 200mg Take 1 Univers dine 200 mg 0-17 tablet by ity of tablet 00:00: mouth 3 [place] 00 (three) Medical times Branch daily. phenazopyri 2018-02 2020- No [id number] 200mg Take 1 Univers dine 200 mg 0-17 -09 tablet by it y of tablet 00:00: 00:00 mouth 3 [place] 00 :00 (three) Medical times [place] daily. Vital Signs Vital Name Observation Time Observation Value Comments Source Systolic blood 2022-03-06 19:55:00 102 mm[Hg] Kay Seybold - pressure External Diastolic blood 2022-03-06 19:55:00 76 mm[Hg] Denzel hernandez Seybold - pressure External Heart rate 2022-03-06 19:55:00 85 /min Kay Stefania wildbold - External Body temperature 2022-03-06 19:55:00 36.56 Dahlia Daisy junito Seybold - External Respiratory rate 2022-03-06 19:55:00 14 /min Daisy junito Seybold - External Body height 2022-03-06 19:55:00 157.5 cm Kay Stefania wildbold - External Body weight 2022-03-06 19:55:00 53.615 kg Kayisaias wildbold - External BMI 2022-03-06 19:55:00 21.62 kg/m2 Kayisaias wildboeliana - External Oxygen saturation in 2022-03-06 19:55:00 98 /min Kay Smith - Arterial blood by External Pulse oximetry Body temperature 2019-07-23 13:30:00 36.72 [facility] blood 2019-07-23 13:00:00 90 mm[Hg] Univer sity of pressure [facility] Diastolic blood 2019-07-23 13:00:00 55 mm[Hg] Unive rsity of [facility] Heart rate 2019-07-23 13:00:00 59 /min Universi ty [facility] Respiratory rate 2019-07-23 08:45:00 16 /min [facility] Oxygen saturation in 2019-07-23 08:45:00 100 /min University Arterial blood by [facility] Pulse oximetry Branch Body height 2019-07-21 14:00:00 [facility] Body weight 2019-07-21 14:00:00 55.792 kg [facility] BMI 2019-07-21 14:00:00 22.50 kg/m2 [facility] Body temperature 2019-07-23 13:30:00 36.72 Dahlia [facility] Systolic blood 2019-07-23 13:00:00 90 mm[Hg] Univer sity of pressure [facility] Diastolic blood 2019-07-23 13:00:00 55 mm[Hg] Unive rsity of [facility] Heart rate 2019-07-23 13:00:00 59 /min [facility] Respiratory rate 2019-07-23 08:45:00 16 /min [facility] Oxygen saturation in 2019-07-23 08:45:00 100 /min [facility] Arterial blood by [facility] Pulse oximetry Branch Body height 2019-07-21 14:00:00 157.5 cm [facility] Body weight 2019-07-21 14:00:00 55.792 kg [facility] BMI 2019-07-21 14:00:00 22.50 kg/m2 [facility] Procedures Procedure Date / Time Performing Clinician Source Performed ABORH CONFIRMATION 2019-07-22 17:50:00 Robbie Poon [facility] URINALYSIS 2019-07-22 17:40:00 [facility] MET[facility]OLIC PANEL 2019-07-22 17:36:00 Robbie Poon [facility] ([id number]) [facility] CBC WITH DIFFERENTIAL 2019-07-22 17:36:00 Ayah Robbie [facility] HB ABO GROUPING 2019-07-22 17:35:00 Ayah Robbie [facility] COVID-19 (ID NOW RAPID 2019-07-21 14:23:00 Robbie Poon [facility] TESTING) [facility] ASSIGNMENT OF BENEFITS 2019-07-21 13:44:51 Doctor Unassigned, No University [facility] Name [facility] Branch Encounters Start End Encounter Admission Attending Care Care Encounter Source Date/Time Date/Time Type Type Clinicians Facility Department ID 2022-07-07 2022-07-07 Outpatient HUNDL, KAY MELGAR [id number] Kay 00:00:00 00:00:00 ADAMS Seybol d 2022-06-20 2022-06-20 Outpatient HUNDL, KAY MELGAR [id number] Kay 00:00:00 00:00:00 ADAMS Seybol d 2022-06-07 2022-06-07 Outpatient HUNDL, KAY MELGAR [id number] Kay 00:00:00 00:00:00 ADAMS Seybol d 2022-04-27 2022-04-27 Outpatient HUNDL, KAY MELGAR [id number] Kay 00:00:00 00:00:00 ADAMS Seybol d 2022-03-20 2022-03-20 Outpatient HUNDL, KAY MELGAR [id number] Kay 14:30:00 14:30:00 ADAMS Seybol d 2022-03-10 2022-03-10 Outpatient HUNDL, KAY MELGAR [id number] Kay 00:00:00 00:00:00 ADAMS Seybol d 2022-03-10 2022-03-10 Outpatient HUNDL, KAY MELGAR [id number] Kay 00:00:00 00:00:00 ADAMS Seybol d 2022-03-10 2022-03-10 Outpatient HUNDL, KAY MELGAR [id number] Kay 00:00:00 00:00:00 ADAMS Seybol d 2022-03-09 2022-03-09 Outpatient MINASSO, KAY MELGAR [id number] Kay 14:30:00 14:30:00 EMILY Sey bold 2022-03-07 2022-03-07 Outpatient LAB90 KAY MELGAR [id number] Kay 09:30:00 09:30:00 Seybol d 2022-03-06 2022-03-06 Outpatient HUNDL, KAY MELGAR [id number] Kay 14:00:00 14:00:00 ADAMS Seybol d 2019-07-22 2019-07-23 [facility] [id number] 11:59:00 09:35:00 [facility] Robbie Rushing 350.1.13.10 [place] 4.2.7.2.686 [place] [id number] 2019-07-22 2019-07-23 Hospital Ayah [facility] [id number] Univers 11:59:00 09:35:00 Encounter Robbie Rushing 350.1.13.10 ity of [place] 4.2.7.2.686 [facility] [id number] [place] [id number] Branch 2019-07-22 2019-07-23 [facility] ROBERT [id number] Univers 11:59:00 09:35:00 ROBBIE bedolla [facility] 2019-07-21 2019-07-21 Laboratory Only, [facility] [id number] 08:46:49 09:01:49 Only Test Сергей 350.1.13.10 [place] 4.2.7.2.686 [place] [id number] 2019-07-21 2019-07-21 Laboratory Only, Adc Test [facility] 1.2.840. [id number] Univers 08:46:49 09:01:49 Only Robbie Poon 350.1.13.10 ity of [place] 4.2.7.2.686 [facility] [id number] [address] 2019-07-21 2019-07-21 Outpatient R AYAH [facility] [id number] Univers 08:45:00 08:45:00 RBOBIE bedolla [facility] 2019-07-21 2019-07-21 Orders Doctor CARDENAS [id number] 00:00:00 00:00:00 Only Unassigned, YANG 350.1.13.10 [place] [facility] 4.2.7.2.686 [id number] 2019-07-21 2019-07-21 Orders Doctor THERESA Nance2.840.114 [id number] Univers 00:00:00 00:00:00 Only Unassigned, YANG 350.1.13.10 ity of [place] [facility] 4.2.7.2.686 [facility] [id number] Medi remy 009 Branch Results Test Description Test Time Test Comments Results Result Comments Source Type and Screen - ONCE STAT 2019-07-22 18:31:01 Test Item Value Reference Range Interpretation Comme nts ABO & RH (test code = 20) O Positive Pe rformed at [facility] Laboratory [facility] Blood [place] [address]Toll Free: [phone] A No. [id number] IAT (test code = 1185) Negative Perfo rmed at [facility] Laboratory [facility] - [facility] Blood [place] [address]Toll Free: [phone] A No. [id number] [facility] 18:21:00 Test Item Value Reference Range Interpretation Comments APPEARANCE (test code = Hazy Clear A 9913120694) COLOR (test code = Yellow Yellow 3553125953) PH (test code = 4.8-8.0 0051360039) SP GRAVITY (test code = 1.003-1.030 0057700692) GLU U QUAL (test code = Normal Normal 8121537100) BLOOD (test code = Negative Negative 0510543542) KETONES (test code = Negative Negative 3600893339) PROTEIN (test code = Negative Negative 2887-8) UROBILIN (test code = Normal Normal 6081122245) BILIRUBIN (test code = Negative Negative 9943876856) NITRITE (test code = Negative Negative 0273008703) LEUK FABIOLA (test code = 25/uL Negative A 9125448828) RBC/HPF (test code = See_Comment [Autom ated message] 6682092578) The system [employer] generated this result transmitted ref erence range: 0 - 3 HP F. The reference range was not used to int erpret this result as normal/abnormal . WBC/HPF (test code = See_Comment [Autom ated message] 0752087899) The system [employer] generated this result transmitted ref erence range: 0 - 5 HP F. The reference range was not used to int erpret this result as normal/abnormal . BACTERIA (test code = Few Negative A 1604775516) MUCOUS (test code = Slight Negative LPF A 3990885872) SQ EPITH (test code = HPF 7448316431) SPERM (test code = See_Comment H [Automat ed message] 8089617909) The system [employer] generated this result transmitted ref erence range: <=1 HPF. The reference range was not used to int erpret this result as normal/abnormal . Lab Interpretation (test Abnormal code = 44018-8) [facility] [id number] 18:15:58 Test Item Value Reference Range Interpretation Comments ABO & RH (test code O Positive Performe d at [facility] = 20) Laboratory [facility] Blood [facility]1 [address] [place] [id number] Free: [phone] A No. [id number] [facility]. METABOLIC PANEL (44446)2019-07-22 18:04:00 Test Item Value Reference Range Interpretation Comments NA (test code = 138 mmol/L 135-145 8892612153) K (test code = 4.2 mmol/L 3.5-5 0425808357) CL (test code = 109 mmol/L 98-108 H 4759786279) CO2 TOTAL (test code = 21 mmol/L 23-31 L 7382895736) AGAP (test code = 2-16 5732969887) BUN (test code = 11 mg/dL 7-23 1756399077) GLUCOSE (test code = 93 mg/dL 70-110 3193113997) CREATININE (test code = 0.58 mg/dL 0.5-1.04 7205145313) TOTAL BILI (test code = 0.8 mg/dL 0.1-1.9 6752673292) CALCIUM (test code = 9.1 mg/dL 8.6-10.6 0655395458) T PROTEIN (test code = 7.3 g/dL 6.3-8.2 0751201370) ALBUMIN (test code = 4.5 g/dL 3.5-5 3515232113) ALK PHOS (test code = 40 U/L 34-122 7983598510) ALTv (test code = 12 U/L 5-35 1742-6) AST(SGOT) (test code = 21 U/L 13-40 0469156008) eGFR Calculation mL/min/1.73m2 (Non-) (test code = 8990316623) eGFR Calculation mL/min/1.73m2 () (test code = 4452472484) YURIY (test code = YURIY) Association of [...] tests). Lab Interpretation Abnormal (test code = 60774-8) [facility] WITH [id number] 17:56:00 Test Item Value Reference Range Interpretation Comments WBC (test code = See_Comment [Automated 3283-2) message] The sy stem which generated this result transmitted reference range : 4.30 - 11.10 10*3/?L. The reference range was not used to interpret this result as normal/abnormal . RBC (test code = See_Comment [Automated 325-8) message] The sy stem which generated this [...] (test code = 53.2 fL 39-49.9 H 00971-5) RDW-CV (test code = 16.6 % 12-15.5 H 788-0) PLT (test code = See_Comment [Automated 777-3) message] The sy stem which generated this result transmitted reference range : 166 - 358 10*3/ ?L. The reference r jorge was not used to interpret this result as normal/abnormal . MPV (test code = 9.9 fL 9.5-12.9 27557-1) NRBC/100 WBC (test See_Comment [Automat ed code = 6943630397) message] The system which generated this result transmitted reference range : 0.0 - 10.0 /100 WBCs. The refer ence range was not u sed to interpret th is result as normal/abnormal . NRBC x10^3 (test code <0.01 See_Comment [Auto mated = 2292862960) message] The s ystem which generated this result transmitted reference range : 10*3/?L. The reference range was not used to interpret this result as normal/abnormal . GRAN MAT (NEUT) % 56.2 % (test code = 770-8) IMM GRAN % (test code 0.10 % = 2166801627) LYMPH % (test code = 32.0 % 736-9) MONO % (test code = 7.5 % 5905-5) EOS % (test code = 3.7 % 713-8) BASO % (test code = 0.5 % 706-2) GRAN MAT x10^3(ANC) 4.90 10*3/uL 1.88-7.09 (test code = 8310352931) IMM GRAN x10^3 (test <0.03 0-0.06 code = 2190920666) LYMPH x10^3 (test code 2.78 10*3/uL 1.32-3.29 = 731-0) MONO x10^3 (test code 0.65 10*3/uL 0.33-0.92 = 742-7) EOS x10^3 (test code = 0.32 10*3/uL 0.03-0.39 711-2) BASO x10^3 (test code 0.04 10*3/uL 0.01-0.07 = 704-7) Lab Interpretation Abnormal (test code = 80133-7) [facility]ID NOW RAPID TESTING)2019-07-21 14:49:00 Test Item Value Reference Range Interpretation Comments SARS-CoV-2 Rapid ID NOW Not Detected Not Detected (test code = 60160-1) YURIY (test code = YURIY) ID NOW COVID-19 Assay is an isothermal nucleic acid amplification test intended for the qualitative detection of nucleic acid from SARS-CoV-2 viral RNA in nasopharyngeal ([employer]UX [employer] ADMINISTRATOR) specimens. It is used under Emergency Use [...] indicated. Lab Interpretation Normal (test code = 90445-0) [facility]"
[2022-08-01 18:31] LABS: Specific Gravity 1.021 (1.005-1.030)
[2022-08-01] MEDS ORDERED: HYDROCODONE/APAP 7.5/325 MG TAB ONE (18:33)
[2022-08-01 18:34] LABS: Specific Gravity 1.021 (1.005-1.030); Urine Bacteria <20 /HPF (<20); Urine Bilirubin NEGATIVE (Negative); Urine Blood 3+ (Negative); Urine Clarity Turbid (Clear); Urine Color Light-Yellow (Yellow); Urine Crystals Unidentified Few /HPF (None Seen); Urine Glucose NEGATIVE (Negative); Urine Mucus Slight /HPF (None Seen); Urine Protein NEGATIVE (Negative); Urine RBC 21-50 /HPF (None Seen); Urine Urobilinogen Normal (Normal); Urine pH 5.5 (5.0-7.0)
--- NOTE | 2022-08-01 19:20 | RAD REPORT ---
EXAM DESCRIPTION: US - Extremity Nonvascular Limited - 08/01/2022 7:05 pm CLINICAL HISTORY: Buttock abscess COMPARISON: None FINDINGS: 2.2 x 0.8 x 2.5 centimeter fluid collection containing low level echoes is present within the left buttock. Mildly increased blood flow. IMPRESSION: 2.5 centimeter fluid collection left buttock probably an abscess
--- NOTE | 2022-08-01 20:06 | ER ---
Nurse's Notes [facility] Name: Nunu Azar Age: 41 yrs Sex: Female : 1980 Arrival Date: 08/01/2022 Time: 17:28 Bed 5 Private MD: Diagnosis: Cutaneous abscess of buttock;UTI/ Urinary tract infection, site not specified Presentation: 08/01 17:33 Chief complaint: Patient states: has a cyst on buttock that has grown , hurts to iw sit/touch it , was previously seen by Dr. Lopez, she also had blood in her urine today , has been taking azo pills, she has had lower abd pain and kidney pain. Coronavirus screen: At this time, the client does not indicate any symptoms associated with coronavirus-19. Ebola Screen: Patient negative for fever greater than or equal to 101.5 degrees Fahrenheit, and additional compatible Ebola Virus Disease symptoms Patient denies exposure to infectious person. Patient denies travel to an Ebola-affected area in the 21 days before illness onset. No symptoms or risks identified at this time. 17:33 Method Of Arrival: Ambulatory iw 17:33 Acuity: RHINA 3 iw 20:20 Initial Sepsis Screen: Does the patient meet any 2 criteria? No. Patient's initial rv sepsis screen is negative. Does the patient have a suspected source of infection? No. Patient's initial sepsis screen is negative. Risk Assessment: Do you want to hurt yourself or someone else? Patient reports no desire to harm self or others. Onset of symptoms is unknown. Triage Assessment: 17:42 General: Appears uncomfortable, Behavior is cooperative, appropriate for age, anxious. bp Pain: Complains of pain in back and buttocks. EENT: No deficits noted. Neuro: No deficits noted. Cardiovascular: No deficits noted. Respiratory: No deficits noted. GI: No signs and/or symptoms were reported involving the gastrointestinal system. : Reports pain in lower back. Derm: Abscess located on buttocks. Musculoskeletal: No deficits noted. 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 - Social history:: Smoking status: . Screenin:42 [facility] ED Fall Risk Assessment (Adult) History of falling in the last 3 months, bp including since admission No falls in past 3 months (0 pts). Abuse screen: Denies threats or abuse. Denies injuries from another. Nutritional screening: No deficits noted. Tuberculosis screening: No symptoms or risk factors identified. Assessment: 17:42 General: SEE TRIAGE NOTE. bp 18:30 Reassessment: No changes from previously documented assessment. Patient and/or family ll1 updated on plan of care and expected duration. Pain level reassessed. Patient is alert, oriented x 3, equal unlabored respirations, skin warm/dry/pink. Vital Signs: 17:37 BP 126 / 86; Pulse 80; Resp 16 S; Temp 99; Pulse Ox 100% on R/A; Weight 52.16 kg; iw Height 5 ft. 2 in. ; Pain 9/10; 17:37 Body Mass Index 21.03 (52.16 kg, 157.48 cm) iw 17:37 Pain Scale: Adult iw ED Course: 17:30 Patient arrived in ED. mr 17:31 Kalyn Mtz, MADDIE is PHCP. kb 17:31 Reza Gaviria MD is Attending Physician. kb 17:35 Triage completed. iw 17:35 Arm band placed on. iw 17:39 Kaleb Mccartney, RN is Primary Nurse. bp 17:42 Patient has correct armband on for positive identification. Bed in low position. Call bp light in reach. Side rails up X2. 18:22 Test, Urine Sent. aa5 18:22 Urinalysis w/ reflexes Sent. aa5 19:07 US Extrmty Nonvasular Limited In Process Unspecified. EDMS 20:20 No provider procedures requiring assistance completed. Patient did not have IV access rv during this emergency room visit. Administered Medications: 18:30 Drug: Hydrocodone-Acetaminophen PO (7.5 mg-325 mg) 1 tabs Route: PO; bp Medication: 17:42 VIS not applicable for this client. bp Outcome: 20:05 Discharge ordered by . kb 20:20 Discharged to home ambulatory. rv 20:20 Condition: stable 20:20 Discharge instructions given to patient, Instructed on discharge instructions, follow up and referral plans. medication usage, Demonstrated understanding of instructions, follow-up care, medications, Prescriptions given X 2. 20:21 Patient left the ED. rv Signatures: Dispatcher [employer] EDMS Kalyn Mtz, MADDIE JOHNSONP-Mayela Troya Anitra coughlin Kristie Garcia, RN RN Luz Marina Kong RN RN aa5 Kaleb Mccartney RN RN bp Bang Crawley RN RN rv Lewis, Lynsay, RN RN ll1 Corrections: (The following items were deleted from the chart) 17:38 17:37 Resp 16bpm; Spontaneous; Temp 99F; iw iw
--- NOTE | 2022-08-01 20:06 | EDPHYS ---
Physician Documentation [facility] Name: Nunu Azar Age: 41 yrs Sex: Female : 1980 Arrival Date: 08/01/2022 Time: 17:28 Bed 5 Private MD: ED Physician Reza Gaviria HPI: 08/01 20:04 This 41 yrs old Female presents to ER via Ambulatory with complaints of Abscess. kb 20:04 The patient presents with an abscess of the left gluteus chetna. Description: kb erythematous, swollen. Onset: The symptoms/episode began/occurred yesterday. Possible cause(s): unknown. Associated signs and symptoms: Pertinent positives: erythema, swelling. Modifying factors: the symptoms are alleviated by nothing, the symptoms are aggravated by pressure, squeezing the lesion and expressing the contents, touching. Severity of symptoms: At their worst the symptoms were moderate, in the emergency department the symptoms are unchanged. The patient has experienced similar episodes in the past, several times. The patient has not recently seen a physician. 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 - Social history:: Smoking status: . ROS: 20:03 Constitutional: Negative for fever, chills, and weight loss. kb 20:03 Skin: Positive for abscess, of the left gluteus chetna. 20:03 All other systems are negative. kb Exam: 20:03 Constitutional: This is a well developed, well nourished patient who is awake, alert, kb and in no acute distress. Head/Face: Normocephalic, atraumatic. ENT: Moist Mucous membranes Cardiovascular: Regular rate and rhythm with a normal S1 and S2. No gallops, murmurs, or rubs. No pulse deficits. Respiratory: Respirations even and unlabored. No increased work of breathing. Talking in full sentences MS/ Extremity: Pulses equal, no cyanosis. Neurovascular intact. Full, normal range of motion. Neuro: Awake and alert, GCS 15, oriented to person, place, time, and situation. Moves all extremities. Normal gait. 20:03 Skin: abscess, that is small, that is moderate sized, of the left gluteus chetna, with fluctuance, that is mild. Vital Signs: 17:37 BP 126 / 86; Pulse 80; Resp 16 S; Temp 99; Pulse Ox 100% on R/A; Weight 52.16 kg; iw Height 5 ft. 2 in. ; Pain 9/10; 17:37 Body Mass Index 21.03 (52.16 kg, 157.48 cm) iw 17:37 Pain Scale: Adult iw MDM: 17:31 Patient medically screened. kb 19:58 Differential diagnosis: abscess, allergic reaction, cellulitis, insect bite. Data kb reviewed: vital signs, nurses notes. Management of patient was discussed with the following: Knife Operator: Dr Lopez can see pt in office tomorrow afternoon. Counseling: I had a detailed discussion with the patient and/or guardian regarding: the historical points, exam findings, and any diagnostic results supporting the discharge/admit diagnosis, radiology results, the need for outpatient follow up, a general surgeon, to return to the emergency department if symptoms worsen or persist or if there are any questions or concerns that arise at home. ED course: Pt refuses I\T\D in ER, will call Dr Lopez's office in the morning for appt. 08/01 17:37 Order name: Urinalysis w/ reflexes; Complete Time: 18:52 kb 08/01 17:37 Order name: Test, Urine; Complete Time: 18:52 kb 08/01 18:38 Order name: Urine Culture EDCA 08/01 18:28 Order name: US Extrmty Nonvasular Limited; Complete Time: 19:42 kb Administered Medications: 18:30 Drug: Hydrocodone-Acetaminophen PO (7.5 mg-325 mg) 1 tabs Route: PO; bp Disposition Summary: 08/01/22 20:05 Discharge Ordered Location: Home kb Condition: Stable kb Diagnosis - Cutaneous abscess of buttock kb - UTI/ Urinary tract infection, site not specified kb Followup: kb - With: Emergency Department - When: As needed - Reason: Worsening of condition Followup: kb - With: Private Physician - When: 2 - 3 days - Reason: Recheck today's complaints, Continuance of care, Re-evaluation by your physician Discharge Instructions: - Discharge Summary Sheet kb - Skin Abscess, Ebto-or-Idsk kb - Urinary Tract Infection, Adult, [id number]-Wzlp kb Forms: - Medication Reconciliation Form kb - Thank You Letter kb - Antibiotic Education kb - Prescription Opioid Use kb Prescriptions: - Cephalexin 500 mg Oral Capsule - take 1 capsule by ORAL route every 8 hours for 10 days; 30 capsule; Refills: 0, kb Product Selection Permitted - Bactrim DS 800-160 mg Oral Tablet - take 1 tablet by ORAL route every 12 hours for 10 days; 20 tablet; Refills: 0, kb Product Selection Permitted Signatures: Dispatcher [employer] EDMS Kalyn Mtz, RIDE ASSEMBLY SUPERVISOR-C RIDE ASSEMBLY SUPERVISOR-Kristie Chacko, RN RN iw Kaleb Mccartney RN RN bp Corrections: (The following items were deleted from the chart) 20:04 19:58 ED course: Pt refuses I\T\D in ER. kb kb
[2022-08-01 20:41] VITALS: BP 126/86; TEMP 99; O2SAT 100
== END 2022-08-01 20:21 | disposition home or self-care (01) ==
LOC: ER 17:28
DX: L02.31 Cutaneous abscess of buttock (principal); N39.0 Urinary tract infection, site not specified; F31.9 Bipolar disorder, unspecified
CPT/HCPCS: 76882; 81001; 81025; 87086; 87088; 99284

== ENCOUNTER 2022-08-02 14:05 | Inpatient (IN) | payer BC ==
--- OUTSIDE RECORDS SUMMARY | 2022-08-02 14:09 | XMS REPORT | Continuity of Care Document ---
:1980 Author Organization [facility] t Address [address] [place] [address] Care Team Providers Name Role Phone PCP, PATIENT DOES NOT HAVE A Primary Care Physician UnavailADAMS Willett Attending Clinician Unavailable EMILY HAYDEN Attending Clinician Unavailable LAB90 Attending Clinician Unavailable Robbie Poon MD Attending Clinician ROBBIE POON Attending Clinician Unavailable Only, Adc Test Attending Clinician Unavailable Doctor Unassigned, [place] Attending Clinician Unavailable Robbie Poon MD Admitting Clinician ROBBIE POON Admitting Clinician Unavailable Payers Payer Name Policy Type Policy Number Effective Date Expiration Date S ouradam BCBS 2 [id number] 2022 00:00:00 Problems Condition Condition Condition Status [...] rs active active ity of problems problems [facility] Allergies, Adverse Reactions, Alerts Allergy Allergy Status Severity Reaction(s) Onset Inactive Treating Comm ents Source Name Type Date Date Clinician NO KNOWN Drug Active Univers ALLERGIE Class ity of S [facility] Social History Social Habit Start Date Stop Date Quantity Comments Source Exposure to Not sure [facility] SARS-CoV-2 (event) [facility] History SDOH Kay Lopez ld - Alcohol Frequency Externa l History SDOH Kay Lopez ld - Alcohol Std Drinks Apartment Assistant Manager al History ARIANAOH Kay Lopez ld - [...] Medication? Clinician (SIG) Name Name Aripiprazol Yes [id number] 5mg Take 1 Kay sharma (Abilify) 03-06 tablet (5 Sey bold 5 MG oral 00:00: mg total) - Tablet 00 by mouth Externa daily l Sertraline 0 Yes [id number] 25mg Take 1 K elsey HCl 25 MG 1-23 tablet (25 Seyb old oral Tablet 00:00: mg total) - 00 by mouth Externa daily l Propranolol Yes [id number] 10mg Take 1 Kay HCl 10 MG [...] Last dose on Sun07/23/19 at 0000, Routine
modular set crew member approving Restricted medication : JANICEJOSIAHErin ROBBIE lactated [...] 6-10 IV ity of (PHENERGAN) 03:55: Piggyback, [place] 12.5 mg in 31 Q6HPRN, Medica l [...] Topical, ity of (TRANSDERM- 17:45: 04:21 Administer [place] SCOP) patch 00 :33 over 72 Medic [...] 1215, Routine, DSU Pre-op phenazopyri 2018-02 Yes [id number] 200mg Take 1 Univers dine 200 mg 0-17 tablet by ity of tablet 00:00: mouth 3 [place] 00 (three) Medical times Branch daily. phenazopyri 2018-02 Yes [id number] 200mg Take 1 Univers dine 200 mg 0-17 tablet by ity of tablet 00:00: mouth 3 [place] 00 (three) Medical times Branch daily. phenazopyri 2018-02 2020- No [id number] 200mg Take 1 Univers dine 200 mg 0-17 -09 tablet by it y of tablet 00:00: 00:00 mouth 3 [place] 00 :00 (three) Medical times [place] daily. Vital Signs Vital Name Observation Time [...] Body temperature 2019-07-23 13:30:00 [facility].72 [facility] 2019-07-23 13:00:00 90 mm[Hg] Univer sity of pressure [facility] Diastolic blood 2019-07-23 13:00:00 55 mm[Hg] Unive rsity of [facility] Heart rate 2019-07-23 13:00:00 59 /min Universi ty [facility] Respiratory rate 2019-07-23 08:45:00 16 /min [facility] Oxygen saturation in 2019-07-23 08:45:00 100 /min University Arterial blood by [facility] Pulse oximetry Branch Body height 2019-07-21 14:00:00 [facility] Body weight 2019-07-21 14:00:00 55.792 kg [facility] BMI 2019-07-21 14:00:00 22.50 kg/m2 [facility] Body temperature 2019-07-23 13:30:00 36.72 Dahlia [facility] Systolic blood 2019-07-23 13:00:00 90 mm[Hg] Univer sity of pressure [facility] Diastolic blood 2019-07-23 13:00:00 55 mm[Hg] Unive rsity of [facility] Heart rate 2019-07-23 13:00:00 59 /min [facility] Respiratory rate 2019-07-23 08:45:00 16 /min [facility] Oxygen saturation in 2019-07-23 08:45:00 100 /min [facility] Arterial blood by [facility] Pulse oximetry Branch Body height 2019-07-21 14:00:00 157.5 cm [facility] Body weight 2019-07-21 14:00:00 55.792 kg [facility] BMI 2019-07-21 14:00:00 22.50 kg/m2 [facility] Procedures Procedure Date / Time Performing Clinician Source Performed ABORH CONFIRMATION 2019-07-22 17:50:00 Robbie Poon [facility] URINALYSIS 2019-07-22 17:40:00 [facility] METABOLIC PANEL 2019-07-22 17:36:00 Robbie Poon [facility] ([id number]) [facility] CBC WITH DIFFERENTIAL 2019-07-22 17:36:00 Ayah Robbie [facility] HB ABO GROUPING 2019-07-22 17:35:[address] [facility] [place] [place] COVID-19 (ID NOW RAPID 2019-07-21 14:23:00 Robbie Poon [facility] TESTING) [facility] ASSIGNMENT OF BENEFITS 2019-07-21 13:44:51 Doctor Unassigned, No University [facility] Name [facility] Branch Encounters Start End Encounter Admission Attending Care Care Encounter Source Date/Time Date/Time Type Type Clinicians Facility Department ID 2022-07-07 2022-07-07 Outpatient HUNDL, KAY MELGAR [id number] Kay 00:00:00 00:00:00 ADAMS Seybol d 2022-06-20 2022-06-20 Outpatient HUNDL, KAY MELGAR [id number] Kay 00:00:00 00:00:00 ADAMS Seybol d 2022-06-07 2022-06-07 Outpatient HUNDL, KAY MELGAR [id number] Kay 00:00:00 00:00:00 ADAMS Seybol d 2022-04-27 2022-04-27 Outpatient HUNDL, KAY MELGAR [id number] Kay 00:00:00 00:00:00 ADAMS Seybol d 2022-03-20 2022-03-20 Outpatient HUNDL, KAY MELGAR [id number] Kay 14:30:00 14:30:00 ADAMS Seybol d 2022-03-10 2022-03-10 Outpatient HUNDL, KAY MELGAR [id number] Kay 00:00:00 00:00:00 ADAMS Seybol d 2022-03-10 2022-03-10 Outpatient HUNDL, KAY MELGAR [id number] Kay 00:00:00 00:00:00 ADAMS Seybol d 2022-03-10 2022-03-10 Outpatient HUNDL, KAY MELGAR [id number] Kay 00:00:00 00:00:00 ADAMS Seybol d 2022-03-09 2022-03-09 Outpatient MINASSO, KAY MELGAR [id number] Kay 14:30:00 14:30:00 EMILY Sey bold 2022-03-07 2022-03-07 Outpatient LAB90 KAY MELGAR [id number] Kay 09:30:00 09:30:00 Seybol d 2022-03-06 2022-03-06 Outpatient HUNDL, KAY MELGAR [id number] Kay 14:00:00 14:00:00 ADAMS Seybol d 2019-07-22 2019-07-23 [facility] [id number] 11:59:00 09:35:00 [facility] Robbie Rushing [id number] [place] 4.2.7.2.686 [place] [id number] 2019-07-22 2019-07-23 Hospital Ayah [facility] [id number] Univers 11:59:00 09:35:00 Encounter Robbie Rushing 350.1.13.10 ity of [place] 4.2.7.2.686 [facility] [id number] [place] [id number] Branch 2019-07-22 2019-07-23 [facility] ROBERT [id number] Univers 11:59:00 09:35:00 ROBBIE bedolla [facility] 2019-07-21 2019-07-21 Laboratory Only, [facility] [id number] 08:46:49 09:01:49 Only Test Сегрей 350.1.13.10 [place] 4.2.7.2.686 [place] [id number] 2019-07-21 2019-07-21 Laboratory Only, Adc Test [facility] 1.2.840. [id number] Univers 08:46:49 09:01:49 Only Robbie Poon 350.1.13.10 ity of [place] 4.2.7.2.686 [facility] [id number] [address] 2019-07-21 2019-07-21 Outpatient R AYAH [facility] [id number] Univers 08:45:00 08:45:00 ROBBIE bedolla [facility] 2019-07-21 2019-07-21 Orders Doctor CARDENAS 1Carly2.840.114 [id number] 00:00:00 00:00:00 Only Unassigned, YANG 350.1.13.10 [place] [facility] 4.2.7.2.686 [id number] 2019-07-21 2019-07-21 Orders Doctor THERESA Nance2.840.114 [id number] Univers 00:00:00 00:00:00 Only Unassigned, YANG 350.1.13.10 ity of [place] [facility] 4.2.7.2.686 [facility] [id number] Medi remy 009 Branch Results Test Description Test Time Test Comments Results Result Comments Source Type and Screen - ONCE STAT 2019-07-22 18:31:01 Test Item Value Reference Range Interpretation Comme nts ABO & RH (test code = 20) O Positive Pe rformed at [facility] Laboratory [facility] Blood [place] [address]Toll Free: [phone] A No. [id number] IAT (test code = 1185) Negative Perfo rmed at [facility] Laboratory [facility] Blood [place] [address]Toll Free: [phone] A No. [id number] [facility] [place] [place]09 18:21:00 Test Item Value Reference Range Interpretation Comments APPEARANCE (test code = Hazy Clear A 2292597635) COLOR (test code = Yellow Yellow 2500109038) PH (test code = 4.8-8.0 6453018287) SP GRAVITY (test code = 1.003-1.030 9731632875) GLU U QUAL (test code = Normal Normal 9492916196) BLOOD (test code = Negative Negative 2549814302) KETONES (test code = Negative Negative 3920500838) PROTEIN (test code = Negative Negative 2887-8) UROBILIN (test code = Normal Normal 4592432259) BILIRUBIN (test code = Negative Negative 2479240160) NITRITE (test code = Negative Negative 2647552030) LEUK FABIOLA (test code = 25/uL Negative A 9219319151) RBC/HPF (test code = See_Comment [Autom ated message] 3685146748) The system Doorbot generated this result transmitted ref erence range: 0 - 3 HP F. The reference range was not used to int erpret this result as normal/abnormal . WBC/HPF (test code = See_Comment [Autom ated message] 6999032156) The system Doorbot generated this result transmitted ref erence range: 0 - 5 HP F. The reference range was not used to int erpret this result as normal/abnormal . BACTERIA (test code = Few Negative A 9487965555) MUCOUS (test code = Slight Negative LPF A 7712655722) SQ EPITH (test code = HPF 5543141573) SPERM (test code = See_Comment H [Automat ed message] 6406083302) The system Doorbot generated this result transmitted ref erence range: <=1 HPF. The reference range was not used to int erpret this result as normal/abnormal . Lab Interpretation (test Abnormal code = 24747-4) [facility] [place] [id number] 18:15:58 Test Item Value Reference Range Interpretation Comments ABO & RH (test code O Positive Performe d at [facility] = 20) Laboratory Serv [facility] Blood [facility] [place] [id number] Free: [phone] A No. [id number] [facility] METABOLIC PANEL (33848)2019-07-22 18:04:00 Test Item Value Reference Range Interpretation Comments NA (test code = 138 mmol/L 135-145 0557214219) K (test code = 4.2 mmol/L 3.5-5 7727239328) CL (test code = 109 mmol/L 98-108 H 3230939970) CO2 TOTAL (test code = 21 mmol/L 23-31 L 3743413595) AGAP (test code = 2-16 6133104725) BUN (test code = 11 mg/dL 7-23 6184935172) GLUCOSE (test code = 93 mg/dL 70-110 3483357997) CREATININE (test code = 0.58 mg/dL 0.5-1.04 9125627338) TOTAL BILI (test code = 0.8 mg/dL 0.1-1.2 0761797882) CALCIUM (test code = 9.1 mg/dL 8.6-10.6 7425956388) T PROTEIN (test code = 7.3 g/dL 6.3-8.2 9851247343) ALBUMIN (test code = 4.5 g/dL 3.5-5 9831796650) ALK PHOS (test code = 40 U/L 34-122 2743036562) ALTv (test code = 12 U/L 5-35 1742-6) AST(SGOT) (test code = 21 U/L 13-40 8076689010) eGFR Calculation mL/min/1.73m2 (Non-) (test code = 9439935671) eGFR Calculation mL/min/1.73m2 () (test code = 2854666439) YURIY (test code = YURIY) Association of [...] tests). Lab Interpretation Abnormal (test code = 76053-6) [facility] WITH [id number] 17:56:00 Test Item Value Reference Range Interpretation Comments WBC (test code = See_Comment [Automated 8796-2) message] The sy stem which generated this result transmitted reference range : 4.30 - 11.10 10*3/?L. The reference range was not used to interpret this result as normal/abnormal . RBC (test code = See_Comment [Automated 761-8) message] The sy stem which generated this [...] (test code = 53.2 fL 39-49.9 H 63920-0) RDW-CV (test code = 16.6 % 12-15.5 H 788-0) PLT (test code = See_Comment [Automated 777-3) message] The sy stem which generated this result transmitted reference range : 166 - 358 10*3/ ?L. The reference r jorge was not used to interpret this result as normal/abnormal . MPV (test code = 9.9 fL 9.5-12.9 00694-8) NRBC/100 WBC (test See_Comment [Automat ed code = 3165980998) message] The system which generated this result transmitted reference range : 0.0 - 10.0 /100 WBCs. The refer ence range was not u sed to interpret th is result as normal/abnormal . NRBC x10^3 (test code <0.01 See_Comment [Auto mated = 2067509730) message] The s ystem which generated this result transmitted reference range : 10*3/?L. The reference range was not used to interpret this result as normal/abnormal . GRAN MAT (NEUT) % 56.2 % (test code = 770-8) IMM GRAN % (test code 0.10 % = 3150330989) LYMPH % (test code = 32.0 % 736-9) MONO % (test code = 7.5 % 5905-5) EOS % (test code = 3.7 % 713-8) BASO % (test code = 0.5 % 706-2) GRAN MAT x10^3(ANC) 4.90 10*3/uL 1.88-7.09 (test code = 8366378029) IMM GRAN x10^3 (test <0.03 0-0.06 code = 2357724072) LYMPH x10^3 (test code 2.78 10*3/uL 1.32-3.29 = 731-0) MONO x10^3 (test code 0.65 10*3/uL 0.33-0.92 = 742-7) EOS x10^3 (test code = 0.32 10*3/uL 0.03-0.39 711-2) BASO x10^3 (test code 0.04 10*3/uL 0.01-0.07 = 704-7) Lab Interpretation Abnormal (test code = 02296-9) [facility] [place] (ID NOW RAPID TESTING)2019-07-21 14:49:00 Test Item Value Reference Range Interpretation Comments SARS-CoV-2 Rapid ID NOW Not Detected Not Detected (test code = 48129-3) YURIY (test code = YURIY) ID NOW COVID-19 Assay is an isothermal nucleic acid amplification test intended for the qualitative detection of nucleic acid from SARS-CoV-2 viral RNA in nasopharyngeal (NUMERICAL CONTROL ROUTER OPERATOR) specimens. It is used under Emergency [...] indicated. Lab Interpretation Normal (test code = 44241-0) [facility] [place] [place]"
--- NOTE | 2022-08-02 14:49 | ER ---
Nurse's Notes [facility] Name: Nunu Azar Age: 41 yrs Sex: Female : 1980 Arrival Date: 08/02/2022 Time: 14:05 Bed 11 Private MD: Diagnosis: Cutaneous abscess of buttock Presentation: 08/02 14:25 Chief complaint: Patient states: Abscess to L buttock x 2 days, denies fever N/V, sent ph by Dr Lopez for admission. Coronavirus screen: Vaccine status: Patient reports being unvaccinated. Ebola Screen: No symptoms or risks identified at this time. Initial Sepsis Screen: Does the patient meet any 2 criteria? No. Patient's initial sepsis screen is negative. Does the patient have a suspected source of infection? Yes: Skin breakdown/wound. Risk Assessment: Do you want to hurt yourself or someone else? Patient reports no desire to harm self or others. Onset of symptoms was August 02, 2022. 14:25 Method Of Arrival: Ambulatory ph 14:25 Acuity: RHINA 3 ph Historical: - Allergies: 14:28 No Known Allergies; ph - Home Meds: 14:28 propranolol 10 mg Oral tablet daily [Active]; ph - PMHx: 14:28 Anxiety; Bipolar disorder; Endometrosis; ph - PSHx: 14:28 Appendectomy; partial hysterectomy; ph Screenin:12 [facility] ED Fall Risk Assessment (Adult) History of falling in the last 3 months, ss including since admission No falls in past 3 months (0 pts). Abuse screen: Denies threats or abuse. Denies injuries from another. Nutritional screening: No deficits noted. Tuberculosis screening: Never had TB. Assessment: 15:34 Reassessment: RASS score 0. Pt eating at this time. Pt verbalizes understanding NPO ss after midnight. 18:12 Reassessment: Report called to VERONICA Monroe. ss Vital Signs: 14:25 BP 106 / 79; Pulse 87; Resp 18; Temp 98.2; Pulse Ox 100% on R/A; Weight 52.16 kg; ph Height 5 ft. 2 in. ; 17:02 BP 132 / 87; Pulse 69; Resp 14; Pulse Ox 100% on R/A; Pain 4/10; zm 14:25 Body Mass Index 21.03 (52.16 kg, 157.48 cm) ph 17:02 Pain Scale: Adult zm ED Course: 14:08 Patient arrived in ED. kj1 14:12 [facility] Larose [facility]C [facility] snw 14:12 Howie Jarvis MD is Attending Physician. snw 14:28 Triage completed. ph 14:28 Arm band placed on Patient placed in an exam room. ph 14:48 Mark Mix MD is Hospitalizing Provider. snw 15:13 Brandy Parr, VERONICA is Primary Nurse. ss 15:15 CBC with Diff Sent. rs5 15:15 CMP Sent. rs5 15:15 Inserted saline lock: 20 gauge in right antecubital area, using aseptic technique. rs5 Blood collected. 16:15 No provider procedures requiring assistance completed. Patient admitted, IV remains in ss place. 18:12 Patient has correct armband on for positive identification. ss Administered Medications: 15:27 Drug: NS 0.9% IV 1000 ml Route: IV; Rate: 1 bolus; Site: right antecubital; ss 17:01 Follow up: IV Status: Completed infusion; IV Intake: 1000ml ss 15:28 Drug: Famotidine IVP 20 mg Route: IVP; Site: right antecubital; ss 17:01 Follow up: Response: No adverse reaction ss 15:30 Drug: morphine IVP or IV 4 mg Route: IVP; Infused Over: 4 mins; Site: right antecubital;ss 15:46 Follow up: Response: No adverse reaction; Pain is decreased ss 15:33 Drug: Ciprofloxacin IVPB 400 mg Volume: 200 ml; Route: IVPB; Infused Over: 60 mins; ss Site: right antecubital; 17:01 Follow up: IV Status: Completed infusion ss 17:00 Drug: Ondansetron IVP 4 mg Route: IVP; Site: left antecubital; ss 18:13 Follow up: Response: No adverse reaction ss Medication: 18:12 VIS not applicable for this client. ss Intake: 17:01 IV: 1000ml; Total: 1000ml. ss Outcome: 14:49 Decision to Hospitalize by Provider. snw 16:15 Condition: good ss 16:15 Instructed on the need for admit. 18:12 Admitted to Med/surg accompanied by tech, family with patient, via wheelchair, room 428.ss 18:29 Patient left the ED. ss Signatures: Lesley Larose, ONCOLOGY CONSULTANT-C ONCOLOGY CONSULTANT-Csnw Brandy Parr, RN RN ss Edel Romo RN RN Smith, Zoe kj1 Gabriela Lopez Ricky rs5
--- NOTE | 2022-08-02 14:49 | EDPHYS ---
Physician Documentation [facility] Name: Nunu Azar Age: 41 yrs Sex: Female : 1980 Arrival Date: 08/02/2022 Time: 14:05 Bed 11 Private MD: ED Physician Howie Jarvis HPI: 08/02 14:37 This 41 yrs old Female presents to ER via Ambulatory with complaints of BOIL ON BOTTOM. snw 14:37 The patient presents with an abscess of the buttocks. Description: hot, raised, snw swollen. Onset: The symptoms/episode began/occurred 4 day(s) ago, and became worse yesterday. Severity of symptoms: At their worst the symptoms were moderate. The patient has been recently seen by a physician: Dr. Lopez earlier today. Historical: - Allergies: 14:28 No Known Allergies; ph - Home Meds: 14:28 propranolol 10 mg Oral tablet daily [Active]; ph - PMHx: 14:28 Anxiety; Bipolar disorder; Endometrosis; ph - PSHx: 14:28 Appendectomy; partial hysterectomy; ph ROS: 14:36 Constitutional: Negative for fever, chills, and weight loss, Eyes: Negative for injury, snw pain, redness, and discharge, ENT: Negative for injury, pain, and discharge, Neck: Negative for injury, pain, and swelling, Cardiovascular: Negative for chest pain, palpitations, and edema, Respiratory: Negative for shortness of breath, cough, wheezing, and pleuritic chest pain, Abdomen/GI: Negative for abdominal pain, nausea, vomiting, diarrhea, and constipation, Back: Negative for injury and pain, : Negative for injury, bleeding, discharge, and swelling, MS/Extremity: Negative for injury and deformity, Neuro: Negative for headache, weakness, numbness, tingling, and seizure, Psych: Negative for depression, anxiety, suicide ideation, homicidal ideation, and hallucinations. 14:36 Skin: Positive for abscess, cellulitis, of the left gluteus chetna. Exam: 14:35 Head/Face: Normocephalic, atraumatic. Eyes: Pupils equal round and reactive to light, snw extra-ocular motions intact. Lids and lashes normal. Conjunctiva and sclera are non-icteric and not injected. Cornea within normal limits. Periorbital areas with no swelling, redness, or edema. ENT: Nares patent. No nasal discharge, no septal abnormalities noted. Tympanic membranes are normal and external auditory canals are clear. Oropharynx with no redness, swelling, or masses, exudates, or evidence of obstruction, uvula midline. Mucous membranes moist. Neck: Trachea midline, no thyromegaly or masses palpated, and no cervical lymphadenopathy. Supple, full range of motion without nuchal rigidity, or vertebral point tenderness. No Meningismus. Chest/axilla: Normal chest wall appearance and motion. Nontender with no deformity. No lesions are appreciated. Cardiovascular: Regular rate and rhythm with a normal S1 and S2. No gallops, murmurs, or rubs. Normal PMI, no JVD. No pulse deficits. Respiratory: Lungs have equal breath sounds bilaterally, clear to auscultation and percussion. No rales, rhonchi or wheezes noted. No increased work of breathing, no retractions or nasal flaring. Abdomen/GI: Soft, non-tender, with normal bowel sounds. No distension or tympany. No guarding or rebound. No evidence of tenderness throughout. Back: No spinal tenderness. No costovertebral tenderness. Full range of motion. MS/ Extremity: Pulses equal, no cyanosis. Neurovascular intact. Full, normal range of motion. Neuro: Awake and alert, GCS 15, oriented to person, place, time, and situation. Cranial nerves II-XII grossly intact. Motor strength 5/5 in all extremities. Sensory grossly intact. Cerebellar exam normal. Normal gait. Psych: Awake, alert, with orientation to person, place and time. Behavior, mood, and affect are within normal limits. 14:35 Constitutional: The patient appears alert, awake, anxious, uncomfortable. 14:35 Skin: Appearance: normal except for affected area, abscess, that is moderate sized, of the left gluteus chetna, with fluctuance, with induration, with surrounding cellulitis, that is mild. Vital Signs: 14:25 BP 106 / 79; Pulse 87; Resp 18; Temp 98.2; Pulse Ox 100% on R/A; Weight 52.16 kg; ph Height 5 ft. 2 in. ; 17:02 BP 132 / 87; Pulse 69; Resp 14; Pulse Ox 100% on R/A; Pain 4/10; zm 14:25 Body Mass Index 21.03 (52.16 kg, 157.48 cm) ph 17:02 Pain Scale: Adult zm MDM: 14:12 Patient medically screened. snw 14:15 Differential diagnosis: abscess, cellulitis. Data reviewed: vital signs, nurses notes, snw lab test result(s). Management of patient was discussed with the following: Special Events Manager: Spoke to Dr. Lopez re: need for I\T\D under anesthesia, He is aware. Pt was here yesterday under Nunumary Johnson. She followed up in Dr. Lopez's office today. Pt with anxiety and pain and I\T\D will be performed tomorrow in the OR. 14:44 Management of patient was discussed with the following: Hospitalist: Dr. Mix to admit snw for IV abx, NPO post MN, management of chronic illnesses, Dr. Lopez will take pt to OR tomorrow for I\T\D. Counseling: I had a detailed discussion with the patient and/or guardian regarding: the historical points, exam findings, and any diagnostic results supporting the discharge/admit diagnosis, the need for further work-up and treatment in the hospital. 08/02 14:29 Order name: CBC with Diff; Complete Time: 15:18 snw 08/02 14:29 Order name: CMP; Complete Time: 15:34 snw 08/02 16:52 Order name: Phosphorus; Complete Time: 17:00 EDMS 08/02 16:52 Order name: Magnesium; Complete Time: 17:00 EDMS 08/02 14:29 Order name: EKG; Complete Time: 14:29 snw 08/02 16:01 Order name: CONS Physician Consult EDMS 08/02 14:29 Order name: IV Saline Lock; Complete Time: 15:15 snw 08/02 14:29 Order name: Labs collected and sent; Complete Time: 15:15 snw 08/02 14:29 Order name: EKG - Nurse/Tech; Complete Time: 15:15 snw EC:18 Rate is 71 beats/min. Rhythm is regular. QRS [place] is Normal. [place] interval is normal. QRS snw interval is normal. Clinical impression: Normal ECG. Administered Medications: 15:27 Drug: NS 0.9% IV 1000 ml Route: IV; Rate: 1 bolus; Site: right antecubital; ss 17:01 Follow up: IV Status: Completed infusion; IV Intake: 1000ml ss 15:28 Drug: Famotidine IVP 20 mg Route: IVP; Site: right antecubital; ss 17:01 Follow up: Response: No adverse reaction ss 15:30 Drug: morphine IVP or IV 4 mg Route: IVP; Infused Over: 4 mins; Site: right antecubital;ss 15:46 Follow up: Response: No adverse reaction; Pain is decreased ss 15:33 Drug: Ciprofloxacin IVPB 400 mg Volume: 200 ml; Route: IVPB; Infused Over: 60 mins; ss Site: right antecubital; 17:01 Follow up: IV Status: Completed infusion ss 17:00 Drug: Ondansetron IVP 4 mg Route: IVP; Site: left antecubital; ss 18:13 Follow up: Response: No adverse reaction ss Disposition: 21:24 Co-signature as Attending Physician, Howie Jarvis MD I reviewed the patient's care rt provided by the Advanced Practice Provider and agree with the diagnosis and treatment plan. Disposition Summary: 08/02/22 14:49 Hospitalization Ordered Hospitalization Status: Observation snw Provider: Mark Mix snjenise Location: Telemetry/MedSur (observation) snw Condition: Stable snw Problem: new snw Symptoms: have worsened snw Bed/Room Type: Standard snw Room Assignment: 428(08/02/22 17:32) bd Diagnosis - Cutaneous abscess of buttock snw Forms: - Medication Reconciliation Form snw - SBAR form snw Signatures: Dispatcher [employer] EDRachell Burgess Shelly, FNP-C PRIEST-Csnw Brandy Parr RN RN Edel Romo RN RN Howie Jarvis MD MD rt Corrections: (The following items were deleted from the chart) 17:32 14:49 snw bd
[2022-08-02 15:12] LABS: Absolute Lymphocytes (CBC) 2.5 K/uL (0.7-4.9); Hematocrit 43.6 % (36.0-45.0); Lymphocytes % 20.3 % (15.3-44.8); MPV 8.5 fL (7.6-11.3); RBC Red Blood Cell Count 4.28 M/uL (3.86-4.86)
[2022-08-02 15:29] LABS: Albumin 3.6 g/dL (3.4-5.0); Bilirubin Total 0.5 mg/dL (0.2-1.0); Potassium 4.1 mEq/L (3.5-5.1); Protein, Total 6.9 g/dL (6.4-8.2)
[2022-08-02] MEDS ORDERED: MORPHINE 4 MG/ML SYR ONE (15:30)
[2022-08-02] MEDS ORDERED: FAMOTIDINE 20 MG/2 ML VIAL IV ONE (15:31)
[2022-08-02] MEDS ORDERED: CIPROFLOXACIN 400mg IV 400 MG/200 ML BAG IV ONE (15:31)
[2022-08-02] MEDS ORDERED: NA CHLORIDE 0.9% 1,000 ML ONE (15:31)
[2022-08-02] MEDS ORDERED: ACETAMINOPHEN 325 MG TABLET PO PRN (15:56)
[2022-08-02] MEDS ORDERED: MORPHINE 4 MG/ML SYR IV PRN (15:56)
--- NOTE | 2022-08-02 16:10 | P.HP ---
Certification for Inpatient Patient admitted to: Inpatient With expected LOS: >2 Midnights Patient will require the following post-hospital care: None Practitioner: I am a practitioner with admitting privileges, knowledge of patient current condition, hospital course, and medical plan of care. Services: Services provided to patient in accordance with Admission requirements found in Title 42 Section 412.3 of the Code of Federal Regulations Patient History Date of Service: 08/02/22 Reason for admission: Left buttocks abscess. History of Present Illness: Patient is a 41-year-old female with a past medical history significant for anxiety disorder, bipolar disorder, depression, nicotine dependence who presents with complaint of left buttocks swelling\pain\redness that became worse in the last 2 days. Patient reported that she has been having an induration on in the left buttocks for the past 2 years and has been able to manage it conserva tively. Patient reported that 2 days ago she started experiencing worsening symptoms. Patient reported associated signs and symptoms of chills . Symptoms are aggravated by sitting on affected side and relieved by nothing. Patient was seen in the hospital yesterday and was discharged home with antibiotics and pain medication. Patient did not want ER staff to perform an I&D. Patient was instructed to follow-up with his surgeon this morning. Patient went to see a surgeon today and was instructed to come to the ER. Allergies No Known Allergies Allergy (Verified 10/04/19 04:45) Home Medications: NK [No Home Meds] 10/04/19 - Past Medical/Surgical History Diabetic: No -: Anxiety -: Bipolar -: Endometriosis -: Partial hysterectomy Psychosocial/ Personal History: Patient lives at home with her significant other. - Social History Smoking Status: Current every day smoker Counseled patient to stop smoking for: less than 10 minutes Smoking therapy provided: Yes Patient receptive to therapy: Yes Alcohol use: Yes CD- Drugs: No Caffeine use: Yes Place of Residence: Home Review of Systems General: Chills Eyes: Unremarkable ENT: Unremarkable Respiratory: Unremarkable Cardiovascular: Unremarkable Gastrointestinal: Unremarkable Genitourinary: Unremarkable Musculoskeletal: Other (left buttoks pain) Integumentary: Other (left buttoks redenss\swelling) Neurological: Unremarkable Lymphatics: Unremarkable Physical Examination - Physical Exam General: Alert, Oriented x3, Cooperative, Mild distress HEENT: Atraumatic, PERRLA, Mucous membr. moist/pink, EOMI, Sclerae nonicteric Neck: Supple, 2+ carotid pulse no bruit, No LAD, Without JVD or thyroid abnormality Respiratory: Clear to auscultation bilaterally, Normal air movement Cardiovascular: No edema, Regular rate/rhythm, Normal S1 S2 Capillary refill: <2 Seconds Gastrointestinal: Normal bowel sounds, Non-distended, No tenderness Musculoskeletal: No clubbing, No tenderness Integumentary: No rashes, Other (left buttoks redenss\swelling) Neurological: Normal speech, Normal tone, Normal affect Lymphatics: No axilla or inguinal lymphadenopathy - Studies Laboratory Data (last 24 hrs) 08/02/22 15:01: Sodium 140, Potassium 4.1, BUN 17, Creatinine 0.70, Glucose 97, Total Bilirubin 0.5, AST 12 L, ALT 18, Alkaline Phosphatase 48 08/02/22 15:01: WBC 12.30 H, Hgb 14.1, Hct 43.6, Plt Count 272 Assessment and Plan - Plan -- Left buttocks abscess. Blood cultures pending. Surgeon consulted. Continue antibiotics. Surgery planned surgery in AM. We will keep patient n.p.o. We will await further recommendation from surgeon. --Acute pain. We will manage pain with current pain medication regimen. --Leukocytosis. Likely secondary to abscess. Blood cultures pending. Continue antibiotics. --Bipolar disorder\anxiety disorder\depression. Continue home medications. -- Nicotine dependence. Patient counseled on tobacco cessation and placed on nicotine patch. --DVT prophylaxis with SCDs. Discharge Plan: Home Plan to discharge in: Greater than 2 days - Advance Directives Does patient have a Living Will: No Does patient have a Durable POA for Healthcare: No - Code Status/Comfort Care Code Status Assessed: Yes Physician Review: Patient Assessed, Agree with Above Assessment and Plan Critical Care: No
[2022-08-02 16:51] LABS: Magnesium 2.2 mg/dL (1.6-2.4); Phosphorus 2.7 mg/dL (2.5-4.9)
[2022-08-02] MEDS ORDERED: ONDANSETRON 4 MG/2 ML VIAL ONE (17:06)
[2022-08-02] MEDS: PIPER TAZO 3.375 GM in NA CHLORIDE 0.9% 100 ML IV SCH (18:42)
[2022-08-03] MEDS: ONDANSETRON 4 MG/2 ML VIAL IV PRN ×2 (00:09→13:30)
[2022-08-03] MEDS ORDERED: PANTOPRAZOLE 40 MG INJ IVP ONE (00:31)
[2022-08-03] MEDS ORDERED: SODIUM CHLORIDE 0.9% 10ML INJ IV PRN (00:31)
[2022-08-03] MEDS ORDERED: KETOROLAC 30 MG/ML INJ IV ONE (00:32)
[2022-08-03] MEDS: PIPER TAZO 3.375 GM in NA CHLORIDE 0.9% 100 ML IV SCH ×3 (01:03→16:51)
[2022-08-03 06:41] LABS: Absolute Lymphocytes (CBC) 2.1 K/uL (0.7-4.9); Hematocrit 36.2 % (36.0-45.0); Lymphocytes % 20.6 % (15.3-44.8); MCV 100.8 fL (80-100); MPV 8.4 fL (7.6-11.3); RBC Red Blood Cell Count 3.59 M/uL (3.86-4.86)
[2022-08-03] MEDS: NICOTINE 21 MG/PAT TD SCH (08:46)
[2022-08-03] MEDS ORDERED: Ringers Lactate 1,000 ML IV ONE (09:38)
[2022-08-03] MEDS ORDERED: propofoL 200 MG/20 ML VIAL IV ONE (10:02)
[2022-08-03] MEDS ORDERED: ONDANSETRON 4 MG/2 ML VIAL ONE (10:03)
[2022-08-03] MEDS ORDERED: FENTANYL CITR 100 MCG/2 ML ONE (10:03)
[2022-08-03] MEDS ORDERED: LIDOCAINE 2% MPF 5 ML VIAL ONE (10:03)
[2022-08-03] MEDS ORDERED: MIDAZOLAM HCL 2 MG/2 ML INJ ONE (11:07)
[2022-08-03] MEDS ORDERED: KETOROLAC 30 MG/ML INJ ONE (11:19)
[2022-08-03] MEDS ORDERED: dexAMETHasone 4 MG/ML VIAL ONE (11:19)
--- NOTE | 2022-08-03 11:35 | P.BOP ---
Preoperative diagnosis: left buttock abscess/cellulitis Postoperative diagnosis: same Primary procedure: Incision and drainage of complex left buttock abscess 4x4cm Estimated blood loss: <10cc Specimen: pus Findings: pus, multiple loculations Anesthesia: General Complications: None Drain(s): Other (02/15" iodoform) Transferred to: Recovery Room Condition: Good
[2022-08-03] MEDS: FENTANYL CITR 100 MCG/2 ML ONE ×2 (12:10→12:12)
[2022-08-03 15:58] VITALS: BMI 20.8
--- NOTE | 2022-08-03 16:59 | CON ---
Date of Consultation: 08/03/2022 Reason For Consultation: Left buttock cellulitis and abscess, failure of outpatient treatment. History Of Present Illness: This is the case of a 41-year-old patient, who comes to us for a right t tori left buttock area cellulitis. She was in the ER 2 days ago, started on antibiotics. Yesterday , came to the office getting worse and she was admitted to the hospital. She started on IV antibioti cs and a surgical consult was obtained for a drainage of an abscess. She denies any trauma, denies a ny dysuria, hematuria, hematochezia, melena. Denies any recent traveling out of the country. Denies any family member sick at home. She has no problem with constipation. No problem with any perianal tenderness. Review of Systems: Ten points otherwise unremarkable. Allergies: MORPHINE. Family History: Noncontributory. Past Medical History: Diabetes, bipolar disorder, anxiety, endometriosis. Past Surgical History: Includes partial hysterectomy. Social History: The patient smokes every day. She was advised the importance of consult about smoke cessation. She does not use any IV drugs. Review of Systems: Once again, see above. Physical Examination: General: Patient is awake and alert. HEENT: Pupils are equal and reactive. Anicteric. Neck: Supple. Chest: Clear. Heart: S1, S2. Abdomen: Soft and depressible. No guarding or rebound no perineal signs. Integumentary: Shows a left buttock swelling, redness, increased temperature consistent with an absc ess. It is about 8 x 8 cm area. Perianal area is not involved. Extremities: Good capillary refill. Laboratory Data: Blood work shows WBC count of 12.3, hemoglobin of 14.1, chloride is 110, total bili burnette of 0.5. The patient had an ultrasound done about 2 days ago that shows a 2.5 cm fluid collecti on in the left buttock, probably an abscess. Assessment: This is a 41-year-old patient with left buttock abscess, patient understand incision and drainage. The benefits, alternatives, and risks which include, but not limited to infection, bleedi ng, damage to adjacent structures, anesthesia complication, myocardial infarction, and even . S he also understand she will require wound care and she will need to be compliant with wound care and also antibiotics given. HM/MODL Voice ID: [id number] Report ID: [id number]
--- NOTE | 2022-08-03 17:42 | EKG ---
Test Date: 2022-08-02 Test Time: 15:18:16 Machine Cementer: HOWARD MEASUREMENT RESULTS: Intervals: Rate: 71 UT: 156 QRSD: 80 QT: 364 QTc: 395 [place]: P: 71 UT: 156 QRS: 75 T: 66 INTERPRETIVE STATEMENTS: Normal sinus rhythm Normal ECG No previous ECG available for comparison Electronically Signed On 08-03-22 17:39:39 CDT by Steve Bloom
--- NOTE | 2022-08-03 19:08 | P.PN ---
Subjective Date of Service: 08/03/22 Chief Complaint: Left buttocks abscess. No acute events overnight. She reports her left buttock pain is moderate this morning. She denies any fevers or chills. She has been NPO past midnight in anticipation for incision and drainage today. Review of Systems 10-point ROS is otherwise unremarkable Musculoskeletal: Back Pain (left buttock) Integumentary: Rash (left buttock abscess) Physical Examination - Vital Signs Temperature: 98.3 F Blood Pressure: 106/58 Pulse: 54 Respirations: 16 Pulse Ox (%): 97 - Physical Exam General: Alert, In no apparent distress, Oriented x3 HEENT: Atraumatic, Mucous membr. moist/pink, Sclerae nonicteric Neck: JVD not distended Respiratory: Clear to auscultation bilaterally, Normal air movement Cardiovascular: No edema, Regular rate/rhythm, Normal S1 S2, No gallops, No rubs, No murmurs Gastrointestinal: Normal bowel sounds, Soft and benign, Non-distended, No tenderness, No rebound, No guarding Musculoskeletal: No clubbing Integumentary: Skin lesion (abscess measuring ~3-4 cm on left buttock.), Other (Sizing Sprayer present for exam: VERONICA Paredes) Neurological: Normal speech, Normal affect Assessment And Plan - Plan # Left Buttock Abscess - Does not meet sepsis criteria - General Surgery consulted and spoke with Dr. Lopez - recommendations appreciated - Plan for I&D today - Continue piperacillin-tazobactam - She reports that the morphine made her nauseous. Switched to Tylenol # 3. # Bipolar Disorder # Anxiety # Depression - Resume home medications once verified # Tobacco Use Disorder - Nicotine patch - Tobacco cessation counseling Mark Mix M.D.
[2022-08-03 21:34] VITALS: O2SAT 94
[2022-08-03] MEDS: CODEINE 30MG/APAP 300MG TAB PO PRN (21:34)
--- NOTE | 2022-08-03 22:34 | OP ---
Date of Procedure: 08/01/2022 Surgeon: Darnell Lopez MD Preoperative Diagnosis: Complex abscess, left buttocks, about 4 x 4 cm with cellulitis of the buttoc ks. Postoperative Diagnosis: Complex abscess, left buttocks, about 4 x 4 cm with cellulitis of the butto cks. Procedures: Incision and drainage of complex left buttock abscess about 4 x 4 cm. Anesthesia: General plus local. Packing: Iodoform quarter of an inch. Specimen: Pus culture. Indication: This is the case of a 41-year-old patient, who came to the ER, went home, came back once again to the ER with buttock cellulitis, not responding to outpatient treatment. Surgical consult w as obtained for fluctuance and cellulitis and abscess in the left buttock. The patient was started o n antibiotics. She was fully explained the benefits, alternatives, and risks of incision and drainag e of the buttocks abscess, which include, but not limited to, infection, bleeding, damage to adjacent structures, anesthesia complication, nonhealing wound, UT, and . She also understands she will require wound care and she has to be compliant with treatment. She says she has her boyfriend and h er son who can help with dressing changes. She signed the consent. The area of concern was marked b y me and the patient in the holding room. Description Of Procedure: The patient was brought to the operating room and placed in supine positio n. Anesthesia was done without complication. Left buttock was prepped and draped in the usual steri le fashion. Lidocaine 1% plain was injected for local anesthetic followed by sharp incision of the s kin. One we have that, we have mayank pus coming from the area. The patient has multiple loculations that we have to explore with the blunt dissection and also a hemostat. We opened all the loculation s after we obtained culture. We irrigated the area, obtained hemostasis, and packed the area with a quarter of an inch iodoform. The patient tolerated the procedure well. The patient was sent to [facility] in stable condition. ANN/IWONA Voice ID: [id number] Report ID: [id number]
[2022-08-04] MEDS: PIPER TAZO 3.375 GM in NA CHLORIDE 0.9% 100 ML IV SCH ×2 (00:36→08:10)
[2022-08-04 03:19] LABS: Specific Gravity 1.025 (1.005-1.030); Urine Bacteria <20 /HPF (<20); Urine Bilirubin NEGATIVE (Negative); Urine Blood Negative (Negative); Urine Clarity Extremely Turbid (Clear); Urine Color Light-Yellow (Yellow); Urine Glucose NEGATIVE (Negative); Urine Mucus Slight /HPF (None Seen); Urine Protein TRACE (Negative); Urine RBC <5 /HPF (None Seen); Urine Urobilinogen Normal (Normal)
[2022-08-04 04:19] LABS: Hematocrit 37.3 % (36.0-45.0)
[2022-08-04] MEDS ORDERED: PROPRANOLOL HCL 10 MG TAB PO ONE (07:37)
[2022-08-04 08:11] VITALS: TEMP 98.1
[2022-08-04] MEDS: CODEINE 30MG/APAP 300MG TAB PO PRN (08:11)
[2022-08-04] MEDS: NICOTINE 21 MG/PAT TD SCH (08:11)
--- NOTE | 2022-08-04 08:53 | P.DS ---
Admission Date: 08/02/22 Discharge Date: 08/04/22 Disposition: ROUTINE DISCHARGE Discharge Condition: GOOD Reason for Admission: Left buttocks abscess. Consultations: 1. General Surgery Procedures: - 08/03/2022 - Incision and Drainage of Complex Left Buttock Abscess (4 cm x 4 cm) Hospital Course: DIAGNOSES: # Left Buttock Purulent Cellulitis with Abscess (4 cm x 4 cm) # Bipolar Disorder # Anxiety # Depression # Tobacco Use Disorder HOSPITAL COURSE: Ms. Nunu Azar is a 41 year old female with a past medical history significant for bipolar disorder, anxiety, depression, and tobacco use disorder who was admitted to [facility] 08/02/2022 for left buttock cellulitis with abscess. She was admitted to the Medicine service. Upon further evaluation, she was found to have cellulitis with an abscess on her left buttock. She did not meet sepsis criteria during her hospitalization. She was started on piperacillin-tazobactam and General Surgery was consulted. She was evaluated by Dr. Lopez and, on 08/03/2022, she underwent incision and drainage of complex left buttock abscess. She tolerated the procedure well. Over the course of her hospitalization, her symptoms improved significantly. Dr. Lopez has cleared her for discharge with amoxicillinclavulanate. On 08/04/2022, she was seen on morning rounds and deemed medically stable for discharge. She was discharged with instructions to schedule follow-up appointments with her PCP (BELA Eastman) and with General Surgery (Dr. Lopez). I have updated BELA Eastman, who will assist with outpatient follow-up. She was provided prescriptions for amoxicillin-clavulanate and hydrocodone- acetaminophen. She was given the opportunity to ask questions and reported no further questions. Furthermore, all questions were answered to the best of my ability. Prior to the controlled substance prescription, a PDMP review was conducted. Over the last 2 years, she has received 1 controlled prescription, from 1 provider, to 1 pharmacy. Her opioid overdose risk score is 110. A copy of this discharge summary will be sent to the above providers to facilita te continuity of care. Today, I personally spent 20 minutes on her case, of which greater than 50% of the time was spent in patient education, counseling, and coordination of care as described above. - Physical Exam General: Alert, In no apparent distress, Oriented x3 HEENT: Atraumatic, Mucous membr. moist/pink, Sclerae nonicteric Neck: JVD not distended Respiratory: Clear to auscultation bilaterally, Normal air movement Cardiovascular: No edema, Regular rate/rhythm, No murmurs Gastrointestinal: Normal bowel sounds, Soft, Non-distended, No tenderness Musculoskeletal: No clubbing Integumentary: Surgical site covered in clean dressing, Other (Supply Technician present for exam: VERONICA Howard) Neurological: Normal speech, Normal affect Vital Signs/Physical Exam: Temp Pulse Resp BP Pulse Ox 98.1 F 62 18 107/55 98 08/04/22 08:00 08/04/22 10:22 08/04/22 08:11 08/04/22 10:22 08/04/22 08:11 Laboratory Data at Discharge: WBC 10.30 thou/uL (4.3-10.9) 08/03/22 06:25 Hgb 12.5 g/dL (12.0-15.0) 08/04/22 03:17 Hct 37.3 % (36.0-45.0) 08/04/22 03:17 Plt Count 224 thou/uL (152-406) 08/03/22 06:25 Sodium 138 mEq/L (136-145) 08/03/22 06:25 Potassium 4.0 mEq/L (3.5-5.1) 08/03/22 06:25 BUN 14 mg/dL (7-18) 08/03/22 06:25 Creatinine 0.67 mg/dL (0.55-1.02) 08/03/22 06:25 Glucose 107 mg/dL (74-106) H 08/03/22 06:25 Phosphorus 2.7 mg/dL (2.5-4.9) 08/02/22 15:01 Magnesium 2.2 mg/dL (1.6-2.4) 08/02/22 15:01 Total Bilirubin 0.5 mg/dL (0.2-1.0) 08/02/22 15:01 AST 12 U/L (15-37) L 08/02/22 15:01 ALT 18 U/L (13-56) 08/02/22 15:01 Alkaline Phosphatase 48 U/L (45-117) 08/02/22 15:01 Home Medications: Propranolol [Inderal*] 10 mg PO TID 08/02/22 Amox/Clavulanate [Augmentin 875-125 Tab] 875 mg PO BID 7 Days #14 tab 08/04/22 Hydrocodone 5/APAP 325 [[place] 5/325*] 1 tab PO Q6H PRN 3 Days #12 tab 08/04/22 New Medications: Amox/Clavulanate [Augmentin 875-125 Tab] 875 mg PO BID 7 Days #14 tab Hydrocodone 5/APAP 325 [[place] 5/325*] 1 tab PO Q6H PRN 3 Days #12 tab PRN Reason: Pain Physician Discharge Instructions: 1. Please call and schedule a follow-up appointment with your PCP (BELA Eastman) in 3-5 days 2. Please call and schedule a follow-up appointment with General Surgery (Dr. Lopez) in 5-7 days - Please take your blood pressure before taking your pain medicine. If the top number is less than 100, please do not take a dose. Please contact your PCP or us ([phone]) for further instruction. - Please do not drive or operate heavy machinery while taking pain medicine Diet: Regular Activity: Ad thea Followup: Darnell Lopez MD [ACTIVE - CAN ADMIT] - 1 Week (Call for appointment.) Kathya Eastman FNP [OUTSIDE PHYSICIAN] - 2-3 Days (Call for appointment.) Time spent managing pt's care (in minutes): 20
[2022-08-04 10:22] VITALS: BP 107/55
== END 2022-08-04 10:48 | disposition home or self-care (01) | DRG 603 ==
LOC: ER 14:05 → ERHOLD 15:57 → 4TH 18:11
PROVIDERS: ADMIT Internal Medicine; ATTEND Internal Medicine
PROC: 0J990ZX Drainage of Buttock Subcutaneous Tissue and Fascia, Open Approach, Diagnostic (ICD-10-PCS; principal; 2022-08-01)
DX: L02.31 Cutaneous abscess of buttock (principal); L03.317 Cellulitis of buttock; R52 Pain, unspecified; F31.9 Bipolar disorder, unspecified; F41.9 Anxiety disorder, unspecified; F17.200 Nicotine dependence, unspecified, uncomplicated; Z71.6 Tobacco abuse counseling; Z88.5 Allergy status to narcotic agent
CPT/HCPCS: 36415; 80048; 80053; 81001; 83735; 84100; 85014; 85018; 85025; 87040; 87070; 87075; 87077; 87186; 87205; 93005; 99285; C9113; J0744; J1100; J2001; J2250; J2405; J2543; J2704; J3010; J7030; J7120

== ENCOUNTER 2024-09-21 10:47 | Emergency (ER) | payer BC ==
--- OUTSIDE RECORDS SUMMARY | 2024-09-21 10:52 | XMS REPORT | Continuity of Care Document ---
Author Name Unknown Address [address] [facility] [address] [place] [address] [facility] Address [address] [facility] [address] [place] [address] Care Team Providers Care Hooker Inspector Name Role Phone Adams Eastman NP Primary Care Physician Nathalie Arcos MA Attending Clinician UnavailJAVI Galindo Attending Clinician Unavail Javi Schmitt MD Attending Clinician [phone] [id number] Attending Clinician Unavailable [facility] Attending Clinician Unavailabl LASHAE Garza Attending Clinician Unavailable KEVEN PARRISH Attending Clinician UnaADAMS Chung Attending Clinician Unavailable MD KIRBY Attending Clinician UnavailEMILY Miles Attending Clinician UnavailRobbie Mack MD Attending Clinician [phone] ROBBIE POON Attending Clinician Unavailbrittni e Only, Adc Test Attending Clinician Unavailable Doctor Unassigned, [place] Attending Clinician U Robbie Fish MD Admitting Clinician [phone] ROBBIE POON Admitting Clinician Unavailabl e Payers Payer Name Policy Type Policy Number Effective Date Expirati on Date Source [facility] 2 [id number] 2022 00:00:00 Problems Condition Name Condition Details Condition Category Status Onset Date Resolution Date Last Treatment Date Treating Clinician Comments Source Vertigo Vertigo Disease Active 2023-02 00:00: 00 Casie Luo Epic Headache Headache Disease Active 2023-02 00:00: 00 Memguerda l [place] Epic Tremor Tremor Disease Active 2023-02 00:00: 00 Memoria l [place] Epic Bipolar 1 disorder, depressed (CMS/HCC) Bipolar 1 disorder, depressed (CMS/HCC) Disease Active 03-06 00:00: 00 Memguerda l [place] Epic Borderline schizophre breanna Borderline schizophre breanna Disease Active 03-06 00:00: 00 Casie Luo Epic CATHRYN (generaliz ed anxiety disorder) CATHRYN (generaliz ed anxiety disorder) Disease Active 03-06 00:00: 00 Casie Luo Epic Borderline schizophre breanna Borderline schizophre breanna Disease Active 03-06 00:00: 00 Kay Seybold - Externa l No known active problems No known active problems Disease [facility] Pneumoperi toneum Pneumoperi toneum Disease Resolve d 06-05 00:00: 00 2024-06-05 00:00:00 2024-06-05 15:00:23 Casie Luo Epic Appendicit is Appendicit is Disease Resolve d 06-05 00:00: 00 2024-06-05 00:00:00 2024-06-05 15:00:23 Autumnoria l [place] Epic Allergies, Adverse Reactions, Alerts Allergy Name Allergy Type Status Severity Reaction(s) Onset Date Inactive Date Treating Clinician Comments Source Morphine Propensi ty to adverse reaction s Active 2023-02 00:00: 00 Casie Richterann Epic Morphine Propensi ty to adverse reaction s Active GI intolerance 08-03 00:00: 00 Casie Luo Epic NO KNOWN ALLERGIE S Drug Class Active [facility] Social History Social Habit Start Date Stop Date Quantity Comments Source Gender identity 2023-05-06 00:38:26 Identifies as female gender (finding) [facility] Exposure to SARS-CoV-2 (event) Not sure [facility] ASSERTION Possible [facility] Sexual orientation [facility] History of tobacco use Passive smoker [facility] History SDOH Alcohol Frequency Kay Mariee bold - External History SDOH Alcohol Std Drinks Kay Se ybold - External History SDOH Alcohol Binge Kay ybold - External Alcoholic beverage intake 2024-07-09 00:00:00 2024-07-09 00:00:00 .14 /d [facility] History of Social function 2024-07-09 00:00:00 2024-07-09 00:00:00 [facility] Cigarettes smoked current (pack per day) - Reported 2023-11-19 00:00:00 2023-11-19 00:00:00 [facility] Cigarette pack-years 2023-11-19 00:00:00 2023-11-19 00:00:00 [facility] Sex 2023-05-06 00:38:26 2023-05-06 00:38:26 Female (finding) [facility] Alcohol intake 2022-08-09 00:00:00 2022-08-09 00:00:00 .14 /d Kay Smith - External Alcohol Comment 2022-03-06 00:00:00 2022-03-06 00:00:00 RARE Kay Smith - External Tobacco use and exposure 2022-03-06 00:00:00 2022-03-06 00:00:00 Smokeless tobacco non-user Kay Smith - External Sex Assigned At 1980 00:00:00 1980 00:00:00 Kay Smith - External Smoking Status Start Date Stop Date Source Smokes tobacco daily 2023-11-19 00:00:00 [facility] Medications Ordered Medication Name Filled Medication Name Start Date Stop Date Current Medication? Ordering Clinician Indication Dosage Frequency Signature (SIG) Comments Components Source eletriptan (Relpax) 40 MG tablet eletriptan (Relpax) 40 MG tablet 07-09 00:00: 00 07-09 23:59 :00 No 40mg Take 1 tablet by mouth 1 time if needed for migraine (may repeat x1) for up to 1 dose. May repeat in 2 hours if unresolved . Do not exceed 80 mg in 24 hours. [facility] divalproex (Depakote ER) 500 MG 24 hr tablet divalproex (Depakote ER) 500 MG 24 hr tablet 4-24 00:00: 00 06-05 23:59 :00 No 500mg Take 1 tablet by mouth at bedtime. Do not crush, chew, or split. [facility] [place] propranolol (Inderal) 10 MG tablet propranolol (Inderal) 10 MG tablet 4-24 00:00: 00 07-05 23:59 :00 No 20mg Q.5D Take 2 tablets by mouth in the morning and 2 tablets in the evening. [facility] [place] propranolol (Inderal) 10 MG tablet propranolol (Inderal) 10 MG tablet 3- 00:00: 00 06-05 00:00 :00 No 10mg Q.5D TAKE 1 TABLET BY MOUTH TWICE A DAY FOR 30 DAYS [facility] divalproex (Depakote ER) 500 MG 24 hr tablet divalproex (Depakote ER) 500 MG 24 hr tablet 2023-02 0-07 00:00: 00 06-05 00:00 :00 No 500mg QD Take 1 tablet by mouth 1 time each day. Do not crush, chew, or split. [facility] propranolol (Inderal) 10 MG tablet propranolol (Inderal) 10 MG tablet 9-26 00:00: 00 05-09 00:00 :00 No 10mg Q.5D TAKE 1 TABLET BY MOUTH TWICE A DAY FOR 30 DAYS [facility] Amoxicillin -Pot Clavulanate 875-125 MG oral Tablet 6- 00:00: 00 Yes [id number] 1{tbl} 1 tablet Kay woods HYDROcodone -Acetaminop hen (NORCO) 5-325 MG oral Tablet 6-23 00:00: 00 Yes [id number] 1{tbl} 1 tablet Kay woods Propranolol HCl 10 MG oral Tablet 07-07 00:00: 00 Yes [id number] TAKE 1 TABLET BY MOUTH 3 TIMES DAILY Kay woods Aripiprazol e (Abilify) 5 MG oral Tablet 03-06 00:00: 00 Yes [id number] 5mg Take 1 tablet (5 mg total) by mouth daily Kay woods Sertraline HCl 25 MG oral Tablet 03-06 00:00: 00 Yes [id number] 25mg Take 1 tablet (25 mg total) by mouth daily Kay woods Propranolol HCl 10 MG oral Tablet 03-06 00:00: 00 Yes [id number] 10mg Take 1 tablet (10 mg total) by mouth 3 times daily Kay woods ketorolac (TORADOL) injection 30 mg 07-22 04:45: 00 07-22 10:39 :00 No 30mg 30 mg, Slow IV Push, Q6H, 2 doses, First dose on Sun07/22/19 at 2345, Last dose on Sun07/23/19 at 0000, 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 Restricted medication : ROBBIE POON [facility] lactated ringers IV infusion 1,000 mL 07-22 04:15: 00 Yes 1000mL at 75 mL/hr, 1,000 mL, IV Infusion, CONTINUOUS , Starting Sun07/22/19 at 2315, Until Discontinu ed, Routine [facility] HYDROcodone -acetaminop hen (NORCO 5) 5-325 mg tablet 1 tablet 07-22 03:55: 31 Yes 1{tbl} 1 tablet, Oral, Q6HPRN, Starting Sun07/22/19 at 2255, Until Discontinu ed, Routine, Pain (scale 4-6) [facility] acetaminoph en (TYLENOL) tablet 500 mg 07-22 03:55: 31 Yes 500mg 500 mg, Oral, Q6HPRN, Starting Sun07/22/19 at 2255, Until Discontinu ed, Routine, Pain (scale 4-6) [facility] ondansetron (ZOFRAN (PF)) injection 4 mg 07-22 03:55: 31 Yes 4mg 4 mg, Slow IV Push, Q6HPRN, 2 doses, Starting Sun07/22/19 at 2255, Until Discontinu ed, Routine, Nausea and Vomiting (N/V), if nausea and vomiting [facility] proMETHazin e (PHENERGAN) 12.5 mg in NaCl 0.9% (NS) 50 mL piggyback 07-22 03:55: 31 Yes 12.5mg 12.5 mg, IV Piggyback, Q6HPRN, Starting Sun07/22/19 at 2255, Until Discontinu ed, 50 mL [facility] lactated ringers IV infusion 1,000 mL 07-22 00:00: 00 Yes 1000mL at 75 mL/hr, 1,000 mL, IV Infusion, CONTINUOUS , Starting Sun07/22/19 at 1900, Until Discontinu ed, Routine, PACU [facility] ondansetron (ZOFRAN (PF)) injection 4 mg 07-21 23:49: 36 07-22 00:24 :00 No 4mg 4 mg, Slow IV Push, PRN, 1 dose, Starting Sun07/22/19 at 1849, Until Sun07/22/19 at 1924, Routine, Nausea and Vomiting (N/V), PACU [facility] scopolamine transdermal (TRANSDERM- SCOP) patch 1.5 mg 07-21 17:45: 00 07-22 04:21 :33 No 1.5mg 1.5 mg, Topical, Administer over 72 Hours, Q72H, First dose on Sun07/22/19 at 1245, Until Discontinu ed, Routine, Intra-op [facility] lactated ringers IV infusion 1,000 mL 07-21 17:15: 00 07-21 17:40 :00 No 1000mL at 20 mL/hr, 1,000 mL, IV Infusion, ONCE, 1 dose, Sun07/22/19 at 1215, Routine, DSU Pre-op [facility] phenazopyri dine 200 mg tablet 2018-02 0-17 00:00: 00 Yes [id number] 200mg Take 1 tablet by mouth 3 (three) times daily. [facility] Vital Signs Vital Name Observation Time Observation Value Comments Stefania durham Systolic blood pressure 2024-07-09 09:31:00 108 mm[Hg] Brittany coronado [facility] Diastolic blood pressure 2024-07-09 09:31:00 73 mm[Hg] Brittany Ca [facility] Heart rate 2024-07-09 09:31:00 81 /min [facility] Body temperature 2024-07-09 09:31:00 36.72 [facility] Respiratory rate 2024-07-09 09:31:00 16 /min [facility] Body height 2024-07-09 09:31:00 160 cm [facility] Body weight 2024-07-09 09:31:00 49.442 kg [facility] BMI 2024-07-09 09:31:00 19.31 kg/m2 Shakir rial Val[facility] Epic Oxygen saturation in Arterial blood by Pulse oximetry 2024-07-09 09:31:00 99 /min Brittany coronado [facility] Systolic blood pressure 2024-07-09 09:31:00 108 mm[Hg] [facility] Her coronado [facility] Diastolic blood pressure 2024-07-09 09:31:00 73 mm[Hg] [facility] Heart rate 2024-07-09 09:31:00 81 /min Memor ial [facility] Body temperature 2024-07-09 09:31:00 36.72 Dahlia [facility] Respiratory rate 2024-07-09 09:31:00 16 /min [facility] Body height 2024-07-09 09:31:00 160 cm Shakir rial [facility] Body weight 2024-07-09 09:31:00 49.442 kg Shakir rial Valerio [facility] BMI 2024-07-09 09:31:00 19.31 kg/m2 Shakir rial [place] [facility] Oxygen saturation in Arterial blood by Pulse oximetry 2024-07-09 09:31:00 99 /min [facility] Systolic blood pressure 2024-06-05 15:29:00 124 mm[Hg] [facility] Diastolic blood pressure 2024-06-05 15:29:00 86 mm[Hg] [facility] Epic Heart rate 2024-06-05 15:29:00 74 /min Memor ial [place] [facility] Body temperature 2024-06-05 15:29:[address] [facility] 2024-06-05 15:29:00 16 /min [facility] Body height 2024-06-05 15:29:00 160 cm Shakir rial Valerio Epic Body weight 2024-06-05 15:29:00 49.079 kg Shakir rial [place] [facility] BMI 2024-06-05 15:29:00 19.17 kg/m2 Shakir rial [place] Epic Oxygen saturation in Arterial blood by Pulse oximetry 2024-06-05 15:29:00 99 /min [facility] Epic Systolic blood pressure 2024-06-05 15:29:00 124 mm[Hg] [facility] Epic Diastolic blood pressure 2024-06-05 15:29:00 86 mm[Hg] [facility] Epic Heart rate 2024-06-05 15:29:00 74 /min Memor ial Valerio Epic Body temperature 2024-06-05 15:29:00 37 [facility] Epic Respiratory rate 2024-06-05 15:29:00 16 /min [facility] Body height 2024-06-05 15:29:00 160 cm Shakir rial Valerio Epic Body weight 2024-06-05 15:29:00 49.079 kg Shakir rial [place] [facility] BMI 2024-06-05 15:29:00 19.17 kg/m2 Shakir rial [place] Epic Oxygen saturation in Arterial blood by Pulse oximetry 2024-06-05 15:29:00 99 /min [facility] Epic Systolic blood pressure 2023-11-19 15:03:00 109 mm[Hg] [facility] Epic Diastolic blood pressure 2023-11-19 15:03:00 74 mm[Hg] [facility] Epic Heart rate 2023-11-19 15:03:00 74 /min Memor ial Valerio Epic Body temperature 2023-11-19 15:03:00 37.11 [facility] Epic Respiratory rate 2023-11-19 15:03:00 16 /min [facility] Body height 2023-11-19 15:03:00 157.5 cm Shakir Richterann Epic Body weight 2023-11-19 15:03:00 50.259 kg Shakir Richterann Epic BMI 2023-11-19 15:03:00 20.27 kg/m2 Shakir Richterann Epic Oxygen saturation in Arterial blood by Pulse oximetry 2023-11-19 15:03:00 98 /min [facility] Systolic blood pressure 2023-11-19 15:03:00 109 mm[Hg] [facility] Diastolic blood pressure 2023-11-19 15:03:00 74 mm[Hg] [facility] Heart rate 2023-11-19 15:03:00 74 /min [facility] Body temperature 2023-11-19 15:03:00 37.11 Dahlia [facility] Respiratory rate 2023-11-19 15:03:00 16 /min [facility] Body height 2023-11-19 15:03:00 157.5 cm Sh[facility]ir [facility] Body weight 2023-11-19 15:03:00 50.259 kg Shakir Richterann Epic BMI 2023-11-19 15:03:00 20.27 kg/m2 Shakir Richterann Epic Oxygen saturation in Arterial blood by Pulse oximetry 2023-11-19 15:03:00 98 /min [facility] Systolic blood pressure 2022-08-09 19:31:00 104 mm[Hg] Kay Seybo ld - External Diastolic blood pressure 2022-08-09 19:31:00 72 mm[Hg] Kay Seybo ld - External Heart rate 2022-08-09 19:31:00 78 /min Kelse y Seybold - External Body temperature 2022-08-09 19:31:00 35.94 Dahlia Kay Seybold - External Respiratory rate 2022-08-09 19:31:00 14 /min Kay Seybold - External Body height 2022-08-09 19:31:00 157.5 cm Daisy ey Seybold - External Body weight 2022-08-09 19:31:00 52.164 kg Daisy ey Seybold - External BMI 2022-08-09 19:31:00 21.03 kg/m2 Daisy ey Seybold - External Systolic blood pressure 2022-03-06 19:55:00 102 mm[Hg] Kay Elliottybo ld - External Diastolic blood pressure 2022-03-06 19:55:00 76 mm[Hg] Kay Elliottybo ld - External Heart rate 2022-03-06 19:55:00 85 /min Denzel y Seybold - External Body temperature 2022-03-06 19:55:00 36.56 Dahlia Kay Seybold - External Respiratory rate 2022-03-06 19:55:00 14 /min Kay Seybold - External Body height 2022-03-06 19:55:00 157.5 cm Daisy ey Seybold - External Body weight 2022-03-06 19:55:00 53.615 kg Daisy wild Seybold - External BMI 2022-03-06 19:55:00 21.62 kg/m2 Daisy wild Seybold - External Oxygen saturation in Arterial blood by Pulse oximetry 2022-03-06 19:55:00 98 /min Kay Wallaceo ld - External Body temperature 2019-07-23 13:30:00 36.72 Dahlia [facility] Systolic blood pressure 2019-07-23 13:00:00 90 mm[Hg] [facility] Diastolic blood pressure 2019-07-23 13:00:00 55 mm[Hg] [facility] Heart rate 2019-07-23 13:00:00 59 /min [facility] 2019-07-23 08:45:00 16 /min [facility] Oxygen saturation in Arterial blood by Pulse oximetry 2019-07-23 08:45:00 100 /min [facility] Body height 2019-07-21 14:00:00 157.5 cm [facility] Body weight 2019-07-21 14:00:00 55.792 kg [facility] BMI 2019-07-21 14:00:00 22.50 kg/m2 [facility] Body temperature 2019-07-23 13:30:00 36.72 Dahlia [facility] Systolic blood pressure 2019-07-23 13:00:00 90 mm[Hg] [facility] Diastolic blood pressure 2019-07-23 13:00:00 55 mm[Hg] [place] [facility] Heart rate 2019-07-23 13:00:00 59 /min [facility] Respiratory rate 2019-07-23 08:45:00 16 /min [facility] Oxygen saturation in Arterial blood by Pulse oximetry 2019-07-23 08:45:00 100 /min [facility] Body height 2019-07-21 14:00:00 157.5 cm [facility] Body weight 2019-07-21 14:00:00 55.792 kg [facility] BMI 2019-07-21 14:00:00 22.50 kg/m2 [facility] Procedures Procedure Date / Time Performed Performing Clinician Source Iron + transferrin + TIBC 2024-09-04 00:00:00 [facility] Ferritin 2024-09-04 00:00:00 [facility] Complete Blood Count w/Diff and Platelet 2024-09-04 00:00:00 [facility] Comprehensive Metabolic Panel 2024-09-04 00:00:00 [facility] Vitamin B1 Level 2024-09-04 [facility]24-09-04 [facility] Thyroid Stimulating Hormone w/ Reflex Free T4 2024-09-04 00:00:00 [facility] Valproic Acid Level 2024-09-04 00:00:00 [facility] Sedimentation Rate 2024-09-04 00:00:00 [facility] Complete Blood Count w/Diff and Platelet 2024-07-09 00:00:00 [facility] Comprehensive Metabolic Panel 2024-07-09 00:00:00 [facility] Iron + transferrin + TIBC 2024-07-09 00:00:00 [facility] Thyroid Stimulating Hormone w/ Reflex Free T4 2024-07-09 00:00:00 [facility] Sedimentation Rate 2024-07-09 00:00:00 [facility] Valproic Acid Level 2024-07-09 00:00:00 [facility] Vitamin B1 Level 2024-07-09 00:00:00 Shakir rial [facility] Vitamin B12 Level 2024-07-09 00:00:00 [facility] Complete Blood Count w/Diff and Platelet 2024-06-05 00:00:00 [facility] Comprehensive Metabolic Panel 2024-06-05 00:00:00 [facility] MRI brain wo IV contrast 2024-06-05 00:00:00 [facility] MRI brain wo IV contrast 2023-11-19 00:00:00 [facility] ABORH CONFIRMATION 2019-07-22 17:50:00 Mellissa Poon [facility] URINALYSIS 2019-07-22 17:40:00 [facility]. METAB[facility] PAN[facility] (23620) 2019-07-22 17:36:00 Ayah Robbie [facility] CBC WITH DIFFERENTIAL 2019-07-22 17:36:00 Sa sadi Poon [facility] HB ABO GROUPING 2019-07-22 17:35:00 Ayah Robbie [facility] COVID-19 (ID NOW RAPID TESTING) 2019-07-21 14:23:00 Robbie Poon [facility] ASSIGNMENT OF BENEFITS 2019-07-21 13:44:51 Docto r Unassigned, [place] [facility] Plan of Care Planned Activity Planned Date Details Comments Source Encounters Start Date/Time End Date/Time Encounter Type Admission Type Attending [facility] Care Department Encounter ID Source 2024-09-04 00:00:00 2024-09-04 18:16:58 Telephone Nathalie Arcos [facility] [place] [id number] Casie woods [facility] 2024-07-09 09:21:06 2024-07-09 09:50:44 Outpatient Elective JAVI BETTS [facility] [id number] EOUT 2024-07-09 09:15:00 2024-07-09 09:30:00 Office Visit Javi Betts ..840.114 [id number] [id number] [id number] Casie woods [facility] 2024-06-05 15:15:00 2024-06-05 16:12:46 Office Visit Javi Betts [id number] 350.1.13.70 8.2.7.2.686 [id number] Casie woods [facility] 2024-06-05 14:54:50 2024-06-05 16:12:46 Outpatient Elective JAVI BETTS [facility] [id number] MHEOUT 2024-05-09 00:00:00 2024-05-09 11:43:21 Refill Javi Betts [id number] 350.1.13.70 8.2.7.2.686 [id number] Casie woods [facility] 2023-11-19 15:00:00 2023-11-19 15:51:19 Office Visit Javi Betts [id number] [id number] 8.2.7.2.686 [id number] Casie woods [facility] 2023-11-19 14:47:58 2023-11-19 15:51:19 Outpatient Elective JAVI BETTS MHEOUT MHEOUT [id number] MHEOUT 2022-09-25 16:30:00 2022-09-25 16:30:00 Outpatient SHAMA MELGAR [id number] [facility] 2022-09-25 10:30:00 2022-09-25 10:30:00 Outpatient NETTE STORY [id number] [facility] 2022-09-25 00:00:00 2022-09-25 00:00:00 Outpatient [facility]E [facility]UNE[facility] [id number] [facility]22-09-25 00:00:00 2022-09-25 00:00:00 Outpatient KEVEN PARRISH [id number] [facility] 2022-09-21 00:00:00 2022-09-21 00:00:00 Outpatient HUNDL, ADAMS MELGAR [id number] Kya ybyulisa 2022-08-17 00:00:00 2022-08-17 00:00:00 Outpatient MD KAY WATSON [id number] [facility] 2022-08-16 00:00:00 2022-08-16 00:00:00 Outpatient ENRIQUE LASHAE MELGAR [id number] [facility] 2022-08-16 00:00:00 2022-08-16 00:00:00 Outpatient PREZAStefania LASHAE MELGAR [id number] [facility] 2022-08-14 00:00:00 2022-08-14 00:00:00 Outpatient HUNDL, ADAMS MELGAR [id number] [facility] 2022-08-10 00:00:00 2022-08-10 00:00:00 Outpatient HUNDL, ADAMS MELGAR [id number] [facility] 2022-08-09 14:30:00 2022-08-09 14:30:00 Outpatient HUNDL, ADAMS MELGAR [id number] [facility] 2022-08-08 00:00:00 2022-08-08 00:00:00 Outpatient HUNDL, ADAMS MELGAR [id number] Kay [facility] 2022-07-07 00:00:00 2022-07-07 00:00:00 Outpatient HUNDL, ADAMS MELGAR [id number] [facility] 2022-06-20 00:00:00 2022-06-20 00:00:00 Outpatient HUNDL, ADAMS MELGAR [id number] [facility] 2022-06-07 00:00:00 2022-06-07 00:00:00 Outpatient HUNDL, ADAMS MELGAR [id number] [facility] 2022-04-27 00:00:00 2022-04-27 00:00:00 Outpatient HUNDL, ADAMS MELGAR [id number] [facility] 2022-03-20 14:30:00 2022-03-20 14:30:00 Outpatient ADAMS EASTMAN [id number] Kay Smith 2022-03-10 00:00:00 2022-03-10 00:00:00 Outpatient ADAMS EASTMAN [id number] Kay Smith 2022-03-10 00:00:00 2022-03-10 00:00:00 Outpatient ADAMS EASTMAN KAY [id number] Kay Smith 2022-03-10 00:00:00 2022-03-10 00:00:00 Outpatient ADAMS EASTMAN KAY [id number] Kay Smith 2022-03-09 14:30:00 2022-03-09 14:30:00 Outpatient EMILY HAYDEN KAY [id number] Kay Smith 2022-03-07 09:30:00 2022-03-07 09:30:00 Outpatient LAB90 KAY CORDONSEY [id number] [facility] 2022-03-06 14:00:00 2022-03-06 14:00:00 Outpatient ADAMS EASTMAN KAY [id number] Kay Elliottyulisa 2019-07-22 11:59:00 2019-07-23 09:35:00 Hospital Encounter Ayah Robbie[address].840.114 350.1.13.10 4.2.7.2.686 [id number] [facility] 2019-07-22 11:59:00 2019-07-23 09:35:00 Outpatient R AYAH [facility] ROBERT [id number] [facility] 2019-07-22 11:59:00 2019-07-23 09:35:00 [id number] 350.1.13.10 4.2.7.2.686 [id number] 2019-07-21 08:46:49 2019-07-21 09:01:49 Laboratory Only Only, Adc Test Robbie Poon [facility] [id number] 350.1.13.10 4.2.7.2.686 [id number] [facility] 2019-07-21 08:46:49 2019-07-21 09:01:49 Laboratory Only Only, Adc Test [facility] [id number] 350.1.13.10 4.2.7.2.686 [id number] 2019-07-21 08:45:00 2019-07-21 08:45:00 [id number] 2019-07-21 00:00:00 2019-07-21 00:00:00 Orders Only Doctor Unassigned, [place] [facility] [id number] 350.1.13.10 4.2.7.2.686 [id number] [facility] 2019-07-21 00:00:00 2019-07-21 00:00:00 Orders Only Doctor Unassigned, [place] [facility] [id number] 350.1.13.10 4.2.7.2.686 [id number] Results Test Description Test Time Test Comments Results Result Co mments Source [place] [facility] Test Item Value Reference Range Interpretation Comme nts APPEARANCE (test code = 1703035117) Hazy Clear A COLOR (test code = 5755357531) Yellow Yellow PH (test code = 9981515786) 4.8-8.0 SP GRAVITY (test code = 2867517156) 1.003-1.030 GLU U QUAL (test code = 8264866847) Normal Normal BLOOD (test code = 1886923392) Negative Negative KETONES (test code = 6061458658) Negative Negative PROTEIN (test code = 2887-8) Negative Negative UROBILIN (test code = 7585385897) Normal Normal BILIRUBIN (test code = 2985696630) Negative Negative NITRITE (test code = 3192905847) Negative Negative LEUK FABIOLA (test code = 0860942135) 25/uL Negative A RBC/HPF (test code = 7039797460) See_Comment [Automated messa ge] The system which generated this result transmitted reference range: 0 - 3 HPF. The reference range was not used to interpret this result as normal/abnormal. WBC/HPF (test code = 5100172474) See_Comment [Automated messa ge] The system which generated this result transmitted reference range: 0 - 5 HPF. The reference range was not used to interpret this result as normal/abnormal. BACTERIA (test code = 8075683288) Few Negative A MUCOUS (test code = 4498325139) Slight Negative LPF A SQ EPITH (test code = 1201237902) HPF SPERM (test code = 6365934531) See_Comment H [Automated messa ge] The system which generated this result transmitted reference range: <=1 HPF. The reference range was not used to interpret this result as normal/abnormal. Lab Interpretation (test code = 75414-4) [facility]normal [facility] [id number] 18:15:58* Test Item Value Reference Range Interpretation Comme nts ABO & RH (test code = 20) O Positive Performed at [facility] B Laboratory Services - [facility] Blood [address] [place], [place] [id number] Free: [phone] No. [id number] [facility]. METABOLIC PANEL (42810)2019-07-22 18:04:00* Test Item Value Reference Range Interpretation Comme nts NA (test code = 6146648257) 138 mmol/L 135-145 K (test code = 3354286159) 4.2 mmol/L 3.5-5 CL (test code = 8760431175) 109 mmol/L 98-108 H CO2 TOTAL (test code = 4934921804) 21 mmol/L 23-31 L AGAP (test code = 4667901848) 2-16 BUN (test code = 1107458477) 11 mg/dL 7-23 GLUCOSE (test code = 8743695727) 93 mg/dL 70-110 CREATININE (test code = 7516740900) 0.58 mg/dL 0.5-1.04 TOTAL BILI (test code = 7912680606) 0.8 mg/dL 0.1-1.1 CALCIUM (test code = 6936052228) 9.1 mg/dL 8.6-10.6 T PROTEIN (test code = 8023727383) 7.3 g/dL 6.3-8.2 ALBUMIN (test code = 5792229444) 4.5 g/dL 3.5-5 ALK PHOS (test code = 5013107257) 40 U/L 34-122 ALTv (test code = 1742-6) 12 U/L 5-35 AST(SGOT) (test code = 0571581565) 21 U/L 13-40 eGFR Calculation (Non-) (test code = 0802578535) mL/min/1.73m2 eGFR Calculation () (test code = 4812550262) mL/min/1.73m2 YURIY (test code = YURIY) Association of [...] or abnormalities in imaging tests). Lab Interpretation (test code = 53027-2) Abnormal [facility] WITH [id number] 17:56:00* Test Item Value Reference Range Interpretation Comme nts WBC (test code = 6690-2) See_Comment [Automated messa ge] The system which generated this result transmitted reference range: 4.30 - 11.10 10*3/?L. The reference range was not used to interpret this result as normal/abnormal. RBC (test code = 789-8) See_Comment [Automated [employer] ge] The system which generated this result transmitted reference range: 3.93 - 5.25 10*6/?L. The reference range was not used to interpret this result as normal/abnormal. HGB (test code = 718-7) 12.1 g/dL 11.6-15 HCT (test code = 4544-3) 36.5 % 35.7-45.2 MCV (test code = 787-2) 87.5 fL 80.6-95.5 MCH (test code = 785-6) 29.0 pg 25.9-32.8 MCHC (test code = 786-4) 33.2 g/dL 31.6-35.1 RDW-SD (test code = 36378-2) 53.2 fL 39-49.9 H RDW-CV (test code = 788-0) 16.6 % 12-15.5 H PLT (test code = 777-3) See_Comment [Automated [employer] ge] The system which generated this result transmitted reference range: 166 - 358 10*3/?L. The reference range was not used to interpret this result as normal/abnormal. MPV (test code = 40044-3) 9.9 fL 9.5-12.9 NRBC/100 WBC (test code = 7413497081) See_Comment [Automated [employer] ssage] The system which generated this result transmitted reference range: 0.0 - 10.0 /100 WBCs. The reference range was not used to interpret this result as normal/abnormal. NRBC x10^3 (test code = 5304707702) <0.01 See_Comment [Automated [employer] ge] The system which generated this result transmitted reference range: 10*3/?L. The reference range was not used to interpret this result as normal/abnormal. GRAN MAT (NEUT) % (test code = 770-8) 56.2 % IMM GRAN % (test code = 4750120054) 0.10 % LYMPH % (test code = 736-9) 32.0 % MONO % (test code = 5905-5) 7.5 % EOS % (test code = 713-8) 3.7 % BASO % (test code = 706-2) 0.5 % GRAN MAT x10^3(ANC) (test code = 7560649026) 4.90 10*3/uL 1.88-7.09 IMM GRAN x10^3 (test code = 3816910587) <0.03 0-0.06 LYMPH x10^3 (test code = 731-0) 2.78 10*3/uL 1.32-3.29 MONO x10^3 (test code = 742-7) 0.65 10*3/uL 0.33-0.92 EOS x10^3 (test code = 711-2) 0.32 10*3/uL 0.03-0.39 BASO x10^3 (test code = 704-7) 0.04 10*3/uL 0.01-0.07 Lab Interpretation (test code = 35175-0) [facility]normal [facility] RAPID TESTING)2019-07-21 14:49:00* Test Item Value Reference Range Interpretation Comme nts SARS-CoV-2 Rapid ID NOW (test code = 41396-6) Not Detected Not Detected YURIY (test code = YURIY) ID NOW COVID-19 As say is an isothermal nucleic acid amplification test intended for the qualitative detection of nucleic acid from SARS-CoV-2 viral RNA in nasopharyngeal (LOCKSTITCH POCKET SETTER) specimens. It is used under Emergency Use [...] patient testing if clinically indicated. Lab Interpretation (test code = 43523-9) Normal [facility] Notes Date/Time Note Provider Source Brittany LuoCvyzaib1809-00-57 18:17:08Upcoming Encounters Scheduled Orders Name Type Priority Associated Diagnoses Orde r Schedule Iron + transferrin + TIBC Lab Routine Intractable migraine with aura without status migrainosus Tremor Vertigo Expected: 09/04/2024 (Approximate), Expires: 09/04/2025 Ferritin Lab Routine Intractable migraine with aura without status migrainosus Tremor Vertigo Expected: 09/04/2024 (Approximate), Expires: 09/04/2025 Complete Blood Count w/Diff and Platelet Lab Routine Intractable migraine with aura without status migrainosus Tremor Vertigo Expected: 09/04/2024 (Approximate), Expires: 09/04/2025 Comprehensive Metabolic Panel Lab Routine Intractable migraine with aura without status migrainosus Tremor Vertigo Expected: 09/04/2024 (Approximate), Expires: 09/04/2025 Vitamin B1 Level Lab Routine Intractable migraine with aura without status migrainosus Tremor Vertigo Expected: 09/04/2024 (Approximate), Expires: 09/04/2025 Vitamin B12 Level Lab Routine Intractable migraine with aura without status migrainosus Tremor Vertigo Expected: 09/04/2024 (Approximate), Expires: 09/04/2025 Thyroid Stimulating Hormone w/ Reflex Free T4 Lab Routine Intractable migraine with aura without status migrainosus Tremor Vertigo Expected: 09/04/2024 (Approximate), Expires: 09/04/2025 Valproic Acid Level Lab Routine Intractable migraine with aura without status migrainosus Tremor Vertigo Expected: 09/04/2024 (Approximate), Expires: 09/04/2025 Sedimentation Rate Lab Routine Intractable migraine with aura without status migrainosus Tremor Vertigo Expected: 09/04/2024 (Approximate), Expires: 09/04/2025 Health Maintenance Due Date Last Done Comments Annual Physical 09/21/1982 DTaP/Tdap/Td Vaccines (1 - Tdap) 09/21/1998 Hepatitis B Vaccines (1 of 3 - 19+ 3-dose series) 09/21/1998 Pneumococcal Vaccine: Pediat rics (0 to 5 Years) and At-Risk Patients (6 to 64 Years) (1 of 2 - PCV) 09/21/1998 HPV Vaccines (1 - 3-dose SCD M series) 09/21/2006 Mammogram 2019 Influenza Vaccine (#1) 2024 Lipid Panel 03/07/2027 03/07/2022 Respiratory Syncytial Virus (RSV) Adult Series (1 - 1-dose 75+ series) 09/21/2054 HIB Vaccines Aged Out No longer eligi ble based on patient's age to complete this topic Hepatitis A Vaccines Aged Out No long er eligible based on patient's age to complete this topic IPV Vaccines Aged Out No longer eligi ble based on patient's age to complete this topic Meningococcal Vaccine Aged Out No khadra arsen eligible based on patient's age to complete this topic Rotavirus Vaccines Aged Out No longer eligible based on patient's age to complete this topic [facility] 18:17:08 Diagnosis Intractable migraine with au ra without status migrainosus - Primary Tremor Abnormal involuntary movements Vertigo Dizziness and giddiness [facility]roeQttkwbb7023-66-53 18:17:08 [place] 497125-07-24 11:18:15 Patient was unable to have labs done for follow up appointment on 09/04 she needs a new lab order. The follow up was rescheduled for 10/01. [facility]roeTsssgre9847-41-40 09:50:29* [facility]roeLrbepyj3883-37-96 09:50:29 [place] 497125-05-28 09:50:29* Javi Betts MD - 07/09/2024 9:15 AM CDT History of Present Illness HPI The patient is a 43-year-old female presenting for follow-up regarding headaches, dizziness, and tremors. The patient reports that her headaches are "not as bad" but still occur approximately twice a week. She notes a correlation between increased stress and headache frequency, stating, "when I go through a lot of stress, I get more headaches." About once a month, the headaches are severe enough to prevent her from going to work. She does not currently take any medication for acute headache relief. She also experiences frequent episodes of dizziness, which can occur suddenly during activities such as working. These episodes are sometimes accompanied by blurry vision and brief pounding sensations in her head. She describes a recent episode where she felt her eyes were "trying to roll back" and had to sit up to regain focus. She does not endorse concurrent headaches during these episodes. The patient reports that her tremors are well-controlled with her current medication, Propra 20 mg twice daily. She notes that the tremors worsen if she misses a dose but improve when she takes the medication as prescribed, including a dose at night. 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 She believes that her job significantly contributes to her stress levels and is considering a job change to reduce stress. She is also in the process of contacting a therapist to help manage her stress and is waiting to see if her insurance will cover the sessions. Past Diagnostic Results: - Brain MRI: Normal. Allergies as of 07/09/2024 - Reviewed 07/09/2024 Allergen Reaction Noted Morphine GI intolerance 08/03/2022 has a current medication list which includes the following prescription(s): divalproex, propranolol, and eletriptan. Head: (+) headachesEyes: (+) blurred vision Neurological: (+) dizziness, (+) tremor Psychiatric: (+) stress Vitals:07/09/24 0931 BP: 108/73 Pulse: 81 Resp: 16 Temp: 36.7 ?C (98.1 ?F) SpO2: 99% Neurological Exam Mental Status: Awake, alert, and oriented to person, place, and time. Speech is normal. Language is fluent with no aphasia. Cranial Nerves: CN III, IV, : Extraocular movements intact bilaterally. No nystagmus. CN II-XII are otherwise intact. Motor: Normal muscle bulk throughout. Normal muscle tone. No abnormal involuntary movements. There is no tremor at rest or with action. There is no bradykinesia. There is no apparent weakness or pronator drift. Coordination: Right: Eccoat-em-ocsw normal. Rapid alternating movement is normal. Left: Drjjvq-hd-bhpf normal. Rapid alternating movement is normal. Gait: Casual gait is normal, including stance, stride, and arm swing. Results for orders placed or performed in visit on 11/27/22Complete Blood Count w/Diff and Platelet Collection Time: 12/04/22 8:53 AM Result Value Ref Range RDW 12.4 11.0 - 15.0 % Hct 43.3 35.0 - 45.0 % MCV 99.5 80.0 - 100.0 fL MPV 10.9 7.5 - 12.5 fL WBC 7.6 3.8 - 10.8 K/ul Eosinophils # 251 15 - 500 Cells/uL MCH 33.1 (H) 27.0 - 33.0 pg Basophils # 38 0 - 200 Cells/uL RBC 4.35 3.80 - 5.10 M/CMM Segs # 4,362 1,500 - 7,800 Cells/uL Hgb 14.4 11.7 - 15.5 g/dL Plt Count 260 140 - 400 K/ul Monocytes 7.0 % Lymphocytes # 2,417 850 - 3,900 Cells/uL Segs % 57.4 % Basos % 0.5 % Monocytes # 532 200 - 950 Cells/uL Lymphs % 31.8 % Eos % 3.3 % MCHC 33.3 32.0 - 36.0 g/dL Comprehensive Metabolic Panel Collection Time: 12/04/22 8:53 AM Result Value Ref Range ALT 11 6 - 29 unit/L Calcium Lvl 9.5 8.6 - 10.2 mg/dL Total Protein 6.5 6.1 - 8.1 g/dL Glucose Lvl 93 65 - 99 mg/dL Albumin Lvl 4.3 3.6 - 5.1 g/dL BUN 15 7 - 25 mg/dL Creatinine Lvl 0.73 0.50 - 0.99 mg/dL Globulin 2.2 1.9 - 3.7 g/dL eGFR 105 > OR = 60 mL/min/1.73m2 Albumin/Globulin Ratio 2.0 1.0 - 2.5 (CALC) B/C Ratio SEE NOTE: 6 - 22 (CALC) Bilirubin Total 0.7 0.2 - 1.2 mg/dL Alkaline Phosphatase 40 31 - 125 unit/L Sodium Lvl 138 135 - 146 mMol/L Potassium Lvl 4.1 3.5 - 5.3 mMol/L AST 14 10 - 30 unit/L Chloride Lvl 106 98 - 110 mMol/L CO2 Lvl 28 20 - 32 mMol/L C-Reactive Protein Collection Time: 12/04/22 8:53 AM Result Value Ref Range C-Reactive Protein 0.3 <8.0 mg/L Sedimentation Rate Collection Time: 12/04/22 8:53 AM Result Value Ref Range Sed Rate 2 < OR = 20 mm/hr Immunofixation (DWAIN) Collection Time: 12/04/22 8:53 AM Result Value Ref Range DWAIN Ser Interp SEE COMMENT Thyroid Stimulating Hormone Collection Time: 12/04/22 8:53 AM Result Value Ref Range TSH 1.85 mIU/L Vitamin B1 Level Collection Time: 12/04/22 8:53 AM Result Value Ref Range Vitamin B1 110 78 - 185 mmol/L Vitamin B12 Level Collection Time: 12/04/22 8:53 AM Result Value Ref Range Vitamin B12 Lvl 233 200 - 1,100 pg/mL No MRI head results found for the past 12 months Labs: Tests: Imaging:- Brain MRI: No abnormalities Assessment & Plan# Intractable migraine with aura without status migrainosus (G43.119) - Headaches occurring at least twice weekly, with severe episodes approximately once a month causing inability to work. 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 - Discussed potential migraine aura as a cause of dizziness. - Prescribed eletriptan (Relpax) for acute migraine management. - Patient is seeking therapy to manage stress, which may help reduce headache frequency. - Follow-up scheduled for September 04. # Tremor (R25.1)- Tremor well-controlled with propranolol 20 mg BID. - Patient reports increased tremor severity when medication is missed. - Continue current medication regimen. # Vertigo (R42)- Episodes of dizziness occurring frequently, sometimes accompanied by transient pounding headaches. - Brain MRI results are normal. - Discussed possibility of vertigo being related to migraine aura. - Awaiting lab results to further investigate underlying causes. - Follow-up scheduled for September 04. [facility]2025-05-28 09:50:29Upcoming Encounters Scheduled Orders Name Type Priority Associated Diagnoses Orde r Schedule Complete Blood Count w/Diff and Platelet Lab Routine Intractable migraine with aura without status migrainosus Tremor Vertigo Expected: 07/09/2024 (Approximate), Expires: 07/09/2025 Comprehensive Metabolic Panel Lab Routine Intractable migraine with aura without status migrainosus Tremor Vertigo Expected: 07/09/2024 (Approximate), Expires: 07/09/2025 Iron + transferrin + TIBC Lab Routine Intractable migraine with aura without status migrainosus Tremor Vertigo Expected: 07/09/2024 (Approximate), Expires: 07/09/2025 Thyroid Stimulating Hormone w/ Reflex Free T4 Lab Routine Intractable migraine with aura without status migrainosus Tremor Vertigo Expected: 07/09/2024 (Approximate), Expires: 07/09/2025 Sedimentation Rate Lab Routine Intractable migraine with aura without status migrainosus Tremor Vertigo Expected: 07/09/2024 (Approximate), Expires: 07/09/2025 Valproic Acid Level Lab Routine Intractable migraine with aura without status migrainosus Tremor Vertigo Expected: 07/09/2024 (Approximate), Expires: 07/09/2025 Vitamin B1 Level Lab Routine Intractable migraine with aura without status migrainosus Tremor Vertigo Expected: 07/09/2024 (Approximate), Expires: 07/09/2025 Vitamin B12 Level Lab Routine Intractable migraine with aura without status migrainosus Tremor Vertigo Expected: 07/09/2024 (Approximate), Expires: 07/09/2025 Health Maintenance Due Date Last Done Comments Annual Physical 09/21/1982 DTaP/Tdap/Td Vaccines (1 - Tdap) 09/21/1998 Hepatitis B Vaccines (1 of 3 - 19+ 3-dose series) 09/21/1998 Pneumococcal Vaccine: Pediat rics (0 to 5 Years) and At-Risk Patients (6 to 64 Years) (1 of 2 - PCV) 09/21/1998 Mammogram 2019 Influenza Vaccine (Season Ended) 2024 Lipid Panel 03/07/2027 03/07/2022 Respiratory Syncytial Virus (RSV) Adult Series (1 - 1-dose 75+ series) 09/21/2054 HIB Vaccines Aged Out No longer eligi ble based on patient's age to complete this topic HPV Vaccines Aged Out No longer eligi ble based on patient's age to complete this topic Hepatitis A Vaccines Aged Out No long er eligible based on patient's age to complete this topic IPV Vaccines Aged Out No longer eligi ble based on patient's age to complete this topic Meningococcal Vaccine Aged Out No khadra arsen eligible based on patient's age to complete this topic Rotavirus Vaccines Aged Out No longer eligible based on patient's age to complete this topic [facility]Rxsnfyb6809-46-61 09:50:29 Diagnosis Intractable migraine with au ra without status migrainosus - Primary Tremor Abnormal involuntary movements Vertigo Dizziness and giddiness [facility]roeRwfqxjg0950-76-03 09:50:29 [facility]roeKafjhfx8183-40-98 09:50:29* [facility]roeUrjqgts6569-46-41 09:50:29 [facility]roeNqktlep3891-70-96 09:50:29* Javi Betts MD - 07/09/2024 9:15 AM CDT History of Present Illness HPI The patient is a 43-year-old female presenting for follow-up regarding headaches, dizziness, and tremors. The patient reports that her headaches are "not as bad" but still occur approximately twice a week. She notes a correlation between increased stress and headache frequency, stating, "when I go through a lot of stress, I get more headaches." About once a month, the headaches are severe enough to prevent her from going to work. She does not currently take any medication for acute headache relief. She also experiences frequent episodes of dizziness, which can occur suddenly during activities such as working. These episodes are sometimes accompanied by blurry vision and brief pounding sensations in her head. She describes a recent episode where she felt her eyes were "trying to roll back" and had to sit up to regain focus. She does not endorse concurrent headaches during these episodes. The patient reports that her tremors are well-controlled with her current medication, Propra 20 mg twice daily. She notes that the tremors worsen if she misses a dose but improve when she takes the medication as prescribed, including a dose at night. 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 She believes that her job significantly contributes to her stress levels and is considering a job change to reduce stress. She is also in the process of contacting a therapist to help manage her stress and is waiting to see if her insurance will cover the sessions. Past Diagnostic Results: - Brain MRI: Normal. Allergies as of 07/09/2024 - Reviewed 07/09/2024 Allergen Reaction Noted Morphine GI intolerance 08/03/2022 has a current medication list which includes the following prescription(s): divalproex, propranolol, and eletriptan. Head: (+) headachesEyes: (+) blurred vision Neurological: (+) dizziness, (+) tremor Psychiatric: (+) stress Vitals:07/09/24 0931 BP: 108/73 Pulse: 81 Resp: 16 Temp: 36.7 ?C (98.1 ?F) SpO2: 99% Neurological Exam Mental Status: Awake, alert, and oriented to person, place, and time. Speech is normal. Language is fluent with no aphasia. Cranial Nerves: CN III, IV, : Extraocular movements intact bilaterally. No nystagmus. CN II-XII are otherwise intact. Motor: Normal muscle bulk throughout. Normal muscle tone. No abnormal involuntary movements. There is no tremor at rest or with action. There is no bradykinesia. There is no apparent weakness or pronator drift. Coordination: Right: Prmbyb-tz-gdoz normal. Rapid alternating movement is normal. Left: Vnlawr-py-dome normal. Rapid alternating movement is normal. Gait: Casual gait is normal, including stance, stride, and arm swing. Results for orders placed or performed in visit on 11/27/22Complete Blood Count w/Diff and Platelet Collection Time: 12/04/22 8:53 AM Result Value Ref Range RDW 12.4 11.0 - 15.0 % Hct 43.3 35.0 - 45.0 % MCV 99.5 80.0 - 100.0 fL MPV 10.9 7.5 - 12.5 fL WBC 7.6 3.8 - 10.8 K/ul Eosinophils # 251 15 - 500 Cells/uL MCH 33.1 (H) 27.0 - 33.0 pg Basophils # 38 0 - 200 Cells/uL RBC 4.35 3.80 - 5.10 M/CMM Segs # 4,362 1,500 - 7,800 Cells/uL Hgb 14.4 11.7 - 15.5 g/dL Plt Count 260 140 - 400 K/ul Monocytes 7.0 % Lymphocytes # 2,417 850 - 3,900 Cells/uL Segs % 57.4 % Basos % 0.5 % Monocytes # 532 200 - 950 Cells/uL Lymphs % 31.8 % Eos % 3.3 % MCHC 33.3 32.0 - 36.0 g/dL Comprehensive Metabolic Panel Collection Time: 12/04/22 8:53 AM Result Value Ref Range ALT 11 6 - 29 unit/L Calcium Lvl 9.5 8.6 - 10.2 mg/dL Total Protein 6.5 6.1 - 8.1 g/dL Glucose Lvl 93 65 - 99 mg/dL Albumin Lvl 4.3 3.6 - 5.1 g/dL BUN 15 7 - 25 mg/dL Creatinine Lvl 0.73 0.50 - 0.99 mg/dL Globulin 2.2 1.9 - 3.7 g/dL eGFR 105 > OR = 60 mL/min/1.73m2 Albumin/Globulin Ratio 2.0 1.0 - 2.5 (CALC) B/C Ratio SEE NOTE: 6 - 22 (CALC) Bilirubin Total 0.7 0.2 - 1.2 mg/dL Alkaline Phosphatase 40 31 - 125 unit/L Sodium Lvl 138 135 - 146 mMol/L Potassium Lvl 4.1 3.5 - 5.3 mMol/L AST 14 10 - 30 unit/L Chloride Lvl 106 98 - 110 mMol/L CO2 Lvl 28 20 - 32 mMol/L C-Reactive Protein Collection Time: 12/04/22 8:53 AM Result Value Ref Range C-Reactive Protein 0.3 <8.0 mg/L Sedimentation Rate Collection Time: 12/04/22 8:53 AM Result Value Ref Range Sed Rate 2 < OR = 20 mm/hr Immunofixation (DWAIN) Collection Time: 12/04/22 8:53 AM Result Value Ref Range DWAIN Ser Interp SEE COMMENT Thyroid Stimulating Hormone Collection Time: 12/04/22 8:53 AM Result Value Ref Range TSH 1.85 mIU/L Vitamin B1 Level Collection Time: 12/04/22 8:53 AM Result Value Ref Range Vitamin B1 110 78 - 185 mmol/L Vitamin B12 Level Collection Time: 12/04/22 8:53 AM Result Value Ref Range Vitamin B12 Lvl 233 200 - 1,100 pg/mL No MRI head results found for the past 12 months Labs: Tests: Imaging:- Brain MRI: No abnormalities Assessment & Plan# Intractable migraine with aura without status migrainosus (G43.119) - Headaches occurring at least twice weekly, with severe episodes approximately once a month causing inability to work. 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 - Discussed potential migraine aura as a cause of dizziness. - Prescribed eletriptan (Relpax) for acute migraine management. - Patient is seeking therapy to manage stress, which may help reduce headache frequency. - Follow-up scheduled for September 04. # Tremor (R25.1)- Tremor well-controlled with propranolol 20 mg BID. - Patient reports increased tremor severity when medication is missed. - Continue current medication regimen. # Vertigo (R42)- Episodes of dizziness occurring frequently, sometimes accompanied by transient pounding headaches. - Brain MRI results are normal. - Discussed possibility of vertigo being related to migraine aura. - Awaiting lab results to further investigate underlying causes. - Follow-up scheduled for September 04. [facility]2025-05-28 09:50:29Upcoming Encounters Scheduled Orders Name Type Priority Associated Diagnoses Orde r Schedule Complete Blood Count w/Diff and Platelet Lab Routine Intractable migraine with aura without status migrainosus Tremor Vertigo Expected: 07/09/2024 (Approximate), Expires: 07/09/2025 Comprehensive Metabolic Panel Lab Routine Intractable migraine with aura without status migrainosus Tremor Vertigo Expected: 07/09/2024 (Approximate), Expires: 07/09/2025 Iron + transferrin + TIBC Lab Routine Intractable migraine with aura without status migrainosus Tremor Vertigo Expected: 07/09/2024 (Approximate), Expires: 07/09/2025 Thyroid Stimulating Hormone w/ Reflex Free T4 Lab Routine Intractable migraine with aura without status migrainosus Tremor Vertigo Expected: 07/09/2024 (Approximate), Expires: 07/09/2025 Sedimentation Rate Lab Routine Intractable migraine with aura without status migrainosus Tremor Vertigo Expected: 07/09/2024 (Approximate), Expires: 07/09/2025 Valproic Acid Level Lab Routine Intractable migraine with aura without status migrainosus Tremor Vertigo Expected: 07/09/2024 (Approximate), Expires: 07/09/2025 Vitamin B1 Level Lab Routine Intractable migraine with aura without status migrainosus Tremor Vertigo Expected: 07/09/2024 (Approximate), Expires: 07/09/2025 Vitamin B12 Level Lab Routine Intractable migraine with aura without status migrainosus Tremor Vertigo Expected: 07/09/2024 (Approximate), Expires: 07/09/2025 Health Maintenance Due Date Last Done Comments Annual Physical 09/21/1982 DTaP/Tdap/Td Vaccines (1 - Tdap) 09/21/1998 Hepatitis B Vaccines (1 of 3 - 19+ 3-dose series) 09/21/1998 Pneumococcal Vaccine: Pediat rics (0 to 5 Years) and At-Risk Patients (6 to 64 Years) (1 of 2 - PCV) 09/21/1998 Mammogram 2019 Influenza Vaccine (Season Ended) 2024 Lipid Panel 03/07/2027 03/07/2022 Respiratory Syncytial Virus (RSV) Adult Series (1 - 1-dose 75+ series) 09/21/2054 HIB Vaccines Aged Out No longer eligi ble based on patient's age to complete this topic HPV Vaccines Aged Out No longer eligi ble based on patient's age to complete this topic Hepatitis A Vaccines Aged Out No long er eligible based on patient's age to complete this topic IPV Vaccines Aged Out No longer eligi ble based on patient's age to complete this topic Meningococcal Vaccine Aged Out No khadra arsen eligible based on patient's age to complete this topic Rotavirus Vaccines Aged Out No longer eligible based on patient's age to complete this topic [id number] 09:50:29 Diagnosis Intractable migraine with au ra without status migrainosus - Primary Tremor Abnormal involuntary movements Vertigo Dizziness and giddiness [facility]roeGaahzwo4500-15-43 09:50:29 [facility]roeJqrvmwu6048-35-23 17:49:15* Imaging (Routine) - Pending Review Specialty Diagnoses / Procedures Referred By Alice henry Referred To Contact Radiology Diagnoses Tremor Other headache syndrome Vertigo Procedures MRI brain wo IV contrast Javi Betts MD [address] [place] [address] Phone: tel: fax: Referral ID Status Reason Start Date Expiration Date V isits Requested Visits Authorized [id number] Pending Review 06/05/2024 12/02/2024 1 1 [facility]roeIvextmz2284-04-92 17:49:15* [place] [id number] 17:49:15 [place] [id number] 17:49:15* Javi Betts MD - 06/05/2024 3:15 PM CDT History of Present Illness HPI Headaches better. Dizziness still on occasion. Tremor looks good. VPA was helpful, but needs refill. Never had MRI will reorder, check labs today. Allergies as of 06/05/2024 - Reviewed 06/05/2024 Allergen Reaction Noted Morphine GI intolerance 08/03/2022 has a current medication list which includes the following prescription(s): divalproex and propranolol. Vitals:06/05/24 1529 BP: 124/86 Pulse: 74 Resp: 16 Temp: 37 ?C (98.6 ?F) SpO2: 99% Neurological Exam Mental Status Awake and alert. Speech is normal. Cranial NervesCN II: Visual acuity is normal. CN III, IV, : Extraocular movements intact bilaterally. Pupils equal round and reactive to light bilaterally. CN VII: Full and symmetric facial movement. CN XII: Tongue midline without atrophy or fasciculations. MotorStrength is 5/5 throughout all four extremities. SensoryLight touch is normal in upper and lower extremities. Temperature is normal in upper and lower extremities. Vibration is normal in upper and lower extremities. ReflexesDeep tendon reflexes: Symmetric. GaitCasual gait is normal including stance, stride, and arm swing. Results for orders placed or performed in visit on 11/27/22 Complete Blood Count w/Diff and Platelet Collection Time: 12/04/22 8:53 AM Result Value Ref Range RDW 12.4 11.0 - 15.0 % Hct 43.3 35.0 - 45.0 % MCV 99.5 80.0 - 100.0 fL MPV 10.9 7.5 - 12.5 fL WBC 7.6 3.8 - 10.8 K/ul Eosinophils # 251 15 - 500 Cells/uL MCH 33.1 (H) 27.0 - 33.0 pg Basophils # 38 0 - 200 Cells/uL RBC 4.35 3.80 - 5.10 M/CMM Segs # 4,362 1,500 - 7,800 Cells/uL Hgb 14.4 11.7 - 15.5 g/dL Plt Count 260 140 - 400 K/ul Monocytes 7.0 % Lymphocytes # 2,417 850 - 3,900 Cells/uL Segs % 57.4 % Basos % 0.5 % Monocytes # 532 200 - 950 Cells/uL Lymphs % 31.8 % Eos % 3.3 % MCHC 33.3 32.0 - 36.0 g/dL Comprehensive Metabolic Panel Collection Time: 12/04/22 8:53 AM Result Value Ref Range ALT 11 6 - 29 unit/L Calcium Lvl 9.5 8.6 - 10.2 mg/dL Total Protein 6.5 6.1 - 8.1 g/dL Glucose Lvl 93 65 - 99 mg/dL Albumin Lvl 4.3 3.6 - 5.1 g/dL BUN 15 7 - 25 mg/dL Creatinine Lvl 0.73 0.50 - 0.99 mg/dL Globulin 2.2 1.9 - 3.7 g/dL eGFR 105 > OR = 60 mL/min/1.73m2 Albumin/Globulin Ratio 2.0 1.0 - 2.5 (CALC) B/C Ratio SEE NOTE: 6 - 22 (CALC) Bilirubin Total 0.7 0.2 - 1.2 mg/dL Alkaline Phosphatase 40 31 - 125 unit/L Sodium Lvl 138 135 - 146 mMol/L Potassium Lvl 4.1 3.5 - 5.3 mMol/L AST 14 10 - 30 unit/L Chloride Lvl 106 98 - 110 mMol/L CO2 Lvl 28 20 - 32 mMol/L C-Reactive Protein Collection Time: 12/04/22 8:53 AM Result Value Ref Range C-Reactive Protein 0.3 <8.0 mg/L Sedimentation Rate Collection Time: 12/04/22 8:53 AM Result Value Ref Range Sed Rate 2 < OR = 20 mm/hr Immunofixation (DWAIN) Collection Time: 12/04/22 8:53 AM Result Value Ref Range DWAIN Ser Interp SEE COMMENT Thyroid Stimulating Hormone Collection Time: 12/04/22 8:53 AM Result Value Ref Range TSH 1.85 mIU/L Vitamin B1 Level Collection Time: 12/04/22 8:53 AM Result Value Ref Range Vitamin B1 110 78 - 185 mmol/L Vitamin B12 Level Collection Time: 12/04/22 8:53 AM Result Value Ref Range Vitamin B12 Lvl 233 200 - 1,100 pg/mL No MRI head results found for the past 12 months Assessment & PlanDiagnoses and all orders for this visit: Tremor - Complete Blood Count w/Diff and Platelet; Future - Comprehensive Metabolic Panel; Future - MRI brain wo IV contrast; Future Other headache syndrome - Complete Blood Count w/Diff and Platelet; Future - Comprehensive Metabolic Panel; Future - MRI brain wo IV contrast; Future Vertigo - Complete Blood Count w/Diff and Platelet; Future - Comprehensive Metabolic Panel; Future - MRI brain wo IV contrast; Future Other orders - divalproex (Depakote ER) 500 MG 24 hr tablet; Take 1 tablet by mouth at bedtime. Do not crush, chew, or split. - propranolol (Inderal) 10 MG tablet; Take 2 tablets by mouth in the morning and 2 tablets in the evening. Improving, continue Depakote, increase propranolol to 20 mg twice daily. Check labs, brain MRI [facility]2025-04-24 17:49:15Upcoming Encounters Scheduled Orders Name Type Priority Associated Diagnoses Orde r Schedule Complete Blood Count w/Diff and Platelet Lab Routine Tremor Other headache syndrome Vertigo Expected: 06/05/2024 (Approximate), Expires: 06/05/2025 Comprehensive Metabolic Panel Lab Routine Tremor Other headache syndrome Vertigo Expected: 06/05/2024 (Approximate), Expires: 06/05/2025 MRI brain wo IV contrast Imaging Routine Tremor Other headache syndrome Vertigo Expected: 06/05/2024, Expires: 06/05/2025 Health Maintenance Due Date Last Done Comments Annual Physical 09/21/1982 DTaP/Tdap/Td Vaccines (1 - Tdap) 09/21/1998 Hepatitis B Vaccines (1 of 3 - 19+ 3-dose series) 09/21/1998 Pneumococcal Vaccine: Pediat rics (0 to 5 Years) and At-Risk Patients (6 to 64 Years) (1 of 2 - PCV) 09/21/1998 Mammogram 2019 Influenza Vaccine (Season Ended) 2024 Lipid Panel 03/07/2027 03/07/2022 Respiratory Syncytial Virus (RSV) Adult Series (1 - 1-dose 75+ series) 09/21/2054 HIB Vaccines Aged Out No longer eligi ble based on patient's age to complete this topic HPV Vaccines Aged Out No longer eligi ble based on patient's age to complete this topic Hepatitis A Vaccines Aged Out No long er eligible based on patient's age to complete this topic IPV Vaccines Aged Out No longer eligi ble based on patient's age to complete this topic Meningococcal Vaccine Aged Out No khadra arsen eligible based on patient's age to complete this topic Rotavirus Vaccines Aged Out No longer eligible based on patient's age to complete this topic [facility]roeGgpgoiw4144-94-63 17:49:15 Diagnosis Tremor - Primary Abnormal involuntary movements Other headache syndrome Vertigo Dizziness and giddiness [facility]roeJldqwkd7148-04-77 17:49:15 [facility]roeRgwcdyx6969-52-26 17:49:15* Imaging (Routine) - Pending Review Specialty Diagnoses / Procedures Referred By Alice henry Referred To Contact Radiology Diagnoses Tremor Other headache syndrome Vertigo Procedures MRI brain wo IV contrast Javi Betts MD [address] [place] [address] Phone: tel: fax: Referral ID Status Reason Start Date Expiration Date V isits Requested Visits Authorized [id number] Pending Review 06/05/2024 12/02/2024 1 1 [facility]roeWkhbzwj8188-48-86 17:49:15* [facility]roeBwjtmph3873-45-68 17:49:15 [facility]roeWwtwmdt9998-04-49 17:49:15* Javi Betts MD - 06/05/2024 3:15 PM CDT History of Present Illness HPI Headaches better. Dizziness still on occasion. Tremor looks good. VPA was helpful, but needs refill. Never had MRI will reorder, check labs today. Allergies as of 06/05/2024 - Reviewed 06/05/2024 Allergen Reaction Noted Morphine GI intolerance 08/03/2022 has a current medication list which includes the following prescription(s): divalproex and propranolol. Vitals:06/05/24 1529 BP: 124/86 Pulse: 74 Resp: 16 Temp: 37 ?C (98.6 ?F) SpO2: 99% Neurological Exam Mental Status Awake and alert. Speech is normal. Cranial NervesCN II: Visual acuity is normal. CN III, IV, : Extraocular movements intact bilaterally. Pupils equal round and reactive to light bilaterally. CN VII: Full and symmetric facial movement. CN XII: Tongue midline without atrophy or fasciculations. MotorStrength is 5/5 throughout all four extremities. SensoryLight touch is normal in upper and lower extremities. Temperature is normal in upper and lower extremities. Vibration is normal in upper and lower extremities. ReflexesDeep tendon reflexes: Symmetric. GaitCasual gait is normal including stance, stride, and arm swing. Results for orders placed or performed in visit on 11/27/22 Complete Blood Count w/Diff and Platelet Collection Time: 12/04/22 8:53 AM Result Value Ref Range RDW 12.4 11.0 - 15.0 % Hct 43.3 35.0 - 45.0 % MCV 99.5 80.0 - 100.0 fL MPV 10.9 7.5 - 12.5 fL WBC 7.6 3.8 - 10.8 K/ul Eosinophils # 251 15 - 500 Cells/uL MCH 33.1 (H) 27.0 - 33.0 pg Basophils # 38 0 - 200 Cells/uL RBC 4.35 3.80 - 5.10 M/CMM Segs # 4,362 1,500 - 7,800 Cells/uL Hgb 14.4 11.7 - 15.5 g/dL Plt Count 260 140 - 400 K/ul Monocytes 7.0 % Lymphocytes # 2,417 850 - 3,900 Cells/uL Segs % 57.4 % Basos % 0.5 % Monocytes # 532 200 - 950 Cells/uL Lymphs % 31.8 % Eos % 3.3 % MCHC 33.3 32.0 - 36.0 g/dL Comprehensive Metabolic Panel Collection Time: 12/04/22 8:53 AM Result Value Ref Range ALT 11 6 - 29 unit/L Calcium Lvl 9.5 8.6 - 10.2 mg/dL Total Protein 6.5 6.1 - 8.1 g/dL Glucose Lvl 93 65 - 99 mg/dL Albumin Lvl 4.3 3.6 - 5.1 g/dL BUN 15 7 - 25 mg/dL Creatinine Lvl 0.73 0.50 - 0.99 mg/dL Globulin 2.2 1.9 - 3.7 g/dL eGFR 105 > OR = 60 mL/min/1.73m2 Albumin/Globulin Ratio 2.0 1.0 - 2.5 (CALC) B/C Ratio SEE NOTE: 6 - 22 (CALC) Bilirubin Total 0.7 0.2 - 1.2 mg/dL Alkaline Phosphatase 40 31 - 125 unit/L Sodium Lvl 138 135 - 146 mMol/L Potassium Lvl 4.1 3.5 - 5.3 mMol/L AST 14 10 - 30 unit/L Chloride Lvl 106 98 - 110 mMol/L CO2 Lvl 28 20 - 32 mMol/L C-Reactive Protein Collection Time: 12/04/22 8:53 AM Result Value Ref Range C-Reactive Protein 0.3 <8.0 mg/L Sedimentation Rate Collection Time: 12/04/22 8:53 AM Result Value Ref Range Sed Rate 2 < OR = 20 mm/hr Immunofixation (DWAIN) Collection Time: 12/04/22 8:53 AM Result Value Ref Range DWAIN Ser Interp SEE COMMENT Thyroid Stimulating Hormone Collection Time: 12/04/22 8:53 AM Result Value Ref Range TSH 1.85 mIU/L Vitamin B1 Level Collection Time: 12/04/22 8:53 AM Result Value Ref Range Vitamin B1 110 78 - 185 mmol/L Vitamin B12 Level Collection Time: 12/04/22 8:53 AM Result Value Ref Range Vitamin B12 Lvl 233 200 - 1,100 pg/mL No MRI head results found for the past 12 months Assessment & PlanDiagnoses and all orders for this visit: Tremor - Complete Blood Count w/Diff and Platelet; Future - Comprehensive Metabolic Panel; Future - MRI brain wo IV contrast; Future Other headache syndrome - Complete Blood Count w/Diff and Platelet; Future - Comprehensive Metabolic Panel; Future - MRI brain wo IV contrast; Future Vertigo - Complete Blood Count w/Diff and Platelet; Future - Comprehensive Metabolic Panel; Future - MRI brain wo IV contrast; Future Other orders - divalproex (Depakote ER) 500 MG 24 hr tablet; Take 1 tablet by mouth at bedtime. Do not crush, chew, or split. - propranolol (Inderal) 10 MG tablet; Take 2 tablets by mouth in the morning and 2 tablets in the evening. Improving, continue Depakote, increase propranolol to 20 mg twice daily. Check labs, brain MRI [facility]roeSjcugei1227-84-75 17:49:15Upcoming Encounters Scheduled Orders Name Type Priority Associated Diagnoses Orde r Schedule Complete Blood Count w/Diff and Platelet Lab Routine Tremor Other headache syndrome Vertigo Expected: 06/05/2024 (Approximate), Expires: 06/05/2025 Comprehensive Metabolic Panel Lab Routine Tremor Other headache syndrome Vertigo Expected: 06/05/2024 (Approximate), Expires: 06/05/2025 MRI brain wo IV contrast Imaging Routine Tremor Other headache syndrome Vertigo Expected: 06/05/2024, Expires: 06/05/2025 Health Maintenance Due Date Last Done Comments Annual Physical 09/21/1982 DTaP/Tdap/Td Vaccines (1 - Tdap) 09/21/1998 Hepatitis B Vaccines (1 of 3 - 19+ 3-dose series) 09/21/1998 Pneumococcal Vaccine: Pediat rics (0 to 5 Years) and At-Risk Patients (6 to 64 Years) (1 of 2 - PCV) 09/21/1998 Mammogram 2019 Influenza Vaccine (Season Ended) 2024 Lipid Panel 03/07/2027 03/07/2022 Respiratory Syncytial Virus (RSV) Adult Series (1 - 1-dose 75+ series) 09/21/2054 HIB Vaccines Aged Out No longer eligi ble based on patient's age to complete this topic HPV Vaccines Aged Out No longer eligi ble based on patient's age to complete this topic Hepatitis A Vaccines Aged Out No long er eligible based on patient's age to complete this topic IPV Vaccines Aged Out No longer eligi ble based on patient's age to complete this topic Meningococcal Vaccine Aged Out No khadra arsen eligible based on patient's age to complete this topic Rotavirus Vaccines Aged Out No longer eligible based on patient's age to complete this topic [facility]roeVnrhcwt2191-13-65 17:49:15 Diagnosis Tremor - Primary Abnormal involuntary movements Other headache syndrome Vertigo Dizziness and giddiness [facility]roePxqvcvj3352-53-66 17:49:15 [facility]roeHtcjcvt0274-62-97 11:43:21* [facility]roeQhxuvvm8654-50-77 11:43:21 [facility]roeYyfutyj6741-14-58 11:43:21 [facility] ConroeBkxyzqc2827-96-18 11:43:16 Medication filled, please call patient and have them schedule a follow up. [facility]roeCnjiiry7290-26-90 17:44:38* Imaging (Routine) - Incomplete Specialty Diagnoses / Procedures Referred By Contac t Referred To Contact Radiology Diagnoses Tremor Other headache syndrome Vertigo CATHRYN (generalized anxiety disorder) Bipolar 1 disorder, depressed (CMS/HCC) (HCC) Procedures MRI brain wo IV contrast Javi Betts MD [address] [place] [address] Phone: tel: fax: Referral ID Status Reason Start Date Expiration Date V isits Requested Visits Authorized [id number] Incomplete 11/19/2023 05/17/2024 1 1 [facility]roeCoiafgo7659-20-31 17:44:38* [facility]roeGaxkiqj7158-54-21 17:44:38* Javi Betts MD - 11/19/2023 3:00 PM CDT History of Present Illness HPI Headaches better, dizziness still present. Labs were normal. When severe movement makes the dizziness worse. Never did the MRI will reorder. History of CATHRYN, ? Bipolar- very notable mood swings. Add Depakote, if tremor worsens may need to change that to the Lamictal Allergies as of 11/19/2023 - Reviewed 11/19/2023 Allergen Reaction Noted Morphine 11/19/2023 has a current medication list which includes the following prescription(s): propranolol and divalproex. Answers submitted by the patient for this visit: Review of Systems (Submitted on 11/19/2023) Anxiety or nervousness: Yes Unhappiness or dissatisfaction: Yes Vitals:11/19/23 1503 BP: 109/74 Pulse: 74 Resp: 16 Temp: 37.1 ?C (98.8 ?F) SpO2: 98% Neurological Exam Mental Status Awake and alert. Speech is normal. Cranial NervesCN II: Visual acuity is normal. CN III, IV, : Extraocular movements intact bilaterally. Pupils equal round and reactive to light bilaterally. CN VII: Full and symmetric facial movement. CN XII: Tongue midline without atrophy or fasciculations. MotorStrength is 5/5 throughout all four extremities. SensoryLight touch is normal in upper and lower extremities. Temperature is normal in upper and lower extremities. Vibration is normal in upper and lower extremities. ReflexesDeep tendon reflexes: Symmetric. GaitCasual gait is normal including stance, stride, and arm swing. Results for orders placed or performed in visit on 11/27/22 Complete Blood Count w/Diff and Platelet Collection Time: 12/04/22 8:53 AM Result Value Ref Range RDW 12.4 11.0 - 15.0 % Hct 43.3 35.0 - 45.0 % MCV 99.5 80.0 - 100.0 fL MPV 10.9 7.5 - 12.5 fL WBC 7.6 3.8 - 10.8 K/ul Eosinophils # 251 15 - 500 Cells/uL MCH 33.1 (H) 27.0 - 33.0 pg Basophils # 38 0 - 200 Cells/uL RBC 4.35 3.80 - 5.10 M/CMM Segs # 4,362 1,500 - 7,800 Cells/uL Hgb 14.4 11.7 - 15.5 g/dL Plt Count 260 140 - 400 K/ul Monocytes 7.0 % Lymphocytes # 2,417 850 - 3,900 Cells/uL Segs % 57.4 % Basos % 0.5 % Monocytes # 532 200 - 950 Cells/uL Lymphs % 31.8 % Eos % 3.3 % MCHC 33.3 32.0 - 36.0 g/dL Comprehensive Metabolic Panel Collection Time: 12/04/22 8:53 AM Result Value Ref Range ALT 11 6 - 29 unit/L Calcium Lvl 9.5 8.6 - 10.2 mg/dL Total Protein 6.5 6.1 - 8.1 g/dL Glucose Lvl 93 65 - 99 mg/dL Albumin Lvl 4.3 3.6 - 5.1 g/dL BUN 15 7 - 25 mg/dL Creatinine Lvl 0.73 0.50 - 0.99 mg/dL Globulin 2.2 1.9 - 3.7 g/dL eGFR 105 > OR = 60 mL/min/1.73m2 Albumin/Globulin Ratio 2.0 1.0 - 2.5 (CALC) B/C Ratio SEE NOTE: 6 - 22 (CALC) Bilirubin Total 0.7 0.2 - 1.2 mg/dL Alkaline Phosphatase 40 31 - 125 unit/L Sodium Lvl 138 135 - 146 mMol/L Potassium Lvl 4.1 3.5 - 5.3 mMol/L AST 14 10 - 30 unit/L Chloride Lvl 106 98 - 110 mMol/L CO2 Lvl 28 20 - 32 mMol/L C-Reactive Protein Collection Time: 12/04/22 8:53 AM Result Value Ref Range C-Reactive Protein 0.3 <8.0 mg/L Sedimentation Rate Collection Time: 12/04/22 8:53 AM Result Value Ref Range Sed Rate 2 < OR = 20 mm/hr Immunofixation (DWAIN) Collection Time: 12/04/22 8:53 AM Result Value Ref Range DWAIN Ser Interp SEE COMMENT Thyroid Stimulating Hormone Collection Time: 12/04/22 8:53 AM Result Value Ref Range TSH 1.85 mIU/L Vitamin B1 Level Collection Time: 12/04/22 8:53 AM Result Value Ref Range Vitamin B1 110 78 - 185 mmol/L Vitamin B12 Level Collection Time: 12/04/22 8:53 AM Result Value Ref Range Vitamin B12 Lvl 233 200 - 1,100 pg/mL No MRI head results found for the past 12 months Assessment & PlanDiagnoses and all orders for this visit: Tremor - MRI brain wo IV contrast; Future Other headache syndrome - MRI brain wo IV contrast; Future Vertigo - MRI brain wo IV contrast; Future CATHRYN (generalized anxiety disorder) - MRI brain wo IV contrast; Future Bipolar 1 disorder, depressed (CMS/HCC) (HCC) - MRI brain wo IV contrast; Future Other orders - divalproex (Depakote ER) 500 MG 24 hr tablet; Take 1 tablet by mouth 1 time each day. Do not crush, chew, or split. Brain MRI, add Depakote 500 mg at night. Risks, benefits, side effects reviewed with patient. Time: 35 minutes [facility] ConroeMiyarck7142-73-03 17:44:38Upcoming Encounters Scheduled Orders Name Type Priority Associated Diagnoses Orde r Schedule MRI brain wo IV contrast Imaging Routine Tremor Other headache syndrome Vertigo CATHRYN (generalized anxiety disorder) Bipolar 1 disorder, depressed (CMS/HCC) ([facility]) Expected: 11/19/2023, Expires: 11/18/2024 Health Maintenance Due Date Last Done Comments Pneumococcal Vaccine: Pediat rics (0 to 5 Years) and At-Risk Patients (6 to 64 Years) (1 of 2 - PCV) 09/21/1985 DTaP/Tdap/Td Vaccines (1 - Tdap) 09/21/1998 Hepatitis B Vaccines (1 of 3 - 19+ 3-dose series) 09/21/1998 Mammogram 2019 Influenza Vaccine (#1) 2023 Lipid Panel 03/07/2027 03/07/2022 HIB Vaccines Aged Out No longer eligi ble based on patient's age to complete this topic HPV Vaccines Aged Out No longer eligi ble based on patient's age to complete this topic Hepatitis A Vaccines Aged Out No long er eligible based on patient's age to complete this topic IPV Vaccines Aged Out No longer eligi ble based on patient's age to complete this topic Meningococcal Vaccine Aged Out No khadra arsen eligible based on patient's age to complete this topic Rotavirus Vaccines Aged Out No longer eligible based on patient's age to complete this topic [facility]roeBkzypgb4241-59-01 17:44:38 Diagnosis Tremor - Primary Abnormal involuntary movements Other headache syndrome Vertigo Dizziness and giddiness CATHRYN (generalized anxiety disorder) Generalized anxiety disorder Bipolar 1 disorder, depresse d (CMS/HCC) ([facility]) [facility]fsuzzv7329-59[facility]16 17:44:38 [facility]
[2024-09-21] MEDS ORDERED: KETOROLAC 30 MG/ML INJ ONE (11:35)
[2024-09-21] MEDS ORDERED: MULTIVITAMINS 10 ML VIAL (INJ) IV ONE (11:36)
[2024-09-21] MEDS ORDERED: THIAMINE 200 MG/2 ML INJ ONE (11:36)
[2024-09-21] MEDS ORDERED: FOLIC ACID 5 MG/ML VIAL ONE (11:36)
[2024-09-21] MEDS ORDERED: NA CHLORIDE 0.9% 1,000 ML ONE (11:37)
[2024-09-21 12:12] LABS: Absolute Lymphocytes (CBC) 1.4 K/uL (0.7-4.9); Hematocrit 44.0 % (36.0-45.0); Hemoglobin 14.6 g/dL (12.0-15.0); MCH 33.7 pg (27.0-35.0); MCHC 33.2 g/dL (32.0-36.0); MCV 101.5 fL (80-100); MPV 9.0 fL (7.6-11.3); Nucleated RBC Absolute Count 0.0 (0-0); Nucleated Red Blood Cells % 0.0 % (0-0); RBC Red Blood Cell Count 4.33 M/uL (3.86-4.86); Sqamous Epithelial <5 /HPF (None Seen); Urine Culture Reflex Order NOT NEEDED; Urine Microscopic Reflex YN ORDER UMIC; Urine WBC Clump Rare /HPF (None Seen); Urine Yeast (Budding) Trace /HPF (None Seen); White Blood Count 11.60 thou/uL (4.3-10.9)
[2024-09-21 12:21] LABS: Anion Gap 8.2 mEq/L (5.0-15.0); BUN Blood Urea Nitrogen 16.0 mg/dL (7-18); Glucose Level 89.0 mg/dL (74-106); Potassium 4.2 mEq/L (3.5-5.1)
[2024-09-21] MEDS ORDERED: CEFTRIAXONE 1000 MG/VIAL ONE (12:21)
--- NOTE | 2024-09-21 13:02 | ER ---
Nurse's Notes [facility] Name: Nunu Azar Age: 44 yrs Sex: Female : 1980 Arrival Date: 09/21/2024 Time: 10:47 Bed 17 Private MD: Diagnosis: UTI/ Urinary tract infection, site not specified;Candidiasis of vulva and vagina;Dehydration Presentation: 09/21 10:59 Chief complaint: Patient states: Nausea and vomiting that began last night. Coronavirus aa5 screen: nausea, vomiting. Ebola Screen: Patient denies travel to an Ebola-affected area in the 21 days before illness onset. Initial Sepsis Screen: Does the patient meet any 2 criteria? No. Patient's initial sepsis screen is negative. Does the patient have a suspected source of infection? No. Patient's initial sepsis screen is negative. Risk Assessment: Do you want to hurt yourself or someone else? Patient reports no desire to harm self or others. Onset of symptoms was September 2024. 10:59 Acuity: RHINA 3 aa5 10:59 Method Of Arrival: Ambulatory aa5 Triage Assessment: 11:00 General: Appears in no apparent distress. Behavior is cooperative, appropriate for age, bp anxious. Pain: Denies pain. EENT: No deficits noted. Neuro: No deficits noted. Cardiovascular: No deficits noted. Respiratory: No deficits noted. GI: Reports nausea, vomiting. : No signs and/or symptoms were reported regarding the genitourinary system. Derm: No deficits noted. Musculoskeletal: No deficits noted. Historical: - Allergies: 10:58 Morphine; aa5 - PMHx: 10:58 Anxiety; Bipolar disorder; Endometrosis; aa5 - PSHx: 10:58 Appendectomy; partial hysterectomy; Staph cyst removed from buttocks (Unknown); aa5 - Immunization history:: Adult Immunizations unknown. - Infectious Disease History:: Denies. - Social history:: Smoking status: Patient reports the use of cigarette tobacco products. Screenin:[facility] ED Fall Risk Assessment (Adult) History of falling in the last 3 months, bp including since admission No falls in past 3 months (0 pts) Confusion or Disorientation No (0 pts) Intoxicated or Sedated No (0 pts) Impaired Gait No (0 pts) Mobility Assist Device Used No (0 pt) Altered Elimination No (0 pt) Score/Fall Risk Level 0 - 2 = Low Risk Oriented to surroundings. Abuse screen: Denies threats or abuse. Denies injuries from another. Nutritional screening: No deficits noted. Tuberculosis screening: No symptoms or risk factors identified. Assessment: 11:00 General: SEE TRIAGE NOTE. bp 13:11 GI: Abdomen is non-distended. bp Vital Signs: 10:59 BP 105 / 79; Pulse 56; Resp 16 S; Temp 97.9(O); Pulse Ox 100% on R/A; Weight 48.99 kg aa5 (R); Height 5 ft. 2 in. (R); 13:11 BP 111 / 75; Pulse 62; Resp 16; Pulse Ox 100% ; bp 10:59 Body Mass Index 19.75 (48.99 kg, 157.48 cm) aa5 ED Course: 10:50 Patient arrived in ED. cj3 10:51 Yusuf Dash FNP-C is PHCP. dr5 10:51 Anais Garcia MD is Attending Physician. dr5 10:58 Arm band placed on. aa5 11:00 Triage completed. aa5 11:04 Kaleb Mccartney, VERONICA is Primary Nurse. bp 11:47 Initial lab(s) drawn, by sd, sent to lab. Urine collected: clean catch specimen. bp Inserted saline lock: 20 gauge in right antecubital area, using aseptic technique. Blood collected. Flushed with 10 mL NS. 13:11 Patient has correct armband on for positive identification. bp 13:11 No provider procedures requiring assistance completed. IV discontinued, intact, bp bleeding controlled, No redness/swelling at site. Pressure dressing applied. Administered Medications: 11:45 Drug: Ketorolac IVP 15 mg IVP once Route: IVP; Site: right antecubital; bp 13:13 Follow up: Response: No adverse reaction bp 11:46 Drug: NS 0.9% IV 1000 ml IV at 1000 ml once; to be given as a bolus over 60 minutes bp Route: IV; Rate: 1000 ml; Site: right antecubital; 13:13 Follow up: IV Status: Completed infusion bp 11:47 Drug: Banana Bag - (Multivitamin IV 1 amp, NS 0.9% IV 1000 ml, Thiamine IV 100 mg, bp foLIC Acid IVPB 1 mg) IV at calculated rate once Route: IV; Rate: calculated rate; Site: right antecubital; 13:13 Follow up: IV Status: Completed infusion bp 12:27 Drug: Rocephin IV 1 grams IV at per protocol once; Given slow IV push per pharmacy bp instructions Route: IV; Rate: per protocol; Site: right antecubital; 13:13 Follow up: IV Status: Completed infusion bp Medication: 13:11 VIS not applicable for this client. bp Outcome: 13:01 Discharge ordered by . triny 13:11 Discharged to home ambulatory, with family, bp 13:11 Condition: stable 13:11 Discharge instructions given to patient, Instructed on discharge instructions, follow up and referral plans. medication usage, Demonstrated understanding of instructions, follow-up care, medications, Prescriptions given X 3, 13:13 Patient left the ED. bp Signatures: Luz Marina Urbina, RN RN aa5 Kaleb Mccartney RN RN bp Yusuf Dash, MARINE FIRER-C MARINE FIRER-Cdr5 Vinita Owens cj3
--- NOTE | 2024-09-21 13:02 | EDPHYS ---
Physician Documentation [facility] Name: Nunu Azar Age: 44 yrs Sex: Female : 1980 Arrival Date: 09/21/2024 Time: 10:47 Bed 17 Private MD: ED Physician Anais Garcia HPI: 09/21 12:11 This 44 yrs old Female presents to ER via Ambulatory with complaints of dr5 Nausea/Vomiting, Dehydrated. 12:11 The patient presents to the emergency department with nausea, that is moderate. Onset: dr5 The symptoms/episode began/occurred last night. Patient is a 44-year-old female with history of anxiety, bipolar disorder, endometriosis coming in with nausea and vomiting that started last night. Patient reports that she was celebrating her birthday and over drink alcohol. Patient reports that she has been nauseous and throwing up since. Patient denies chest pain, shortness of breath, diarrhea, constipation.. Historical: - Allergies: 10:58 Morphine; aa5 - PMHx: 10:58 Anxiety; Bipolar disorder; Endometrosis; aa5 - PSHx: 10:58 Appendectomy; partial hysterectomy; Staph cyst removed from buttocks (Unknown); aa5 - Immunization history:: Adult Immunizations unknown. - Infectious Disease History:: Denies. - Social history:: Smoking status: Patient reports the use of cigarette tobacco products. ROS: 12:11 Constitutional: as per hpi dr5 Exam: 12:11 Constitutional: This is a well developed, well nourished patient who is awake, alert, dr5 and in no acute distress. Head/Face: Normocephalic, atraumatic. Eyes: Pupils equal round and reactive to light, extra-ocular motions intact. Lids and lashes normal. Conjunctiva and sclera are non-icteric and not injected. Cornea within normal limits. Periorbital areas with no swelling, redness, or edema. Neck: Trachea midline, no thyromegaly or masses palpated, and no cervical lymphadenopathy. Supple, full range of motion without nuchal rigidity, or vertebral point tenderness. No Meningismus. Chest/axilla: Normal chest wall appearance and motion. Nontender with no deformity. No lesions are appreciated. Cardiovascular: Regular rate and rhythm with a normal S1 and S2. Normal PMI, no JVD. No pulse deficits. Respiratory: Lungs have equal breath sounds bilaterally, clear to auscultation. No rales, rhonchi or wheezes noted. No increased work of breathing, no retractions or nasal flaring. Back: No spinal tenderness. No costovertebral tenderness. Full range of motion. Skin: Warm, dry with normal turgor. Normal color with no rashes, no lesions, and no evidence of cellulitis. MS/ Extremity: Pulses equal, no cyanosis. Neurovascular intact. Full, normal range of motion. Neuro: Awake and alert, GCS 15, oriented to person, place, time, and situation. Cranial nerves II-XII grossly intact. Motor strength 5/5 in all extremities. Sensory grossly intact. Cerebellar exam normal. Normal gait. Vital Signs: 10:59 BP 105 / 79; Pulse 56; Resp 16 S; Temp 97.9(O); Pulse Ox 100% on R/A; Weight 48.99 kg aa5 (R); Height 5 ft. 2 in. (R); 13:11 BP 111 / 75; Pulse 62; Resp 16; Pulse Ox 100% ; bp 10:59 Body Mass Index 19.75 (48.99 kg, 157.48 cm) aa5 MDM: 10:51 Medical Screening Exam initiated dr5 13:04 Differential diagnosis:. Differential diagnosis: Nonspecific abd pain, gastroenteritis, dr5 Alcohol intoxication, dehydration, urinary tract infection. Data reviewed: vital signs, nurses notes, lab test result(s), CBC, white blood cell count, hemoglobin, hematocrit, platelets, electrolytes, sodium, potassium, chloride, serum bicarbonate, BUN, creatinine, serum glucose. Data reviewed:. Consideration of Admission/Observation Escalation of care including admission/observation considered. Admission considered patient found to have severe dehydration and hypokalemia. I considered the following discharge prescriptions or medication management in the emergency department I discussed and recommended Over The Counter medications, Medications were administered in the Emergency Department. See MAR. Historians other than the Patient: Spouse/Significant Other: Significant other. Care significantly affected by the following chronic conditions: Anxiety, bipolar, endometriosis. Care significantly affected by the following Social Determinants of Health: Poor access to healthcare and/or lack of insurance, Poor access to transportation, Problems related to employment. Counseling: I had a detailed discussion with the patient and/or guardian regarding the historical points, exam findings, and any diagnostic results supporting the discharge/admit diagnosis, the presence of at least one elevated blood pressure reading (>120/80) during this emergency department visit, lab results, the need for outpatient follow up, for definitive care, a family practitioner, to return to the emergency department if symptoms worsen or persist or if there are any questions or concerns that arise at home. Medication response: Banana bag, normal saline, Toradol. Response to treatment: the patient's symptoms have resolved after treatment, the patient's condition has returned to base line, the patient is now symptom free. Special discussion: I have referred the patient to see his PCP for further evaluation of high blood pressure. I discussed with the patient/guardian in detail that at this point there is no indication for admission to the hospital. It is understood, however, that if the symptoms persist or worsen the patient needs to return immediately for re-evaluation. Based on the history and exam findings, there is no indication for further emergent testing or inpatient evaluation. I discussed with the patient/guardian the need to see the primary care provider for further evaluation of the symptoms. Will prescribe patient Keflex for urinary tract infection.. ED course: Patient found to have urinary tract infection. Patient symptoms have resolved and she is feeling much better after fluids. Will give patient antibiotics as well as antifungal medication. Strict ER precautions given. Patient reports that she ate and drink in room and feeling better. All questions answered.. 09/21 11:14 Order name: CBC with Diff; Complete Time: 12:13 dr5 09/21 11:14 Order name: BMP; Complete Time: 12:25 dr5 09/21 11:14 Order name: UA Rfx Alonzo Cult if indicated; Complete Time: 12:13 dr5 Administered Medications: 11:45 Drug: Ketorolac IVP 15 mg IVP once Route: IVP; Site: right antecubital; bp 13:13 Follow up: Response: No adverse reaction bp 11:46 Drug: NS 0.9% IV 1000 ml IV at 1000 ml once; to be given as a bolus over 60 minutes bp Route: IV; Rate: 1000 ml; Site: right antecubital; 13:13 Follow up: IV Status: Completed infusion bp 11:47 Drug: Banana Bag - (Multivitamin IV 1 amp, NS 0.9% IV 1000 ml, Thiamine IV 100 mg, bp foLIC Acid IVPB 1 mg) IV at calculated rate once Route: IV; Rate: calculated rate; Site: right antecubital; 13:13 Follow up: IV Status: Completed infusion bp 12:27 Drug: Rocephin IV 1 grams IV at per protocol once; Given slow IV push per pharmacy bp instructions Route: IV; Rate: per protocol; Site: right antecubital; 13:13 Follow up: IV Status: Completed infusion bp Disposition Summary: 09/21/24 13:01 Discharge Ordered Notes: Location: Home dr5 Condition: Stable dr5 Diagnosis - UTI/ Urinary tract infection, site not specified dr5 - Candidiasis of vulva and vagina dr5 - Dehydration dr5 Followup: dr5 - With: Emergency Department - When: As needed - Reason: Worsening of condition Followup: dr5 - With: Private Physician - When: 1 - 2 days - Reason: Recheck today's complaints, Continuance of care, Re-evaluation by your physician Discharge Instructions: - Discharge Summary Sheet dr5 - Dehydration, Adult dr5 - Vaginal Yeast Infection, Adult dr5 - Urinary Tract Infection, Adult, [id number] dr5 Forms: - Medication Reconciliation Form dr5 - Antibiotic Education dr5 - Patient Portal Instructions dr5 - Leadership Thank You Letter dr5 Prescriptions: - Cephalexin 500 mg Oral capsule - take 1 capsule ORAL route every 12 hours for 7 days; 14 capsule; Refills: 0, dr5 Product Selection Permitted - Zofran 4 mg Oral Tablet - take 1 tablet ORAL route every 12 hours As needed; 20 tablet; Refills: 0, dr5 Product Selection Permitted - Fluconazole 150 mg Oral tablet - take 1 tablet ORAL route one time for 1 day; 1 tablet; Refills: 0, Product dr5 Selection Permitted Signatures: Dispatcher [employer] Luz Marina Vidal RN RN aa5 Kaleb Mccartney RN RN bp Yusuf Dash, SUPERVISOR [employer]ICATIONS AND SIGNALS-C SUPERVISOR COMMUNICATIONS AND SIGNALS-Cdr5
[2024-09-21 14:36] VITALS: BP 111/75; TEMP 97.9; O2SAT 100
== END 2024-09-21 13:13 | disposition home or self-care (01) ==
LOC: ER 10:47
DX: N39.0 Urinary tract infection, site not specified (principal); B37.31 Acute candidiasis of vulva and vagina; E86.0 Dehydration; Z72.0 Tobacco use
CPT/HCPCS: 96365; 85025; 81001; 80048; 36415; 96375; 99284; J3411; J7030; J0696